=== PATIENT | male | born 1990 | race Two or more races ===

== ENCOUNTER 2022-05-06 23:39 | Inpatient (IN) | payer OTHER, SELFPAY ==
--- NOTE | 2022-05-07 02:05 | PC.ADMIT ---
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 PT IS A CONDITIONAL VOLUNTARY ON 15 MINUTE SAFETY CHECKS. PSYCH GROUP. COVID NEGATIVE. STABLE VITAL SIGNS. LABS UNREMARKABLE. NO ACTIVE MEDICAL CONCERNS. EKG NORMAL SINUS RHYTHM. PT WAS BROUGHT TO [facility] ED BY POLICE AFTER CALLING THE POLICE ON HIMSELF. PT APPEARED PARANOID AND WAS MAKING NONSENSICAL STATEMENTS, LOCKING THE POLICE OUT OF HIS HOME. PT REPORTS BEING ON CRYSTAL METH AT THE TIME OF TRANSFER TO THE HOSPITAL. PT BECAME COMBATIVE AT [facility] ED AND WAS PHYSICALLY AND MEDICATION RESTRAINED. PT HAS A SERVICE DOG WHO WAS BROUGHT TO [facility] FOR THE TIME BEING BY EMS. PT IS ALERT AND ORIENTED X4. PTS SPEECH IS CLEAR AND APPROPRIATE. PT HAS IMPAIRED INSIGHT AND COPING. PT REPORTS THAT HE THINKS PEOPLE HAVE BEEN POINTING AT HIM AND LOOKING AWAY FROM HIM IN PUBLIC. PT STATED, PEOPLE HAVE BEEN POINTED AT ME A LOT AND IT MAKES ME THINK I AM GOING TO BE SHOT AND KILLED,LIKE IM BEING TARGETED . PT STATED THAT HE KNOWS HE SOUNDS CRAZY . PT REPORTS INCREASED ANXIETY AND DEPRESSION. HE DENIES AH OR VH. PT DENIES THE URGE TO HARM HIMSELF OR OTHERS, STATING I WOULD NEVER HURT ANYONE AND NEVER WANT TO HURT MYSELF. I AM A LOVABLE PERSON AND GET ALONG WITH EVERYONE . PT APPEARED ANXIOUS OVER HAVING A ROOMMATE, ASKING MULTIPLE QUESTIONS ABOUT THE UNIT AND HIS ROOMING SITUATION. PT DENIES ALCOHOL USE. PT REPORTS USING STIMULANTS AND CANNABIS. PT HAS HAD AN INCREASED APPETITE LATELY AND REPORTS SLEEPING WELL MOST OF THE TIME. PT IS NOT A SMOKER AND DOES NOT NEED NICOTINE REPLACEMENT. PTS TREATMENT PLAN, SAFETY TOOL, AND MEDICATION RECONCILIATION ARE COMPLETED. PT WAS COOPERATIVE DURING ADMISSION PROCESS. PT REPORTS THAT HIS GOALS FOR ADMISSION ARE TO GET HELP WITH GETTING OFF STIMULANTS, TO FEEL LESS PARANOID, AND TO ESTABLISH A THERAPIST/PSYCHIATRIST.
[2022-05-07 06:00] VITALS: BP 126/82; PULSE 100; RESP 16; TEMP 36.5; O2SAT 100
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
[2022-05-07 10:05] LABS: Alanine Aminotransferase 16 U/L (0-40); Albumin Level 4.2 g/dL (3.5-5.0); Alkaline Phosphatase 79 U/L (39-117); Anion Gap 17 (12-20); Aspartate Amino Transferase 16 U/L (5-37); Bilirubin Total 0.4 mg/dL (0.0-1.0); Blood Urea Nitrogen 10 mg/dL (9-16); Calcium 9.2 mg/dL (8.4-10.2); Carbon Dioxide 25 mmol/L (22-29); Chloride 102 mmol/L (96-108); Cholesterol 207 mg/dL; Estimated Glomerular Filt Rate > 60; Glucose Fasting 61 mg/dL (60-99); HDL Cholesterol 53 mg/dL; LDL Cholesterol Calculated 122 mg/dl; Potassium 4.7 mmol/L (3.3-5.1); Sodium 139 mmol/L (135-145); Total Protein 7.4 g/dL (6.5-8.0); Triglycerides 160 mg/dL
[2022-05-07 18:00] VITALS: BP 137/87; PULSE 93; RESP 16; TEMP 36.5; O2SAT 97
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
[2022-05-08] MEDS: valACYclovir HCL 500 MG TABLET PO (14:39)
[2022-05-08] MEDS: hydrOXYzine HCL 25 MG TABLET PO (14:39)
[2022-05-08] MEDS: OLANZapine 2.5 MG TABLET PO ×2 (14:39→19:43)
[2022-05-08] MEDS: Dolutegravir Sodium 50 MG TABLET PO (15:46)
[2022-05-08] MEDS: Sertraline HCL 100 MG TABLET 200 MG PO (15:46)
[2022-05-08 18:00] VITALS: BP 145/68; PULSE 88; RESP 16; TEMP 36.8; O2SAT 99
[2022-05-08] MEDS: rOPINIRole HCL 0.25 MG TABLET PO (19:43)
[2022-05-08] MEDS: OLANZapine 5 MG TABLET PO (19:43)
[2022-05-09] MEDS: Sertraline HCL 100 MG TABLET 200 MG PO (09:04)
[2022-05-09] MEDS: OLANZapine 2.5 MG TABLET PO ×2 (09:04→20:13)
[2022-05-09] MEDS: Dolutegravir Sodium 50 MG TABLET PO (09:04)
[2022-05-09] MEDS: valACYclovir HCL 500 MG TABLET PO (09:04)
[2022-05-09 18:00] VITALS: BP 109/68; PULSE 74; RESP 16; TEMP 36.8; O2SAT 99
[2022-05-09] MEDS: OLANZapine 5 MG TABLET PO (20:12)
[2022-05-09] MEDS: rOPINIRole HCL 0.25 MG TABLET PO (20:13)
--- NOTE | 2022-05-09 22:24 | P.PNPSI_ITS ---
Subjective Subjective Date of Service: 05/09/22 Reason For Visit: Unspecified depressive disorder Diagnostics Vital Signs (24Hr): resting he has been sleeping most of the day Narrative: Temperature 98.2 F Pulse Rate 74 Respiratory Rate 16 improved. Diagnostics Vital Signs (24Hr): Oxygen Delivery Method Room Air 05/09/22 Temperature 98.2 F Pulse Rate 74 Respiratory Rate 16 Blood Pressure 109/68 Pulse Oximetry 99 Oxygen Delivery Method Room Air Labs Results: 05/07/22 09:14 Medications Medications Current Medications Acetaminophen (Acetaminophen 325 Mg Tablet) 650 mg PO Q6H PRN PRN Reason: Headache/Pain Mild Scale (1-3) Al Hydroxide/Mg Hydroxide (Magnesium Hydrox/Alum Hydrox 30 Ml Oral.Susp) 30 ml PO Q6H PRN PRN Reason: Heartburn/Nausea Dolutegravir Sodium (Dolutegravir Sodium 50 Mg Tablet) 50 mg PO DAILY [facility] Last Admin: 05/09/22 09:04 Dose: 50 mg Hydroxyzine HCl (Hydroxyzine Hcl 25 Mg Tablet) 25 mg PO Q6H PRN PRN Reason: Anxiety Last Admin: 05/08/22 14:39 Dose: 25 mg Lamivudine (Lamivudine 150 Mg Tablet) 300 mg PO DAILY [facility] Loratadine (Loratadine 10 Mg Tablet) 10 mg PO DAILY PRN
--- NOTE | 2022-05-09 22:24 | HO.PSYCHPN ---
Subjective Subjective Date of Service: 05/09/22 Reason For Visit: Unspecified depressive disorder Interim History: Patient reports that he is better...good however he says he is feeling very tired today likely because of medication being restarted wants to continue resting he has been sleeping most of the day Mental Status Exam Mental Status Exam Narrative: Pt is alert and oriented; behavior is cooperative, calm, friendly; dressed in casual attire with blue colored, styled hair and adequate hygiene; mood is described as better and affect congruent, calmer; good eye contact; Speech is normal rate, volume and prosody and not pressured; no psychomotor retardation present; thought process is goal directed, linear; Thought content is on treatment, getting and staying sober; denies any SI/HI. There is no evidence of perceptual disturbance. Patients insight and judgment are impaired but improved. Diagnostics Vital Signs (24Hr): Vital Signs - 24 hr 05/09/22 18:00 Temperature 98.2 F Pulse Rate 74 Respiratory Rate 16 Blood Pressure 109/68 Pulse Oximetry 99 Oxygen Delivery Method Room Air Labs Results: 05/07/22 09:14 Medications Medications Current Medications Acetaminophen (Acetaminophen 325 Mg Tablet) 650 mg PO Q6H PRN PRN Reason: Headache/Pain Mild Scale (1-3) Al Hydroxide/Mg Hydroxide (Magnesium Hydrox/Alum Hydrox 30 Ml Oral.Susp) 30 ml PO Q6H PRN PRN Reason: Heartburn/Nausea Dolutegravir Sodium (Dolutegravir Sodium 50 Mg Tablet) 50 mg PO DAILY [facility] Last Admin: 05/09/22 09:04 Dose: 50 mg Hydroxyzine HCl (Hydroxyzine Hcl 25 Mg Tablet) 25 mg PO Q6H PRN PRN Reason: Anxiety Last Admin: 05/08/22 14:39 Dose: 25 mg Lamivudine (Lamivudine 150 Mg Tablet) 300 mg PO DAILY [facility] Loratadine (Loratadine 10 Mg Tablet) 10 mg PO DAILY PRN PRN Reason: Congestion Magnesium Hydroxide (Milk Of Magnesia 30 Ml Oral.Susp) 30 ml PO DAILY PRN PRN Reason: Constipation Olanzapine (Olanzapine 5 Mg Tablet) 5 mg PO BEDTIME [facility] Last Admin: 05/09/22 20:12 Dose: 5 mg Olanzapine (Olanzapine 2.5 Mg Tablet) 2.5 mg PO BID [facility] Last Admin: 05/09/22 20:13 Dose: 2.5 mg Ropinirole HCl (Ropinirole Hcl 0.25 Mg Tablet) 0.25 mg PO BEDTIME [facility] Last Admin: 05/09/22 20:13 Dose: 0.25 mg Sertraline HCl (Sertraline Hcl 100 Mg Tablet) 200 mg PO DAILY [facility] Last Admin: 05/09/22 09:04 Dose: 200 mg Trazodone HCl (Trazodone Hcl 50 Mg Tablet) 50 mg PO BEDTIME PRN PRN Reason: Insomnia Valacyclovir HCl (Valacyclovir Hcl 500 Mg Tablet) 500 mg PO DAILY [facility] Last Admin: 05/09/22 09:04 Dose: 500 mg Allergies Allergies Allergy/AdvReac Type Severity Reaction Status Date / Time No Known Allergies Allergy Verified 05/06/22 23:46 Assessment & Plan Assessment & Plan (1) Drug-induced psychotic disorder with delusions: Status: Acute Code(s): F19.950 - Other psychoactive substance use, unspecified with psychoactive substance-induced psychotic disorder with delusions (2) Post traumatic stress disorder (PTSD): Status: Acute Code(s): F43.10 - Post-traumatic stress disorder, unspecified (3) MDD (major depressive disorder), recurrent episode, moderate: Status: Acute Code(s): F33.1 - Major depressive disorder, recurrent, moderate (4) Methamphetamine addiction: Status: Acute Code(s): F15.20 - Other stimulant dependence, uncomplicated Plan Patient is a 31-year-old male with history of depression, psychotic symptoms and methamphetamine and other substance abuse who presents for disorganized and psychotic behavior.? Patient is currently calm, lying in bed with his eyes closed throughout the interview -patient is currently calm and cooperative though with some odd behaviors -patient has had 2 recent hospital presentations for paranoia, disorganized behavior in craig -will see collateral and get patient back on medications and try to figure out how much of his presentation is due to organic psychotic illness verses Methamphetamine abuse 05/08 patient gave permission for collateral, signed release of information.? Patient's report and collateral both seem to concur that patient's disorganized, paranoid behaviors or all in the context of methamphetamine abuse; patient currently denies any SI or HI or AVH; no paranoid thinking expressed (thinks that to former friends have been stealing from him however this is quite plausible).? Patient would like to continue Zoloft and agrees to continue with Zyprexa.? Review of history and patient denies any discrete manic episodes or behaviors 05/09 patient is calm no psychotic symptoms; seems much more likely that patient recent and past episodes of paranoid, disorganized behavior due to methamphetamine abuse and drug-induced rather than an organic psychotic illness; he does have PTSD and depression. Plan: CV Q 15 minute checks PTSD/depression Continue Zoloft 200mg Continue Zyprexa 2.5 mg b.i.d. Continue Zyprexa 5 mg q.h.s. See collateral review labs Start ropinirole 0.25 mg q.h.s. (patient described what sounds very much like restless leg as he needs to thought been move his legs at night and otherwise cannot sleep) HIV Continue HAART with HIV. I spent minutes with the patient and/or on the patient floor today, greater than?50% of which was spent counseling/coordinating care. Patient educated on: diagnosis, medication risk/benefits and substance abuse Informed Consent: understands Reason for contiued inpatient stay Substantial Risk for: rapid decompensation
[2022-05-10 06:00] VITALS: BP 149/91; PULSE 84; RESP 18; TEMP 36.4; O2SAT 97
[2022-05-10] MEDS: lamiVUDine 150 MG TABLET 300 MG PO (09:48)
[2022-05-10] MEDS: Sertraline HCL 100 MG TABLET 200 MG PO (09:48)
[2022-05-10] MEDS: Dolutegravir Sodium 50 MG TABLET PO (09:48)
[2022-05-10] MEDS: OLANZapine 2.5 MG TABLET PO (09:48)
[2022-05-10] MEDS: valACYclovir HCL 500 MG TABLET PO (09:48)
[2022-05-10] MEDS: busPIRone HCl 5 MG TABLET PO ×2 (14:47→19:14)
[2022-05-10 17:28] VITALS: BP 121/78; PULSE 83; RESP 16; TEMP 35.7; O2SAT 98
[2022-05-10] MEDS: rOPINIRole HCL 0.25 MG TABLET 0.5 MG PO (19:14)
[2022-05-10] MEDS: OLANZapine 5 MG TABLET PO (19:14)
--- NOTE | 2022-05-10 20:20 | HO.PSYCHPN ---
Subjective Subjective Date of Service: 05/10/22 Reason For Visit: Unspecified depressive disorder Interim History: Patient calm and says he is feeling much better. Says he is sleeping that restless leg was a less knows will but it does. He agrees to increase ropinirole. Patient is not so sure he needs Zyprexa and does not think that it done much for him. He agrees to discontinue the 2.5 mg b.i.d. and leave the bedtime dose for now. However because of continued anxiety that has been bothersome for years, he agrees to try BuSpar as an augmentation to Zoloft before moving on to other med trials. Patient says he very much needs an outpatient program post discharge otherwise he will remain very vulnerable to relapse. Mental Status Exam Mental Status Exam Narrative: Pt is alert and oriented; behavior is cooperative, calm, friendly; dressed in casual attire with blue colored, styled hair and adequate hygiene; mood is described as better and affect congruent, calmer; good eye contact; Speech is normal rate, volume and prosody and not pressured; no psychomotor retardation present; thought process is goal directed, linear; Thought content is on treatment, getting and staying sober; denies any SI/HI. There is no evidence of perceptual disturbance. Patients insight and judgment are fair. Diagnostics Vital Signs (24Hr): Vital Signs - 24 hr 05/10/22 06:00 05/10/22 17:28 Temperature 97.5 F 96.3 F L Pulse Rate 84 83 Respiratory Rate 18 16 Blood Pressure 149/91 H 121/78 Pulse Oximetry 97 98 Oxygen Delivery Method Room Air Room Air Labs Results: 05/07/22 09:14 Medications Medications Current Medications Acetaminophen (Acetaminophen 325 Mg Tablet) 650 mg PO Q6H PRN PRN Reason: Headache/Pain Mild Scale (1-3) Al Hydroxide/Mg Hydroxide (Magnesium Hydrox/Alum Hydrox 30 Ml Oral.Susp) 30 ml PO Q6H PRN PRN Reason: Heartburn/Nausea Buspirone HCl (Buspirone Hcl 5 Mg Tablet) 5 mg PO BID [facility] Last Admin: 05/10/22 19:14 Dose: 5 mg Dolutegravir Sodium (Dolutegravir Sodium 50 Mg Tablet) 50 mg PO DAILY [facility] Last Admin: 05/10/22 09:48 Dose: 50 mg Hydroxyzine HCl (Hydroxyzine Hcl 25 Mg Tablet) 25 mg PO Q6H PRN PRN Reason: Anxiety Last Admin: 05/08/22 14:39 Dose: 25 mg Lamivudine (Lamivudine 150 Mg Tablet) 300 mg PO DAILY [facility] Last Admin: 05/10/22 09:48 Dose: 300 mg Loratadine (Loratadine 10 Mg Tablet) 10 mg PO DAILY PRN PRN Reason: Congestion Magnesium Hydroxide (Milk Of Magnesia 30 Ml Oral.Susp) 30 ml PO DAILY PRN PRN Reason: Constipation Olanzapine (Olanzapine 5 Mg Tablet) 5 mg PO BEDTIME [facility] Last Admin: 05/10/22 19:14 Dose: 5 mg Ropinirole HCl (Ropinirole Hcl 0.25 Mg Tablet) 0.5 mg PO BEDTIME [facility] Last Admin: 05/10/22 19:14 Dose: 0.5 mg Sertraline HCl (Sertraline Hcl 100 Mg Tablet) 200 mg PO DAILY [facility] Last Admin: 05/10/22 09:48 Dose: 200 mg Trazodone HCl (Trazodone Hcl 50 Mg Tablet) 50 mg PO BEDTIME PRN PRN Reason: Insomnia Valacyclovir HCl (Valacyclovir Hcl 500 Mg Tablet) 500 mg PO DAILY [facility] Last Admin: 05/10/22 09:48 Dose: 500 mg Allergies Allergies Allergy/AdvReac Type Severity Reaction Status Date / Time No Known Allergies Allergy Verified 05/06/22 23:46 Assessment & Plan Assessment & Plan (1) Drug-induced psychotic disorder with delusions: Status: Acute Code(s): F19.950 - Other psychoactive substance use, unspecified with psychoactive substance-induced psychotic disorder with delusions (2) Post traumatic stress disorder (PTSD): Status: Acute Code(s): F43.10 - Post-traumatic stress disorder, unspecified (3) MDD (major depressive disorder), recurrent episode, moderate: Status: Acute Code(s): F33.1 - Major depressive disorder, recurrent, moderate (4) Methamphetamine addiction: Status: Acute Code(s): F15.20 - Other stimulant dependence, uncomplicated Plan Patient is a 31-year-old male with history of depression, psychotic symptoms and methamphetamine and other substance abuse who presents for disorganized and psychotic behavior.? Patient is currently calm, lying in bed with his eyes closed throughout the interview -patient is currently calm and cooperative though with some odd behaviors -patient has had 2 recent hospital presentations for paranoia, disorganized behavior in [place] -will see collateral and get patient back on medications and try to figure out how much of his presentation is due to organic psychotic illness verses Methamphetamine abuse 05/08 patient gave permission for collateral, signed release of information.? Patient's report and collateral both seem to concur that patient's disorganized, paranoid behaviors or all in the context of methamphetamine abuse; patient currently denies any SI or HI or AVH; no paranoid thinking expressed (thinks that to former friends have been stealing from him however this is quite plausible).? Patient would like to continue Zoloft and agrees to continue with Zyprexa.? Review of history and patient denies any discrete manic episodes or behaviors 05/09 patient is calm no psychotic symptoms; seems much more likely that patient recent and past episodes of paranoid, disorganized behavior due to methamphetamine abuse and drug-induced rather than an organic psychotic illness; he does have PTSD and depression. Plan: CV Q 15 minute checks PTSD/depression Continue Zoloft 200mg DCZyprexa 2.5 mg b.i.d. START Buspare 5mg BID for ongoing anxiety not controlled by Zoloft; will titrate Continue Zyprexa 5 mg q.h.s. See collateral review labs Increase to ropinirole 0.5mg q.h.s. (patient described what sounds very much like restless leg as he needs to thought been move his legs at night and otherwise cannot sleep); reviewed risks/side-effects HIV Continue HAART with HIV. I spent minutes with the patient and/or on the patient floor today, greater than?50% of which was spent counseling/coordinating care. Patient educated on: diagnosis, medication risk/benefits, substance abuse and therapeutic strategies Informed Consent: understands Reason for contiued inpatient stay Substantial Risk for: rapid decompensation
[2022-05-11 06:00] VITALS: BP 143/81; PULSE 93; RESP 18; TEMP 36.8; O2SAT 97
[2022-05-11] MEDS: valACYclovir HCL 500 MG TABLET PO (09:52)
[2022-05-11] MEDS: Sertraline HCL 100 MG TABLET 200 MG PO (09:52)
[2022-05-11] MEDS: lamiVUDine 150 MG TABLET 300 MG PO (09:53)
[2022-05-11] MEDS: Dolutegravir Sodium 50 MG TABLET PO (09:54)
[2022-05-11] MEDS: busPIRone HCl 5 MG TABLET PO (09:54)
--- NOTE | 2022-05-11 14:19 | HO.PSYCHPN ---
Subjective Subjective Date of Service: 05/11/22 Reason For Visit: Unspecified depressive disorder Interim History: Patient reports that he is doing well; no depression no SI. Still some anxiety and would like BuSpar to be increased. Otherwise looking forward to discussing options with social work job titles when they return tomorrow. Patient reported a burning sensation during urination with some discharge, requesting testing for STD. Patient remains in good behavioral and impulse control, social with peers and appropriate with staff other patients. No AVH Diagnostics Vital Signs (24Hr): Vital Signs - 24 hr 05/10/22 17:28 05/11/22 06:00 Temperature 96.3 F L 98.2 F Pulse Rate 83 93 Respiratory Rate 16 18 Blood Pressure 121/78 143/81 H Pulse Oximetry 98 97 Oxygen Delivery Method Room Air Room Air Labs Results: 05/07/22 09:14 Medications Medications Current Medications Acetaminophen (Acetaminophen 325 Mg Tablet) 650 mg PO Q6H PRN PRN Reason: Headache/Pain Mild Scale (1-3) Al Hydroxide/Mg Hydroxide (Magnesium Hydrox/Alum Hydrox 30 Ml Oral.Susp) 30 ml PO Q6H PRN PRN Reason: Heartburn/Nausea Buspirone HCl (Buspirone Hcl 10 Mg Tablet) 10 mg PO BID [facility] Clonidine HCl (Clonidine Hcl 0.1 Mg Tablet) 0.1 mg PO Q4H PRN; Protocol PRN Reason: Anxiety Dolutegravir Sodium (Dolutegravir Sodium 50 Mg Tablet) 50 mg PO DAILY [facility] Last Admin: 05/11/22 09:54 Dose: 50 mg Hydroxyzine HCl (Hydroxyzine Hcl 25 Mg Tablet) 25 mg PO Q6H PRN PRN Reason: Anxiety Last Admin: 05/08/22 14:39 Dose: 25 mg Lamivudine (Lamivudine 150 Mg Tablet) 300 mg PO DAILY [facility] Last Admin: 05/11/22 09:53 Dose: 300 mg Loratadine (Loratadine 10 Mg Tablet) 10 mg PO DAILY PRN PRN Reason: Congestion Magnesium Hydroxide (Milk Of Magnesia 30 Ml Oral.Susp) 30 ml PO DAILY PRN PRN Reason: Constipation Olanzapine (Olanzapine 5 Mg Tablet) 5 mg PO BEDTIME [facility] Last Admin: 05/10/22 19:14 Dose: 5 mg Ropinirole HCl (Ropinirole Hcl 0.25 Mg Tablet) 0.5 mg PO BEDTIME [facility] Last Admin: 05/10/22 19:14 Dose: 0.5 mg Sertraline HCl (Sertraline Hcl 100 Mg Tablet) 200 mg PO DAILY [facility] Last Admin: 05/11/22 09:52 Dose: 200 mg Trazodone HCl (Trazodone Hcl 50 Mg Tablet) 50 mg PO BEDTIME PRN PRN Reason: Insomnia Valacyclovir HCl (Valacyclovir Hcl 500 Mg Tablet) 500 mg PO DAILY [facility] Last Admin: 05/11/22 09:52 Dose: 500 mg Allergies Allergies Allergy/AdvReac Type Severity Reaction Status Date / Time No Known Allergies Allergy Verified 05/06/22 23:46 Assessment & Plan Assessment & Plan (1) Drug-induced psychotic disorder with delusions: Status: Acute Code(s): F19.950 - Other psychoactive substance use, unspecified with psychoactive substance-induced psychotic disorder with delusions (2) Post traumatic stress disorder (PTSD): Status: Acute Code(s): F43.10 - Post-traumatic stress disorder, unspecified (3) MDD (major depressive disorder), recurrent episode, moderate: Status: Acute Code(s): F33.1 - Major depressive disorder, recurrent, moderate (4) Methamphetamine addiction: Status: Acute Code(s): F15.20 - Other stimulant dependence, uncomplicated Plan Patient is a 31-year-old male with history of depression, psychotic symptoms and methamphetamine and other substance abuse who presents for disorganized and psychotic behavior.? Patient is currently calm, lying in bed with his eyes closed throughout the interview -patient is currently calm and cooperative though with some odd behaviors -patient has had 2 recent hospital presentations for paranoia, disorganized behavior in [place] -will see collateral and get patient back on medications and try to figure out how much of his presentation is due to organic psychotic illness verses Methamphetamine abuse 05/08 patient gave permission for collateral, signed release of information.? Patient's report and collateral both seem to concur that patient's disorganized, paranoid behaviors or all in the context of methamphetamine abuse; patient currently denies any SI or HI or AVH; no paranoid thinking expressed (thinks that to former friends have been stealing from him however this is quite plausible).? Patient would like to continue Zoloft and agrees to continue with Zyprexa.? Review of history and patient denies any discrete manic episodes or behaviors 05/09 patient is calm no psychotic symptoms; seems much more likely that patient recent and past episodes of paranoid, disorganized behavior due to methamphetamine abuse and drug-induced rather than an organic psychotic illness; he does have PTSD and depression. 05/10 patient remains in good behavioral control, no SI and no AVH psychotic symptoms; would like BuSpar to be increased for anxiety; like testing for STD given burning sensation during urination with some discharge. Adding clonidine at bedtime for trouble sleeping though not nightmares Plan: CV Q 15 minute checks PTSD/depression Continue Zoloft 200mg DCZyprexa 2.5 mg b.i.d. Increase to Buspare 1omg BID for ongoing anxiety not controlled by Zoloft; will titrate START Clonidine 0.1mg qhs for trouble sleeping Continue Zyprexa 5 mg q.h.s. Continue ropinirole 0.5mg q.h.s. (patient described what sounds very much like restless leg as he needs to thought been move his legs at night and otherwise cannot sleep); reviewed risks/side-effects See collateral review labs Labs: CTNG pcr chlamydia/gonorrhea RPR Hepatitis B/C panel UA clean-catch HIV Continue HAART with HIV. I spent minutes with the patient and/or on the patient floor today, greater than?50% of which was spent counseling/coordinating care. Patient educated on: diagnosis, medication risk/benefits and therapeutic strategies Informed Consent: understands Reason for contiued inpatient stay Substantial Risk for: stable for discharge
[2022-05-11 14:55] LABS: Syphilis Screen Reactive (Nonreactive)
[2022-05-11 15:18] LABS: Appearance Urine Clear; Color Urine Yellow; Glucose Urine UA Negative (Negative); Leukocyte Esterase Urine Moderate (2+) (Negative); Nitrite Urine Negative (Negative); PH 5.5 (5.0-9.0); UMIC TRIGGER UACC YES; Urine Blood Negative (Negative); Urine Ketones Negative (Negative); Urine Protein Negative (Neg-Trace)
[2022-05-11 15:23] LABS: Bacteria Urine None Seen (None Seen); Hyaline Casts Urine 0-2 /LPF (0-2); RBC Urine 0-2 /HPF (0-2); Squamous Epithelial Cell Urine 0-2 /HPF (0-2); UACC Culture Trigger YES; WBC Urine >50 /HPF (0-5)
[2022-05-11 17:34] LABS: CT PCR NOT DETECTED (Not Detect.); NG PCR DETECTED (Not Detect.)
[2022-05-11 18:00] VITALS: BP 143/80; PULSE 102; RESP 20; TEMP 36.4; O2SAT 95
[2022-05-11] MEDS: OLANZapine 5 MG TABLET PO (20:11)
[2022-05-11] MEDS: busPIRone HCl 10 MG TABLET PO (20:11)
[2022-05-11] MEDS: rOPINIRole HCL 0.25 MG TABLET 0.5 MG PO (20:11)
[2022-05-12 06:04] LABS: HBS Num1 107.26 mIU/mL (0-7.99); HBc Num1 1.12 S/CO (0.00-0.79); HBsAGNum1 0.12 S/CO (0.00-0.99); Hepatitis B Surface Antigen Negative (Negative); ~HepC Num1 15.27 S/CO (0.00-0.79); ~Hepatitis B Surface Antibody REACTIVE (Nonreactive); ~Hepatitis C Antibody Reactive (Nonreactive)
[2022-05-12 06:50] LABS: HBc Num2 1.06 S/CO; HBc Num3 1.09 S/CO; Hepatitis B Core Antibody Reactive (Nonreactive)
[2022-05-12] MEDS: lamiVUDine 150 MG TABLET 300 MG PO (08:37)
[2022-05-12] MEDS: valACYclovir HCL 500 MG TABLET PO (08:37)
[2022-05-12] MEDS: busPIRone HCl 10 MG TABLET PO ×2 (08:37→20:58)
[2022-05-12] MEDS: Dolutegravir Sodium 50 MG TABLET PO (08:38)
[2022-05-12] MEDS: Sertraline HCL 100 MG TABLET 200 MG PO (08:38)
[2022-05-12 09:26] VITALS: BP 134/85; PULSE 91; RESP 18; TEMP 36.8; O2SAT 100
[2022-05-12 16:11] VITALS: BMI 25.7
[2022-05-12 16:15] VITALS: BP 145/70; PULSE 81; TEMP 36.3
--- NOTE | 2022-05-12 18:00 | HO.PSYCHPN ---
Subjective Subjective Date of Service: 05/12/22 Reason For Visit: Unspecified depressive disorder Interim History: Patient reports good mood, and anxiety is better. He would like to try being off the Zyprexa and so will make it p.r.n.. Remains very interested in aftercare for substance abuse treatment. Denies any SI or HI or AVH. Reviewed lab work and positive results for STDs and patient agrees with antibiotic treatment, further lab analysis Mental Status Exam Mental Status Exam Narrative: Pt is alert and oriented; behavior is cooperative, calm, friendly; dressed in casual attire with blue colored, styled hair and adequate hygiene; mood is described as good and affect congruent, calmer; good eye contact; Speech is normal rate, volume and prosody and not pressured; no psychomotor retardation present; thought process is goal directed, linear; Thought content is on treatment, getting and staying sober; denies any SI/HI. There is no evidence of perceptual disturbance. Patients insight and judgment are fair. Diagnostics Vital Signs (24Hr): Vital Signs - 24 hr 05/12/22 09:26 Temperature 98.2 F Pulse Rate 91 Respiratory Rate 18 Blood Pressure 134/85 Pulse Oximetry 100 Oxygen Delivery Method Room Air BMI result Body Mass Index 25.7 Labs Results: 05/07/22 09:14 Labs: Laboratory Results - last 48 hr 05/11/22 05/11/22 05/11/22 14:10 14:10 14:19 Urine Color Urine Appearance Urine pH Ur Specific [place] Urine Protein Urine Glucose (UA) Urine Ketones Urine Blood Urine Nitrite Ur Leukocyte Esterase Urine RBC Urine WBC Ur Squamous Epith Cells Urine Bacteria Hyaline Casts T.pallidum Ab (EIA) Reactive A Chlam trachomat DNA PCR NOT DETECTED Hep Bs Antigen Negative Hep Bs Antibody REACTIVE Hep B Core Total Ab Reactive Hep B Core IgM Ab Cancelled Hepatitis C Ab (EIA) Reactive H N.gonorrhoeae DNA (PCR) DETECTED A 05/11/22 14:46 Urine Color Yellow Urine Appearance Clear Urine pH 5.5 Ur Specific [place] 1.020 Urine Protein Negative Urine Glucose (UA) Negative Urine Ketones Negative Urine Blood Negative Urine Nitrite Negative Ur Leukocyte Esterase Moderate (2+) H Urine RBC 0-2 Urine WBC >50 H Ur Squamous Epith Cells 0-2 Urine Bacteria None Seen Hyaline Casts 0-2 T.pallidum Ab (EIA) Chlam trachomat DNA PCR Hep Bs Antigen Hep Bs Antibody Hep B Core Total Ab Hep B Core IgM Ab Hepatitis C Ab (EIA) N.gonorrhoeae DNA (PCR) Medications Medications Current Medications Acetaminophen (Acetaminophen 325 Mg Tablet) 650 mg PO Q6H PRN PRN Reason: Headache/Pain Mild Scale (1-3) Al Hydroxide/Mg Hydroxide (Magnesium Hydrox/Alum Hydrox 30 Ml Oral.Susp) 30 ml PO Q6H PRN PRN Reason: Heartburn/Nausea Buspirone HCl (Buspirone Hcl 10 Mg Tablet) 10 mg PO BID [facility] Last Admin: 05/12/22 08:37 Dose: 10 mg Clonidine HCl (Clonidine Hcl 0.1 Mg Tablet) 0.1 mg PO Q4H PRN; Protocol PRN Reason: Anxiety Dolutegravir Sodium (Dolutegravir Sodium 50 Mg Tablet) 50 mg PO DAILY [facility] Last Admin: 05/12/22 08:38 Dose: 50 mg Doxycycline Hyclate (Doxycycline Hyclate 100 Mg Tablet) 100 mg PO BID [facility] Stop: 05/21/22 23:50 Last Admin: 05/12/22 16:25 Dose: 100 mg Hydroxyzine HCl (Hydroxyzine Hcl 25 Mg Tablet) 25 mg PO Q6H PRN PRN Reason: Anxiety Last Admin: 05/08/22 14:39 Dose: 25 mg Lamivudine (Lamivudine 150 Mg Tablet) 300 mg PO DAILY [facility] Last Admin: 05/12/22 08:37 Dose: 300 mg Loratadine (Loratadine 10 Mg Tablet) 10 mg PO DAILY PRN PRN Reason: Congestion Magnesium Hydroxide (Milk Of Magnesia 30 Ml Oral.Susp) 30 ml PO DAILY PRN PRN Reason: Constipation Olanzapine (Olanzapine 5 Mg Tablet) 5 mg PO DAILY PRN PRN Reason: anxiety Ropinirole HCl (Ropinirole Hcl 0.25 Mg Tablet) 0.5 mg PO BEDTIME [facility] Last Admin: 05/11/22 20:11 Dose: 0.5 mg Sertraline HCl (Sertraline Hcl 100 Mg Tablet) 200 mg PO DAILY [facility] Last Admin: 05/12/22 08:38 Dose: 200 mg Trazodone HCl (Trazodone Hcl 50 Mg Tablet) 50 mg PO BEDTIME PRN PRN Reason: Insomnia Valacyclovir HCl (Valacyclovir Hcl 500 Mg Tablet) 500 mg PO DAILY [facility] Last Admin: 05/12/22 08:37 Dose: 500 mg Allergies Allergies Allergy/AdvReac Type Severity Reaction Status Date / Time No Known Allergies Allergy Verified 05/06/22 23:46 Assessment & Plan Assessment & Plan (1) Drug-induced psychotic disorder with delusions: Status: Acute Code(s): F19.950 - Other psychoactive substance use, unspecified with psychoactive substance-induced psychotic disorder with delusions (2) Post traumatic stress disorder (PTSD): Status: Acute Code(s): F43.10 - Post-traumatic stress disorder, unspecified (3) MDD (major depressive disorder), recurrent episode, moderate: Status: Acute Code(s): F33.1 - Major depressive disorder, recurrent, moderate (4) Methamphetamine addiction: Status: Acute Code(s): F15.20 - Other stimulant dependence, uncomplicated Plan Patient is a 31-year-old male with history of depression, psychotic symptoms and methamphetamine and other substance abuse who presents for disorganized and psychotic behavior.? Patient is currently calm, lying in bed with his eyes closed throughout the interview -patient is currently calm and cooperative though with some odd behaviors -patient has had 2 recent hospital presentations for paranoia, disorganized behavior in [place] -will see collateral and get patient back on medications and try to figure out how much of his presentation is due to organic psychotic illness verses Methamphetamine abuse 05/08 patient gave permission for collateral, signed release of information.? Patient's report and collateral both seem to concur that patient's disorganized, paranoid behaviors or all in the context of methamphetamine abuse; patient currently denies any SI or HI or AVH; no paranoid thinking expressed (thinks that to former friends have been stealing from him however this is quite plausible).? Patient would like to continue Zoloft and agrees to continue with Zyprexa.? Review of history and patient denies any discrete manic episodes or behaviors 05/09 patient is calm no psychotic symptoms; seems much more likely that patient recent and past episodes of paranoid, disorganized behavior due to methamphetamine abuse and drug-induced rather than an organic psychotic illness; he does have PTSD and depression. 05/10 patient remains in good behavioral control, no SI and no AVH psychotic symptoms; would like BuSpar to be increased for anxiety; like testing for STD given burning sensation during urination with some discharge. Adding clonidine at bedtime for trouble sleeping though not nightmares Plan: CV Q 15 minute checks PTSD/depression Continue Zoloft 200mg DCZyprexa 2.5 mg b.i.d. Increase to Buspare 10mg BID for ongoing anxiety not controlled by Zoloft; will titrate Clonidine 0.1mg qhs anxiety/trouble sleeping CHANGED to PRN Zyprexa 5 mg q.h.s. Prn; no psychosis; while this could be a stabilizing factor, has unwanted side effect profile so will see how patient does without it Continue ropinirole 0.5mg q.h.s. (patient described what sounds very much like restless leg as he needs to thought been move his legs at night and otherwise cannot sleep); reviewed risks/side-effects See collateral review labs +Gonnorhea/possible Syphy (could be old)/+hep C/B reactive (but could be old): Discussed case with Dr. Rizvi who recommended following antibiotics/ labs Ceftriaxone 500mg IM once Doxycycline 100 mg b.i.d. for 10 day (in case occult chlamydia) Will get hep C viral load; patient treated with Harvoni in the past RPR pending HIV Continue HAART with HIV. I spent minutes with the patient and/or on the patient floor today, greater than?50% of which was spent counseling/coordinating care. Patient educated on: diagnosis, medication risk/benefits and medical condition Informed Consent: understands Reason for contiued inpatient stay Substantial Risk for: stable for discharge
[2022-05-12] MEDS: cefTRIAXone sodium 500 MG VIAL IM (19:19)
[2022-05-12] MEDS: rOPINIRole HCL 0.25 MG TABLET 0.5 MG PO (20:57)
[2022-05-12] MEDS: traZODone HCL 50 MG TABLET PO (21:08)
[2022-05-13] MEDS: Sertraline HCL 100 MG TABLET 200 MG PO (08:15)
[2022-05-13] MEDS: Dolutegravir Sodium 50 MG TABLET PO (08:15)
[2022-05-13] MEDS: busPIRone HCl 10 MG TABLET PO ×2 (08:15→21:21)
[2022-05-13] MEDS: valACYclovir HCL 500 MG TABLET PO (08:16)
[2022-05-13] MEDS: lamiVUDine 150 MG TABLET 300 MG PO (08:16)
[2022-05-13 08:58] VITALS: BP 148/90; PULSE 91; RESP 16; TEMP 36.5; O2SAT 97
--- NOTE | 2022-05-13 12:32 | HO.PSYCHPN ---
Subjective Subjective Date of Service: 05/13/22 Reason For Visit: Unspecified depressive disorder Interim History: doing well; no depression, anxiety better; no AVH. Dc'd zyprexa which pt continues to agree with. Still makes references to people in his drug [place] making hand gestures of guns toward him which maybe true and otherwise, no delusional thinking present. Trouble sleeping and asks for tazodone increased; still restless leg and agrees ropinirole increased. Discussing CSS/TSS with SW. discussed lab results further Mental Status Exam Mental Status Exam Narrative: Pt is alert and oriented; behavior is cooperative, calm, friendly; dressed in casual attire with blue colored, styled hair and adequate hygiene; mood is described as good and affect congruent, calmer; good eye contact; Speech is normal rate, volume and prosody and not pressured; no psychomotor retardation present; thought process is goal directed, linear; Thought content is on treatment, getting and staying sober; denies any SI/HI. There is no evidence of perceptual disturbance. Patients insight and judgment are fair. Diagnostics Vital Signs (24Hr): Vital Signs - 24 hr 05/12/22 16:15 05/13/22 08:58 Temperature 97.3 F 97.7 F Pulse Rate 81 91 Respiratory Rate 16 Blood Pressure 145/70 H 148/90 H Pulse Oximetry 97 BMI result Body Mass Index 25.7 Labs Results: 05/07/22 09:14 Labs: Laboratory Results - last 48 hr 05/11/22 05/11/22 05/11/22 14:10 14:10 14:19 Urine Color Urine Appearance Urine pH Ur Specific [place] Urine Protein Urine Glucose (UA) Urine Ketones Urine Blood Urine Nitrite Ur Leukocyte Esterase Urine RBC Urine WBC Ur Squamous Epith Cells Urine Bacteria Hyaline Casts T.pallidum Ab (EIA) Reactive A Chlam trachomat DNA PCR NOT DETECTED Hep Bs Antigen Negative Hep Bs Antibody REACTIVE Hep B Core Total Ab Reactive Hep B Core IgM Ab Cancelled Hepatitis C Ab (EIA) Reactive H N.gonorrhoeae DNA (PCR) DETECTED A 05/11/22 14:46 Urine Color Yellow Urine Appearance Clear Urine pH 5.5 Ur Specific [place] 1.020 Urine Protein Negative Urine Glucose (UA) Negative Urine Ketones Negative Urine Blood Negative Urine Nitrite Negative Ur Leukocyte Esterase Moderate (2+) H Urine RBC 0-2 Urine WBC >50 H Ur Squamous Epith Cells 0-2 Urine Bacteria None Seen Hyaline Casts 0-2 T.pallidum Ab (EIA) Chlam trachomat DNA PCR Hep Bs Antigen Hep Bs Antibody Hep B Core Total Ab Hep B Core IgM Ab Hepatitis C Ab (EIA) N.gonorrhoeae DNA (PCR) Medications Medications Current Medications Acetaminophen (Acetaminophen 325 Mg Tablet) 650 mg PO Q6H PRN PRN Reason: Headache/Pain Mild Scale (1-3) Al Hydroxide/Mg Hydroxide (Magnesium Hydrox/Alum Hydrox 30 Ml Oral.Susp) 30 ml PO Q6H PRN PRN Reason: Heartburn/Nausea Buspirone HCl (Buspirone Hcl 10 Mg Tablet) 10 mg PO BID [facility] Last Admin: 05/13/22 08:15 Dose: 10 mg Clonidine HCl (Clonidine Hcl 0.1 Mg Tablet) 0.1 mg PO Q4H PRN; Protocol PRN Reason: Anxiety Dolutegravir Sodium (Dolutegravir Sodium 50 Mg Tablet) 50 mg PO DAILY [facility] Last Admin: 05/13/22 08:15 Dose: 50 mg Doxycycline Hyclate (Doxycycline Hyclate 100 Mg Tablet) 100 mg PO BID [facility] Stop: 05/21/22 23:50 Last Admin: 05/13/22 08:16 Dose: 100 mg Hydroxyzine HCl (Hydroxyzine Hcl 25 Mg Tablet) 25 mg PO Q6H PRN PRN Reason: Anxiety Last Admin: 05/08/22 14:39 Dose: 25 mg Lamivudine (Lamivudine 150 Mg Tablet) 300 mg PO DAILY [facility] Last Admin: 05/13/22 08:16 Dose: 300 mg Loratadine (Loratadine 10 Mg Tablet) 10 mg PO DAILY PRN PRN Reason: Congestion Magnesium Hydroxide (Milk Of Magnesia 30 Ml Oral.Susp) 30 ml PO DAILY PRN PRN Reason: Constipation Olanzapine (Olanzapine 5 Mg Tablet) 5 mg PO DAILY PRN PRN Reason: anxiety Sertraline HCl (Sertraline Hcl 100 Mg Tablet) 200 mg PO DAILY [facility] Last Admin: 05/13/22 08:15 Dose: 200 mg Trazodone HCl (Trazodone Hcl 100 Mg Tablet) 100 mg PO BEDTIME PRN PRN Reason: Insomnia Valacyclovir HCl (Valacyclovir Hcl 500 Mg Tablet) 500 mg PO DAILY [facility] Last Admin: 05/13/22 08:16 Dose: 500 mg Allergies Allergies Allergy/AdvReac Type Severity Reaction Status Date / Time No Known Allergies Allergy Verified 05/06/22 23:46 Assessment & Plan Assessment & Plan (1) Drug-induced psychotic disorder with delusions: Status: Acute Code(s): F19.950 - Other psychoactive substance use, unspecified with psychoactive substance-induced psychotic disorder with delusions (2) Post traumatic stress disorder (PTSD): Status: Acute Code(s): F43.10 - Post-traumatic stress disorder, unspecified (3) MDD (major depressive disorder), recurrent episode, moderate: Status: Acute Code(s): F33.1 - Major depressive disorder, recurrent, moderate (4) Methamphetamine addiction: Status: Acute Code(s): F15.20 - Other stimulant dependence, uncomplicated Plan Patient is a 31-year-old male with history of depression, psychotic symptoms and methamphetamine and other substance abuse who presents for disorganized and psychotic behavior.? Patient is currently calm, lying in bed with his eyes closed throughout the interview -patient is currently calm and cooperative though with some odd behaviors -patient has had 2 recent hospital presentations for paranoia, disorganized behavior in [place] -will see collateral and get patient back on medications and try to figure out how much of his presentation is due to organic psychotic illness verses Methamphetamine abuse 05/08 patient gave permission for collateral, signed release of information.? Patient's report and collateral both seem to concur that patient's disorganized, paranoid behaviors or all in the context of methamphetamine abuse; patient currently denies any SI or HI or AVH; no paranoid thinking expressed (thinks that to former friends have been stealing from him however this is quite plausible).? Patient would like to continue Zoloft and agrees to continue with Zyprexa.? Review of history and patient denies any discrete manic episodes or behaviors 05/09 patient is calm no psychotic symptoms; seems much more likely that patient recent and past episodes of paranoid, disorganized behavior due to methamphetamine abuse and drug-induced rather than an organic psychotic illness; he does have PTSD and depression. 05/10 patient remains in good behavioral control, no SI and no AVH psychotic symptoms; would like BuSpar to be increased for anxiety; like testing for STD given burning sensation during urination with some discharge. Adding clonidine at bedtime for trouble sleeping though not nightmares 05/13 stable, no SI, no psychosis; off Zyprexa. Discussed lab results/abx; discussing aftercare tx for drug abuse Plan: CV Q 15 minute checks PTSD/depression Continue Zoloft 200mg Increase to Buspare 10mg BID for ongoing anxiety not controlled by Zoloft; will titrate Clonidine 0.1mg qhs anxiety/trouble sleeping CHANGED to PRN Zyprexa 5 mg q.h.s. Prn; no psychosis; while this could be a stabilizing factor, has unwanted side effect profile so will see how patient does without it Increased to ropinirole 1.0mg q.h.s. (patient described what sounds very much like restless leg as he needs to thought been move his legs at night and otherwise cannot sleep); reviewed risks/side-effects Trazodone 100mg qhs prn +Gonnorhea/possible Syphy (could be old)/+hep C/B reactive (but could be old): Discussed case with Dr. Rizvi who recommended following antibiotics/ labs Ceftriaxone 500mg IM once Doxycycline 100 mg b.i.d. for 10 day (in case occult chlamydia) Will get hep C viral load; patient treated with Harvoni in the past RPR pending HIV Continue HAART with HIV. I spent minutes with the patient and/or on the patient floor today, greater than?50% of which was spent counseling/coordinating care. Patient educated on: diagnosis, medication risk/benefits and medical condition Informed Consent: understands Reason for contiued inpatient stay Substantial Risk for: stable for discharge
[2022-05-13 18:00] VITALS: BP 138/89; PULSE 89; RESP 20; TEMP 36.6; O2SAT 98
[2022-05-13] MEDS: hydrOXYzine HCL 25 MG TABLET PO (21:21)
[2022-05-13] MEDS: rOPINIRole HCL 1 MG TABLET PO (21:21)
[2022-05-13] MEDS: traZODone HCL 100 MG TABLET PO (21:22)
[2022-05-14] MEDS: valACYclovir HCL 500 MG TABLET PO (08:36)
[2022-05-14] MEDS: busPIRone HCl 10 MG TABLET PO ×2 (08:37→22:15)
[2022-05-14] MEDS: Dolutegravir Sodium 50 MG TABLET PO (08:37)
[2022-05-14] MEDS: Sertraline HCL 100 MG TABLET 200 MG PO (08:37)
[2022-05-14] MEDS: lamiVUDine 150 MG TABLET 300 MG PO (08:37)
[2022-05-14 08:38] VITALS: BP 140/99; PULSE 95; RESP 18; TEMP 36.4; O2SAT 95
[2022-05-14 08:47] VITALS: BMI 25.9
--- NOTE | 2022-05-14 11:52 | HO.PSYCHPN ---
Subjective Subjective Date of Service: 05/14/22 Reason For Visit: Unspecified depressive disorder Interim History: Good mood, anxiety under control. Hoping for post discharge program to help with substance abuse. Patient has trouble sleeping and says that trazodone has not been making much difference; also he reports having erections the take a long time to go way on trazodone. [employer] discussed this potential side effect it patient agreed to discontinue it; life insurance underwriter strongly recommended patient no longer take trazodone which patient understood and agrees to. He said he will use clonidine for sleep instead which has helped in the past Mental Status Exam Mental Status Exam Narrative: Pt is alert and oriented; behavior is cooperative, calm, friendly; dressed in casual attire with blue colored, styled hair and adequate hygiene; mood is described as good and affect congruent, calmer; good eye contact; Speech is normal rate, volume and prosody and not pressured; no psychomotor retardation present; thought process is goal directed, linear; Thought content is on treatment, getting and staying sober; denies any SI/HI. There is no evidence of perceptual disturbance. Patients insight and judgment are fair. Diagnostics Vital Signs (24Hr): Vital Signs - 24 hr 05/13/22 18:00 05/14/22 08:38 Temperature 97.9 F 97.5 F Pulse Rate 89 95 Respiratory Rate 20 18 Blood Pressure 138/89 140/99 H Pulse Oximetry 98 95 Oxygen Delivery Method Room Air Room Air BMI result Body Mass Index 25.9 Labs Results: 05/07/22 09:14 Medications Medications Current Medications Acetaminophen (Acetaminophen 325 Mg Tablet) 650 mg PO Q6H PRN PRN Reason: Headache/Pain Mild Scale (1-3) Al Hydroxide/Mg Hydroxide (Magnesium Hydrox/Alum Hydrox 30 Ml Oral.Susp) 30 ml PO Q6H PRN PRN Reason: Heartburn/Nausea Buspirone HCl (Buspirone Hcl 10 Mg Tablet) 10 mg PO BID [facility] Last Admin: 05/14/22 08:37 Dose: 10 mg Clonidine HCl (Clonidine Hcl 0.1 Mg Tablet) 0.1 mg PO Q4H PRN; Protocol PRN Reason: Anxiety Dolutegravir Sodium (Dolutegravir Sodium 50 Mg Tablet) 50 mg PO DAILY [facility] Last Admin: 05/14/22 08:37 Dose: 50 mg Doxycycline Hyclate (Doxycycline Hyclate 100 Mg Tablet) 100 mg PO BID [facility] Stop: 05/21/22 23:50 Last Admin: 05/14/22 08:37 Dose: 100 mg Hydroxyzine HCl (Hydroxyzine Hcl 25 Mg Tablet) 25 mg PO Q6H PRN PRN Reason: Anxiety Last Admin: 05/13/22 21:21 Dose: 25 mg Lamivudine (Lamivudine 150 Mg Tablet) 300 mg PO DAILY [facility] Last Admin: 05/14/22 08:37 Dose: 300 mg Loratadine (Loratadine 10 Mg Tablet) 10 mg PO DAILY PRN PRN Reason: Congestion Magnesium Hydroxide (Milk Of Magnesia 30 Ml Oral.Susp) 30 ml PO DAILY PRN PRN Reason: Constipation Olanzapine (Olanzapine 5 Mg Tablet) 5 mg PO DAILY PRN PRN Reason: anxiety Ropinirole HCl (Ropinirole Hcl 1 Mg Tablet) 1 mg PO BEDTIME [facility] Last Admin: 05/13/22 21:21 Dose: 1 mg Sertraline HCl (Sertraline Hcl 100 Mg Tablet) 200 mg PO DAILY [facility] Last Admin: 05/14/22 08:37 Dose: 200 mg Trazodone HCl (Trazodone Hcl 100 Mg Tablet) 100 mg PO BEDTIME PRN PRN Reason: Insomnia Last Admin: 05/13/22 21:22 Dose: 100 mg Valacyclovir HCl (Valacyclovir Hcl 500 Mg Tablet) 500 mg PO DAILY [facility] Last Admin: 05/14/22 08:36 Dose: 500 mg Allergies Allergies Allergy/AdvReac Type Severity Reaction Status Date / Time No Known Allergies Allergy Verified 05/06/22 23:46 Assessment & Plan Assessment & Plan (1) Drug-induced psychotic disorder with delusions: Status: Acute Code(s): F19.950 - Other psychoactive substance use, unspecified with psychoactive substance-induced psychotic disorder with delusions (2) Post traumatic stress disorder (PTSD): Status: Acute Code(s): F43.10 - Post-traumatic stress disorder, unspecified (3) MDD (major depressive disorder), recurrent episode, moderate: Status: Acute Code(s): F33.1 - Major depressive disorder, recurrent, moderate (4) Methamphetamine addiction: Status: Acute Code(s): F15.20 - Other stimulant dependence, uncomplicated Plan Patient is a 31-year-old male with history of depression, psychotic symptoms and methamphetamine and other substance abuse who presents for disorganized and psychotic behavior.? Patient is currently calm, lying in bed with his eyes closed throughout the interview -patient is currently calm and cooperative though with some odd behaviors -patient has had 2 recent hospital presentations for paranoia, disorganized behavior in [place] -will see collateral and get patient back on medications and try to figure out how much of his presentation is due to organic psychotic illness verses Methamphetamine abuse 05/08 patient gave permission for collateral, signed release of information.? Patient's report and collateral both seem to concur that patient's disorganized, paranoid behaviors or all in the context of methamphetamine abuse; patient currently denies any SI or HI or AVH; no paranoid thinking expressed (thinks that to former friends have been stealing from him however this is quite plausible).? Patient would like to continue Zoloft and agrees to continue with Zyprexa.? Review of history and patient denies any discrete manic episodes or behaviors 05/09 patient is calm no psychotic symptoms; seems much more likely that patient recent and past episodes of paranoid, disorganized behavior due to methamphetamine abuse and drug-induced rather than an organic psychotic illness; he does have PTSD and depression. 05/10 patient remains in good behavioral control, no SI and no AVH psychotic symptoms; would like BuSpar to be increased for anxiety; like testing for STD given burning sensation during urination with some discharge. Adding clonidine at bedtime for trouble sleeping though not nightmares 05/13 stable, no SI, no psychosis; off Zyprexa. Discussed lab results/abx; discussing aftercare tx for drug abuse Remains stable Plan: CV Q 15 minute checks PTSD/depression Continue Zoloft 200mg Buspare 10mg BID for ongoing anxiety not controlled by Zoloft; will titrate Clonidine 0.1mg qq4h prn anxiety/trouble sleeping CHANGED to PRN Zyprexa 5 mg q.h.s. Prn; no psychosis; while this could be a stabilizing factor, has unwanted side effect profile so will see how patient does without it Increased to ropinirole 1.0mg q.h.s. (patient described what sounds very much like restless leg as he needs to thought been move his legs at night and otherwise cannot sleep); reviewed risks/side-effects DC Trazodone due to priaprism prodrome +Gonnorhea/possible Syphy (could be old)/+hep C/B reactive (but could be old): Discussed case with Dr. Rizvi who recommended following antibiotics/ labs Ceftriaxone 500mg IM once Doxycycline 100 mg b.i.d. for 10 day (in case occult chlamydia) Will get hep C viral load; patient treated with Harvoni in the past RPR pending HIV Continue HAART with HIV. I spent minutes with the patient and/or on the patient floor today, greater than?50% of which was spent counseling/coordinating care. Patient educated on: diagnosis, medication risk/benefits and medical condition Informed Consent: understands Reason for contiued inpatient stay Substantial Risk for: stable for discharge
[2022-05-14 18:00] VITALS: BP 139/89; PULSE 99; RESP 20; TEMP 36.6; O2SAT 98
[2022-05-14 18:12] LABS: HCV Log PCR <1.18 NOT DETECTED Log IU/mL (NOT DETECTED); HepC Viral Load <15 NOT DETECTED IU/mL (NOT DETECTED)
[2022-05-14] MEDS: rOPINIRole HCL 1 MG TABLET PO (22:16)
[2022-05-14] MEDS: cloNIDine HCL 0.1 MG TABLET PO (22:22)
[2022-05-15] MEDS: hydrOXYzine HCL 25 MG TABLET PO (01:51)
[2022-05-15] MEDS: Acetaminophen 325 MG TABLET 650 MG PO (01:51)
[2022-05-15 06:00] VITALS: BP 120/77; PULSE 75; RESP 18; TEMP 36.5; O2SAT 97
[2022-05-15] MEDS: Sertraline HCL 100 MG TABLET 200 MG PO (08:38)
[2022-05-15] MEDS: valACYclovir HCL 500 MG TABLET PO (08:38)
[2022-05-15] MEDS: Dolutegravir Sodium 50 MG TABLET PO (08:38)
[2022-05-15] MEDS: lamiVUDine 150 MG TABLET 300 MG PO (08:38)
[2022-05-15] MEDS: busPIRone HCl 10 MG TABLET PO ×2 (08:38→20:19)
--- NOTE | 2022-05-15 10:29 | P.PNPSI_ITS ---
Subjective Subjective Date of Service: 05/15/22 Reason For Visit: Unspecified depressive disorder Interim History: mood good; anxiety in control. Still trouble sleeping even w/ clonidine and he asks for benadryl. Otherwise no complaints; hoping for aftercare program post discharge. discussed labs Mental Status Exam Mental Status Exam Narrative: Pt is alert and oriented; behavior is cooperative, calm, friendly; dressed in casual attire with blue colored, styled hair and adequate hygiene; mood is described as good and affect congruent, calmer; good eye contact; Speech is normal rate, volume and prosody and not pressured; no psychomotor retardation present; thought process is goal directed, linear; Thought content is on treatment, getting and staying sober; denies any SI/HI. There is no evidence of perceptual disturbance. Patients insight and judgment are fair. Diagnostics Vital Signs (24Hr): Vital Signs - 24 hr 05/14/22 18:00 05/15/22 06:00 Temperature 98 F 97.7 F Pulse Rate 99 75 Respiratory Rate 20 18 Blood Pressure 139/89 120/77 Pulse Oximetry 98 97 Oxygen Delivery Method Room Air Room Air BMI result Body Mass Index 25.9 Labs Results: 05/07/22 09:14 Labs: Laboratory Results - last 48 hr 05/12/22 16:36 Hep C Viral Load <15 NOT DETECTED Hep C Viral Load Log <1.18 NOT DETECTED Medications Medications Current Medications Acetaminophen (Acetaminophen 325 Mg Tablet) 650 mg PO Q6H PRN PRN Reason: Headache/Pain Mild Scale (1-3) Last Admin: 05/15/22 01:51 Dose: 650 mg Al Hydroxide/Mg Hydroxide (Magnesium Hydrox/Alum Hydrox 30 Ml Oral.Susp) 30 ml PO Q6H PRN PRN Reason: Heartburn/Nausea Buspirone HCl (Buspirone Hcl 10 Mg Tablet) 10 mg PO BID [facility] Last Admin: 05/15/22 08:38 Dose: 10 mg Clonidine HCl (Clonidine Hcl 0.1 Mg Tablet) 0.1 mg PO Q4H PRN; Protocol PRN Reason: Anxiety Last Admin: 05/14/22 22:22 Dose: 0.1 mg Dolutegravir Sodium (Dolutegravir Sodium 50 Mg Tablet) 50 mg PO DAILY [facility] Last Admin: 05/15/22 08:38 Dose: 50 mg Doxycycline Hyclate (Doxycycline Hyclate 100 Mg Tablet) 100 mg PO BID [facility] Stop: 05/21/22 23:50 Last Admin: 05/15/22 08:38 Dose: 100 mg Hydroxyzine HCl (Hydroxyzine Hcl 25 Mg Tablet) 25 mg PO Q6H PRN PRN Reason: Anxiety Last Admin: 05/15/22 01:51 Dose: 25 mg Lamivudine (Lamivudine 150 Mg Tablet) 300 mg PO DAILY [facility] Last Admin: 05/15/22 08:38 Dose: 300 mg Loratadine (Loratadine 10 Mg Tablet) 10 mg PO DAILY PRN PRN Reason: Congestion Magnesium Hydroxide (Milk Of Magnesia 30 Ml Oral.Susp) 30 ml PO DAILY PRN PRN Reason: Constipation Olanzapine (Olanzapine 5 Mg Tablet) 5 mg PO DAILY PRN PRN Reason: anxiety Ropinirole HCl (Ropinirole Hcl 1 Mg Tablet) 1 mg PO BEDTIME [facility] Last Admin: 05/14/22 22:16 Dose: 1 mg Sertraline HCl (Sertraline Hcl 100 Mg Tablet) 200 mg PO DAILY [facility] Last Admin: 05/15/22 08:38 Dose: 200 mg Valacyclovir HCl (Valacyclovir Hcl 500 Mg Tablet) 500 mg PO DAILY [facility] Last Admin: 05/15/22 08:38 Dose: 500 mg Allergies Allergies Allergy/AdvReac Type Severity Reaction Status Date / Time trazodone AdvReac Mild priaprism Verified 05/14/22 11:54 Assessment & Plan Assessment & Plan (1) Drug-induced psychotic disorder with delusions: Status: Acute Code(s): F19.950 - Other psychoactive substance use, unspecified with psychoactive substance-induced psychotic disorder with delusions (2) Post traumatic stress disorder (PTSD): Status: Acute Code(s): F43.10 - Post-traumatic stress disorder, unspecified (3) MDD (major depressive disorder), recurrent episode, moderate: Status: Acute Code(s): F33.1 - Major depressive disorder, recurrent, moderate (4) Methamphetamine addiction: Status: Acute Code(s): F15.20 - Other stimulant dependence, uncomplicated Plan Patient is a 31-year-old male with history of depression, psychotic symptoms and methamphetamine and other substance abuse who presents for disorganized and psychotic behavior.? Patient is currently calm, lying in bed with his eyes closed throughout the interview -patient is currently calm and cooperative though with some odd behaviors -patient has had 2 recent hospital presentations for paranoia, disorganized behavior in [place] -will see collateral and get patient back on medications and try to figure out how much of his presentation is due to organic psychotic illness verses Methamphetamine abuse 05/08 patient gave permission for collateral, signed release of information.? Patient's report and collateral both seem to concur that patient's disorganized, paranoid behaviors or all in the context of methamphetamine abuse; patient currently denies any SI or HI or AVH; no paranoid thinking expressed (thinks that to former friends have been stealing from him however this is quite plausible).? Patient would like to continue Zoloft and agrees to continue with Zyprexa.? Review of history and patient denies any discrete manic episodes or behaviors 05/09 patient is calm no psychotic symptoms; seems much more likely that patient recent and past episodes of paranoid, disorganized behavior due to methamp hetamine abuse and drug-induced rather than an organic psychotic illness; he does have PTSD and depression. 05/10 patient remains in good behavioral control, no SI and no AVH psychotic symptoms; would like BuSpar to be increased for anxiety; like testing for STD given burning sensation during urination with some discharge. Adding clonidine at bedtime for trouble sleeping though not nightmares 05/13 stable, no SI, no psychosis; off Zyprexa. Discussed lab results/abx; discussing aftercare tx for drug abuse Remains stable 05/15 no change Plan: CV Q 15 minute checks PTSD/depression Continue Zoloft 200mg Buspare 10mg BID for ongoing anxiety not controlled by Zoloft; will titrate Clonidine 0.1mg qq4h prn anxiety/trouble sleeping CHANGED to PRN Zyprexa 5 mg q.h.s. Prn; no psychosis; while this could be a stabilizing factor, has unwanted side effect profile so will see how patient does without it Increased to ropinirole 1.0mg q.h.s. (patient described what sounds very much like restless leg as he needs to thought been move his legs at night and otherwise cannot sleep); reviewed risks/side-effects DC Trazodone due to priaprism prodrome +Gonnorhea/possible Syphy (could be old)/+hep C/B reactive (but could be old): Discussed case with Dr. Jaworek who recommended following antibiotics/ labs Ceftriaxone 500mg IM once Doxycycline 100 mg b.i.d. for 10 day (in case occult chlamydia) hep C viral load not detected( patient treated with Harvoni in the past) RPR pending HIV Continue HAART with HIV. I spent minutes with the patient and/or on the patient floor today, greater than?50% of which was spent counseling/coordinating care. Patient educated on: diagnosis, medication risk/benefits and medical condition Informed Consent: understands Reason for contiued inpatient stay Substantial Risk for: stable for discharge
[2022-05-15 18:05] VITALS: BP 139/80; PULSE 90; TEMP 36.2; O2SAT 98
[2022-05-15] MEDS: cloNIDine HCL 0.1 MG TABLET PO (18:15)
[2022-05-15] MEDS: rOPINIRole HCL 1 MG TABLET PO (20:19)
--- NOTE | 2022-05-15 22:31 | PC.NURSE ---
Pt signed a three day on 05/15/2022
[2022-05-16] MEDS: Sertraline HCL 100 MG TABLET 200 MG PO (08:45)
[2022-05-16] MEDS: lamiVUDine 150 MG TABLET 300 MG PO (08:49)
[2022-05-16] MEDS: Dolutegravir Sodium 50 MG TABLET PO (08:49)
[2022-05-16] MEDS: busPIRone HCl 10 MG TABLET PO ×2 (08:49→20:14)
[2022-05-16] MEDS: valACYclovir HCL 500 MG TABLET PO (08:50)
[2022-05-16 09:40] VITALS: BP 129/75; PULSE 71; RESP 18; TEMP 37.1; O2SAT 99
[2022-05-16 14:28] LABS: RPR Quantitative Reactive 1:2 (Nonreactive); T.Pallidum Particle Agg Test Reactive (Nonreactive)
[2022-05-16 15:42] VITALS: BP 146/84; PULSE 78; TEMP 36.4
--- NOTE | 2022-05-16 16:36 | P.PNPSI_ITS ---
Subjective Subjective Date of Service: 05/16/22 Reason For Visit: Unspecified depressive disorder Subjective Notes: Francis Warning and 3 Day Interim History: Chart reviewed. Discussed with nursing. Overall patient reports feeling he is in a good space and psychiatrically. Euthymic. Reports that his biological mom is very unwell a [facility] in the last time he spoke with her was in 2016. Reports he would like to talk with her for closure. Reports that the he will continue to pursue inpatient rehab services after discharge id no longer wants to transfer to inpatient rehab from [facility]. Also reports wanting to address an eviction notice he received. Thankful for the care he has or has received. Sleep energy and appetite okay. No medication concerns. Noted RPR was positive. Discussed with patient. Infectious Disease consult requested and they will see patient on Wednesday and also notify DPH on Wednesday. HIV test ordered as per their recommendation. Patient aware. Medication Compliance: Yes Side effects from medications: No Attending Groups: Yes Review of Systems Noted RPR was positive. Discussed with patient. Infectious Disease consult requested and they will see patient on Wednesday and also notify DPH on Wednesday. HIV test ordered as per their recommendation. Patient aware. Review of Systems Review of Systems Nothing acute Mental Status Exam Mental Status Exam Narrative: Pleasant. Engaged. Organized. Euthymic. No SI. No HI. No agitation or psychosis. Insight and judgment could Diagnostics Vital Signs (24Hr): Vital Signs - 24 hr 05/15/22 18:05 05/16/22 09:40 05/16/22 15:42 Temperature 97.1 F 98.7 F 97.6 F Pulse Rate 90 71 78 Respiratory Rate 18 Blood Pressure 139/80 129/75 146/84 H Pulse Oximetry 98 99 Oxygen Delivery Method Room Air Room Air BMI result Body Mass Index 25.9 Labs Results: 05/07/22 09:14 Labs: Laboratory Results - last 48 hr 05/11/22 05/12/22 14:10 16:36 RPR Reactive 1:2 H T.pallidum Particle Agg Reactive H Hep C Viral Load <15 NOT DETECTED Hep C Viral Load Log <1.18 NOT DETECTED Medications Medications Current Medications Acetaminophen (Acetaminophen 325 Mg Tablet) 650 mg PO Q6H PRN PRN Reason: Headache/Pain Mild Scale (1-3) Last Admin: 05/15/22 01:51 Dose: 650 mg Al Hydroxide/Mg Hydroxide (Magnesium Hydrox/Alum Hydrox 30 Ml Oral.Susp) 30 ml PO Q6H PRN PRN Reason: Heartburn/Nausea Buspirone HCl (Buspirone Hcl 10 Mg Tablet) 10 mg PO BID [facility] Last Admin: 05/16/22 08:49 Dose: 10 mg Clonidine HCl (Clonidine Hcl 0.1 Mg Tablet) 0.1 mg PO Q4H PRN; Protocol PRN Reason: Anxiety Last Admin: 05/15/22 18:15 Dose: 0.1 mg Diphenhydramine HCl (Diphenhydramine Hcl 25 Mg Capsule) 100 mg PO BEDTIME PRN PRN Reason: Insomnia Dolutegravir Sodium (Dolutegravir Sodium 50 Mg Tablet) 50 mg PO DAILY [facility] Last Admin: 05/16/22 08:49 Dose: 50 mg Doxycycline Hyclate (Doxycycline Hyclate 100 Mg Tablet) 100 mg PO BID [facility] Stop: 05/21/22 23:50 Last Admin: 05/16/22 08:49 Dose: 100 mg Hydroxyzine HCl (Hydroxyzine Hcl 25 Mg Tablet) 25 mg PO Q6H PRN PRN Reason: Anxiety Last Admin: 05/15/22 01:51 Dose: 25 mg Lamivudine (Lamivudine 150 Mg Tablet) 300 mg PO DAILY [facility] Last Admin: 05/16/22 08:49 Dose: 300 mg Loratadine (Loratadine 10 Mg Tablet) 10 mg PO DAILY PRN PRN Reason: Congestion Magnesium Hydroxide (Milk Of Magnesia 30 Ml Oral.Susp) 30 ml PO DAILY PRN PRN Reason: Constipation Olanzapine (Olanzapine 5 Mg Tablet) 5 mg PO DAILY PRN PRN Reason: anxiety Ropinirole HCl (Ropinirole Hcl 1 Mg Tablet) 1 mg PO BEDTIME [facility] Last Admin: 05/15/22 20:19 Dose: 1 mg Sertraline HCl (Sertraline Hcl 100 Mg Tablet) 200 mg PO DAILY [facility] Last Admin: 05/16/22 08:45 Dose: 200 mg Valacyclovir HCl (Valacyclovir Hcl 500 Mg Tablet) 500 mg PO DAILY [facility] Last Admin: 05/16/22 08:50 Dose: 500 mg Allergies Allergies Allergy/AdvReac Type Severity Reaction Status Date / Time trazodone AdvReac Mild priaprism Verified 05/14/22 11:54 Assessment & Plan Assessment & Plan (1) Drug-induced psychotic disorder with delusions: Status: Acute Code(s): F19.950 - Other psychoactive substance use, unspecified with psychoactive substance-induced psychotic disorder with delusions (2) Post traumatic stress disorder (PTSD): Status: Acute Code(s): F43.10 - Post-traumatic stress disorder, unspecified (3) MDD (major depressive disorder), recurrent episode, moderate: Status: Acute Code(s): F33.1 - Major depressive disorder, recurrent, moderate (4) Methamphetamine addiction: Status: Acute Code(s): F15.20 - Other stimulant dependence, uncomplicated Plan Patient is a 31-year-old male with history of depression, psychotic symptoms and methamphetamine and other substance abuse who presents for disorganized and psychotic behavior.? Patient is currently calm, lying in bed with his eyes closed throughout the interview -patient is currently calm and cooperative though with some odd behaviors -patient has had 2 recent hospital presentations for paranoia, disorganized behavior in [place] -will see collateral and get patient back on medications and try to figure out how much of his presentation is due to organic psychotic illness verses Methamphetamine abuse 05/08 patient gave permission for collateral, signed release of information.? Patient's report and collateral both seem to concur that patient's disorganized, paranoid behaviors or all in the context of methamphetamine abuse; patient currently denies any SI or HI or AVH; no paranoid thinking expressed (thinks that to former friends have been stealing from him however this is quite plausible).? Patient would like to continue Zoloft and agrees to continue with Zyprexa.? Review of history and patient denies any discrete manic episodes or behaviors 05/09 patient is calm no psychotic symptoms; seems much more likely that patient recent and past episodes of paranoid, disorganized behavior due to methamphetamine abuse and drug-induced rather than an organic psychotic illness; he does have PTSD and depression. 05/10 patient remains in good behavioral control, no SI and no AVH psychotic symptoms; would like BuSpar to be increased for anxiety; like testing for STD given burning sensation during urination with some discharge. Adding clonidine at bedtime for trouble sleeping though not nightmares 05/13 stable, no SI, no psychosis; off Zyprexa. Discussed lab results/abx; discussing aftercare tx for drug abuse Remains stable 05/15 no change 05/16/22: No changes. Three-day notice and place. Noted RPR was positive. Discussed with patient. Infectious Disease consult requested and they will see patient on Wednesday and also notify DPH on Wednesday. HIV test ordered as per their recommendation. Patient aware. Plan: CV Q 15 minute checks PTSD/depression Continue Zoloft 200mg Buspare 10mg BID for ongoing anxiety not controlled by Zoloft; will titrate Clonidine 0.1mg qq4h prn anxiety/trouble sleeping CHANGED to PRN Zyprexa 5 mg q.h.s. Prn; no psychosis; while this could be a stabilizing factor, has unwanted side effect profile so will see how patient does without it Increased to ropinirole 1.0mg q.h.s. (patient described what sounds very much like restless leg as he needs to thought been move his legs at night and otherwise cannot sleep); reviewed risks/side-effects DC Trazodone due to priaprism prodrome +Gonnorhea/possible Syphy (could be old)/+hep C/B reactive (but could be old): Discussed case with Dr. Rizvi who recommended following antibiotics/ labs Ceftriaxone 500mg IM once Doxycycline 100 mg b.i.d. for 10 day (in case occult chlamydia) hep C viral load not detected( patient treated with Harvoni in the past) RPR pending HIV Continue HAART with HIV. I spent minutes with the patient and/or on the patient floor today, greater than?50% of which was spent counseling/coordinating care. Reason for contiued inpatient stay Substantial Risk for: rapid decompensation
[2022-05-16] MEDS: rOPINIRole HCL 1 MG TABLET PO (20:14)
[2022-05-16] MEDS: diphenhydrAMINE HCL 25 MG CAPSULE 100 MG PO (20:28)
[2022-05-16] MEDS: cloNIDine HCL 0.1 MG TABLET PO (20:28)
[2022-05-17 06:00] VITALS: BP 135/91; PULSE 73; RESP 18; TEMP 36.3; O2SAT 96
[2022-05-17] MEDS: Sertraline HCL 100 MG TABLET 200 MG PO (08:31)
[2022-05-17] MEDS: Dolutegravir Sodium 50 MG TABLET PO (08:31)
[2022-05-17] MEDS: lamiVUDine 150 MG TABLET 300 MG PO (08:31)
[2022-05-17] MEDS: busPIRone HCl 10 MG TABLET PO ×2 (08:31→20:15)
[2022-05-17] MEDS: valACYclovir HCL 500 MG TABLET PO (08:31)
--- NOTE | 2022-05-17 12:40 | P.PNPSI_ITS ---
Subjective Subjective Date of Service: 05/17/22 Reason For Visit: Unspecified depressive disorder Subjective Notes: 3 Day Interim History: Chart reviewed. Discussed with nursing. Overall patient reports feeling he is in a good space and psychiatrically. Euthymic. Remains thankful for the care he has or has received. Sleep energy and appetite okay. No medication concerns. Noted RPR was positive. Discussed with patient- has been positive for years, but likes to have titres tracked as well as HIV viral load (on HAART). Infectious Disease consult requested ref RPR titre review. . Medication Compliance: Yes Side effects from medications: No Attending Groups: Yes Review of Systems Acute medical concerns: No Review of Systems Review of Systems Nothing acute Mental Status Exam Mental Status Exam Narrative: Pleasant. Engaged. Organized. Euthymic. No SI. No HI. No agitation or psychosis. Insight and judgment could Diagnostics Vital Signs (24Hr): Vital Signs - 24 hr 05/16/22 15:42 05/17/22 06:00 Temperature 97.6 F 97.4 F Pulse Rate 78 73 Respiratory Rate 18 Blood Pressure 146/84 H 135/91 H Pulse Oximetry 96 Oxygen Delivery Method Room Air BMI result Body Mass Index 25.9 Labs Results: 05/07/22 09:14 Labs: Laboratory Results - last 48 hr 05/11/22 14:10 RPR Reactive 1:2 H T.pallidum Particle Agg Reactive H Medications Medications Current Medications Acetaminophen (Acetaminophen 325 Mg Tablet) 650 mg PO Q6H PRN PRN Reason: Headache/Pain Mild Scale (1-3) Last Admin: 05/15/22 01:51 Dose: 650 mg Al Hydroxide/Mg Hydroxide (Magnesium Hydrox/Alum Hydrox 30 Ml Oral.Susp) 30 ml PO Q6H PRN PRN Reason: Heartburn/Nausea Buspirone HCl (Buspirone Hcl 10 Mg Tablet) 10 mg PO BID [facility] Last Admin: 05/17/22 08:31 Dose: 10 mg Clonidine HCl (Clonidine Hcl 0.1 Mg Tablet) 0.1 mg PO Q4H PRN; Protocol PRN Reason: Anxiety Last Admin: 05/16/22 20:28 Dose: 0.1 mg Diphenhydramine HCl (Diphenhydramine Hcl 25 Mg Capsule) 100 mg PO BEDTIME PRN PRN Reason: Insomnia Last Admin: 05/16/22 20:28 Dose: 100 mg Dolutegravir Sodium (Dolutegravir Sodium 50 Mg Tablet) 50 mg PO DAILY [facility] Last Admin: 05/17/22 08:31 Dose: 50 mg Doxycycline Hyclate (Doxycycline Hyclate 100 Mg Tablet) 100 mg PO BID [facility] Stop: 05/21/22 23:50 Last Admin: 05/17/22 08:31 Dose: 100 mg Hydroxyzine HCl (Hydroxyzine Hcl 25 Mg Tablet) 25 mg PO Q6H PRN PRN Reason: Anxiety Last Admin: 05/15/22 01:51 Dose: 25 mg Lamivudine (Lamivudine 150 Mg Tablet) 300 mg PO DAILY [facility] Last Admin: 05/17/22 08:31 Dose: 300 mg Loratadine (Loratadine 10 Mg Tablet) 10 mg PO DAILY PRN PRN Reason: Congestion Magnesium Hydroxide (Milk Of Magnesia 30 Ml Oral.Susp) 30 ml PO DAILY PRN PRN Reason: Constipation Olanzapine (Olanzapine 5 Mg Tablet) 5 mg PO DAILY PRN PRN Reason: anxiety Ropinirole HCl (Ropinirole Hcl 1 Mg Tablet) 1 mg PO BEDTIME [facility] Last Admin: 05/16/22 20:14 Dose: 1 mg Sertraline HCl (Sertraline Hcl 100 Mg Tablet) 200 mg PO DAILY [facility] Last Admin: 05/17/22 08:31 Dose: 200 mg Valacyclovir HCl (Valacyclovir Hcl 500 Mg Tablet) 500 mg PO DAILY [facility] Last Admin: 05/17/22 08:31 Dose: 500 mg Allergies Allergies Allergy/AdvReac Type Severity Reaction Status Date / Time trazodone AdvReac Mild priaprism Verified 05/14/22 11:54 Assessment & Plan Assessment & Plan (1) Drug-induced psychotic disorder with delusions: Status: Acute Code(s): F19.950 - Other psychoactive substance use, unspecified with psychoactive substance-induced psychotic disorder with delusions (2) Post traumatic stress disorder (PTSD): Status: Acute Code(s): F43.10 - Post-traumatic stress disorder, unspecified (3) MDD (major depressive disorder), recurrent episode, moderate: Status: Acute Code(s): F33.1 - Major depressive disorder, recurrent, moderate (4) Methamphetamine addiction: Status: Acute Code(s): F15.20 - Other stimulant dependence, uncomplicated Plan Patient is a 31-year-old male with history of depression, psychotic symptoms and methamphetamine and other substance abuse who presents for disorganized and psychotic behavior.? Patient is currently calm, lying in bed with his eyes closed throughout the interview -patient is currently calm and cooperative though with some odd behaviors -patient has had 2 recent hospital presentations for paranoia, disorganized behavior in [place] -will see collateral and get patient back on medications and try to figure out how much of his presentation is due to organic psychotic illness verses Methamphetamine abuse 05/08 patient gave permission for collateral, signed release of information.? Patient's report and collateral both seem to concur that patient's disorganized, paranoid behaviors or all in the context of methamphetamine abuse; patient currently denies any SI or HI or AVH; no paranoid thinking expressed (thinks that to former friends have been stealing from him however this is quite plausible).? Patient would like to continue Zoloft and agrees to continue with Zyprexa.? Review of history and patient denies any discrete manic episodes or behaviors 05/09 patient is calm no psychotic symptoms; seems much more likely that patient recent and past episodes of paranoid, disorganized behavior due to methamp hetamine abuse and drug-induced rather than an organic psychotic illness; he does have PTSD and depression. 05/10 patient remains in good behavioral control, no SI and no AVH psychotic symptoms; would like BuSpar to be increased for anxiety; like testing for STD given burning sensation during urination with some discharge. Adding clonidine at bedtime for trouble sleeping though not nightmares 05/13 stable, no SI, no psychosis; off Zyprexa. Discussed lab results/abx; discussing aftercare tx for drug abuse Remains stable 05/15 no change 05/17/22: No changes. Three-day notice. Noted RPR was positive. Noted RPR was positive. Discussed with patient- has been positive for years, but likes to francisco ve titres tracked as well as HIV viral load (on HAART). Infectious Disease consult requested ref RPR titre review. Plan: CV Q 15 minute checks PTSD/depression Continue Zoloft 200mg Buspare 10mg BID for ongoing anxiety not controlled by Zoloft; will titrate Clonidine 0.1mg qq4h prn anxiety/trouble sleeping CHANGED to PRN Zyprexa 5 mg q.h.s. Prn; no psychosis; while this could be a stabilizing factor, has unwanted side effect profile so will see how patient does without it Increased to ropinirole 1.0mg q.h.s. (patient described what sounds very much like restless leg as he needs to thought been move his legs at night and otherwise cannot sleep); reviewed risks/side-effects DC Trazodone due to priaprism prodrome +Gonnorhea/possible Syphy (could be old)/+hep C/B reactive (but could be old): Discussed case with Dr. Rizvi who recommended following antibiotics/ labs Ceftriaxone 500mg IM once Doxycycline 100 mg b.i.d. for 10 day (in case occult chlamydia) hep C viral load not detected( patient treated with Harvoni in the past) RPR pending HIV Continue HAART with HIV. I spent minutes with the patient and/or on the patient floor today, greater than?50% of which was spent counseling/coordinating care. Reason for contiued inpatient stay Substantial Risk for: rapid decompensation
[2022-05-17] MEDS: cloNIDine HCL 0.1 MG TABLET PO ×2 (14:55→20:41)
[2022-05-17 16:03] VITALS: BP 156/72; PULSE 75; TEMP 36.6
[2022-05-17] MEDS: rOPINIRole HCL 1 MG TABLET PO (20:15)
[2022-05-17] MEDS: diphenhydrAMINE HCL 25 MG CAPSULE 100 MG PO (21:55)
[2022-05-18] MEDS: busPIRone HCl 10 MG TABLET PO (08:48)
[2022-05-18] MEDS: valACYclovir HCL 500 MG TABLET PO (08:48)
[2022-05-18] MEDS: Sertraline HCL 100 MG TABLET 200 MG PO (08:48)
[2022-05-18] MEDS: lamiVUDine 150 MG TABLET 300 MG PO (08:48)
[2022-05-18] MEDS: Dolutegravir Sodium 50 MG TABLET PO (08:52)
[2022-05-18 09:24] LABS: HIV Num 1 241.04 S/CO (0.00-0.99)
[2022-05-18 09:57] VITALS: BP 142/77; PULSE 74; RESP 18; TEMP 37; O2SAT 98
--- NOTE | 2022-05-18 11:40 | P.DS_ITS ---
DS: Providers Provider Date of Service: 05/18/22 Date of admission: 05/06/22 23:39 Date of discharge: 05/18/22 Primary care physician: Yasmine Hardin MD Attending physician on admission: Sriram Fan Consults: 05/06/22 23:46 Consult to Hospitalist Routine Consulting Provider: Hospitalist Reason For Exam: direct admission 05/16/22 15:16 Consult to Infectious Diseases Routine Consulting Provider: Loan Rizvi Reason for consultation: Follow up of RPR titer/trend Has provider been notified: Yes Attending physician on discharge: Sriram Fan DS: Diagnosis Discharge Diagnosis (1) Drug-induced psychotic disorder with delusions: Status: Acute (2) Post traumatic stress disorder (PTSD): Status: Acute (3) MDD (major depressive disorder), recurrent episode, moderate: Status: Acute (4) Methamphetamine addiction: Status: Acute DS: Medications Discharge Medications Home Medications: Home Medications Medication Instructions Recorded Confirmed dolutegravir 50 mg tablet 50 mg PO DAILY 05/07/22 05/07/22 lamivudine 300 mg tablet 300 mg PO DAILY 05/07/22 05/07/22 loratadine 10 mg tablet 10 mg PO DAILY PRN Congestion 05/07/22 05/07/22 sertraline 200 mg capsule 200 mg PO DAILY 05/07/22 05/07/22 valacyclovir 500 mg tablet 500 mg PO DAILY 05/07/22 05/07/22 Previous Rx's Medication Instructions Recorded buspirone 10 mg tablet 10 mg PO BID 30 days #60 tabs 05/18/22 clonidine HCl 0.1 mg tablet 0.1 mg PO Q4H PRN Anxiety 30 days 05/18/22 #60 tabs diphenhydramine HCl 50 mg tablet 100 mg PO BEDTIME PRN insomnia 30 05/18/22 days #60 tabs doxycycline hyclate 100 mg tablet 100 mg PO BID 3 days #7 tabs 05/18/22 ropinirole 1 mg tablet 1 mg PO BEDTIME 30 days #30 tabs 05/18/22 Mental Status Exam Mental Status Exam Narrative: Pt is alert and oriented; behavior is cooperative, calm, friendly; dressed in casual attire with blue colored, styled hair and adequate hygiene; mood is described as good and affect congruent, calmer; good eye contact; Speech is normal rate, volume and prosody and not pressured; no psychomotor retardation present; thought process is goal directed, linear; Thought content is on treatment, getting and staying sober; denies any SI/HI. There is no evidence of perceptual disturbance. Patients insight and judgment are fair. Data Data Completed and Pending Completed studies during hospitalization [Text1]: 05/11/22 05/11/22 05/11/22 14:10 14:10 14:10 Urine Color Urine Appearance Urine pH Ur Specific [place] Urine Protein Urine Glucose (UA) Urine Ketones Urine Blood Urine Nitrite Ur Leukocyte Esterase Urine RBC Urine WBC Ur Squamous Epith Cells Urine Bacteria Hyaline Casts RPR Reactive 1:2 H T.pallidum Particle Agg Reactive H T.pallidum Ab (EIA) Reactive A Chlam trachomat DNA PCR Hep Bs Antigen Negative Hep Bs Antibody REACTIVE Hep B Core Total Ab Reactive Hep B Core IgM Ab Cancelled Hepatitis C Ab (EIA) Reactive H Hep C Viral Load Hep C Viral Load Log HIV-1 RNA copies/mL HIV-1 RNA logcopies/mL HIV 1&2 Ab/P24 Ag 4thGn N.gonorrhoeae DNA (PCR) 05/11/22 05/11/22 05/12/22 14:19 14:46 16:36 Urine Color Yellow Urine Appearance Clear Urine pH 5.5 Ur Specific [place] 1.020 Urine Protein Negative Urine Glucose (UA) Negative Urine Ketones Negative Urine Blood Negative Urine Nitrite Negative Ur Leukocyte Esterase Moderate (2+) H Urine RBC 0-2 Urine WBC >50 H Ur Squamous Epith Cells 0-2 Urine Bacteria None Seen Hyaline Casts 0-2 RPR T.pallidum Particle Agg T.pallidum Ab (EIA) Chlam trachomat DNA PCR NOT DETECTED Hep Bs Antigen Hep Bs Antibody Hep B Core Total Ab Hep B Core IgM Ab Hepatitis C Ab (EIA) Hep C Viral Load <15 NOT DETECTED Hep C Viral Load Log <1.18 NOT DETECTED HIV-1 RNA copies/mL HIV-1 RNA logcopies/mL HIV 1&2 Ab/P24 Ag 4thGn N.gonorrhoeae DNA (PCR) DETECTED A 05/16/22 05/16/22 16:00 18:24 Urine Color Urine Appearance Urine pH Ur Specific [place] Urine Protein Urine Glucose (UA) Urine Ketones Urine Blood Urine Nitrite Ur Leukocyte Esterase Urine RBC Urine WBC Ur Squamous Epith Cells Urine Bacteria Hyaline Casts RPR T.pallidum Particle Agg T.pallidum Ab (EIA) Chlam trachomat DNA PCR Hep Bs Antigen Hep Bs Antibody Hep B Core Total Ab Hep B Core IgM Ab Hepatitis C Ab (EIA) Hep C Viral Load Hep C Viral Load Log HIV-1 RNA copies/mL Pending HIV-1 RNA logcopies/mL Pending HIV 1&2 Ab/P24 Ag 4thGn Pending N.gonorrhoeae DNA (PCR) 05/11/22 14:46 Urine clean catch - Urine kat top Urine Culture - Final No growth. DS: Summary Hospital Course Hospital Course: HPI: Patient is a 31-year-old male with history of depression, psychotic symptoms and methamphetamine and other substance abuse who presents for disorganized and psychotic behavior.? Patient is currently calm, lying in bed with his eyes closed throughout the interview; patient has had 2 recent hospital presentations for paranoia, disorganized behavior in craig but in context of drug abuse on Admission, patient calm and cooperative, no craig own no psychosis though maybe some paranoid thinking; no SI or HI. Patient forthcoming. He thinks that his disorganized behaviors are only ever in the context of methamphetamine abuse and denies any manic symptoms or episodes outside of intoxication. Collateral obtained who concurs that psychotic symptoms have only ever occurred when intoxicated. Patient continued on Zoloft 200 mg; he was also continued on Zyprexa for while but as he remains stable over subsequent days, this was discontinued and patient remained organized. Diagnosis was made for drug- induced psychotic disorder. BuSpar was added to help with anxiety, clonidine for anxiety/insomnia and eventually Benadryl for sleep; ropinirole started for restless leg which was affective. Patient could be emotionally triggered at times with some high expressed emotion but remained in overall good behavioral and impulse control, organized in speech behavior, eating well, attending groups and forthcoming in 1 on 1 meetings. Patient was tested for sexually transmitted diseases and treated for gonorrhea. Patient wanted aftercare program/help to stay sober and worked with social work to establish this. Patient put in a 3 day notice, wanting discharge feeling ready to continue treatment as an outpatient. While he remains vulnerable to both relapse and some emotional lability, he is not in imminent risk for harm to self or others and his request for discharge honored. 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 Rizvi who reviewed results and informed typewriter repairer that RPR/T pallidum all due to old infections and do not represent new infection and the patient does not need any additional antibiotic treatment. Discussed with patient who understands. Patient will follow-up with his PCP/ID Dr. Yasmine Hardin and signed a AYAH for her to obtain results.t night and otherwise cannot sleep); reviewed risks/side- effects Time spent discussing smoking cessation with patient: 3 to 10 minutes Status at Discharge Functional status at discharge: independent ambulation Overall status at discharge: patient is back to baseline Time Spent with Patient Time attestation: Total time spent providing and/or coordinating discharge services: Time spent: Greater than 30 minutes Discharge Plan Discharge Anticipated Discharge Date/Time: 05/18/22 15:00 Patient Disposition: Home, Self-Care Discharge Diagnosis: Drug induced psychotic disorder, in full remission Referrals: [facility] [Other] (You will remain on the waitlist - call daily to check on bed availability) [facility] [Other] (You will remain on the waitlist - call daily to check on bed availability) [facility] (therapy intake) [Other] - 05/21/22 11:00 am (In office appointment) Yasmine Hardin MD [Primary Care Provider] - 05/25/22 2:40 pm (IN OFFICE WITH DR.SARA SERRATO) Discharge Medications: New doxycycline hyclate 100 mg Tablet 100 mg PO BID 3 Days Qty: 7 0RF diphenhydramine HCl 50 mg tablet 100 mg PO BEDTIME PRN (Reason: insomnia) 30 Days Qty: 60 0RF clonidine HCl 0.1 mg Tablet 0.1 mg PO Q4H PRN (Reason: Anxiety) 30 Days Qty: 60 0RF Protocol: Hold for SBP< HOLD for SBP < : 90 buspirone 10 mg Tablet 10 mg PO BID 30 Days Qty: 60 0RF ropinirole 1 mg Tablet 1 mg PO BEDTIME 30 Days Qty: 30 0RF Continued valacyclovir 500 mg Tablet 500 mg PO DAILY loratadine 10 mg Tablet 10 mg PO DAILY PRN (Reason: Congestion) lamivudine 300 mg Tablet 300 mg PO DAILY dolutegravir 50 mg Tablet 50 mg PO DAILY sertraline 200 mg Capsule 200 mg PO DAILY Discontinued olanzapine 5 mg Tablet 5 mg PO BEDTIME olanzapine 2.5 mg Tablet 2.5 mg PO BID Discharge Orders: Discharge Order (Routine); Ordered 05/18/22 Ordered By: Sriram Fan Diet: Regular diet Activity on Discharge: As tolerated Stand Alone Forms: Patient Portal Discharge page, Community Support Care Plan Goals: Maintain mood and safe behaviors Take medications as prescribed Continue to pursue sobriety Practice coping skills Continue with outpatient providers and reach out to them as needed Health Concerns: Mood stability and behaviors Sobriety HIV/other Plan of Treatment: Follow up with your PCP, psychiatric provider and other outpatient providers regarding above concerns Take medications as prescribed Assessment: Risk assessment at time of discharge:? Patient was interviewed prior to discharge and found to be fully oriented and without any SI or HI. Patient has insight and demonstrates good judgment in terms of wanting to pursue treatment. Patient is not in imminent risk of harm to self or others and has a safety plan that includes presenting to the closest ER or calling 911 if feeling unsafe.? Patient has been observed closely by nursing and unit staff throughout admission; patient has not engaged in any behaviors that suggest dangerousness to self or others and has demonstrated appropriate behaviors and impulse control
[2022-05-18] MEDS: Naloxone HCl Nasal TAKE HOME 4 MG SPRAY NOSTRILALT (11:48)
[2022-05-18] MEDS: cloNIDine HCL 0.1 MG TABLET PO (14:34)
[2022-05-19 09:53] LABS: HIV Num 3 262.62 S/CO
[2022-05-19 09:54] LABS: HIV AB/AG Reactive (Nonreactive)
[2022-05-20 19:17] LABS: HIV RNA PCR Qn Copies <20 DETECTED copies/mL (NOT DETECTED); HIV RNA PCR Qn Log Copies <1.30 DETECTED (NOT DETECTED)
== END 2022-05-18 15:29 | disposition home or self-care (01) | DRG 751 ==
PROVIDERS: Psychiatry & Neurology Psychiatry; Admitting Provider Psychiatry & Neurology Psychiatry; PCP Internal Medicine; Visit Provider Psychiatry & Neurology Psychiatry
DX: F33.1 Major depressive disorder, recurrent, moderate (principal); F15.250 Other stimulant dependence with stimulant-induced psychotic disorder with delusions; F43.10 Post-traumatic stress disorder, unspecified; Z21 Asymptomatic human immunodeficiency virus [HIV] infection status; Z79.899 Other long term (current) drug therapy
CPT/HCPCS: 36415; 80053; 80061; 81001; 86592; 86704; 86706; 86780; 86803; 87086; 87340; 87389; 87491; 87522; 87536; 87591; J0696

== ENCOUNTER 2022-05-22 13:44 | Inpatient (IN) | payer OTHER, SELFPAY ==
--- NOTE | ~2022-05-22 | XR_ITS ---
EXAMINATION: XR CHEST CLINICAL INFORMATION: Fever. COMPARISON: None TECHNIQUE: Frontal view of the chest was obtained. FINDINGS: No significant abnormality is noted involving the heart, lungs, mediastinum, bony thorax or soft tissues. XR/XR chest 1V IMPRESSION: No acute cardiopulmonary process.
--- NOTE | ~2022-05-22 | CT_ITS ---
EXAMINATION: CT ABDOMEN AND PELVIS WITH CONTRAST CLINICAL INFORMATION: Abdominal pain with leukocytosis, fevers and elevated lactic acid COMPARISON: Right upper quadrant abdominal ultrasound performed earlier the same date TECHNIQUE: Multidetector volumetric images were obtained from the superior aspect of the liver through the pubic symphysis following administration 100 mL of Omnipaque 350 intravenous contrast. Sagittal and coronal reformatted images were obtained on the technologist's workstation. Oral contrast: No This CT examination was performed using dose optimization techniques as appropriate, variously including the following: *Automated exposure control *Adjustment of mA and/or kV according to patient size (this includes techniques or standardized protocols for targeted exams where dose is matched to indication/reason for exam; i.e. extremities or head) *Use of iterative reconstruction technique DLP: 460 mGy-cm FINDINGS: LUNG BASES: Small 4 mm pleural-based nodule along the left hemidiaphragm, almost certainly benign and likely a small intrapulmonary lymph node. Lung bases otherwise clear. LIVER, GALLBLADDER, AND BILIARY TREE: The liver is enlarged measuring approximately 19.2 cm in craniocaudal extent. Normal hepatic attenuation. No liver lesions identified. No biliary ductal dilation. The gallbladder is unremarkable with no evidence of radiopaque gallstones, gallbladder wall thickening, or obvious pericholecystic inflammatory changes. PANCREAS: Unremarkable. SPLEEN: Unremarkable. ADRENAL GLANDS: Unremarkable. KIDNEYS AND URETERS: The kidneys are normal in size, shape, and attenuation. No hydronephrosis, hydroureter, or calculi seen. No perinephric stranding. BLADDER: Slightly thick-walled appearance of the bladder which is likely due to incomplete distention. No surrounding fat stranding. No focal bladder wall thickening. GASTROINTESTINAL TRACT: Slightly thick-walled appearance of the rectum which is likely due to limited distention. No surrounding inflammatory changes. No definite bowel wall thickening. Mildly prominent in caliber short segment of jejunum in the left hemiabdomen on series 3 image 46, likely transient. No evidence of bowel obstruction No dilated bowel loops. Normal appendix. No ascites or free air. ABDOMINAL WALL: Small fat-containing umbilical/periumbilical hernia. LYMPH NODES: Borderline enlarged portacaval lymph node measuring 1 cm in short axis, nonspecific finding. No other lymphadenopathy. VASCULAR: Normal caliber abdominal aorta. PELVIC VISCERA: Unremarkable. OSSEOUS STRUCTURES: No acute fracture or suspicious osseous lesion. CT/CT abdomen pelvis w IV con IMPRESSION: 1. No acute intra-abdominal process identified. 2. Mild hepatomegaly.
--- NOTE | ~2022-05-22 | US_ITS ---
EXAMINATION: US ABDOMEN LIMITED CLINICAL INFORMATION: Right upper quadrant pain.. COMPARISON: None TECHNIQUE: Real-time imaging of the right upper quadrant abdominal viscera. FINDINGS: PANCREAS: Head and body appear unremarkable. Tail not visualized. LIVER: Measures 19.6 cm in sagittal dimension. The liver contour is normal. Parenchymal echogenicity is normal. No focal hepatic lesion identified. There is no intrahepatic biliary duct dilatation seen. Hepatopedal portal flow. GALLBLADDER: Layering gallbladder sludge. The gallbladder is physiologically distended without evidence of stones, polyps, wall thickening or pericholecystic fluid. Technologist reports negative sonographic Hammond's sign. COMMON BILE DUCT: Normal in caliber measuring 0.4 cm in diameter. RIGHT KIDNEY: No hydronephrosis. No renal calculi or focal parenchymal lesions. The kidney measures 10.9 cm in maximum dimension. FREE FLUID: None. US/US abdomen limited IMPRESSION: Gallbladder sludge. Mild hepatomegaly.
--- NOTE | ~2022-05-22 | NM_ITS ---
EXAMINATION: NM IMAGING STUDY WITH CCK BILIARY TRACT CLINICAL INFORMATION: Abdominal pain. Elevated liver function tests. COMPARISON: Ultrasound and CT 05/22/2022 TECHNIQUE: Serial gamma scintillation camera images were obtained over the abdomen for a total observation period of 60 minutes following the intravenous administration of 5.0 mCi Tc-99m mebrofenin FINDINGS: Homogeneous radiotracer uptake throughout the liver. Gallbladder activity is seen after 6 minutes. Runoff into the small bowel is seen at 50 minutes. At 60 minutes post injection, a 30-minute infusion of 1.4 mcg Sincalide was then begun and an additional 30 minutes of images were obtained. The calculated gallbladder ejection fraction is 86% (normal gallbladder ejection fraction is greater than 35%). NM/NM hepatobiliary w pharm IMPRESSION: Accumulation of radiotracer within the gallbladder is strong evidence against an obstructed cystic duct. Normal gallbladder ejection fraction.
[2022-05-22 13:59] VITALS: BP 104/80; PULSE 115; RESP 18; TEMP 36.8; O2SAT 99; BMI 25.7
--- NOTE | 2022-05-22 14:03 | ECG_ITS ---
Test Reason : EPIGASTRIC PAIN Blood Pressure : / mmHG Vent. Rate : 109 BPM Atrial Rate : 109 BPM P-R Int : 128 ms QRS Dur : 086 ms QT Int : 328 ms P-R-T Axes : 050 001 020 degrees QTc Int : 441 ms Sinus tachycardia Otherwise normal ECG No previous ECGs available Referred By: Generic ED Physician Electronically Signed By:BRE HURT MD
[2022-05-22 14:21] LABS: Basophils Absolute Auto 0.1 X10*3/uL (0.0-0.2); Basophils Percent Auto 0.2 % (0-2); Hematocrit 34.7 % (42.0-52.0); Hemoglobin 11.8 g/dl (14.0-18.0); Imm Gran Abs Auto 0.15 X10*3/uL (0.00-0.03); Imm Gran Pct Auto 0.7 % (0.0-0.4); Lymphocytes Absolute Auto 0.3 X10*3/uL (1.2-4.9); Lymphocytes Percent Auto 1.2 % (20-40); MANUAL DIFF FLAG SCAN; Mean Corpuscular Volume 91.1 fL (80.0-98.0); Monocytes Absolute Auto 0.4 X10*3/uL (0.1-1.2); Monocytes Percent Auto 1.9 % (2-11); Neutrophils Absolute Auto 20.1 x10*3/uL (2.0-8.3); Platelet Count 264 X10*3/uL (160-400); Red Blood Count 3.81 X10*6/uL (4.60-5.80); Red Cell Distribution Width 13.2 % (11.0-16.0); SCAN SMEAR FLAG 1
[2022-05-22 14:32] LABS: Ethanol < 10 mg/dL
--- NOTE | 2022-05-22 14:34 | ED_ITS ---
HPI - Abdominal Pain General Chief Complaint: General Medical Stated Complaint: chloecystitis/ transamintis/CRISIS Time Seen by Provider: 05/22/22 14:10 Source: patient Mode of arrival: ambulatory Limitations: no limitations History of Present Illness HPI narrative: 31 yo male with hx of MDD, PTSD, methamphetamine abuse, HIV - undetectable reports he was seen at [facility] this AM and left AMA 4am today was told he had elevated LFTs and dx with cholecystitis. He didn't feel comfortable staying at [facility] or having a procedure so he came here. He notes n/v pain x 2 days. He is also depressed and feeling SI - hx of attempts as a teenager MD elicited complaint: abdominal pain Pertinent past history: other (gallstones) Onset (ago): day(s) (2) Pain Consistency: constant Location: epigastric, LUQ and RUQ Severity: moderate Quality: stabbing Radiation: back Exacerbating factors: eating Relieving factors: nothing Associated symptoms: nausea, vomiting, chills and other (depression, SI) Related Data Home Medications Medication Instructions Recorded Confirmed loratadine 10 mg tablet 10 mg PO DAILY PRN Congestion 05/07/22 05/22/22 sertraline 200 mg capsule 200 mg PO DAILY 05/07/22 05/22/22 valacyclovir 500 mg tablet 500 mg PO DAILY 05/07/22 05/22/22 dolutegravir 50 mg-lamivudine 300 1 tab PO DAILY 05/22/22 05/22/22 mg tablet (Dovato) peg [id number] 1 1 drp ophthalmic (eye) BID 05/22/22 05/22/22 %-0.2 %-0.2 % eye drops (Artificial Tears ([id number])) Previous Rx's Medication Instructions Recorded buspirone 10 mg tablet 10 mg PO BID 30 days #60 tabs 05/18/22 clonidine HCl 0.1 mg tablet 0.1 mg PO Q4H PRN Anxiety 30 days 05/18/22 #60 tabs diphenhydramine HCl 50 mg tablet 100 mg PO BEDTIME PRN insomnia 30 05/18/22 days #60 tabs doxycycline hyclate 100 mg tablet 100 mg PO BID 3 days #7 tabs 05/18/22 ropinirole 1 mg tablet 1 mg PO BEDTIME 30 days #30 tabs 05/18/22 Allergies Allergy/AdvReac Type Severity Reaction Status Date / Time trazodone AdvReac Mild priaprism Verified 05/14/22 11:54 Review of Systems Review of Systems Constitutional : No Weight loss, No Fever, No Chills ENT/Mouth : No sore throat, No Rhinorrhea Eyes: No Swelling, No Redness Cardiovascular : No Chest Pain, No SOB, NoEdema Respiratory : No Cough, No Sputum, No Wheezing Gastrointestinal : Positive Nausea, Positive Vomiting, no Diarrhea, positive abdominal Pain, No Hematochezia, No Melena Genitourinary : No Dysuria, No Urinary Frequency, No Hematuria, No Urgency Musculoskeletal : No joint pain, pos Myalgias, No Joint Swelling Skin : No Skin Lesions, No rash Neuro : No Weakness, No Numbness, No Dizziness, No Headache Psych : pos Anxiety/Panic, pos Depression, pos SI Heme/Lymph: No Bruising, No Lymphadenopathy Endocrine : No Polyuria, No Polydipsia All other systems reviewed and are negative. [facility] Past Medical History Attestation statement: The following information was validated with the patient. Medical History (Updated 05/22/22 @ 15:32 by Bianka Sotelo DO) Drug-induced psychotic disorder with delusions HIV (human immunodeficiency virus infection) MDD (major depressive disorder), recurrent episode, moderate Methamphetamine addiction Post traumatic stress disorder (PTSD) Psychosis Social History Social History Household Members: None Housing: House Do you presently have visiting nurse or other home services: No Patient Tobacco Use Status: Never used Tobacco Substance Use Type: Methamphetamine Advance Directives: No Advance Directives Information Provided: Yes service: No Sexual orientation: Lesbian/Baires/Homosexual Physical Exam ED Vital Signs: Vital Signs - 24 hr 05/22/22 13:59 Temperature 98.2 F Pulse Rate 115 H Respiratory Rate 18 Blood Pressure 104/80 Pulse Oximetry 99 Oxygen Delivery Method Room Air BMI result Body Mass Index 25.7 Appearance: Alert. Oriented X3. Anxious mild acute distress. Eyes: Pupils equal, round and reactive to light. ENT: Pharynx mild dry MM Neck: Normal inspection. Neck supple. CVS: tachycardic heart rate and rhythm. Pulses normal. Respiratory: No respiratory distress. Breath sounds normal. Abdomen: Soft and moderate ttp with no rebound RUQ, epigastric and LUQ Skin: Skin warm and dry. Normal skin color. Normal skin turgor. Extremities: No lower extremity edema. No calf ttp Neuro: Oriented X 3. No motor deficit. No sensory deficit. Course Course Course Narrative: signed out to Dr. Costa pending repeat lactic acid US CXR - admission US not very impressive at this time will obtain CT scan MDM - Abdominal Pain MDM Narrative Medical decision making narrative: 31 yo male with hx of MDD, PTSD, methamphetamine abuse, HIV -undetectable here with elevated LFTs told he had cholecystitis at outside facility this AM left AMA - presents with abdominal pain and n/v at this time will obtain labs, start IVF, IV morphine, US ordered, outside records requested, empiric zosyn. He is also c/o SI - sitter at bedside - his psychiatric complaint will need to be addressed once he is medically cleared. Lab Data Result diagrams: 05/22/22 14:11 05/22/22 14:11 Labs: Lab Results 05/22/22 05/22/22 05/22/22 Range/Units 14:08 14:11 14:11 WBC 21.0 H (4.8-10.8) X10*3/uL RBC 3.81 L (4.60-5.80) X10*6/uL Hgb 11.8 L (14.0-18.0) g/dl Hct 34.7 L (42.0-52.0) % MCV 91.1 (80.0-98.0) fL MCH 31.0 (27.0-33.0) pg MCHC 34.0 (31.0-36.0) g/dl RDW 13.2 (11.0-16.0) % Plt Count 264 (160-400) X10*3/uL MPV 9.0 L (9.4-12.4) fL Immature Gran % (Auto) 0.7 H (0.0-0.4) % Neut % (Auto) 96.0 H (45-73) % Lymph % (Auto) 1.2 L (20-40) % Mora % (Auto) 1.9 L (2-11) % Eos % (Auto) 0.0 (0-4) % Baso % (Auto) 0.2 (0-2) % Lymph # (Auto) 0.3 L (1.2-4.9) X10*3/uL Mora # (Auto) 0.4 (0.1-1.2) X10*3/uL Eos # (Auto) 0.0 (0.0-0.4) X10*3/uL Baso # (Auto) 0.1 (0.0-0.2) X10*3/uL Abs Immat Gran (auto) 0.15 H (0.00-0.03) X10*3/uL Absolute Neuts (auto) 20.1 H (2.0-8.3) x10*3/uL Absolute Nucleated RBC 0.000 (0.0-0.012) X10*3/uL Nucleated RBC % (auto) 0.0 (0.0-0.2) /100WBC Smear Tech's Comments VERIFIED PT (10.0-13.1) SEC INR (0.9-1.1) APTT (26.0-36.4) SEC Sodium 135 (135-145) mmol/L Potassium 4.5 (3.3-5.1) mmol/L Chloride 100 (96-108) mmol/L Carbon Dioxide 22 (22-29) mmol/L Anion Gap 18 (12-20) BUN 17 H D (9-16) mg/dL Creatinine 1.12 (0.5-1.4) mg/dL Estim Creat Clear Calc 81.4 Estimated GFR > 60 Random Glucose 155 H (60-115) mg/dL Lactic Acid (0.5-2.0) mmol/L Calcium 9.0 (8.4-10.2) mg/dL Magnesium 1.3 L* (1.6-2.6) mg/dL Total Bilirubin 1.0 (0.0-1.0) mg/dL Direct Bilirubin 0.4 (0.0-0.5) mg/dL AST 81 H (5-37) U/L ALT 75 H (0-40) U/L Alkaline Phosphatase 140 H D (39-117) U/L Total Creatine Kinase (38-174) U/L Total Protein 7.2 (6.5-8.0) g/dL Albumin 4.3 (3.5-5.0) g/dL Lipase 17 (8-78) U/L Salicylates (15-30) mg/dL Acetaminophen (<30) mcg/mL Ethyl Alcohol mg/dL COVID-19 ([facility]) Negative (Negative) COVID-19 Clin Com See Note 05/22/22 05/22/22 05/22/22 Range/Units 14:11 14:55 14:55 WBC (4.8-10.8) X10*3/uL RBC (4.60-5.80) X10*6/uL Hgb (14.0-18.0) g/dl Hct (42.0-52.0) % MCV (80.0-98.0) fL MCH (27.0-33.0) pg MCHC (31.0-36.0) g/dl RDW (11.0-16.0) % Plt Count (160-400) X10*3/uL MPV (9.4-12.4) fL Immature Gran % (Auto) (0.0-0.4) % Neut % (Auto) (45-73) % Lymph % (Auto) (20-40) % Mora % (Auto) (2-11) % Eos % (Auto) (0-4) % Baso % (Auto) (0-2) % Lymph # (Auto) (1.2-4.9) X10*3/uL Mora # (Auto) (0.1-1.2) X10*3/uL Eos # (Auto) (0.0-0.4) X10*3/uL Baso # (Auto) (0.0-0.2) X10*3/uL Abs Immat Gran (auto) (0.00-0.03) X10*3/uL Absolute Neuts (auto) (2.0-8.3) x10*3/uL Absolute Nucleated RBC (0.0-0.012) X10*3/uL Nucleated RBC % (auto) (0.0-0.2) /100WBC Smear Tech's Comments PT 13.2 H (10.0-13.1) SEC INR 1.1 (0.9-1.1) APTT 26.5 (26.0-36.4) SEC Sodium (135-145) mmol/L Potassium (3.3-5.1) mmol/L Chloride (96-108) mmol/L Carbon Dioxide (22-29) mmol/L Anion Gap (12-20) BUN (9-16) mg/dL Creatinine (0.5-1.4) mg/dL Estim Creat Clear Calc Estimated GFR Random Glucose (60-115) mg/dL Lactic Acid (0.5-2.0) mmol/L Calcium (8.4-10.2) mg/dL Magnesium (1.6-2.6) mg/dL Total Bilirubin (0.0-1.0) mg/dL Direct Bilirubin (0.0-0.5) mg/dL AST (5-37) U/L ALT (0-40) U/L Alkaline Phosphatase (39-117) U/L Total Creatine Kinase 237 H (38-174) U/L Total Protein (6.5-8.0) g/dL Albumin (3.5-5.0) g/dL Lipase (8-78) U/L Salicylates < 5.0 L (15-30) mg/dL Acetaminophen 1 (<30) mcg/mL Ethyl Alcohol < 10 mg/dL COVID-19 ([facility]) (Negative) COVID-19 Clin Com 05/22/22 Range/Units 14:55 WBC (4.8-10.8) X10*3/uL RBC (4.60-5.80) X10*6/uL Hgb (14.0-18.0) g/dl Hct (42.0-52.0) % MCV (80.0-98.0) fL MCH (27.0-33.0) pg MCHC (31.0-36.0) g/dl RDW (11.0-16.0) % Plt Count (160-400) X10*3/uL MPV (9.4-12.4) fL Immature Gran % (Auto) (0.0-0.4) % Neut % (Auto) (45-73) % Lymph % (Auto) (20-40) % Mora % (Auto) (2-11) % Eos % (Auto) (0-4) % Baso % (Auto) (0-2) % Lymph # (Auto) (1.2-4.9) X10*3/uL Mora # (Auto) (0.1-1.2) X10*3/uL Eos # (Auto) (0.0-0.4) X10*3/uL Baso # (Auto) (0.0-0.2) X10*3/uL Abs Immat Gran (auto) (0.00-0.03) X10*3/uL Absolute Neuts (auto) (2.0-8.3) x10*3/uL Absolute Nucleated RBC (0.0-0.012) X10*3/uL Nucleated RBC % (auto) (0.0-0.2) /100WBC Smear Tech's Comments PT (10.0-13.1) SEC INR (0.9-1.1) APTT (26.0-36.4) SEC Sodium (135-145) mmol/L Potassium (3.3-5.1) mmol/L Chloride (96-108) mmol/L Carbon Dioxide (22-29) mmol/L Anion Gap (12-20) BUN (9-16) mg/dL Creatinine (0.5-1.4) mg/dL Estim Creat Clear Calc Estimated GFR Random Glucose (60-115) mg/dL Lactic Acid 4.5 H* (0.5-2.0) mmol/L Calcium (8.4-10.2) mg/dL Magnesium (1.6-2.6) mg/dL Total Bilirubin (0.0-1.0) mg/dL Direct Bilirubin (0.0-0.5) mg/dL AST (5-37) U/L ALT (0-40) U/L Alkaline Phosphatase (39-117) U/L Total Creatine Kinase (38-174) U/L Total Protein (6.5-8.0) g/dL Albumin (3.5-5.0) g/dL Lipase (8-78) U/L Salicylates (15-30) mg/dL Acetaminophen (<30) mcg/mL Ethyl Alcohol mg/dL COVID-19 ([facility]) (Negative) COVID-19 Clin Com ECG Data Attestation: I personally reviewed and interpreted this ECG as follows: ECG interpretation date: 05/22/22 ECG interpretation time: 15:29 Interpretation: Rate: 109 Rhythm: sinus tachycardia Gerber: left Normal P waves. Normal SMOOTH. Normal QRS complex. ST T wave : normal no CHELSEA qTC: normal prior studies: no acute ischemia The study has been interpreted contemporaneously by me. . Critical Care Time Critical Care Time Critical Care Time: Yes Total Critical Care Time: 45 Attestation: 30cc/kg bolus ordered, IVF x 2L, IV morphine, review of records from outside facility. reassessments I attest to this time spent taking care of the patient Discharge Plan Discharge Clinical Impression: Elevated LFTs, Hypomagnesemia, Suicidal ideation, Acidosis, lactic Abdominal pain Qualifiers: Abdominal location: upper abdomen, unspecified Qualified Code(s): R10.10 - Upper abdominal pain, unspecified Leukocytosis Qualifiers: Leukocytosis type: unspecified Qualified Code(s): D72.829 - Elevated white blood cell count, unspecified Patient Disposition: Still a Patient Prescriptions: No Action Artificial Tears([id number]) 1-0.2-0.2 % drops 1 drp ophthalmic (eye) BID Dovato 50-300 mg tablet 1 tab PO DAILY valacyclovir 500 mg Tablet 500 mg PO DAILY loratadine 10 mg Tablet 10 mg PO DAILY PRN (Reason: Congestion) sertraline 200 mg Capsule 200 mg PO DAILY doxycycline hyclate 100 mg Tablet 100 mg PO BID 3 Days Qty: 7 0RF diphenhydramine HCl 50 mg tablet 100 mg PO BEDTIME PRN (Reason: insomnia) 30 Days Qty: 60 0RF clonidine HCl 0.1 mg Tablet 0.1 mg PO Q4H PRN (Reason: Anxiety) 30 Days Qty: 60 0RF Protocol: Hold for SBP< HOLD for SBP < : 90 buspirone 10 mg Tablet 10 mg PO BID 30 Days Qty: 60 0RF ropinirole 1 mg Tablet 1 mg PO BEDTIME 30 Days Qty: 30 0RF
[2022-05-22 14:38] LABS: Alanine Aminotransferase 75 U/L (0-40); Albumin Level 4.3 g/dL (3.5-5.0); Alkaline Phosphatase 140 U/L (39-117); Anion Gap 18 (12-20); Aspartate Amino Transferase 81 U/L (5-37); Bilirubin Direct 0.4 mg/dL (0.0-0.5); Blood Urea Nitrogen 17 mg/dL (9-16); Carbon Dioxide 22 mmol/L (22-29); Chloride 100 mmol/L (96-108); Creatinine Clr Calc Pharmacy 81.4; Estimated Glomerular Filt Rate > 60; Glucose Random 155 mg/dL (60-115); Lipase 17 U/L (8-78); Potassium 4.5 mmol/L (3.3-5.1); Sodium 135 mmol/L (135-145); Total Protein 7.2 g/dL (6.5-8.0)
[2022-05-22 14:40] LABS: SLIDE REVIEW VERIFIED
[2022-05-22 14:45] LABS: COVID-19 Test Negative (Negative); IDNOW Serial# 16C4AD1C
[2022-05-22] MEDS: Morphine Sulfate 4 MG/ML CARTRIDGE IVPUSH (15:05)
[2022-05-22] MEDS: Piperacillin Sodium/Tazobactam 3.375 GM in 0.9 % Sodium Chloride 50 ML IV (15:05)
[2022-05-22 15:06] LABS: Magnesium 1.3 mg/dL (1.6-2.6)
[2022-05-22] MEDS: 0.9 % Sodium Chloride 1,000 ML 999 ML IV ×3 (15:06→17:14)
[2022-05-22] MEDS: ondansetron HCL 4 MG/2 ML VIAL IVPUSH (15:06)
--- NOTE | 2022-05-22 15:08 | PHA.MEDREC ---
Pharmacy Consult ? Medication Reconciliation Pharmacy has completed the medication reconciliation. Pharmacy confirmed medications which matched discharge summary from 05/18. Nasima CorriganD
[2022-05-22 15:12] LABS: INTERNATIONAL NORM RATIO 1.1 (0.9-1.1); Prothrombin Time 13.2 SEC (10.0-13.1)
[2022-05-22 15:15] LABS: Partial Thromboplastin Time 26.5 SEC (26.0-36.4)
[2022-05-22 15:28] LABS: Acetaminophen LAB 1 mcg/mL (<30); Salicylate < 5.0 mg/dL (15-30)
[2022-05-22 15:31] LABS: Lactic Acid 4.5 mmol/L (0.5-2.0)
[2022-05-22] MEDS: Magnesium Sulfate/H2O 2 GM/50 ML PIGGYBACK IV (16:00)
[2022-05-22 17:03] LABS: Reflex Lactate? Lactic Acid Added
--- NOTE | 2022-05-22 18:02 | PC.NURSE ---
pharmacy mixing jona
[2022-05-22] MEDS: iohexoL 350 MG/ML 100 ML INFUS..BTL IV (18:42)
[2022-05-22] MEDS: vancomycin HCL 1,000 MG, vancomycin HCL 750 MG in 0.9 % Sodium Chloride 500 ML 267.5 MG IV (19:28)
[2022-05-22 19:34] VITALS: BP 104/69; PULSE 100; RESP 20; TEMP 37.3; O2SAT 97
--- NOTE | 2022-05-22 19:35 | PC.NURSE ---
Pt V/S are stable, pt abx were administered as order by the provider. Pt is looking clam and do not have any apparent of distress.
[2022-05-22 20:42] LABS: Appearance Urine Clear; Color Urine Yellow; Glucose Urine UA Negative (Negative); Leukocyte Esterase Urine Negative (Negative); Nitrite Urine Negative (Negative); PH 6.5 (5.0-9.0); Urine Blood Negative (Negative); Urine Ketones Negative (Negative); Urine Protein Negative (Neg-Trace)
[2022-05-22 20:57] LABS: Amphetamine Screen Urine POSITIVE (Not Detect); Barbiturates, Urine Not Detected (Not Detect); Benzodiazepines Screen Urine Not Detected (Not Detect); Cannabinoid Screen Urine Not Detected (Not Detect); Cocaine Screen Urine Not Detected (Not Detect); Fentanyl, urine Not Detected (Not Detect); Opiate Screen Urine POSITIVE (Not Detect); Phencyclidine Screen Urine Not Detected (Not Detect)
[2022-05-22 21:08] LABS: Lactic Acid 1.7 mmol/L (0.5-2.0)
--- NOTE | 2022-05-22 21:25 | PC.NURSE ---
Pt continues to escalate. Accusing staff of triggering him. Demanding to see the hospitalist so that she will, help me calm down and move me upstairs like she said. This RN explained to the pt that we are all here to help him and it is not within the hospitalist's control when pts get moved to a bed upstairs. Pt then continued to demand to see the hospitalist, yelling out and pressing the code blue alert button on the wall. Security called to assist with the pt's behavior. Providers ordered PO meds to help the pt control his behaviors but pt refused. Pt was demending to leave the facility AMA. This RN explained to the pt that he is being held on Section 12 because of SI statements he made to the provider earlier in the shift. Provider then ordered IM restraint meds if the pt continued to act out. This RN explained to the pt that if he did not get his behavior under control we would have to resort to an IM injection. Pt has since calmed down and stopped acting out.
--- NOTE | 2022-05-22 23:18 | PM.IMHP ---
History of Present Illness Date of Service: 05/22/22 Chief Complaint: crisis, body aches 31-year-old male with past medical history of MDD, drug induced psychotic disorder with delusions, methamphetamine addiction, PTSD, psychosis, presents to the hospital with complaints of generalized body aches, as well as being in crisis. Apparently patient was seen at [facility] earlier in the day with complaints of fever, as well as abdominal pain, body aches, at [facility] he was found to to be febrile, with abdominal ultrasound being concerning for cholecystitis. Patient signed out AMA from [facility] and came to [facility] because i have been here before and i am in crisis At this time patient is very anxious, very agitated, answers questions appropriately but reports that he does not trust the staff, he is paranoid, thinks that they are talking about him, he does not want to be cared for by the ED staff, he reports that he is in crisis and would like to be admitted to [facility] to so he can feel safer. He reports generalized body aches, pain in the right upper quadrant, denies IV drug use, at this time he does not state clearly that his suicidal but reports that he does not feel safe. He denies any chest pain, no nausea or vomiting, no diarrhea constipation, no urinary symptoms. No numbness tingling or weakness, no lower extremity edema. Labs on arrival show WBC count of 21, hemoglobin of 11.8, hematocrit 34.7, PT of 13.2, INR of 1.1, lactic acid of 4.5 improved after IV fluids, AST of 81, ALT of 75, alk-phos of 140, magnesium of 1.3, CPK of 237, UA negative, UDS positive for and opioids and amphetamines Abdominal ultrasound done in the ED shows gallbladder sludge with mild hepatomegaly but no evidence of stone, polyps, wall thickening or pericholecystic fluid, technologist reports negative sonographic Hammond sign Abdomen pelvic CT shows no acute intra-abdominal process, mild hepatomegaly Of note patient was discharged from [facility] recently after being managed for drug induced psychotic disorder with delusions secondary to methamphetamine use Review of Systems Review of Systems: Yes all other systems are reviewed and are negative [facility] Medical History Drug-induced psychotic disorder with delusions HIV (human immunodeficiency virus infection) MDD (major depressive disorder), recurrent episode, moderate Methamphetamine addiction Post traumatic stress disorder (PTSD) Psychosis Pertinent family history: unknown Surgical History No history of previous surgery Social History Household Members: None Housing: House Do you presently have visiting nurse or other home services: No Patient Tobacco Use Status: Never used Tobacco Substance Use Type: Methamphetamine Advance Directives: No Advance Directives Information Provided: Yes service: No Sexual orientation: Lesbian/Baires/Homosexual Meds Allergies Allergy/AdvReac Type Severity Reaction Status Date / Time trazodone AdvReac Mild priaprism Verified 05/14/22 11:54 Active Medications: Current Medications Pharmacy Consult (Consult Rx Perform Med Rec) 1 each MISCELLANE ONCE PRN PRN Reason: Consult order Home Medications Medication Instructions Recorded Confirmed Last Taken Type loratadine 10 mg tablet 10 mg PO DAILY PRN Congestion 05/07/22 05/22/22 Unknown History sertraline 200 mg capsule 200 mg PO DAILY 05/07/22 05/22/22 Unknown History valacyclovir 500 mg tablet 500 mg PO DAILY 05/07/22 05/22/22 Unknown History dolutegravir 50 mg-lamivudine 300 1 tab PO DAILY 05/22/22 05/22/22 Unknown History mg tablet (Dovato) peg [id number] 1 1 drp ophthalmic (eye) BID 05/22/22 05/22/22 Unknown History %-0.2 %-0.2 % eye drops (Artificial Tears ([id number])) Physical Exam Vital Signs and Narrative: Vital Signs: Last Vital Signs Temp 99.1 F 05/22/22 19:34 Pulse 100 05/22/22 19:34 Resp 20 05/22/22 19:34 BP 104/69 05/22/22 19:34 Pulse Ox 97 05/22/22 19:34 O2 Del Method 05/22/22 19:34 BMI result Body Mass Index 25.7 Const: General: cooperative and no acute distress Orientation/consciousness: patient oriented x3 Eyes: General: appearance normal, both eyes and all related structures Resp: Effort & Inspection: normal respiratory effort Auscultation: clear to auscultation bilaterally Cardio: Rate: regular rate Rhythm: regular rhythm GI: Other: No abdominal tenderness, rebound or guarding Palpation (GI): Soft to palpation Auscultation: normal bowel sounds Skin: General skin exam: no rashes or lesions noted Neuro: General: patient oriented x3 Cognition (Neuro): normal cognition Extrem: General: Yes normal to inspection and Yes no pedal edema Psych: Other: Very anxious, agitated, paranoid Results Labs CBC and Chem 7: 05/23/22 06:02 05/23/22 06:02 Labs: Laboratory Results - last 24 hr 05/22/22 05/22/22 05/22/22 14:08 14:11 14:11 MCV 91.1 MCH 31.0 MCHC 34.0 RDW 13.2 Plt Count 264 MPV 9.0 L Immature Gran % (Auto) 0.7 H Neut % (Auto) 96.0 H Lymph % (Auto) 1.2 L Stearns % (Auto) 1.9 L Eos % (Auto) 0.0 Baso % (Auto) 0.2 Lymph # (Auto) 0.3 L Stearns # (Auto) 0.4 Eos # (Auto) 0.0 Baso # (Auto) 0.1 Abs Immat Gran (auto) 0.15 H Absolute Neuts (auto) 20.1 H Absolute Nucleated RBC 0.000 Nucleated RBC % (auto) 0.0 Smear Tech's Comments VERIFIED PT INR APTT Anion Gap 18 Estim Creat Clear Calc 81.4 Estimated GFR > 60 Random Glucose 155 H Lactic Acid Calcium 9.0 Magnesium 1.3 L* Total Bilirubin 1.0 Direct Bilirubin 0.4 AST 81 H ALT 75 H Alkaline Phosphatase 140 H D Total Creatine Kinase Total Protein 7.2 Albumin 4.3 Lipase 17 Urine Color Urine Appearance Urine pH Ur Specific [place] Urine Protein Urine Glucose (UA) Urine Ketones Urine Blood Urine Nitrite Ur Leukocyte Esterase Salicylates Urine Opiates Screen Urine Fentanyl Screen Acetaminophen Ur Barbiturates Screen Ur Phencyclidine Scrn Ur Amphetamines Screen U Benzodiazepines Scrn Urine Cocaine Screen U Marijuana (THC) Screen Ethyl Alcohol COVID-19 ([facility]ILEY) Negative COVID-19 Clin Com See Note 05/22/22 05/22/22 05/22/22 14:11 14:55 14:55 MCV MCH MCHC RDW Plt Count MPV Immature Gran % (Auto) Neut % (Auto) Lymph % (Auto) Stearns % (Auto) Eos % (Auto) Baso % (Auto) Lymph # (Auto) Stearns # (Auto) Eos # (Auto) Baso # (Auto) Abs Immat Gran (auto) Absolute Neuts (auto) Absolute Nucleated RBC Nucleated RBC % (auto) Smear Tech's Comments PT 13.2 H INR 1.1 APTT 26.5 Anion Gap Estim Creat Clear Calc Estimated GFR Random Glucose Lactic Acid Calcium Magnesium Total Bilirubin Direct Bilirubin AST ALT Alkaline Phosphatase Total Creatine Kinase 237 H Total Protein Albumin Lipase Urine Color Urine Appearance Urine pH Ur Specific [place] Urine Protein Urine Glucose (UA) Urine Ketones Urine Blood Urine Nitrite Ur Leukocyte Esterase Salicylates < 5.0 L Urine Opiates Screen Urine Fentanyl Screen Acetaminophen 1 Ur Barbiturates Screen Ur Phencyclidine Scrn Ur Amphetamines Screen U Benzodiazepines Scrn Urine Cocaine Screen U Marijuana (THC) Screen Ethyl Alcohol < 10 COVID-19 ([facility]LEY) COVID-Exam18 05/22/22 05/22/22 05/22/22 14:55 20:32 20:32 MCV MCH MCHC RDW Plt Count MPV Immature Gran % (Auto) Neut % (Auto) Lymph % (Auto) Stearns % (Auto) Eos % (Auto) Baso % (Auto) Lymph # (Auto) Stearns # (Auto) Eos # (Auto) Baso # (Auto) Abs Immat Gran (auto) Absolute Neuts (auto) Absolute Nucleated RBC Nucleated RBC % (auto) Smear Tech's Comments PT INR APTT Anion Gap Estim Creat Clear Calc Estimated GFR Random Glucose Lactic Acid 4.5 H* Calcium Magnesium Total Bilirubin Direct Bilirubin AST ALT Alkaline Phosphatase Total Creatine Kinase Total Protein Albumin Lipase Urine Color Yellow Urine Appearance Clear Urine pH 6.5 Ur Specific [place] 1.010 Urine Protein Negative Urine Glucose (UA) Negative Urine Ketones Negative Urine Blood Negative Urine Nitrite Negative Ur Leukocyte Esterase Negative Salicylates Urine Opiates Screen POSITIVE H Urine Fentanyl Screen Not Detected Acetaminophen Ur Barbiturates Screen Not Detected Ur Phencyclidine Scrn Not Detected Ur Amphetamines Screen POSITIVE H U Benzodiazepines Scrn Not Detected Urine Cocaine Screen Not Detected U Marijuana (THC) Screen Not Detected Ethyl Alcohol COVID-19 ([facility]ILEY) COVID-19 BATS 05/22/22 20:44 MCV MCH MCHC RDW Plt Count MPV Immature Gran % (Auto) Neut % (Auto) Lymph % (Auto) Stearns % (Auto) Eos % (Auto) Baso % (Auto) Lymph # (Auto) Stearns # (Auto) Eos # (Auto) Baso # (Auto) Abs Immat Gran (auto) Absolute Neuts (auto) Absolute Nucleated RBC Nucleated RBC % (auto) Smear Tech's Comments PT INR APTT Anion Gap Estim Creat Clear Calc Estimated GFR Random Glucose Lactic Acid 1.7 Calcium Magnesium Total Bilirubin Direct Bilirubin AST ALT Alkaline Phosphatase Total Creatine Kinase Total Protein Albumin Lipase Urine Color Urine Appearance Urine pH Ur Specific [place] Urine Protein Urine Glucose (UA) Urine Ketones Urine Blood Urine Nitrite Ur Leukocyte Esterase Salicylates Urine Opiates Screen Urine Fentanyl Screen Acetaminophen Ur Barbiturates Screen Ur Phencyclidine Scrn Ur Amphetamines Screen U Benzodiazepines Scrn Urine Cocaine Screen U Marijuana (THC) Screen Ethyl Alcohol COVID-19 ([facility]) COVID-19 Clin Com Imaging Radiologist's Impressions: Impressions Abdomen Ultrasound 05/22/22 15:45 IMPRESSION: Gallbladder sludge. Mild hepatomegaly. Chest X-Ray 05/22/22 17:15 IMPRESSION: No acute cardiopulmonary process. Abdomen/Pelvis CT 05/22/22 19:06 IMPRESSION: 1. No acute intra-abdominal process identified. 2. Mild hepatomegaly. Assessment and Plan (1) Sepsis: Status: Acute (2) Elevated LFTs: Status: Acute (3) Hypomagnesemia: Status: Acute (4) Suicidal ideation: Status: Acute (5) Acidosis, lactic: Status: Acute (6) Abdominal pain: Qualifiers: Abdominal location: upper abdomen, unspecified Qualified Code(s): R10.10 - Upper abdominal pain, unspecified Status: Acute Plan # Sepsis - unknown definite source at this branden e - has leukocytosis, LA, Tachycardia, Tachypnea - possible cholecystitis vs bacterimic? although denies any hx of IVDU at this time - sepsis focus exam completed - Will tx with broad spectrum abx - Will obtain HIDA scan - follow blood cultures # Abd pain - examine benign - Previous hospital presentation earlier in the day was suspecious for cholecystitis - CT abdomen, abdominal ultrasound here on diagnostic - has elevated LFT - will obtain HIDA scan given the sepsis - will treat with IV antibiotic - pain control # suicide ideas - assisting consult - his daughter at bedside # lactic acidosis - secondary to acute infection - improved with IV fluid # elevated LFTs - possibly secondary to above - imaging shows hepatomegaly - HIDA scan ordered - follow LFTs - hepatitis panel # history of HIV - continue Dovato # mood disorder - continue home meds - crisis consulted Hx of positive RPR DVT ppx: lovenox Pt will require a minimum 2 night hospital stay for IV antibiotics in the setting of sepsis Quality Stroke Does the patient have a stroke diagnosis?: No VTE Prior VTE?: No VTE Risk Level:: Medical - moderate - high VTE Device Contraindication: Treatment Not Indicated VTE Drug Contraindication: N/A - Med Ordered
[2022-05-22 23:42] VITALS: BP 120/54; PULSE 104; RESP 20; TEMP 37; O2SAT 97
[2022-05-23] MEDS: Piperacillin Sodium/Tazobactam 3.375 GM in 0.9 % Sodium Chloride 50 ML IV ×5 (00:26→22:58)
[2022-05-23] MEDS: Acetaminophen 325 MG TABLET 650 MG PO (00:27)
[2022-05-23] MEDS: LORazepam 1 MG TABLET PO (00:27)
[2022-05-23] MEDS: Enoxaparin Sodium 40 MG/0.4 ML SYRINGE SUBCUT ×2 (00:28→22:59)
[2022-05-23] MEDS: 0.9 % Sodium Chloride Flush 3 ML SYRINGE IVFLUSH ×3 (00:29→23:00)
--- NOTE | 2022-05-23 04:57 | PC.NURSE ---
PT is asleep. will continue to monitor.
[2022-05-23 06:08] LABS: MANUAL DIFF FLAG NO
[2022-05-23 06:28] LABS: Basophils Absolute Auto 0.1 X10*3/uL (0.0-0.2); Basophils Percent Auto 0.3 % (0-2); Eosinophils Absolute Auto 0.1 X10*3/uL (0.0-0.4); Eosinophils Percent Auto 0.4 % (0-4); Hematocrit 33.5 % (42.0-52.0); Hemoglobin 10.8 g/dl (14.0-18.0); Imm Gran Abs Auto 0.12 X10*3/uL (0.00-0.03); Imm Gran Pct Auto 0.6 % (0.0-0.4); Lymphocytes Absolute Auto 1.8 X10*3/uL (1.2-4.9); Lymphocytes Percent Auto 9.1 % (20-40); Mean Corpuscular HGB Conc 32.2 g/dl (31.0-36.0); Mean Corpuscular Hemoglobin 29.8 pg (27.0-33.0); Mean Corpuscular Volume 92.3 fL (80.0-98.0); Mean Platelet Volume 8.9 fL (9.4-12.4); Neutrophils Absolute Auto 16.4 x10*3/uL (2.0-8.3); Neutrophils Percent Auto 84.6 % (45-73); Platelet Count 240 X10*3/uL (160-400); Red Blood Count 3.63 X10*6/uL (4.60-5.80); Red Cell Distribution Width 13.4 % (11.0-16.0); White Blood Count 19.4 X10*3/uL (4.8-10.8)
[2022-05-23 06:30] LABS: Anion Gap 12 (12-20); Blood Urea Nitrogen 13 mg/dL (9-16); Calcium 8.7 mg/dL (8.4-10.2); Carbon Dioxide 23 mmol/L (22-29); Chloride 109 mmol/L (96-108); Estimated Glomerular Filt Rate > 60; Glucose Random 102 mg/dL (60-115); Potassium 4.2 mmol/L (3.3-5.1); Sodium 140 mmol/L (135-145)
--- NOTE | 2022-05-23 07:24 | PHA.PROG ---
Admission Date/Time: May 22, 2022 23:16 Indication: Weight in k.039 kg Serum Creatinine - Last 168 Hours 05/22/22 05/23/22 14:11 06:02 Creatinine 1.12 0.76 Estimated CrCl and GFR - Last 168 Hours 05/22/22 05/23/22 14:11 06:02 Estim Creat Clear Calc 81.4 120.0 Estimated GFR > 60 > 60 Vancomycin Loading Dose: 1750 Current Vancomycin Dosing Regimen: 1250 Vancomycin Monitoring using AUC goal of 400 - 600 range with trough as surrogate marker: 498 Date and Time for next Vancomycin Level to be drawn: 05/23 @ 0500 Pharmacist Comments on Vancomycin Plan: Vancomycin dosing will take advantage of [employer] as a clinical decision support tool that uses Bayesian modeling to calculate individual patient's pharmacokinetic parameters and forecast the patient's drug concentration time course with the target goal AUC 24 range of 400 - 600 mg/L/hr.
[2022-05-23] MEDS: busPIRone HCl 10 MG TABLET PO ×2 (08:05→20:58)
[2022-05-23] MEDS: Sertraline HCL 100 MG TABLET 200 MG PO (08:05)
[2022-05-23] MEDS: vancomycin HCL 1,250 MG in 0.9 % Sodium Chloride 250 ML 166.67 MG IV ×2 (08:06→20:57)
[2022-05-23] MEDS: valACYclovir HCL 500 MG TABLET PO (08:21)
[2022-05-23 08:25] LABS: Alanine Aminotransferase 50 U/L (0-40); Albumin Level 3.7 g/dL (3.5-5.0); Bilirubin Direct 0.3 mg/dL (0.0-0.5); Bilirubin Total 0.5 mg/dL (0.0-1.0); Total Protein 6.4 g/dL (6.5-8.0)
--- NOTE | 2022-05-23 09:30 | PC.NURSE ---
PT A&Ox3 denies pain, reports auditory hallucinations. Denies SI/HI. PT remains NPO.
[2022-05-23 09:37] LABS: Alkaline Phosphatase 108 U/L (39-117); Aspartate Amino Transferase 36 U/L (5-37)
--- NOTE | 2022-05-23 10:33 | P.CONGS_ITS ---
History of Present Illness Consult details Consult date: 05/23/22 Requesting physician: Donovan Buchanan Narrative: 31-year-old male patient with history of depression, PTSD IV drug abuse, HIV presenting with complaints of abdominal pain in the right upper quadrant. He was initially evaluated at [facility] and determined to have acute cholecystitis. The patient subsequently signed out AMA presented to [facility] further care pain began approximately 2 days prior to presentation. Pain is mainly located in the epigastrium and right upper quadrant. He also reports a long history of a need to burp. He does note the pain improved after burping. He reports some nausea and vomiting associated with the pain Pain seems to increase after eating but he has not noted particular foods that increase the pain. workup in the emergency department included ultrasound the abdomen which revealed a normal appearing gallbladder with thigh wall thickening or ductal dilatation. No pericholecystic fluid was identified. Some biliary sludge was noted within the gallbladder but no gallstones or polyps. CT of the abdomen and pelvis revealed a normal appearing gallbladder. Review of Systems Review of Systems: Yes all other systems are reviewed and are negative Gastrointestinal: Gastrointestinal: Reports abdominal pain, Reports belching, Denies constipation, Denies diarrhea, Reports nausea and Reports vomiting Psychiatric: Psychiatric: Reports as per [facility] Past Medical History Medical History (Updated 05/23/22 @ 10:40 by Laurent Mcgill MD) Abscess of left arm Drug-induced psychotic disorder with delusions HIV (human immunodeficiency virus infection) MDD (major depressive disorder), recurrent episode, moderate Methamphetamine addiction Post traumatic stress disorder (PTSD) Psychosis Surgical History Surgical History No history of previous surgery Social History Social History Household Members: None Housing: House Do you presently have visiting nurse or other home services: No Patient Tobacco Use Status: Never used Tobacco Substance Use Type: Methamphetamine Advance Directives: No Advance Directives Information Provided: Yes service: No Sexual orientation: Lesbian/Baires/Homosexual Meds Allergies Allergy/AdvReac Type Severity Reaction Status Date / Time trazodone AdvReac Mild priaprism Verified 05/14/22 11:54 Active Medications: Current Medications Acetaminophen (Acetaminophen 325 Mg Tablet) 650 mg PO Q6H PRN PRN Reason: Pain, Mild (Pain Scale 1-3) Last Admin: 05/23/22 00:27 Dose: 650 mg Buspirone HCl (Buspirone Hcl 10 Mg Tablet) 10 mg PO BID [facility] Last Admin: 05/23/22 08:05 Dose: 10 mg Clonidine HCl (Clonidine Hcl 0.1 Mg Tablet) 0.1 mg PO Q4H PRN; Protocol PRN Reason: Anxiety Diphenhydramine HCl (Diphenhydramine Hcl 25 Mg Capsule) 100 mg PO BEDTIME PRN PRN Reason: insomnia Docusate Sodium (Docusate Sodium 100 Mg Capsule) 100 mg PO DAILY PRN PRN Reason: Constipation Enoxaparin Sodium (Enoxaparin Sodium 40 Mg/0.4 Ml Syringe) 40 mg SUBCUT Q24H [facility] Last Admin: 05/23/22 00:28 Dose: 40 mg Piperacillin Sod/Tazobactam (Sod 3.375 gm/ Sodium Chloride) 50 mls @ 100 mls/hr IV Q6H [facility] Last Infusion: 05/23/22 06:53 Dose: Infused Vancomycin HCl 1,250 mg/ (Sodium Chloride) 250 mls @ 166.667 mls/hr IV Q12H [facility] Last Infusion: 05/23/22 09:40 Dose: Infused Loratadine (Loratadine 10 Mg Tablet) 10 mg PO DAILY PRN PRN Reason: Congestion Morphine Sulfate (Morphine Sulfate 4 Mg/Ml Cartridge) 4 mg IVPUSH Q4H PRN; Prot ocol PRN Reason: Pain, Severe (Pain Scale 7-10) Non-Formulary Medication (Dolutegravir-Lamivudine [Dovato]) 1 tab PO DAILY [facility] Ondansetron HCl (Ondansetron Hcl 4 Mg/2 Ml Vial) 4 mg IVPUSH Q8H PRN PRN Reason: Nausea and Vomiting Pharmacy Consult (Consult Rx Perform Med Rec) 1 each MISCELLANE ONCE PRN PRN Reason: Consult order Pharmacy Consult (Consult Rx Vancomycin Dosing) 1 each MISCELLANE DAILY PRN PRN Reason: Consult order Ropinirole HCl (Ropinirole Hcl 1 Mg Tablet) 1 mg PO BEDTIME [facility] Sertraline HCl (Sertraline Hcl 100 Mg Tablet) 200 mg PO DAILY [facility] Last Admin: 05/23/22 08:05 Dose: 200 mg Sodium Chloride (0.9 % Sodium Chloride Flush 3 Ml Syringe) 3 ml IVFLUSH QSHIFT [facility] Last Admin: 05/23/22 08:15 Dose: 3 ml Valacyclovir HCl (Valacyclovir Hcl 500 Mg Tablet) 500 mg PO DAILY [facility] Last Admin: 05/23/22 08:21 Dose: 500 mg Home Medications Medication Instructions Recorded Confirmed Last Taken Type loratadine 10 mg tablet 10 mg PO DAILY PRN Congestion 05/07/22 05/22/22 Unknown History sertraline 200 mg capsule 200 mg PO DAILY 05/07/22 05/22/22 Unknown History valacyclovir 500 mg tablet 500 mg PO DAILY 05/07/22 05/22/22 Unknown History dolutegravir 50 mg-lamivudine 300 1 tab PO DAILY 05/22/22 05/22/22 Unknown History mg tablet (Dovato) peg [id number] 1 1 drp ophthalmic (eye) BID 05/22/22 05/22/22 Unknown History %-0.2 %-0.2 % eye drops (Artificial Tears ([id number])) Physical Exam Vital Signs: Vital Signs: Last Vital Signs Temp 98.6 F 05/22/22 23:42 Pulse 104 H 05/22/22 23:42 Resp 20 05/22/22 23:42 BP 120/54 L 05/22/22 23:42 Pulse Ox 97 05/22/22 23:42 O2 Del Method 05/22/22 23:42 BMI result Body Mass Index 25.7 Const: General: no acute distress and well developed Nutritional Appearance: well nourished Orientation/consciousness: patient oriented x3 Limitations: no limitations Eyes: Sclerae: sclerae normal Resp: Effort & Inspection: normal respiratory effort, no audible wheezes, no cough and no respiratory distress GI: Palpation (GI): Soft to palpation, Tenderness to palpation present (GI) in the RUQ; Hammond's sign negative and with no rebound tenderness, no guarding, not rigid and no masses Auscultation: normal bowel sounds Skin: General skin exam: no rashes or lesions noted Neuro: General: patient oriented x3 Extrem: General: Yes normal to inspection Results Labs Result diagrams: 05/23/22 06:02 05/23/22 06:02 Labs: Abnormal lab results 1005/22/22 05/22/22 Range/Units 14:11 14:11 14:55 WBC 21.0 H (4.8-10.8) X10*3/uL RBC 3.81 L (4.60-5.80) X10*6/uL Hgb 11.8 L (14.0-18.0) g/dl Hct 34.7 L (42.0-52.0) % MPV 9.0 L (9.4-12.4) fL Immature Gran % (Auto) 0.7 H (0.0-0.4) % Neut % (Auto) 96.0 H (45-73) % Lymph % (Auto) 1.2 L (20-40) % Faulk % (Auto) 1.9 L (2-11) % Lymph # (Auto) 0.3 L (1.2-4.9) X10*3/uL Abs Immat Gran (auto) 0.15 H (0.00-0.03) X10*3/uL Absolute Neuts (auto) 20.1 H (2.0-8.3) x10*3/uL PT 13.2 H (10.0-13.1) SEC Chloride (96-108) mmol/L BUN 17 H D (9-16) mg/dL Random Glucose 155 H (60-115) mg/dL Lactic Acid (0.5-2.0) mmol/L Magnesium 1.3 L* (1.6-2.6) mg/dL AST 81 H (5-37) U/L ALT 75 H (0-40) U/L Alkaline Phosphatase 140 H D (39-117) U/L Total Creatine Kinase (38-174) U/L Total Protein (6.5-8.0) g/dL Salicylates (15-30) mg/dL Urine Opiates Screen (Not Detect) Ur Amphetamines Screen (Not Detect) 05/22/22 05/22/22 05/22/22 Range/Units 14:55 14:55 20:32 WBC (4.8-10.8) X10*3/uL RBC (4.60-5.80) X10*6/uL Hgb (14.0-18.0) g/dl Hct (42.0-52.0) % MPV (9.4-12.4) fL Immature Gran % (Auto) (0.0-0.4) % Neut % (Auto) (45-73) % Lymph % (Auto) (20-40) % Faulk % (Auto) (2-11) % Lymph # (Auto) (1.2-4.9) X10*3/uL Abs Immat Gran (auto) (0.00-0.03) X10*3/uL Absolute Neuts (auto) (2.0-8.3) x10*3/uL PT (10.0-13.1) SEC Chloride (96-108) mmol/L BUN (9-16) mg/dL Random Glucose (60-115) mg/dL Lactic Acid 4.5 H* (0.5-2.0) mmol/L Magnesium (1.6-2.6) mg/dL AST (5-37) U/L ALT (0-40) U/L Alkaline Phosphatase (39-117) U/L Total Creatine Kinase 237 H (38-174) U/L Total Protein (6.5-8.0) g/dL Salicylates < 5.0 L (15-30) mg/dL Urine Opiates Screen POSITIVE H (Not Detect) Ur Amphetamines Screen POSITIVE H (Not Detect) 05/23/22 05/23/22 05/23/22 Range/Units 06:02 06:02 07:32 WBC 19.4 H (4.8-10.8) X10*3/uL RBC 3.63 L (4.60-5.80) X10*6/uL Hgb 10.8 L (14.0-18.0) g/dl Hct 33.5 L (42.0-52.0) % MPV 8.9 L (9.4-12.4) fL Immature Gran % (Auto) 0.6 H (0.0-0.4) % Neut % (Auto) 84.6 H (45-73) % Lymph % (Auto) 9.1 L (20-40) % Faulk % (Auto) (2-11) % Lymph # (Auto) (1.2-4.9) X10*3/uL Abs Immat Gran (auto) 0.12 H (0.00-0.03) X10*3/uL Absolute Neuts (auto) 16.4 H (2.0-8.3) x10*3/uL PT (10.0-13.1) SEC Chloride 109 H (96-108) mmol/L BUN (9-16) mg/dL Random Glucose (60-115) mg/dL Lactic Acid (0.5-2.0) mmol/L Magnesium (1.6-2.6) mg/dL AST (5-37) U/L ALT 50 H (0-40) U/L Alkaline Phosphatase (39-117) U/L Total Creatine Kinase (38-174) U/L Total Protein 6.4 L (6.5-8.0) g/dL Salicylates (15-30) mg/dL Urine Opiates Screen (Not Detect) Ur Amphetamines Screen (Not Detect) Short CBC 05/22/22 05/23/22 Range/Units 14:11 06:02 WBC 21.0 H 19.4 H (4.8-10.8) X10*3/uL Hgb 11.8 L 10.8 L (14.0-18.0) g/dl Hct 34.7 L 33.5 L (42.0-52.0) % Plt Count 264 240 (160-400) X10*3/uL BMP 05/22/22 05/23/22 14:11 06:02 Sodium 135 140 Potassium 4.5 4.2 Chloride 100 109 H Carbon Dioxide 22 23 BUN 17 H D 13 Creatinine 1.12 0.76 Calcium 9.0 8.7 Cardiac Enzymes 05/22/22 Range/Units 14:55 Total Creatine Kinase 237 H (38-174) U/L Liver Function 05/22/22 05/23/22 Range/Units 14:11 07:32 Total Bilirubin 1.0 0.5 (0.0-1.0) mg/dL Direct Bilirubin 0.4 0.3 (0.0-0.5) mg/dL AST 81 H 36 D (5-37) U/L ALT 75 H 50 H (0-40) U/L Alkaline Phosphatase 140 H D 108 D (39-117) U/L Albumin 4.3 3.7 (3.5-5.0) g/dL Urine 05/22/22 Range/Units 20:32 Urine Color Yellow Urine Appearance Clear Urine pH 6.5 (5.0-9.0) Ur Specific [place] 1.010 (1.005-1.025) Urine Protein Negative (Neg-Trace) mg/dL Urine Glucose (UA) Negative (Negative) mg/dL All other labs normal. Assessment and Plan (1) Abdominal pain: Qualifiers: Abdominal location: upper abdomen, unspecified Qualified Code(s): R10.10 - Upper abdominal pain, unspecified Status: Acute (2) Elevated LFTs: Status: Acute Plan 31-year-old male patient found to have evidence of sepsis with abdominal pain in the right upper quadrant, leukocytosis , lactic acidosis, and elevated liver function tests. Ultrasound revealed a normal appearing gallbladder with biliary sludge with no secondary evidence of acute cholecystitis. Common bile duct is normal as well. Negative sonographic Hammond sign identified. On examination the patient does have tenderness in the right upper quadrant but no definite Hammond sign. CT reveals a normal appearing gallbladder as well and no other intr a-abdominal fluid collection/abscess to explain patient's laboratory findings. I would not recommend cholecystectomy at this time given the lack of evidence of acute cholecystitis. Patient may be advanced to a low-fat diet from my standpoint. Procedures Date of Service Date of Service: 05/23/22
--- NOTE | 2022-05-23 11:32 | MHC.CM.PN ---
Attempted to meet with patient in regards to discharge planning. Patient currently sleeping. No family present. Will attempt to meet again. Continue to monitor for d/c needs.
--- NOTE | 2022-05-23 13:10 | PC.NURSE ---
PT taken to nuclear scan. PT NPO at time of transport.
--- NOTE | 2022-05-23 14:13 | P.PNIM_ITS ---
Subjective Subjective Date of Service: 05/23/22 Interval History: the patient was seen and evaluated this morning Laying in bed, feels comfortable but has recurrent RUQ pain reports chills and nausea on occasions No reported other overnight events. Systemic review: No fever, chills or weakness No chest pain, palpitation No shortness of breath or coughing episodes of abdominal pain, associated with nausea but no vomiting No urinary symptoms No any rash or wounds Physical Exam Vital Signs: Vital Signs: Last Vital Signs Temp 98.6 F 05/22/22 23:42 Pulse 104 H 05/22/22 23:42 Resp 20 05/22/22 23:42 BP 120/54 L 05/22/22 23:42 Pulse Ox 97 05/22/22 23:42 O2 Del Method 05/22/22 23:42 BMI result Body Mass Index 25.7 Const: Other: Constitutional : Alert, oriented, not in distress Neck : Normal inspection, Supple Cardiovascular : RRR, no JVP, no lower extremity edema Respiratory : fair bilateral air entry, no crackles, wheezes or rhonchi Gastrointestinal: soft, lax, Normal bowel sounds, mild RUQ tendernss with no surgical signs Skin : Warm, Dry Neurological : Alert & oriented x3, No focal deficit , CN 2-12 within normal Objective Data Active Medications Acetaminophen (Acetaminophen 325 Mg Tablet) 650 mg PO Q6H PRN PRN Reason: Pain, Mild (Pain Scale 1-3) Last Admin: 05/23/22 00:27 Dose: 650 mg Documented By: NATI Buspirone HCl (Buspirone Hcl 10 Mg Tablet) 10 mg PO BID [facility] Last Admin: 05/23/22 08:05 Dose: 10 mg Documented By: ABDULKADIR Clonidine HCl (Clonidine Hcl 0.1 Mg Tablet) 0.1 mg PO Q4H PRN; Protocol PRN Reason: Anxiety Diphenhydramine HCl (Diphenhydramine Hcl 25 Mg Capsule) 100 mg PO BEDTIME PRN PRN Reason: insomnia Docusate Sodium (Docusate Sodium 100 Mg Capsule) 100 mg PO DAILY PRN PRN Reason: Constipation Enoxaparin Sodium (Enoxaparin Sodium 40 Mg/0.4 Ml Syringe) 40 mg SUBCUT Q24H [facility] Last Admin: 05/23/22 00:28 Dose: 40 mg Documented By: NATI Piperacillin Sod/Tazobactam (Sod 3.375 gm/ Sodium Chloride) 50 mls @ 100 mls/hr IV Q6H [facility] Last Infusion: 05/23/22 12:58 Dose: 0 mls/hr Documented By: ABDULKADIR Vancomycin HCl 1,250 mg/ (Sodium Chloride) 250 mls @ 166.667 mls/hr IV Q12H [facility] Last Infusion: 05/23/22 09:40 Dose: 0 mls/hr Documented By: ABDULKADIR Loratadine (Loratadine 10 Mg Tablet) 10 mg PO DAILY PRN PRN Reason: Congestion Morphine Sulfate (Morphine Sulfate 4 Mg/Ml Cartridge) 4 mg IVPUSH Q4H PRN; Protocol PRN Reason: Pain, Severe (Pain Scale 7-10) Non-Formulary Medication (Dolutegravir-Lamivudine [Dovato]) 1 tab PO DAILY [facility] Ondansetron HCl (Ondansetron Hcl 4 Mg/2 Ml Vial) 4 mg IVPUSH Q8H PRN PRN Reason: Nausea and Vomiting Pharmacy Consult (Consult Rx Perform Med Rec) 1 each MISCELLANE ONCE PRN PRN Reason: Consult order Pharmacy Consult (Consult Rx Vancomycin Dosing) 1 each MISCELLANE DAILY PRN PRN Reason: Consult order Ropinirole HCl (Ropinirole Hcl 1 Mg Tablet) 1 mg PO BEDTIME [facility] Sertraline HCl (Sertraline Hcl 100 Mg Tablet) 200 mg PO DAILY [facility] Last Admin: 05/23/22 08:05 Dose: 200 mg Documented By: ABDULKADIR Sodium Chloride (0.9 % Sodium Chloride Flush 3 Ml Syringe) 3 ml IVFLUSH QSHIFT [facility] Last Admin: 05/23/22 08:15 Dose: 3 ml Documented By: ABDULKADIR Valacyclovir HCl (Valacyclovir Hcl 500 Mg Tablet) 500 mg PO DAILY [facility] Last Admin: 05/23/22 08:21 Dose: 500 mg Documented By: ABDULKADIR Labs CBC & Chem 7: 05/23/22 06:02 05/23/22 06:02 Labs: Laboratory Results - last 24 hr 05/22/22 05/22/22 05/22/22 14:08 14:11 14:11 MCV 91.1 MCH 31.0 MCHC 34.0 RDW 13.2 Plt Count 264 MPV 9.0 L Immature Gran % (Auto) 0.7 H Neut % (Auto) 96.0 H Lymph % (Auto) 1.2 L Burnett % (Auto) 1.9 L Eos % (Auto) 0.0 Baso % (Auto) 0.2 Lymph # (Auto) 0.3 L Burnett # (Auto) 0.4 Eos # (Auto) 0.0 Baso # (Auto) 0.1 Abs Immat Gran (auto) 0.15 H Absolute Neuts (auto) 20.1 H Absolute Nucleated RBC 0.000 Nucleated RBC % (auto) 0.0 Smear Tech's Comments VERIFIED PT INR APTT Anion Gap 18 Estim Creat Clear Calc 81.4 Estimated GFR > 60 Random Glucose 155 H Lactic Acid Calcium 9.0 Magnesium 1.3 L* Total Bilirubin 1.0 Direct Bilirubin 0.4 AST 81 H ALT 75 H Alkaline Phosphatase 140 H D Total Creatine Kinase Total Protein 7.2 Albumin 4.3 Lipase 17 Urine Color Urine Appearance Urine pH Ur Specific [place] Urine Protein Urine Glucose (UA) Urine Ketones Urine Blood Urine Nitrite Ur Leukocyte Esterase Salicylates Urine Opiates Screen Urine Fentanyl Screen Acetaminophen Ur Barbiturates Screen Ur Phencyclidine Scrn Ur Amphetamines Screen U Benzodiazepines Scrn Urine Cocaine Screen U Marijuana (THC) Screen Ethyl Alcohol COVID-19 ([facility]) Negative COVID-19 Clin Com See Note 05/22/22 05/22/22 05/22/22 14:11 14:55 14:55 MCV MCH MCHC RDW Plt Count MPV Immature Gran % (Auto) Neut % (Auto) Lymph % (Auto) Burnett % (Auto) Eos % (Auto) Baso % (Auto) Lymph # (Auto) Burnett # (Auto) Eos # (Auto) Baso # (Auto) Abs Immat Gran (auto) Absolute Neuts (auto) Absolute Nucleated RBC Nucleated RBC % (auto) Smear Tech's Comments PT 13.2 H INR 1.1 APTT 26.5 Anion Gap Estim Creat Clear Calc Estimated GFR Random Glucose Lactic Acid Calcium Magnesium Total Bilirubin Direct Bilirubin AST ALT Alkaline Phosphatase Total Creatine Kinase 237 H Total Protein Albumin Lipase Urine Color Urine Appearance Urine pH Ur Specific [place] Urine Protein Urine Glucose (UA) Urine Ketones Urine Blood Urine Nitrite Ur Leukocyte Esterase Salicylates < 5.0 L Urine Opiates Screen Urine Fentanyl Screen Acetaminophen 1 Ur Barbiturates Screen Ur Phencyclidine Scrn Ur Amphetamines Screen U Benzodiazepines Scrn Urine Cocaine Screen U Marijuana (THC) Screen Ethyl Alcohol < 10 COVID-19 ([facility]) COVID-19 MC10 05/22/22 05/22/22 05/22/22 14:55 20:32 20:32 MCV MCH MCHC RDW Plt Count MPV Immature Gran % (Auto) Neut % (Auto) Lymph % (Auto) Burnett % (Auto) Eos % (Auto) Baso % (Auto) Lymph # (Auto) Burnett # (Auto) Eos # (Auto) Baso # (Auto) Abs Immat Gran (auto) Absolute Neuts (auto) Absolute Nucleated RBC Nucleated RBC % (auto) Smear Tech's Comments PT INR APTT Anion Gap Estim Creat Clear Calc Estimated GFR Random Glucose Lactic Acid 4.5 H* Calcium Magnesium Total Bilirubin Direct Bilirubin AST ALT Alkaline Phosphatase Total Creatine Kinase Total Protein Albumin Lipase Urine Color Yellow Urine Appearance Clear Urine pH 6.5 Ur Specific [place] 1.010 Urine Protein Negative Urine Glucose (UA) Negative Urine Ketones Negative Urine Blood Negative Urine Nitrite Negative Ur Leukocyte Esterase Negative Salicylates Urine Opiates Screen POSITIVE H Urine Fentanyl Screen Not Detected Acetaminophen Ur Barbiturates Screen Not Detected Ur Phencyclidine Scrn Not Detected Ur Amphetamines Screen POSITIVE H U Benzodiazepines Scrn Not Detected Urine Cocaine Screen Not Detected U Marijuana (THC) Screen Not Detected Ethyl Alcohol COVID-19 ([facility]) COVID-19 MC10 05/22/22 05/23/22 05/23/22 20:44 06:02 06:02 MCV 92.3 MCH 29.8 MCHC 32.2 RDW 13.4 Plt Count 240 MPV 8.9 L Immature Gran % (Auto) 0.6 H Neut % (Auto) 84.6 H Lymph % (Auto) 9.1 L Burnett % (Auto) 5.0 Eos % (Auto) 0.4 Baso % (Auto) 0.3 Lymph # (Auto) 1.8 Burnett # (Auto) 1.0 Eos # (Auto) 0.1 Baso # (Auto) 0.1 Abs Immat Gran (auto) 0.12 H Absolute Neuts (auto) 16.4 H Absolute Nucleated RBC 0.000 Nucleated RBC % (auto) 0.0 Smear Tech's Comments PT INR APTT Anion Gap 12 Estim Creat Clear Calc 120.0 Estimated GFR > 60 Random Glucose 102 Lactic Acid 1.7 Calcium 8.7 Magnesium Total Bilirubin Direct Bilirubin AST ALT Alkaline Phosphatase Total Creatine Kinase Total Protein Albumin Lipase Urine Color Urine Appearance Urine pH Ur Specific [place] Urine Protein Urine Glucose (UA) Urine Ketones Urine Blood Urine Nitrite Ur Leukocyte Esterase Salicylates Urine Opiates Screen Urine Fentanyl Screen Acetaminophen Ur Barbiturates Screen Ur Phencyclidine Scrn Ur Amphetamines Screen U Benzodiazepines Scrn Urine Cocaine Screen U Marijuana (THC) Screen Ethyl Alcohol COVID-19 ([facility]) COVID-19 Clin Com 05/23/22 07:32 MCV MCH MCHC RDW Plt Count MPV Immature Gran % (Auto) Neut % (Auto) Lymph % (Auto) Burnett % (Auto) Eos % (Auto) Baso % (Auto) Lymph # (Auto) [place] # (Auto) Eos # (Auto) Baso # (Auto) Abs Immat Gran (auto) Absolute Neuts (auto) Absolute Nucleated RBC Nucleated RBC % (auto) Smear Tech's Comments PT INR APTT Anion Gap Estim Creat Clear Calc Estimated GFR Random Glucose Lactic Acid Calcium Magnesium 2.0 Total Bilirubin 0.5 Direct Bilirubin 0.3 AST 36 D ALT 50 H Alkaline Phosphatase 108 D Total Creatine Kinase Total Protein 6.4 L Albumin 3.7 Lipase Urine Color Urine Appearance Urine pH Ur Specific [place] Urine Protein Urine Glucose (UA) Urine Ketones Urine Blood Urine Nitrite Ur Leukocyte Esterase Salicylates Urine Opiates Screen Urine Fentanyl Screen Acetaminophen Ur Barbiturates Screen Ur Phencyclidine Scrn Ur Amphetamines Screen U Benzodiazepines Scrn Urine Cocaine Screen U Marijuana (THC) Screen Ethyl Alcohol COVID-19 ([facility]) COVID-19 Clin Com Assessment and Plan (1) Sepsis: Status: Acute (2) Elevated LFTs: Status: Acute (3) Hypomagnesemia: Status: Acute (4) Suicidal ideation: Status: Acute Plan 31-year-old male with past medical history of MDD, drug induced psychotic disorder with delusions, methamphetamine addiction, PTSD, psychosis, presents to the hospital with complaints of generalized body aches, as well as being in crisis.? # Sepsis on admission seems to be intrabdominal source? pending HIDA scan pending blood cultures pending hepatitis profile continue broad spectrum abx # RUQ Abdominal pain no surgical signs on exam CT scan showing no acute findings US showing gallbladder sludge mildly elevated LFT Pending HIDA on IV antibiotic pain control start diet surgery team input appreciated # suicide ideas denies any thoughts of suicide or homocide crisis consult # lactic acidosis secondary to sepsis , resolved # elevated LFTs improving 2/2 sepsis ,passing stone ? imaging shows hepatomegaly follow LFTs hepatitis panel # history of HIV continue Dovato # mood disorder continue home meds crisis consulted DVT ppx: lovenox Pt will require overnight hospital stay for IV antibiotics in the setting of sepsis pending final blood cultures Quality Stroke Does the patient have a stroke diagnosis?: No VTE Prior VTE?: No VTE Risk Level:: Medical - moderate - high VTE Device Contraindication: Treatment Not Indicated VTE Drug Contraindication: N/A - Med Ordered
--- NOTE | 2022-05-23 15:30 | PC.NURSE ---
PT brought back from nuclear scan. VSS, denies pain.
[2022-05-23 15:35] VITALS: BP 122/80; PULSE 80; RESP 18; TEMP 36.6; O2SAT 97
--- NOTE | 2022-05-23 18:22 | PC.NURSE ---
report given to KEESHA Morfin. pt will be transported to room 351 by transporter. pt aware of plan.
[2022-05-23 19:33] VITALS: BP 142/81; PULSE 98; RESP 18; TEMP 37.1; O2SAT 98
[2022-05-23] MEDS: rOPINIRole HCL 1 MG TABLET PO (20:58)
[2022-05-23 21:05] VITALS: BMI 27.4
[2022-05-24] VITALS: BP 122/79; PULSE 78; RESP 16; TEMP 36.6; O2SAT 98
[2022-05-24 03:11] VITALS: BP 123/80; PULSE 82; RESP 16; TEMP 36.3; O2SAT 97
[2022-05-24] MEDS: Piperacillin Sodium/Tazobactam 3.375 GM in 0.9 % Sodium Chloride 50 ML IV ×4 (04:17→23:08)
[2022-05-24 06:32] LABS: Hematocrit 36.8 % (42.0-52.0); Mean Corpuscular HGB Conc 32.6 g/dl (31.0-36.0); Mean Corpuscular Hemoglobin 30.2 pg (27.0-33.0); Mean Corpuscular Volume 92.5 fL (80.0-98.0); Mean Platelet Volume 9.5 fL (9.4-12.4); Platelet Count 306 X10*3/uL (160-400); Red Blood Count 3.98 X10*6/uL (4.60-5.80); White Blood Count 13.9 X10*3/uL (4.8-10.8)
[2022-05-24 07:01] LABS: Vancomycin Trough 11.4 mcg/mL (10.0-20.0)
[2022-05-24 07:39] VITALS: BP 133/82; PULSE 73; RESP 18; TEMP 36.2; O2SAT 98
[2022-05-24 08:11] LABS: Alanine Aminotransferase 46 U/L (0-40); Albumin Level 4.3 g/dL (3.5-5.0); Alkaline Phosphatase 112 U/L (39-117); Aspartate Amino Transferase 25 U/L (5-37); Bilirubin Direct < 0.2 mg/dL (0.0-0.5); Bilirubin Total 0.3 mg/dL (0.0-1.0); Total Protein 7.7 g/dL (6.5-8.0)
[2022-05-24 08:12] LABS: Anion Gap 17 (12-20); Blood Urea Nitrogen 9 mg/dL (9-16); Carbon Dioxide 22 mmol/L (22-29); Chloride 104 mmol/L (96-108); Estimated Glomerular Filt Rate > 60; Glucose Random 126 mg/dL (60-115); Potassium 4.3 mmol/L (3.3-5.1); Sodium 139 mmol/L (135-145)
--- NOTE | 2022-05-24 08:31 | HE.PHANOTE ---
VANCO DOSING ADJUSTMENT SCR INCREASED TO 0.85 FROM 0.76. TROUGH OF 11.4 DOSE CONTINUED AND WILL REASSESS WITH AM LABS
[2022-05-24 08:38] LABS: Calcium 9.7 mg/dL (8.4-10.2)
[2022-05-24] MEDS: busPIRone HCl 10 MG TABLET PO ×2 (09:11→20:19)
[2022-05-24] MEDS: Sertraline HCL 100 MG TABLET 200 MG PO (09:11)
[2022-05-24] MEDS: valACYclovir HCL 500 MG TABLET PO (09:11)
[2022-05-24] MEDS: 0.9 % Sodium Chloride Flush 3 ML SYRINGE IVFLUSH ×3 (09:12→20:20)
[2022-05-24] MEDS: vancomycin HCL 1,250 MG in 0.9 % Sodium Chloride 250 ML 166.67 MG IV (09:12)
[2022-05-24] MEDS: Acetaminophen 325 MG TABLET 650 MG PO (09:21)
--- NOTE | 2022-05-24 09:31 | P.PNGS_ITS ---
Subjective Subjective Date of Service: 05/24/22 Interval history: Overall patient feels improved with decreased abdominal pain. Denies nausea or vomiting. Physical Exam Vital Signs: Vital Signs: Last Vital Signs Temp 97.2 F 05/24/22 07:39 Pulse 73 05/24/22 07:39 Resp 18 05/24/22 07:39 BP 133/82 05/24/22 07:39 Pulse Ox 98 05/24/22 07:39 O2 Del Method 05/24/22 07:39 BMI result Body Mass Index 27.4 Const: General: comfortable and no acute distress Nutritional Appearance: well nourished Orientation/consciousness: patient oriented x3 Limitations: no limitations Eyes: Sclerae: sclerae normal GI: Inspection: Yes normal to inspection Palpation (GI): Soft to palpation, nontender, no guarding and not rigid Neuro: General: patient oriented x3 Extrem: General: Yes no pedal edema Objective Data Active Medications Acetaminophen (Acetaminophen 325 Mg Tablet) 650 mg PO Q6H PRN PRN Reason: Pain, Mild (Pain Scale 1-3) Last Admin: 05/24/22 09:21 Dose: 650 mg Documented By: KERVIN Buspirone HCl (Buspirone Hcl 10 Mg Tablet) 10 mg PO BID [facility] Last Admin: 05/24/22 09:11 Dose: 10 mg Documented By: KERVIN Clonidine HCl (Clonidine Hcl 0.1 Mg Tablet) 0.1 mg PO Q4H PRN; Protocol PRN Reason: Anxiety Diphenhydramine HCl (Diphenhydramine Hcl 25 Mg Capsule) 100 mg PO BEDTIME PRN PRN Reason: insomnia Docusate Sodium (Docusate Sodium 100 Mg Capsule) 100 mg PO DAILY PRN PRN Reason: Constipation Enoxaparin Sodium (Enoxaparin Sodium 40 Mg/0.4 Ml Syringe) 40 mg SUBCUT Q24H [facility] Last Admin: 05/23/22 22:59 Dose: 40 mg Documented By: KATIA Piperacillin Sod/Tazobactam (Sod 3.375 gm/ Sodium Chloride) 50 mls @ 100 mls/hr IV Q6H [facility] Last Infusion: 05/24/22 05:03 Dose: 100 mls/hr Documented By: KATIA Vancomycin HCl 1,250 mg/ (Sodium Chloride) 250 mls @ 166.667 mls/hr IV Q12H [facility] Last Admin: 05/24/22 09:12 Dose: 166.67 mls/hr Documented By: KERVIN Loratadine (Loratadine 10 Mg Tablet) 10 mg PO DAILY PRN PRN Reason: Congestion Morphine Sulfate (Morphine Sulfate 4 Mg/Ml Cartridge) 4 mg IVPUSH Q4H PRN; Protocol PRN Reason: Pain, Severe (Pain Scale 7-10) Non-Formulary Medication (Dolutegravir-Lamivudine [Dovato]) 1 tab PO DAILY [facility] Ondansetron HCl (Ondansetron Hcl 4 Mg/2 Ml Vial) 4 mg IVPUSH Q8H PRN PRN Reason: Nausea and Vomiting Pharmacy Consult (Consult Rx Perform Med Rec) 1 each MISCELLANE ONCE PRN PRN Reason: Consult order Pharmacy Consult (Consult Rx Vancomycin Dosing) 1 each MISCELLANE DAILY PRN PRN Reason: Consult order Ropinirole HCl (Ropinirole Hcl 1 Mg Tablet) 1 mg PO BEDTIME [facility] Last Admin: 05/23/22 20:58 Dose: 1 mg Documented By: KATIA Sertraline HCl (Sertraline Hcl 100 Mg Tablet) 200 mg PO DAILY [facility] Last Admin: 05/24/22 09:11 Dose: 200 mg Documented By: KERVIN Sodium Chloride (0.9 % Sodium Chloride Flush 3 Ml Syringe) 3 ml IVFLUSH QSHIFT [facility] Last Admin: 05/24/22 09:12 Dose: 3 ml Documented By: KERVIN Valacyclovir HCl (Valacyclovir Hcl 500 Mg Tablet) 500 mg PO DAILY [facility] Last Admin: 05/24/22 09:11 Dose: 500 mg Documented By: KERVIN Labs CBC & Chem 7: 05/24/22 05:48 05/24/22 05:48 Labs: Laboratory Results - last 24 hr 05/23/22 05/24/22 05/24/22 07:32 05:48 05:48 MCV 92.5 MCH 30.2 MCHC 32.6 RDW 13.0 Plt Count 306 D MPV 9.5 Absolute Nucleated RBC 0.000 Nucleated RBC % (auto) 0.0 Anion Gap Estim Creat Clear Calc Estimated GFR Random Glucose Calcium Total Bilirubin Direct Bilirubin AST 36 D ALT Alkaline Phosphatase 108 D Total Protein Albumin Vancomycin Trough 11.4 05/24/22 05/24/22 05:48 05:48 MCV MCH MCHC RDW Plt Count MPV Absolute Nucleated RBC Nucleated RBC % (auto) Anion Gap 17 Estim Creat Clear Calc 117.0 Estimated GFR > 60 Random Glucose 126 H Calcium 9.7 D Total Bilirubin 0.3 Direct Bilirubin < 0.2 AST 25 ALT 46 H Alkaline Phosphatase 112 Total Protein 7.7 D Albumin 4.3 Vancomycin Trough Microbiology Microbiology Results: Microbiology 05/22/22 14:55 Blood Culture - Preliminary Blood - Venous No growth after 24 hours. 05/22/22 14:55 Blood Culture - Preliminary Blood - Venous No growth after 24 hours. Procedures Date of Service Date of Service: 05/24/22 Progress Note: A&P Assessment and plan (1) Abdominal pain: Status: Acute (2) Elevated LFTs: Status: Acute Plan 31-year-old male patient presenting with complaints of abdominal pain found to have elevated liver function tests and gallbladder with sludge. There is a negative sonographic Hammond sign. Overall the patient feels much improved with decreased abdominal pain. No surgical intervention is required at this time. I will sign off, please re-consult for any changes. Time Spent With Patient Time: Total time spent is greater than 50% in coordination of care (as documented) at patient's floor/unit and/or counseling patient: Quality Stroke Does the patient have a stroke diagnosis?: No VTE Prior VTE?: No VTE Risk Level:: Medical - moderate - high VTE Device Contraindication: Treatment Not Indicated VTE Drug Contraindication: N/A - Med Ordered
--- NOTE | 2022-05-24 10:25 | HO.PM.IMPN ---
Subjective Subjective Date of Service: 05/24/22 Interval History: the patient was seen and evaluated this morning Laying in bed, feels comfortable as RUQ pain improved reports chills but no more nausea No reported other overnight events. Systemic review: No fever, chills or weakness No chest pain, palpitation No shortness of breath or coughing no pain No urinary symptoms No any rash or wounds Physical Exam Vital Signs: Vital Signs: Last Vital Signs Temp 97.2 F 05/24/22 07:39 Pulse 73 05/24/22 07:39 Resp 18 05/24/22 07:39 BP 133/82 05/24/22 07:39 Pulse Ox 98 05/24/22 07:39 O2 Del Method 05/24/22 07:39 BMI result Body Mass Index 27.4 Const: Other: Constitutional : Alert, oriented, not in distress Neck : Normal inspection, Supple Cardiovascular : RRR, no JVP, no lower extremity edema Respiratory : fair bilateral air entry, no crackles, wheezes or rhonchi Gastrointestinal: soft, lax, Normal bowel sounds, no RUQ tendernss ,no surgical signs Skin : Warm, Dry Neurological : Alert & oriented x3, No focal deficit l Objective Data Active Medications Acetaminophen (Acetaminophen 325 Mg Tablet) 650 mg PO Q6H PRN PRN Reason: Pain, Mild (Pain Scale 1-3) Last Admin: 05/24/22 09:21 Dose: 650 mg Documented By: KERVIN Buspirone HCl (Buspirone Hcl 10 Mg Tablet) 10 mg PO BID [facility] Last Admin: 05/24/22 09:11 Dose: 10 mg Documented By: KERVIN Clonidine HCl (Clonidine Hcl 0.1 Mg Tablet) 0.1 mg PO Q4H PRN; Protocol PRN Reason: Anxiety Diphenhydramine HCl (Diphenhydramine Hcl 25 Mg Capsule) 100 mg PO BEDTIME PRN PRN Reason: insomnia Docusate Sodium (Docusate Sodium 100 Mg Capsule) 100 mg PO DAILY PRN PRN Reason: Constipation Enoxaparin Sodium (Enoxaparin Sodium 40 Mg/0.4 Ml Syringe) 40 mg SUBCUT Q24H [facility] Last Admin: 05/23/22 22:59 Dose: 40 mg Documented By: KATIA Piperacillin Sod/Tazobactam (Sod 3.375 gm/ Sodium Chloride) 50 mls @ 100 mls/hr IV Q6H [facility] Last Infusion: 05/24/22 05:03 Dose: 100 mls/hr Documented By: KATIA Vancomycin HCl 1,250 mg/ (Sodium Chloride) 250 mls @ 166.667 mls/hr IV Q12H [facility] Last Admin: 05/24/22 09:12 Dose: 166.67 mls/hr Documented By: KERVIN Loratadine (Loratadine 10 Mg Tablet) 10 mg PO DAILY PRN PRN Reason: Congestion Morphine Sulfate (Morphine Sulfate 4 Mg/Ml Cartridge) 4 mg IVPUSH Q4H PRN; Protocol PRN Reason: Pain, Severe (Pain Scale 7-10) Non-Formulary Medication (Dolutegravir-Lamivudine [Dovato]) 1 tab PO DAILY [facility] Ondansetron HCl (Ondansetron Hcl 4 Mg/2 Ml Vial) 4 mg IVPUSH Q8H PRN PRN Reason: Nausea and Vomiting Pharmacy Consult (Consult Rx Perform Med Rec) 1 each MISCELLANE ONCE PRN PRN Reason: Consult order Pharmacy Consult (Consult Rx Vancomycin Dosing) 1 each MISCELLANE DAILY PRN PRN Reason: Consult order Ropinirole HCl (Ropinirole Hcl 1 Mg Tablet) 1 mg PO BEDTIME [facility] Last Admin: 05/23/22 20:58 Dose: 1 mg Documented By: KATIA Sertraline HCl (Sertraline Hcl 100 Mg Tablet) 200 mg PO DAILY [facility] Last Admin: 05/24/22 09:11 Dose: 200 mg Documented By: KERVIN Sodium Chloride (0.9 % Sodium Chloride Flush 3 Ml Syringe) 3 ml IVFLUSH QSHIFT [facility] Last Admin: 05/24/22 09:12 Dose: 3 ml Documented By: KERVIN Valacyclovir HCl (Valacyclovir Hcl 500 Mg Tablet) 500 mg PO DAILY [facility] Last Admin: 05/24/22 09:11 Dose: 500 mg Documented By: KERVIN Labs CBC & Chem 7: 05/24/22 05:48 05/24/22 05:48 Labs: Laboratory Results - last 24 hr 05/24/22 05/24/22 05/24/22 05:48 05:48 05:48 MCV 92.5 MCH 30.2 MCHC 32.6 RDW 13.0 Plt Count 306 D MPV 9.5 Absolute Nucleated RBC 0.000 Nucleated RBC % (auto) 0.0 Anion Gap 17 Estim Creat Clear Calc 117.0 Estimated GFR > 60 Random Glucose 126 H Calcium 9.7 D Total Bilirubin Direct Bilirubin AST ALT Alkaline Phosphatase Total Protein Albumin Vancomycin Trough 11.4 05/24/22 05:48 MCV MCH MCHC RDW Plt Count MPV Absolute Nucleated RBC Nucleated RBC % (auto) Anion Gap Estim Creat Clear Calc Estimated GFR Random Glucose Calcium Total Bilirubin 0.3 Direct Bilirubin < 0.2 AST 25 ALT 46 H Alkaline Phosphatase 112 Total Protein 7.7 D Albumin 4.3 Vancomycin Trough Microbiology Microbiology Results: Microbiology 05/22/22 14:55 Blood Culture - Preliminary Blood - Venous No growth after 24 hours. 05/22/22 14:55 Blood Culture - Preliminary Blood - Venous No growth after 24 hours. Assessment and Plan (1) Sepsis: Status: Acute (2) Elevated LFTs: Status: Acute (3) Suicidal ideation: Status: Acute Plan 31-year-old male with past medical history of MDD, drug induced psychotic disorder with delusions, methamphetamine addiction, PTSD, psychosis, presents to the hospital with complaints of generalized body aches, as well as being in crisis.? # Sepsis on admission seems to be intrabdominal source, viral illness negative HIDA scan pending blood cultures pending hepatitis profile continue broad spectrum abx # RUQ Abdominal pain improved, no surgical signs on exam CT scan showing no acute findings US showing gallbladder sludge on IV antibiotic pain control advanced diet surgery team input appreciated # suicide ideas denies any thoughts of suicide or homocide crisis consult sitter at bedside # lactic acidosis secondary to sepsis , resolved # elevated LFTs improving 2/2 sepsis imaging shows hepatomegaly follow LFTs hepatitis panel # history of HIV continue Dovato # mood disorder continue home meds crisis consulted DVT ppx: lovenox Pt will require overnight hospital stay for IV antibiotics in the setting of sepsis pending final blood cultures Quality Stroke Does the patient have a stroke diagnosis?: No VTE Prior VTE?: No VTE Risk Level:: Medical - moderate - high VTE Device Contraindication: Treatment Not Indicated VTE Drug Contraindication: N/A - Med Ordered
[2022-05-24 11:37] VITALS: BP 125/79; PULSE 78; RESP 18; TEMP 36.4; O2SAT 99
[2022-05-24 15:43] VITALS: BP 125/89; PULSE 79; RESP 18; TEMP 36.6; O2SAT 98
--- NOTE | 2022-05-24 15:49 | MHC.CM.PN ---
CM ATTEMPTED TO MEET WITH PT WHO IS SLEEPING AND DOES NOT RESPOND TO NAME CM TO REVISIT
[2022-05-24 18:16] VITALS: BP 132/88; PULSE 87; RESP 18; TEMP 36.7; O2SAT 99
[2022-05-24 18:59] LABS: Vancomycin Trough 10.7 mcg/mL (10.0-20.0)
[2022-05-24] MEDS: rOPINIRole HCL 1 MG TABLET PO (20:19)
[2022-05-24] MEDS: vancomycin HCL 1,500 MG in 0.9 % Sodium Chloride 500 ML 333.33 MG IV (20:19)
--- NOTE | 2022-05-24 22:57 | MHC.CARE ---
CARE team contacted [facility] surg floor nurse who reported that the pt was seen by [facility] crisis and cleared for discharge home with community referrals.
[2022-05-24] MEDS: Enoxaparin Sodium 40 MG/0.4 ML SYRINGE SUBCUT (23:09)
[2022-05-25] VITALS (7 sets, daily range): BP systolic 112–144; BP diastolic 68–95; PULSE 60–86; RESP 16–19; TEMP 35.7–37.1; O2SAT 97–99
[2022-05-25 04:32] LABS: HBS Num1 105.69 mIU/mL (0-7.99); HBc Num1 0.81 S/CO (0.00-0.79); HBsAGNum1 0.22 S/CO (0.00-0.99); Hepatitis B Surface Antigen Negative (Negative); ~HepC Num1 14.65 S/CO (0.00-0.79); ~Hepatitis B Surface Antibody REACTIVE (Nonreactive); ~Hepatitis C Antibody Reactive (Nonreactive)
[2022-05-25] MEDS: Piperacillin Sodium/Tazobactam 3.375 GM in 0.9 % Sodium Chloride 50 ML IV ×2 (05:03→12:38)
[2022-05-25 05:13] LABS: Hepatitis B Core Antibody Nonreactive (Nonreactive)
[2022-05-25] MEDS: vancomycin HCL 1,500 MG in 0.9 % Sodium Chloride 500 ML 333.33 MG IV (07:39)
[2022-05-25] MEDS: busPIRone HCl 10 MG TABLET PO ×2 (07:39→20:01)
[2022-05-25] MEDS: valACYclovir HCL 500 MG TABLET PO (07:39)
[2022-05-25] MEDS: Sertraline HCL 100 MG TABLET 200 MG PO (07:39)
[2022-05-25] MEDS: diphenhydrAMINE HCL 50 MG/ML VIAL 25 MG IVPUSH (07:39)
[2022-05-25] MEDS: 0.9 % Sodium Chloride Flush 3 ML SYRINGE IVFLUSH (07:43)
--- NOTE | 2022-05-25 10:24 | MHC.CARE ---
CARE Team called [facility] and verified Pt was assessed and cleared from needing [facility]. left with [facility] licensed embalmer supervisor for calcification regarding what hospitalist was spoken to regarding disposition.
--- NOTE | 2022-05-25 11:14 | PM.DS ---
DS: Providers Provider Date of Service: 05/25/22 Date of admission: 05/22/22 23:16 Primary care physician: Yasmine Hardin MD Consults: 05/22/22 23:14 Consult to Crisis Stat Reason for consultation: psychosis, SI Has provider been notified: No 05/23/22 08:28 Consult to General Surgery Routine Consulting Provider: Laurent Mcgill Reason for consultation: abd pain, cholecystitis suspecion DS: Diagnosis Discharge Diagnosis (1) Sepsis: Status: Acute (2) Elevated LFTs: Status: Acute (3) Suicidal ideation: Status: Acute (4) Hypomagnesemia: Status: Acute (5) Acidosis, lactic: Status: Acute (6) Abdominal pain: Status: Acute (7) Leukocytosis: Status: Acute DS: Summary Hospital Course Hospital Course: Admission note HPI 31-year-old male with past medical history of MDD, drug induced psychotic disorder with delusions, methamphetamine addiction, PTSD, psychosis, presents to the hospital with complaints of generalized body aches, as well as being in crisis.? Apparently patient was seen at [facility] earlier in the day with complaints of fever, as well as abdominal pain, body aches, at [facility] he was found to to be febrile, with abdominal ultrasound being concerning for cholecystitis.? Patient signed out AMA from [facility] and came to [place] because i have been here before and i am in crisis At this time patient is very anxious, very agitated, answers questions appropriately but reports that he does not trust the staff, he is paranoid, thinks that they are talking about him, he does not want to be cared for by the ED staff, he reports that he is in crisis and would like to be admitted to [facility] to so he can feel safer.? He reports generalized body aches, pain in the right upper quadrant, denies IV drug use, at this time he does not state clearly that his suicidal but reports that he does not feel safe. He denies any chest pain, no nausea or vomiting, no diarrhea constipation, no urinary symptoms.? No numbness tingling or weakness, no lower extremity edema. Labs on arrival show WBC count of 21, hemoglobin of 11.8, hematocrit 34.7, PT of 13.2, INR of 1.1, lactic acid of 4.5 improved after IV fluids, AST of 81, ALT of 75, alk-phos of 140, magnesium of 1.3, CPK of 237, UA negative, UDS positive for and opioids and amphetamines Abdominal ultrasound done in the ED shows gallbladder sludge with mild hepatomegaly but no evidence of stone, polyps, wall thickening or pericholecystic fluid, technologist reports negative sonographic Hammond sign Abdomen pelvic CT shows no acute intra-abdominal process, mild hepatomegaly Of note patient was discharged from [facility] recently after being managed for drug induced psychotic disorder with delusions secondary to methamphetamine use Hospital course The patient presented to the hospital complaining of generalized body aches and concerned about his own safety reporting suicidal ideation. He was evaluated for abdominal pain with picture of sepsis. CT scan showed possible gallbladder inflammation. HIDA scan was done came back negative along with ultrasound which showed only gallbladder sludge. Evaluated by surgical team who recommended no intervention needed as no clinical evidence of cholecystitis and the patient was started on diet as he was covered with IV antibiotics and IV fluids with good return tolerance of the diet. Sepsis resolved as blood cultures remain negative. Seems to be a viral illness that started his symptoms. Liver enzymes were improved. The patient was monitors and had a sitter in his room during the hospital stay. Evaluated by crisis team who believed the patient is safe to be discharged to the community. Advance your diet slowly and drink more fluids Use Zofran as needed for nausea To follow-up with PCP as outpatient Time Spent with Patient Time attestation: Total time spent providing and/or coordinating discharge services: Discharge coordination time: Greater than 30 minutes Quality: Safe Use of Opioids Does Pt have an Active Cancer Diagnosis on the Problem List?: No Quality: Stroke Does the patient have a stroke diagnosis?: No Physical Exam Vital Signs: Vital Signs: Last Vital Signs Temp 96.3 F L 05/25/22 07:45 Pulse 60 05/25/22 07:45 Resp 18 05/25/22 07:45 BP 112/73 05/25/22 07:45 Pulse Ox 98 05/25/22 07:45 O2 Del Method 05/25/22 04:00 BMI result Body Mass Index 27.4 Const: Other: Constitutional : Alert, oriented, not in distress Neck : Normal inspection, Supple Cardiovascular : RRR, no JVP, no lower extremity edema Respiratory : fair bilateral air entry, no crackles, wheezes or rhonchi Gastrointestinal: soft, lax, Normal bowel sounds, no RUQ tendernss ,no surgical signs Skin : Warm, Dry Neurological : Alert & oriented x3, No focal deficit l DS: Data Data Completed and Pending Labs on day of discharge: Laboratory Results - last 24 hr 05/23/22 05/24/22 07:41 18:13 Vancomycin Trough 10.7 Hep Bs Antigen Negative Hep Bs Antibody REACTIVE Hep B Core Total Ab Nonreactive Hepatitis C Ab (EIA) Reactive H Preliminary micro results at discharge 05/22/22 14:55 Blood Culture - Preliminary Blood - Venous No growth after 48 hours. 05/22/22 14:55 Blood Culture - Preliminary Blood - Venous No growth after [address] scan - abdomen: Radiologist's impression: ITS Impressions Abdomen Ultrasound 05/22/22 15:45 IMPRESSION: Gallbladder sludge. Mild hepatomegaly. Chest X-Ray 05/22/22 17:15 IMPRESSION: No acute cardiopulmonary process. Abdomen/Pelvis CT 05/22/22 19:06 IMPRESSION: 1. No acute intra-abdominal process identified. 2. Mild hepatomegaly. Hepatobiliary Scan Nuclear Medicine 05/23/22 15:15 IMPRESSION: Accumulation of radiotracer within the gallbladder is strong evidence against an obstructed cystic duct. Normal gallbladder ejection fraction. Discharge Plan Discharge Anticipated Discharge Date/Time: 05/25/22 10:57 Patient Disposition: Home, Self-Care Discharge Diagnosis: Gastroenteritis \ viral sepsis Referrals: Yasmine Hardin MD [Primary Care Provider] - 1 Week Discharge Medications: New ondansetron 4 mg tablet,disintegrating 4 mg PO Q8H PRN (Reason: nausea and vomiting) Qty: 10 0RF Continued Artificial Tears([id number]) 1-0.2-0.2 % drops 1 drp ophthalmic (eye) BID Dovato 50-300 mg tablet 1 tab PO DAILY valacyclovir 500 mg Tablet 500 mg PO DAILY loratadine 10 mg Tablet 10 mg PO DAILY PRN (Reason: Congestion) sertraline 200 mg Capsule 200 mg PO DAILY diphenhydramine HCl 50 mg tablet 100 mg PO BEDTIME PRN (Reason: insomnia) 30 Days Qty: 60 0RF clonidine HCl 0.1 mg Tablet 0.1 mg PO Q4H PRN (Reason: Anxiety) 30 Days Qty: 60 0RF Protocol: Hold for SBP< HOLD for SBP < : 90 buspirone 10 mg Tablet 10 mg PO BID 30 Days Qty: 60 0RF ropinirole 1 mg Tablet 1 mg PO BEDTIME 30 Days Qty: 30 0RF Discontinued doxycycline hyclate 100 mg Tablet 100 mg PO BID 3 Days Qty: 7 0RF Discharge Orders: Discharge Order (Routine); Ordered 05/25/22 Ordered By: Donovan Buchanan Diet: Advance to usual diet Activity on Discharge: As tolerated Stand Alone Forms: Patient Portal Discharge page Care Plan Goals: Read below Health Concerns: Read below Plan of Treatment: Read below Assessment: You were admitted to the hospital for evaluation of abdominal pain and safety concerns. Found to be septic at time of presentation with thought of bacterial VS Vital illness. You were treated with IV fluid, IV antibiotics as images CT, HIDA scan did not show any acute findings. You were evaluated by surgeon who recommended no intervention. Symptoms resolved as you were able to tolerate diet. You were evaluated by care team who felt your safe to be discharged back to community. Advance your diet slowly and drink more fluids Use Zofran as needed for nausea To follow-up with PCP as outpatient
--- NOTE | 2022-05-25 12:13 | MHC.CM.PN ---
met with pt who is indepedent he lives alone covid vax x 3 he is being dcd today..
--- NOTE | 2022-05-25 12:16 | MHC.CM.PN ---
pt dcd home no skilled servcies ordered by
[2022-05-25 14:05] LABS: Creatinine Clr Calc Pharmacy 122.8; Estimated Glomerular Filt Rate > 60
--- NOTE | 2022-05-25 16:48 | P.PNIM_ITS ---
Subjective Subjective Date of Service: 05/26/22 Interval History: the patient was seen and evaluated this morning Laying in bed, feels comfortable as RUQ pain resolved was feeling ok to go home in the morning but after placing the discharge order he reported feeling unsafe in community and asked to remain in the hospital and get evaluated by care team again No reported other overnight events. Systemic review: No fever, chills or weakness No chest pain, palpitation No shortness of breath or coughing no pain No urinary symptoms No any rash or wounds Physical Exam Vital Signs: Vital Signs: Last Vital Signs Temp 98.1 F 05/26/22 07:22 Pulse 62 05/26/22 07:22 Resp 16 05/26/22 07:22 BP 136/63 05/26/22 07:22 Pulse Ox 98 05/26/22 07:22 O2 Del Method 05/26/22 07:22 BMI result Body Mass Index 27.4 Const: Other: Constitutional : Alert, oriented,anxious about being discharged Neck : Normal inspection, Supple Cardiovascular : RRR, no JVP, no lower extremity edema Respiratory : fair bilateral air entry, no crackles, wheezes or rhonchi Gastrointestinal: soft, lax, Normal bowel sounds, no RUQ tendernss ,no surgical signs Skin : Warm, Dry Neurological : Alert & oriented x3, No focal deficit l Objective Data Active Medications Acetaminophen (Acetaminophen 325 Mg Tablet) 650 mg PO Q6H PRN PRN Reason: Pain, Mild (Pain Scale 1-3) Last Admin: 05/24/22 09:21 Dose: 650 mg Documented By: KERVIN Buspirone HCl (Buspirone Hcl 10 Mg Tablet) 10 mg PO BID [facility] Last Admin: 05/25/22 20:01 Dose: 10 mg Documented By: THAO Clonidine HCl (Clonidine Hcl 0.1 Mg Tablet) 0.1 mg PO Q4H PRN; Protocol PRN Reason: Anxiety Diphenhydramine HCl (Diphenhydramine Hcl 25 Mg Capsule) 100 mg PO BEDTIME PRN PRN Reason: insomnia Docusate Sodium (Docusate Sodium 100 Mg Capsule) 100 mg PO DAILY PRN PRN Reason: Constipation Enoxaparin Sodium (Enoxaparin Sodium 40 Mg/0.4 Ml Syringe) 40 mg SUBCUT Q24H [facility] Last Admin: 10/24/22 23:36 Dose: 40 mg Documented By: THAO Loratadine (Loratadine 10 Mg Tablet) 10 mg PO DAILY PRN PRN Reason: Congestion Morphine Sulfate (Morphine Sulfate 4 Mg/Ml Cartridge) 4 mg IVPUSH Q4H PRN; Protocol PRN Reason: Pain, Severe (Pain Scale 7-10) Non-Formulary Medication (Dolutegravir-Lamivudine [Dovato]) 1 tab PO DAILY [facility] Ondansetron HCl (Ondansetron Hcl 4 Mg/2 Ml Vial) 4 mg IVPUSH Q8H PRN PRN Reason: Nausea and Vomiting Pharmacy Consult (Consult Rx Perform Med Rec) 1 each MISCELLANE ONCE PRN PRN Reason: Consult order Pharmacy Consult (Consult Rx Vancomycin Dosing) 1 each MISCELLANE DAILY PRN PRN Reason: Consult order Ropinirole HCl (Ropinirole Hcl 1 Mg Tablet) 1 mg PO BEDTIME [facility] Last Admin: 05/25/22 20:01 Dose: 1 mg Documented By: THAO Sertraline HCl (Sertraline Hcl 100 Mg Tablet) 200 mg PO DAILY [facility] Last Admin: 05/25/22 07:39 Dose: 200 mg Documented By: ERIN Sodium Chloride (0.9 % Sodium Chloride Flush 3 Ml Syringe) 3 ml IVFLUSH QSHIFT [facility] Last Admin: 05/26/22 01:00 Dose: Not Given Documented By: THAO Non-Admin Reason: No Access Valacyclovir HCl (Valacyclovir Hcl 500 Mg Tablet) 500 mg PO DAILY [facility] Last Admin: 05/25/22 07:39 Dose: 500 mg Documented By: ERIN Labs CBC & Chem 7: 05/24/22 05:48 05/26/22 05:45 Labs: Laboratory Results - last 24 hr 05/25/22 05/26/22 05/26/22 13:44 05:45 05:45 Estim Creat Clear Calc 122.8 122.8 Estimated GFR > 60 > 60 Random Vancomycin 4.2 L Assessment and Plan (1) MDD (major depressive disorder), recurrent episode, moderate: Status: Acute (2) Abdominal pain: Status: Resolved (3) Elevated LFTs: Status: Resolved (4) Suicidal ideation: Status: Resolved Plan 31-year-old male with past medical history of MDD, drug induced psychotic disorder with delusions, methamphetamine addiction, PTSD, psychosis, presents to the hospital with complaints of generalized body aches, as well as being in crisis.? # suicide ideas denies any thoughts of suicide or homocide but feels unsafe going out to formerly [facility] care team reevaluation # Sepsis on admission seems to be intrabdominal source, viral illness negative HIDA scan negative blood cultures continue broad spectrum abx # RUQ Abdominal pain improved, no surgical signs on exam CT scan showing no acute findings US showing gallbladder sludge on IV antibiotic pain control advanced diet surgery team input appreciated # lactic acidosis secondary to sepsis , resolved # elevated LFTs improving 2/2 sepsis imaging shows hepatomegaly follow LFTs hepatitis panel # history of HIV continue Dovato # mood disorder continue home meds crisis consulted DVT ppx: lovenox Pt will require overnight hospital stay for IV antibiotics in the setting of se psis pending final blood cultures Quality Stroke Does the patient have a stroke diagnosis?: No VTE Prior VTE?: No VTE Risk Level:: Medical - moderate - high VTE Device Contraindication: Treatment Not Indicated VTE Drug Contraindication: N/A - Med Ordered
--- NOTE | 2022-05-25 18:08 | PC.NURSE ---
Pt planned for discharge today. Patient previously cleared by [facility] for SI. After patient received discharge information and had IV removed, pt stated he did not feel safe going into the community. Care team contacted. Care team to re-evaluate patient. Dr. Buchanan made aware. Discharge on hold pending reevaluation.
[2022-05-25] MEDS: rOPINIRole HCL 1 MG TABLET PO (20:01)
--- NOTE | 2022-05-25 21:10 | PC.NURSE ---
Vanomycin 1500 mg scheduled for 2100 has not been given. Pt has no iv access, ready for discharge, MD states no need for iv antibiotic. Pt refused discharge and awaiting Care team/ [facility] reevaluation. Antibiotics not given, Dr. Mcdonald aware.
[2022-05-25] MEDS: Enoxaparin Sodium 40 MG/0.4 ML SYRINGE SUBCUT (23:36)
[2022-05-26 03:07] VITALS: BP 136/86; PULSE 83; RESP 14; TEMP 36.2; O2SAT 97
[2022-05-26 07:22] VITALS: BP 136/63; PULSE 62; RESP 16; TEMP 36.7; O2SAT 98
[2022-05-26 07:28] LABS: Creatinine Clr Calc Pharmacy 122.8; Estimated Glomerular Filt Rate > 60
[2022-05-26 07:36] LABS: Vancomycin Random 4.2 mcg/mL (15-20)
[2022-05-26] MEDS: busPIRone HCl 10 MG TABLET PO (08:35)
[2022-05-26] MEDS: Sertraline HCL 100 MG TABLET 200 MG PO (08:35)
[2022-05-26] MEDS: valACYclovir HCL 500 MG TABLET PO (08:36)
--- NOTE | 2022-05-26 11:04 | MHC.CARE ---
Pt is a 31 y/o single, Croatian speaking male who is previously known to the CARE Team via previous inpatient admission.? On 05/22/22 pt presented to the ED with a complaint of abdominal pain, depression, and SI.? Pt was admitted to the medical floor and cleared on 05/24/22.? YUMIKO moe saw pt on 05/24/22 and was determined to be cleared for discharge.? On 05/25 pt refused to discharge, stating that he did not feel safe discharging. On 05/26/22, CARE Team met with pt to conduct a Risk assessment.? Pt denies SI, HI, , and self-harm urges.? He denies AVH.? Pt had been off his medications [facility] to [facility] but stated he has been on them since he has been at this facility.? Pt stated that his medications were erroneously mailed to his Mother?s house.? Pt expressed that he had concerns over his crystal meth use and his not feeling safe was in the context to his substance use which he called self-harming behavior.? He also expressed concerns over the individuals he associates with and his risk taking behavior when using. Pt lives alone with his dog. Pt is alert and oriented x4 and is assessed for risk in his room (351) on the med surge floor.? He appears neat and well-groomed and younger than his stated age.? He is actively engaged in the assessment.? His eye contact and speech are unremarkable.? He demonstrates a broad range of affect.? He reports that he does have some depression.? Insight, judgement, memory, concentration and impulse control are non-concerning at this time. Pt is seeking an inpatient admission, specifically to assist with his maintaining sobriety and Recovery.? Pt does not appear to meet the criteria for an inpatient admission and does not appear to be at risk at this time.? Pt would best be served with a Recovery consult. CARE Team will ask the Recovery Team to meet with pt.
[2022-05-26 11:12] VITALS: BP 141/91; PULSE 91; RESP 18; TEMP 36.4; O2SAT 98
--- NOTE | 2022-05-26 14:03 | MHC.RECOVRN ---
Met with pt to further discuss discharge plan and recovery supports. Pt agreeable to be transported to [facility] upon discharge to continue inpatient TIEN bedsearch. Pt provided with resources, including fentanyl test strips as well as phone numbers for multiple ATS facilities. Pt denies questions or concerns at this time. Discussed with Shira Hedrick APRN, provider, RN, as well as CM.
--- NOTE | 2022-05-26 14:07 | MHC.CARE ---
Referral submitted to [facility]
--- NOTE | 2022-05-26 14:35 | HO.ADDICT_ITS ---
History of Present Illness Date of Service: 05/26/2022 Chief Complaint: chloecystitis/ transamintis/CRISIS Reason for Consult: methamphetamine use HPI Narrative: Patient is a 31 year old male currently medically admitted with ?cholecytits Reporting methamphetamine use and requesting admission for treatment. Patient was seen by SW team and found to not meet level of care for inpatient psychiatric admission. Patient seen by this functional tester typewriters in room 351--awake, alert, pleasant and engaged in interview. He reports he has been using meth since he was 17 years old and use progressed at age 21. Reports he is currenttly injecting several times per day. History of OUD--reporting last use was 07/2012. Unclear if what he has been been using has fentanyl/opioid in it as he has felt drowsy occasionally after using and this is not common for him. Denies alcohol use, denies cocaine or benzo use Denies any treatment for meth use, outside of inpatient psychiatric admission recently. Denies history of MAT. Requesting admission or referral to inpatient treatment facility. Patient aware of how substances cause him to act and think and he does not want to feel that way any longer. Limited social supports in the community. Lives alone in apt. Past Psychiatric History: 02/17/22 [facility] ED for disorganized behaviors paranoia and craig 02/04/2022 self presented for paranoid thoughts believing people were checking his audio feeds from security camera; admitted to inpatient psych History of detox Review of Systems Constitutional: Reports as per HPI Psychiatric: Reports anxiety, Reports hopelessness and Reports anhedonia Diagnostics Vital Signs (24Hr): Vital Signs - 24 hr 05/25/22 15:18 05/25/22 19:27 05/25/22 23:25 Temperature 97.8 F 96.8 F 96.8 F Pulse Rate 80 70 77 Respiratory Rate 19 18 16 Blood Pressure 144/89 H 138/87 139/80 Pulse Oximetry 98 97 Oxygen Delivery Method Room Air Room Air 05/26/22 03:07 05/26/22 07:22 05/26/22 11:12 Temperature 97.2 F 98.1 F 97.5 F Pulse Rate 83 62 91 Respiratory Rate 14 16 18 Blood Pressure 136/86 136/63 141/91 H Pulse Oximetry 97 98 98 Oxygen Delivery Method Room Air Room Air Room Air BMI result Body Mass Index 27.4 Labs Results: 05/24/22 05:48 05/26/22 05:45 Labs: Laboratory Results - last 48 hr 05/23/22 05/24/22 05/25/22 07:41 18:13 13:44 Creatinine 0.81 Estim Creat Clear Calc 122.8 Estimated GFR > 60 Vancomycin Trough 10.7 Random Vancomycin Hep Bs Antigen Negative Hep Bs Antibody REACTIVE Hep B Core Total Ab Nonreactive Hepatitis C Ab (EIA) Reactive H 05/26/22 05/26/22 05:45 05:45 Creatinine 0.81 Estim Creat Clear Calc 122.8 Estimated GFR > 60 Vancomycin Trough Random Vancomycin 4.2 L Hep Bs Antigen Hep Bs Antibody Hep B Core Total Ab Hepatitis C Ab (EIA) Imaging Radiology Impressions: ITS Impressions Abdomen Ultrasound 05/22/22 15:45 IMPRESSION: Gallbladder sludge. Mild hepatomegaly. Chest X-Ray 05/22/22 17:15 IMPRESSION: No acute cardiopulmonary process. Abdomen/Pelvis CT 05/22/22 19:06 IMPRESSION: 1. No acute intra-abdominal process identified. 2. Mild hepatomegaly. Hepatobiliary Scan Nuclear Medicine 05/23/22 15:15 IMPRESSION: Accumulation of radiotracer within the gallbladder is strong evidence against an obstructed cystic duct. Normal gallbladder ejection fraction. Mental Status Exam Mental Status Exam Patient Appearance: Appropriate Patient Orientation: Person, Place, Time and Situation Level of Consciousness: Awake and Appropriate Patient Behavior: Appropriate and Cooperative Mood Description: Anxious Affect Description: Blunted Thought Process: Goal Oriented Thought Content: positive for Goal Oriented Judgement: Good Medications Medications Current Medications Acetaminophen (Acetaminophen 325 Mg Tablet) 650 mg PO Q6H PRN PRN Reason: Pain, Mild (Pain Scale 1-3) Last Admin: 05/24/22 09:21 Dose: 650 mg Buspirone HCl (Buspirone Hcl 10 Mg Tablet) 10 mg PO BID [facility] Last Admin: 05/26/22 08:35 Dose: 10 mg Clonidine HCl (Clonidine Hcl 0.1 Mg Tablet) 0.1 mg PO Q4H PRN; Protocol PRN Reason: Anxiety Diphenhydramine HCl (Diphenhydramine Hcl 25 Mg Capsule) 100 mg PO BEDTIME PRN PRN Reason: insomnia Docusate Sodium (Docusate Sodium 100 Mg Capsule) 100 mg PO DAILY PRN PRN Reason: Constipation Enoxaparin Sodium (Enoxaparin Sodium 40 Mg/0.4 Ml Syringe) 40 mg SUBCUT Q24H [facility] Last Admin: 05/25/22 23:36 Dose: 40 mg Loratadine (Loratadine 10 Mg Tablet) 10 mg PO DAILY PRN PRN Reason: Congestion Morphine Sulfate (Morphine Sulfate 4 Mg/Ml Cartridge) 4 mg IVPUSH Q4H PRN; Protocol PRN Reason: Pain, Severe (Pain Scale 7-10) Non-Formulary Medication (Dolutegravir-Lamivudine [Dovato]) 1 tab PO DAILY [facility] Ondansetron HCl (Ondansetron Hcl 4 Mg/2 Ml Vial) 4 mg IVPUSH Q8H PRN PRN Reason: Nausea and Vomiting Pharmacy Consult (Consult Rx Perform Med Rec) 1 each MISCELLANE ONCE PRN PRN Reason: Consult order Pharmacy Consult (Consult Rx Vancomycin Dosing) 1 each MISCELLANE DAILY PRN PRN Reason: Consult order Ropinirole HCl (Ropinirole Hcl 1 Mg Tablet) 1 mg PO BEDTIME [facility] Last Admin: 05/25/22 20:01 Dose: 1 mg Sertraline HCl (Sertraline Hcl 100 Mg Tablet) 200 mg PO DAILY [facility] Last Admin: 05/26/22 08:35 Dose: 200 mg Sodium Chloride (0.9 % Sodium Chloride Flush 3 Ml Syringe) 3 ml IVFLUSH QSHIFT [facility] Last Admin: 05/26/22 08:39 Dose: Not Given Valacyclovir HCl (Valacyclovir Hcl 500 Mg Tablet) 500 mg PO DAILY [facility] Last Admin: 05/26/22 08:36 Dose: 500 mg Allergies Allergies Allergy/AdvReac Type Severity Reaction Status Date / Time trazodone AdvReac Mild priaprism Verified 05/14/22 11:54 Assessment & Plan Assessment & Plan (1) Methamphetamine use disorder, severe: Status: Acute Code(s): F15.20 - Other stimulant dependence, uncomplicated Assessment and Plan: * Discussed with RSRN--patient cleared for discharge and no ATS beds available. Will [facility] to [facility] with goal of continuing bed search in the community. * Risk reduction discussion, including testing meth before use for fentanyl * RSRN to follow up with additional resources I spent _40 minutes with the patient and/or on the patient floor today, greater than?50% of which was spent counseling/coordinating care. [facility] Past Medical History Medical History (Updated 05/26/22 @ 14:56 by Shira Hedrick CNP) Abscess of left arm Drug-induced psychotic disorder with delusions HIV (human immunodeficiency virus infection) MDD (major depressive disorder), recurrent episode, moderate Methamphetamine addiction Post traumatic stress disorder (PTSD) Psychosis Surgical History Surgical History No history of previous surgery Social History Social History Household Members: None Housing: Apartment Do you presently have visiting nurse or other home services: No Patient Tobacco Use Status: Never used Tobacco e-Cigarette/Vaping Use: Never Used Substance Use Type: Methamphetamine service: No Sexual orientation: Lesbian/Baires/Homosexual
--- NOTE | 2022-05-26 15:51 | MHC.CM.PN ---
PT MEDICALLY CLEARED FOR D/C HOME SELF CARE, PLAN WAS FOR [facility] SUPPORT CRITZ HOWEVER REPORTED HE NEEDED TO STOP AND GET APT KEYS FROM [facility] HOU[facility], PT PROVIDED W/[facility]FT TRANSPORT.
[2022-05-27 04:08] LABS: Hepatitis A Antibody IgM 0.22 Index (0-0.79); ~Hepatitis A Antibody IgM Nonreactive (Nonreactive)
== END 2022-05-26 16:00 | disposition home or self-care (01) | DRG 720 ==
LOC: HO.ED 16:41 → HO.EDOVER 23:23 → HO.S3 05-23 17:24
PROVIDERS: Emergency Medicine; Admitting Provider Internal Medicine; Emergency Provider Emergency Medicine; PCP Internal Medicine; Visit Provider Student in an Organized Health Care Education/Training Program
DX: A41.9 Sepsis, unspecified organism (principal); E87.20 Acidosis, unspecified; F15.20 Other stimulant dependence, uncomplicated; F33.1 Major depressive disorder, recurrent, moderate; E83.42 Hypomagnesemia; B34.8 Other viral infections of unspecified site; Z21 Asymptomatic human immunodeficiency virus [HIV] infection status; D72.829 Elevated white blood cell count, unspecified; Z20.822 Contact with and (suspected) exposure to COVID-19; Z88.8 Allergy status to other drugs, medicaments and biological substances; Z79.899 Other long term (current) drug therapy
CPT/HCPCS: 36415; 71045; 74177; 76705; 78227; 80048; 80053; 80076; 80143; 80179; 80202; 80307; 81003; 82077; 82248; 82550; 82565; 83605; 83690; 83735; 85025; 85027; 85610; 85730; 86704; 86706; 86709; 86803; 87040; 87340; 87635; 93005; 99285; A9537; J1200; J1650; J2270; J2405; J2543; J2805; J3370; J3475; Q9967

== ENCOUNTER 2023-01-16 22:35 | Inpatient (IN) | payer OTHER, SELFPAY ==
[2023-01-16 22:38] VITALS: BP 152/94; PULSE 99; RESP 17; TEMP 36.6; O2SAT 98; BMI 24.2
--- NOTE | 2023-01-16 22:53 | ED_ITS ---
HPI - Psych General Chief Complaint: Psychiatric Symptoms Stated Complaint: CRISIS Time Seen by Provider: 01/16/23 22:37 Source: patient Mode of arrival: EMS Limitations: no limitations History of Present Illness HPI Narrative: Patient comes to the emergency room via ambulance accompanied by his Ko emotional support dog. Patient states that he feels a safe in his apartment, states that he thinks that the neighbors are watching over him, hacking his phone. According to EMS, the patient frequently visits [facility] and other local hospitals for psych issues. Today, patient went to [facility], he has discharge papers stating that on January 05 he got tested for syphilis that tested positive, today he got treated with penicillin IM. Related Data Home Medications Medication Instructions Recorded Confirmed loratadine 10 mg tablet 10 mg PO DAILY PRN Congestion 05/07/22 05/22/22 sertraline 200 mg capsule 200 mg PO DAILY 05/07/22 05/22/22 valacyclovir 500 mg tablet 500 mg PO DAILY 05/07/22 05/22/22 dolutegravir 50 mg-lamivudine 300 1 tab PO DAILY 05/22/22 05/22/22 mg tablet (Dovato) peg [id number] 1 1 drp ophthalmic (eye) BID 05/22/22 05/22/22 %-0.2 %-0.2 % eye drops (Artificial Tears ([id number])) Previous Rx's Medication Instructions Recorded buspirone 10 mg tablet 10 mg PO BID 30 days #60 tabs 05/18/22 clonidine HCl 0.1 mg tablet 0.1 mg PO Q4H PRN Anxiety 30 days 05/18/22 #60 tabs diphenhydramine HCl 50 mg tablet 100 mg PO BEDTIME PRN insomnia 30 05/18/22 days #60 tabs ropinirole 1 mg tablet 1 mg PO BEDTIME 30 days #30 tabs 05/18/22 ondansetron 4 mg disintegrating 4 mg PO Q8H PRN nausea and 05/25/22 tablet vomiting #10 tabs buspirone 10 mg tablet 10 mg PO BID 30 days #60 tabs 06/19/22 clonidine HCl 0.1 mg tablet 0.1 mg PO BID PRN anxiety 30 days 06/19/22 #60 tabs ropinirole 1 mg tablet 1 mg PO BEDTIME 30 days #30 tabs 06/19/22 Allergies Allergy/AdvReac Type Severity Reaction Status Date / Time trazodone AdvReac Mild priaprism Verified 05/14/22 11:54 Review of Systems Review of Systems: Constitutional : No Weight loss, No Fever, No Chills, No Night Sweats, No Fatigue, No Malaise ENT/Mouth : No Hearing loss, No Ear Pain, No Nasal Congestion, No Sinus Pain, No Hoarseness, No sore throat, No Rhinorrhea, No Swallowing Difficulty Eyes: No Eye Pain, No Swelling, No Redness, No Foreign Body, No Discharge, No Vision Changes Cardiovascular : No Chest Pain, No SOB, No Dyspnea on Exertion, No Orthopnea, No Edema, No Palpitations Respiratory : No Cough, No Sputum, No Wheezing, No Smoke Exposure, No Dyspnea Gastrointestinal : No Nausea, No Vomiting, No Diarrhea, No Constipation, No a bdominal Pain, No Hematochezia, No Melena Genitourinary : no irregular bleeding, No Dysuria, No Urinary Frequency, No Hematuria, No Urinary Incontinence, No Urgency, No Flank Pain, No Urinary Flow Changes, No Hesitancy Musculoskeletal : No joint pain, No Myalgias, No Joint Swelling Skin : No Skin Lesions, No rash Neuro : No Weakness, No Numbness, No Paresthesias, No Loss of Consciousness, No Dizziness, No Headache Psych : No Anxiety/Panic, no depression, denies suicidal or homicidal ideation, complaining of paranoid thoughts Heme/Lymph: No Bruising, No Bleeding,No Lymphadenopathy Endocrine : No Polyuria, No Polydipsia, No Temperature Intolerance PMFSH Past Medical History Medical History Abscess of left arm Drug-induced psychotic disorder with delusions HIV (human immunodeficiency virus infection) MDD (major depressive disorder), recurrent episode, moderate Methamphetamine addiction Post traumatic stress disorder (PTSD) Psychosis Syphilis Surgical History No history of previous surgery Social History Social History Household Members: None Housing: Apartment Do you presently have visiting nurse or other home services: No Patient Tobacco Use Status: Never used Tobacco e-Cigarette/Vaping Use: Never Used Substance Use Type: Methamphetamine Advance Directives: No Advance Directives Information Provided: No service: No Sexual orientation: Lesbian/Baires/Homosexual Physical Exam Vital Signs: Vital Signs: Last Vital Signs Temp 97.9 F 01/16/23 22:38 Pulse 99 01/16/23 22:38 Resp 17 01/16/23 22:38 BP 152/94 H 01/16/23 22:38 Pulse Ox 98 01/16/23 22:38 O2 Del Method Room Air 01/16/23 22:38 BMI result Body Mass Index 24.2 Const: Other: Appearance: Alert. Oriented X3. No acute distress. Eyes: Pupils equal, round and reactive to light. ENT: Pharynx normal. Neck: Normal inspection. Neck supple. No lymph nodes noted. No crepitus CVS: Normal heart rate and rhythm. Pulses normal. Normal S1 and S2 Respiratory: No respiratory distress. Breath sounds normal. No Wheezing. No rales Abdomen: Soft and nontender. No rigidity. No distention. Skin: Skin warm and dry. Normal skin color. Normal skin turgor. Extremities: No lower extremity edema. No Lacerations. No Rash Neuro: Oriented X 3. No motor deficit. No sensory deficit. Moving all extremities. No slurred speech. CN 2 through 12 grossly intact Psych: calm, cooperative, normal affect Course Course Course Narrative: -patient denies suicidal or homicidal ideation, patient is paranoid -urine toxicology pending. -care team consult pending -physician observation started at 00:50 -sign out given to Dr. Stephens Medical Decision Making Lab Data 01/16/23 23:39 01/16/23 23:39 Labs: Lab Results 01/16/23 01/16/23 01/16/23 Range/Units 23:39 23:39 23:39 WBC 9.4 (4.8-10.8) X10*3/uL RBC 3.99 L (4.60-5.80) X10*6/uL Hgb 11.8 L (14.0-18.0) g/dl Hct 35.3 L (42.0-52.0) % MCV 88.5 (80.0-98.0) fL MCH 29.6 (27.0-33.0) pg MCHC 33.4 (31.0-36.0) g/dl RDW 12.0 (11.0-16.0) % Plt Count 431 H D (160-400) X10*3/uL MPV 8.6 L (9.4-12.4) fL Immature Gran % (Auto) 0.2 (0.0-0.4) % Neut % (Auto) 68.5 (45-73) % Lymph % (Auto) 23.5 (20-40) % Franklin % (Auto) 6.0 (2-11) % Eos % (Auto) 1.4 (0-4) % Baso % (Auto) 0.4 (0-2) % Lymph # (Auto) 2.2 (1.2-4.9) X10*3/uL Franklin # (Auto) 0.6 (0.1-1.2) X10*3/uL Eos # (Auto) 0.1 (0.0-0.4) X10*3/uL Baso # (Auto) 0.0 (0.0-0.2) X10*3/uL Abs Immat Gran (auto) 0.02 (0.00-0.03) X10*3/uL Absolute Neuts (auto) 6.4 (2.0-8.3) x10*3/uL Absolute Nucleated RBC 0.000 (0.0-0.012) X10*3/uL Nucleated RBC % (auto) 0.0 (0.0-0.2) /100WBC Sodium 141 (135-145) mmol/L Potassium 3.4 D (3.3-5.1) mmol/L Chloride 106 (96-108) mmol/L Carbon Dioxide 24 (22-29) mmol/L Anion Gap 14 (12-20) BUN 15 (9-16) mg/dL Creatinine 0.88 (0.5-1.4) mg/dL Estim Creat Clear Calc 110.7 Estimated GFR > 60 Random Glucose 104 (60-115) mg/dL Calcium 9.9 (8.4-10.2) mg/dL Total Bilirubin 0.3 (0.0-1.0) mg/dL AST 16 (5-37) U/L ALT 12 (0-40) U/L Alkaline Phosphatase 78 (39-117) U/L Total Protein 7.6 (6.5-8.0) g/dL Albumin 4.2 (3.5-5.0) g/dL Ethyl Alcohol < 10 mg/dL Discharge Plan Discharge Clinical Impression: Paranoid Patient Disposition: Still a Patient Prescriptions: No Action Artificial Tears([id number]) 1-0.2-0.2 % drops 1 drp ophthalmic (eye) BID Dovato 50-300 mg tablet 1 tab PO DAILY ondansetron 4 mg tablet,disintegrating 4 mg PO Q8H PRN (Reason: nausea and vomiting) Qty: 10 0RF valacyclovir 500 mg Tablet 500 mg PO DAILY loratadine 10 mg Tablet 10 mg PO DAILY PRN (Reason: Congestion) sertraline 200 mg Capsule 200 mg PO DAILY diphenhydramine HCl 50 mg tablet 100 mg PO BEDTIME PRN (Reason: insomnia) 30 Days Qty: 60 0RF clonidine HCl 0.1 mg Tablet 0.1 mg PO Q4H PRN (Reason: Anxiety) 30 Days Qty: 60 0RF Protocol: Hold for SBP< HOLD for SBP < : 90 buspirone 10 mg Tablet 10 mg PO BID 30 Days Qty: 60 0RF ropinirole 1 mg Tablet 1 mg PO BEDTIME 30 Days Qty: 30 0RF clonidine HCl 0.1 mg tablet 0.1 mg PO BID PRN (Reason: anxiety) 30 Days Qty: 60 1RF buspirone 10 mg tablet 10 mg PO BID 30 Days Qty: 60 1RF ropinirole 1 mg tablet 1 mg PO BEDTIME 30 Days Qty: 30 1RF Rx Instructions: administer 1-3 hours before bedtime
[2023-01-16 23:44] LABS: Basophils Percent Auto 0.4 % (0-2); Eosinophils Absolute Auto 0.1 X10*3/uL (0.0-0.4); Eosinophils Percent Auto 1.4 % (0-4); Hematocrit 35.3 % (42.0-52.0); Hemoglobin 11.8 g/dl (14.0-18.0); Imm Gran Abs Auto 0.02 X10*3/uL (0.00-0.03); Imm Gran Pct Auto 0.2 % (0.0-0.4); Lymphocytes Absolute Auto 2.2 X10*3/uL (1.2-4.9); Lymphocytes Percent Auto 23.5 % (20-40); MANUAL DIFF FLAG NO; Mean Corpuscular HGB Conc 33.4 g/dl (31.0-36.0); Mean Corpuscular Hemoglobin 29.6 pg (27.0-33.0); Mean Corpuscular Volume 88.5 fL (80.0-98.0); Mean Platelet Volume 8.6 fL (9.4-12.4); Monocytes Absolute Auto 0.6 X10*3/uL (0.1-1.2); Neutrophils Absolute Auto 6.4 x10*3/uL (2.0-8.3); Neutrophils Percent Auto 68.5 % (45-73); Platelet Count 431 X10*3/uL (160-400); Red Blood Count 3.99 X10*6/uL (4.60-5.80); White Blood Count 9.4 X10*3/uL (4.8-10.8)
[2023-01-16 23:58] LABS: Ethanol < 10 mg/dL
[2023-01-16 23:59] LABS: Alanine Aminotransferase 12 U/L (0-40); Albumin Level 4.2 g/dL (3.5-5.0); Alkaline Phosphatase 78 U/L (39-117); Anion Gap 14 (12-20); Aspartate Amino Transferase 16 U/L (5-37); Bilirubin Total 0.3 mg/dL (0.0-1.0); Blood Urea Nitrogen 15 mg/dL (9-16); Calcium 9.9 mg/dL (8.4-10.2); Carbon Dioxide 24 mmol/L (22-29); Chloride 106 mmol/L (96-108); Creatinine Clr Calc Pharmacy 110.7; Estimated Glomerular Filt Rate > 60; Glucose Random 104 mg/dL (60-115); Potassium 3.4 mmol/L (3.3-5.1); Sodium 141 mmol/L (135-145); Total Protein 7.6 g/dL (6.5-8.0)
--- NOTE | 2023-01-17 00:45 | PC.NURSE ---
Patient is currently watching TV, no distress observed/reported, no behavior concerns at this time, care consult ordered/pending evaluation, patient has [place]oiseua dog with him which he describes as emotional support dog, not sure whether dogs falls under service dog not, however, packing and final assembly supervisor, charge nurse, clinical coordinator and provider made aware of the dog, discussed dog related concerns with security, particularly policy A8-E009, Part V Section G & H, and copy of the policy handed over to security for further support, will continue to monitor.
[2023-01-17 03:36] LABS: Amphetamine Screen Urine POSITIVE (Not Detect); Barbiturates, Urine Not Detected (Not Detect); Benzodiazepines Screen Urine Not Detected (Not Detect); Cannabinoid Screen Urine POSITIVE (Not Detect); Cocaine Screen Urine Not Detected (Not Detect); Fentanyl, urine POSITIVE (Not Detect); Opiate Screen Urine Not Detected (Not Detect); Phencyclidine Screen Urine Not Detected (Not Detect)
--- NOTE | 2023-01-17 05:55 | PC.NURSE ---
Patient in his bed resting but awake, patient did not sleep whole night, no issues with his dog thus far, patient requested a discharge but no ride available at this time, provider made aware but plan is to have patient talk to care team in the morning, VSS, will continue to monitor.
[2023-01-17 06:14] VITALS: BP 149/101; PULSE 86; RESP 16; TEMP 36.4; O2SAT 99
--- NOTE | 2023-01-17 07:01 | PC.NURSE ---
Resumed care of patient this morning, He is a/ox4, offers no complaints at this time, requesting more food. Pt dog is currently sleeping on PT pillow. Awaiting care team this AM for jazmín
--- NOTE | 2023-01-17 13:19 | PHA.MEDREC ---
Pharmacy Consult ? Medication Reconciliation Pharmacy has completed the medication reconciliation. Spoke to patient to confirm meds. Patient tells me medications haven't changed since May, and that they would not speak to this writer technical publications because I was going to keep them here against their will . Patient reports taking biotin for hair, but unable to state dose or regimen.
--- NOTE | 2023-01-17 16:19 | MHC.RECOVSUP ---
Met with pt in [facility] to provide recovery resources while he is working with the Care Team.
[2023-01-17 16:20] VITALS: BP 137/95; PULSE 87; RESP 18; TEMP 36.4; O2SAT 99
--- NOTE | 2023-01-17 16:41 | PC.NURSE ---
Called sister and mom to see if someone could come pick Dasia the dog up d/t pt needing to stay one more night, mom said ok and hung up the phone, unclear if someone is coming, charge nurse aware.
--- NOTE | 2023-01-17 17:12 | MHC.CARE ---
Patient evaluated by the CARE Team, inpatient psychiatric care was recommended and patient did not agree, Section 12B not initiated at this time as his presentation may be driven by substance use. He will need to be seen by a clinician in the morning with a possible psychiatry consult to determine final disposition depending on if his symptoms clear and a safe discharge plan can be made. Case discussed with ED provider Dr. Osullivan and professor of religion psychiatrist, Dr. Fan who are both in agreement. Family member took patient's dog home.
--- NOTE | 2023-01-18 | ECG_ITS ---
Test Reason : psych meds Blood Pressure : / mmHG Vent. Rate : 069 BPM Atrial Rate : 069 BPM P-R Int : 140 ms QRS Dur : 092 ms QT Int : 402 ms P-R-T Axes : 053 -05 028 degrees QTc Int : 430 ms Normal sinus rhythm Normal ECG When compared with ECG of 22-MAY-2022 15:13, Vent. rate has decreased BY 40 BPM Referred By: Generic ED Physician Electronically Signed By:MEIR ELLER
[2023-01-18 00:03] VITALS: BP 117/84; PULSE 90; RESP 16; TEMP 36.3; O2SAT 98
--- NOTE | 2023-01-18 08:03 | PC.NURSE ---
confirmed with director music, security and pt - pts dog was picked up and is no longer in room at [facility]
[2023-01-18 08:37] VITALS: BP 118/75; PULSE 79; RESP 12; TEMP 36.2; O2SAT 98
[2023-01-18] MEDS: Sertraline HCL 100 MG TABLET 200 MG PO (11:03)
[2023-01-18] MEDS: valACYclovir HCL 500 MG TABLET PO (11:04)
[2023-01-18] MEDS: Loratadine 10 MG TABLET PO (11:05)
[2023-01-18] MEDS: cloNIDine HCL 0.2 MG TABLET PO ×3 (11:05→23:01)
[2023-01-18] MEDS: busPIRone HCl 10 MG TABLET PO ×3 (11:05→23:01)
[2023-01-18] MEDS: Dolutegravir Sodium 50 MG TABLET PO (11:06)
[2023-01-18] MEDS: lamiVUDine 150 MG TABLET 300 MG PO (11:06)
[2023-01-18 12:07] LABS: Appearance Urine Turbid; Color Urine Yellow; Glucose Urine UA Negative (Negative); Leukocyte Esterase Urine Negative (Negative); Nitrite Urine Negative (Negative); Urine Blood Negative (Negative); Urine Ketones Negative (Negative); Urine Protein Negative (Neg-Trace)
[2023-01-18 12:09] LABS: COVID-19 Test Negative (Negative); IDNOW Serial# BCCEAD1C
--- NOTE | 2023-01-18 13:13 | PC.NURSE ---
nurse to nurse report completed to M3
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
[2023-01-18 14:36] VITALS: BP 117/64; PULSE 76; RESP 16; TEMP 36.5; O2SAT 98
[2023-01-18 15:01] VITALS: BMI 23.6
[2023-01-18 22:55] VITALS: BP 117/65; PULSE 79; RESP 16; TEMP 36.4; O2SAT 98
[2023-01-18] MEDS: rOPINIRole HCL 1 MG TABLET PO (23:01)
[2023-01-19 09:05] LABS: Estimated Average Glucose 100 mg/dL; Hemoglobin A1c % 5.1 %
[2023-01-19] MEDS: Loratadine 10 MG TABLET PO (09:16)
[2023-01-19] MEDS: busPIRone HCl 10 MG TABLET PO ×3 (09:16→21:00)
[2023-01-19] MEDS: cloNIDine HCL 0.2 MG TABLET PO ×3 (09:16→21:00)
[2023-01-19] MEDS: Sertraline HCL 100 MG TABLET 200 MG PO (09:16)
[2023-01-19 09:18] VITALS: BP 123/68; PULSE 78; RESP 18; TEMP 36.7; O2SAT 98
[2023-01-19 09:29] LABS: Alanine Aminotransferase 9 U/L (0-40); Alkaline Phosphatase 74 U/L (39-117); Anion Gap 11 (12-20); Aspartate Amino Transferase 12 U/L (5-37); Bilirubin Total 0.3 mg/dL (0.0-1.0); Blood Urea Nitrogen 14 mg/dL (9-16); Calcium 9.8 mg/dL (8.4-10.2); Carbon Dioxide 28 mmol/L (22-29); Chloride 105 mmol/L (96-108); Cholesterol 165 mg/dL; Creatinine Clr Calc Pharmacy 123.3; Estimated Glomerular Filt Rate > 60; Glucose Fasting 88 mg/dL (60-99); HDL Cholesterol 52 mg/dL; LDL Cholesterol Calculated 91 mg/dl; Potassium 4.5 mmol/L (3.3-5.1); Sodium 139 mmol/L (135-145); Total Protein 7.3 g/dL (6.5-8.0); Triglycerides 112 mg/dL
[2023-01-19 09:45] LABS: Free T4 (Free Thyroxine) 0.86 ng/dL (0.71-1.85)
[2023-01-19 09:56] LABS: Folate 12.7 ng/mL (> or = 4.0); Vitamin B12 536 pg/mL (200-900)
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
[2023-01-19] MEDS: Dolutegravir Sodium 50 MG TABLET PO (10:28)
[2023-01-19] MEDS: lamiVUDine 150 MG TABLET 300 MG PO (10:28)
[2023-01-19] MEDS: valACYclovir HCL 500 MG TABLET PO (10:28)
[2023-01-19 20:59] VITALS: BP 109/68; PULSE 81; TEMP 36.6; O2SAT 98
[2023-01-19] MEDS: rOPINIRole HCL 1 MG TABLET PO (21:01)
[2023-01-20] MEDS: lamiVUDine 150 MG TABLET 300 MG PO (09:11)
[2023-01-20] MEDS: Dolutegravir Sodium 50 MG TABLET PO (09:11)
[2023-01-20] MEDS: Sertraline HCL 100 MG TABLET 200 MG PO (09:11)
[2023-01-20] MEDS: busPIRone HCl 10 MG TABLET PO ×3 (09:11→20:34)
[2023-01-20] MEDS: valACYclovir HCL 500 MG TABLET PO (09:12)
[2023-01-20] MEDS: cloNIDine HCL 0.2 MG TABLET PO ×3 (09:12→20:34)
[2023-01-20] MEDS: Loratadine 10 MG TABLET PO (09:12)
[2023-01-20 09:18] VITALS: BP 123/76; PULSE 79; RESP 16; TEMP 36.6; O2SAT 98
--- NOTE | 2023-01-20 14:17 | HO.PSYCHPN ---
Subjective Subjective Date of Service: 01/20/23 Reason For Visit: Psychosis Interim History: calm, cooperative. does endorse some lingering paranoid ideas, much attenuated from at admission, however. c/o anxiety and poor concentration. reported h/o ADHD from childhood. also believes he is depressed. states he has h/o wellbutrin trial, which he reports made him manic. also c/o insomnia. agrees to trial of zyprexa 5 mg at for insomnia, depression, and paranoia. per staff, anx7. denies SI/HI/AVH. not attending groups during the day. misses his dog. catching up on sleep. taking meds. slept well. Mental Status Exam Mental Status Exam Narrative: lying in bed, very sleepy, rousable. cooperative. no PMA/PMR. speech nml loudness and amount, nml latency. thoughts linear and logical. affect full range, normo-intense. SI/SIBI/HI/AVH. Diagnostics Vital Signs (24Hr): Vital Signs - 24 hr 01/19/23 20:59 01/20/23 09:18 Temperature 97.9 F 97.9 F Pulse Rate 81 79 Respiratory Rate 16 Blood Pressure 109/68 123/76 Pulse Oximetry 98 98 Oxygen Delivery Method Room Air Room Air BMI result Body Mass Index 23.6 Labs 01/16/23 23:39 01/19/23 08:46 Labs: Laboratory Results - last 48 hr 01/19/23 01/19/23 01/19/23 08:46 08:46 08:46 Sodium 139 Potassium 4.5 D Chloride 105 Carbon Dioxide 28 Anion Gap 11 L BUN 14 Creatinine 0.79 Estim Creat Clear Calc 123.3 Estimated GFR > 60 Fasting Glucose 88 Estimat Average Glucose 100 Hemoglobin A1c % 5.1 Calcium 9.8 Total Bilirubin 0.3 AST 12 ALT 9 Alkaline Phosphatase 74 Total Protein 7.3 Albumin 4.0 Triglycerides 112 Cholesterol 165 LDL Cholesterol, Calc 91 HDL Cholesterol 52 Vitamin B12 536 Folate 12.7 TSH 0.30 L Free T4 0.86 Medications Medications Current Medications Acetaminophen (Acetaminophen 325 Mg Tablet) 650 mg PO Q6H PRN PRN Reason: Headache/Pain Mild Scale (1-3) Al Hydroxide/Mg Hydroxide (Magnesium Hydrox/Alum Hydrox 30 Ml Oral.Susp) 30 ml PO Q6H PRN PRN Reason: Heartburn/Nausea Buspirone HCl (Buspirone Hcl 10 Mg Tablet) 10 mg PO TID [facility] Last Admin: 01/20/23 09:11 Dose: 10 mg Clonidine HCl (Clonidine Hcl 0.2 Mg Tablet) 0.2 mg PO TID [facility]; Protocol Last Admin: 01/20/23 09:12 Dose: 0.2 mg Dolutegravir Sodium (Dolutegravir Sodium 50 Mg Tablet) 50 mg PO DAILY [facility] Last Admin: 01/20/23 09:11 Dose: 50 mg Hydroxyzine HCl (Hydroxyzine Hcl 25 Mg Tablet) 25 mg PO Q6H PRN PRN Reason: Anxiety Lamivudine (Lamivudine 150 Mg Tablet) 300 mg PO DAILY [facility] Last Admin: 01/20/23 09:11 Dose: 300 mg Loratadine (Loratadine 10 Mg Tablet) 10 mg PO DAILY [facility] Last Admin: 01/20/23 09:12 Dose: 10 mg Magnesium Hydroxide (Milk Of Magnesia 30 Ml Oral.Susp) 30 ml PO DAILY PRN PRN Reason: Constipation Nicotine Polacrilex (Nicotine Polacrilex 2 Mg Gum) 4 mg BUCCAL Q2H PRN PRN Reason: Nicotine Cravings Olanzapine (Olanzapine 5 Mg Tablet) 5 mg PO BEDTIME [facility] Ropinirole HCl (Ropinirole Hcl 1 Mg Tablet) 1 mg PO BEDTIME [facility] Last Admin: 01/19/23 21:01 Dose: 1 mg Sertraline HCl (Sertraline Hcl 100 Mg Tablet) 200 mg PO DAILY [facility] Last Admin: 01/20/23 09:11 Dose: 200 mg Trazodone HCl (Trazodone Hcl 50 Mg Tablet) 50 mg PO BEDTIME [id number] PRN PRN Reason: Insomnia Valacyclovir HCl (Valacyclovir Hcl 500 Mg Tablet) 500 mg PO DAILY [facility] Last Admin: 01/20/23 09:12 Dose: 500 mg Allergies Allergies Allergy/AdvReac Type Severity Reaction Status Date / Time trazodone AdvReac Mild priaprism Verified 05/14/22 11:54 Assessment & Plan Assessment & Plan (1) Methamphetamine use disorder, severe: Status: Acute Code(s): F15.20 - Other stimulant dependence, uncomplicated (2) Drug-induced psychotic disorder with delusions: Status: Acute Code(s): F19.950 - Other psychoactive substance use, unspecified with psychoactive substance-induced psychotic disorder with delusions (3) HIV (human immunodeficiency virus infection): Status: Acute Code(s): B20 - Human immunodeficiency virus [HIV] disease (4) Psychosis: Status: Acute Code(s): F29 - Unspecified psychosis not due to a substance or known physiological condition (5) Cocaine use disorder: Status: Acute Code(s): F14.10 - Cocaine abuse, uncomplicated Plan 01/19: psychosis likely secondary to substance use. observe, supportive care. restart prior medications regimen of buspar, clonidine, zoloft. observe behavior and VS for one day, then adjust clonidine, buspar accordingly. T/C alternate anti-anxiety agent. 01/20: start zyprexa 5 mg at [facility] for insomnia, paranoia, depression. Reason for continued inpatient stay Substantial Risk for: inability to function and rapid decompensation Time Spent With Patient Time: Total time managing care of this patient today __25__ minutes.
[2023-01-20 18:00] VITALS: BP 117/72; PULSE 74; RESP 18; TEMP 36.6; O2SAT 99
[2023-01-20] MEDS: rOPINIRole HCL 1 MG TABLET PO (20:34)
[2023-01-20] MEDS: OLANZapine 5 MG TABLET PO (20:35)
[2023-01-21] MEDS: busPIRone HCl 10 MG TABLET PO ×3 (08:27→20:45)
[2023-01-21] MEDS: cloNIDine HCL 0.2 MG TABLET PO ×3 (08:27→20:45)
[2023-01-21] MEDS: Dolutegravir Sodium 50 MG TABLET PO (08:27)
[2023-01-21] MEDS: Sertraline HCL 100 MG TABLET 200 MG PO (08:27)
[2023-01-21] MEDS: Loratadine 10 MG TABLET PO (08:27)
[2023-01-21] MEDS: valACYclovir HCL 500 MG TABLET PO (08:27)
[2023-01-21] MEDS: lamiVUDine 150 MG TABLET 300 MG PO (08:28)
[2023-01-21 09:25] VITALS: BP 116/68; PULSE 76; RESP 18; TEMP 36.7; O2SAT 98
--- NOTE | 2023-01-21 15:39 | P.PNPSI_ITS ---
Subjective Subjective Date of Service: 01/21/23 Reason For Visit: Psychosis Interim History: reports he slept well last night, no complaints or requests. states he is still a bit sleepy generally. amenable to continue current mgmt. per staff, up for meals only. pleasant. not attending groups. withdrawn. anx/dep /. denies psych Sx. lots of napping. Mental Status Exam Mental Status Exam Narrative: lying in bed, sleepy, rousable. cooperative. no PMA/PMR. speech nml loudness and amount, nml latency. thoughts linear and logical. affect full range, normo-intense. no SI/SIBI/HI/AVH expressed. Diagnostics Vital Signs (24Hr): Vital Signs - 24 hr 01/20/23 18:00 01/21/23 09:25 Temperature 97.9 F 98.1 F Pulse Rate 74 76 Respiratory Rate 18 18 Blood Pressure 117/72 116/68 Pulse Oximetry 99 98 Oxygen Delivery Method Room Air Room Air BMI result Body Mass Index 23.6 Labs 01/16/23 23:39 01/19/23 08:46 Medications Medications Current Medications Acetaminophen (Acetaminophen 325 Mg Tablet) 650 mg PO Q6H PRN PRN Reason: Headache/Pain Mild Scale (1-3) Al Hydroxide/Mg Hydroxide (Magnesium Hydrox/Alum Hydrox 30 Ml Oral.Susp) 30 ml PO Q6H PRN PRN Reason: Heartburn/Nausea Buspirone HCl (Buspirone Hcl 10 Mg Tablet) 10 mg PO TID [facility] Last Admin: 01/21/23 14:48 Dose: 10 mg Clonidine HCl (Clonidine Hcl 0.2 Mg Tablet) 0.2 mg PO TID [facility]; Protocol Last Admin: 01/21/23 14:48 Dose: 0.2 mg Dolutegravir Sodium (Dolutegravir Sodium 50 Mg Tablet) 50 mg PO DAILY [facility] Last Admin: 01/21/23 08:27 Dose: 50 mg Hydroxyzine HCl (Hydroxyzine Hcl 25 Mg Tablet) 25 mg PO Q6H PRN PRN Reason: Anxiety Lamivudine (Lamivudine 150 Mg Tablet) 300 mg PO DAILY [facility] Last Admin: 01/21/23 08:28 Dose: 300 mg Loratadine (Loratadine 10 Mg Tablet) 10 mg PO DAILY [facility] Last Admin: 01/21/23 08:27 Dose: 10 mg Magnesium Hydroxide (Milk Of Magnesia 30 Ml Oral.Susp) 30 ml PO DAILY PRN PRN Reason: Constipation Nicotine Polacrilex (Nicotine Polacrilex 2 Mg Gum) 4 mg BUCCAL Q2H PRN PRN Reason: Nicotine Cravings Olanzapine (Olanzapine 5 Mg Tablet) 5 mg PO BEDTIME [facility] Last Admin: 01/20/23 20:35 Dose: 5 mg Ropinirole HCl (Ropinirole Hcl 1 Mg Tablet) 1 mg PO BEDTIME [facility] Last Admin: 01/20/23 20:34 Dose: 1 mg Sertraline HCl (Sertraline Hcl 100 Mg Tablet) 200 mg PO DAILY [facility] Last Admin: 01/21/23 08:27 Dose: 200 mg Trazodone HCl (Trazodone Hcl 50 Mg Tablet) 50 mg PO BEDTIME [id number] PRN PRN Reason: Insomnia Valacyclovir HCl (Valacyclovir Hcl 500 Mg Tablet) 500 mg PO DAILY [facility] Last Admin: 01/21/23 08:27 Dose: 500 mg Allergies Allergies Allergy/AdvReac Type Severity Reaction Status Date / Time trazodone AdvReac Mild priaprism Verified 05/14/22 11:54 Assessment & Plan Assessment & Plan (1) Methamphetamine use disorder, severe: Status: Acute Code(s): F15.20 - Other stimulant dependence, uncomplicated (2) Drug-induced psychotic disorder with delusions: Status: Acute Code(s): F19.950 - Other psychoactive substance use, unspecified with psychoactive subst ance-induced psychotic disorder with delusions (3) HIV (human immunodeficiency virus infection): Status: Acute Code(s): B20 - Human immunodeficiency virus [HIV] disease (4) Psychosis: Status: Acute Code(s): F29 - Unspecified psychosis not due to a substance or known physiological condition (5) Cocaine use disorder: Status: Acute Code(s): F14.10 - Cocaine abuse, uncomplicated Plan 01/19: psychosis likely secondary to substance use. observe, supportive care. restart prior medications regimen of buspar, clonidine, zoloft. observe behavior and VS for one day, then adjust clonidine, buspar accordingly. T/C alternate anti-anxiety agent. 01/20: start zyprexa 5 mg at HS for insomnia, paranoia, depression. 01/21: no complaints, still sleeping a lot of the day. continue current mgmt for now. Reason for continued inpatient stay Substantial Risk for: inability to function and rapid decompensation Time Spent With Patient Time: Total time managing care of this patient today _25___ minutes.
[2023-01-21 18:00] VITALS: BP 134/70; PULSE 71; RESP 18; TEMP 36.7; O2SAT 98
[2023-01-21] MEDS: OLANZapine 5 MG TABLET PO (20:45)
[2023-01-21] MEDS: rOPINIRole HCL 1 MG TABLET PO (20:45)
[2023-01-22] MEDS: valACYclovir HCL 500 MG TABLET PO (08:33)
[2023-01-22] MEDS: Sertraline HCL 100 MG TABLET 200 MG PO (08:33)
[2023-01-22] MEDS: cloNIDine HCL 0.2 MG TABLET PO ×3 (08:33→21:04)
[2023-01-22] MEDS: Loratadine 10 MG TABLET PO (08:33)
[2023-01-22] MEDS: lamiVUDine 150 MG TABLET 300 MG PO (08:34)
[2023-01-22] MEDS: Dolutegravir Sodium 50 MG TABLET PO (08:34)
[2023-01-22] MEDS: busPIRone HCl 10 MG TABLET PO ×3 (08:34→21:03)
[2023-01-22 09:02] VITALS: BP 119/56; PULSE 63; RESP 18; TEMP 36.8; O2SAT 99
--- NOTE | 2023-01-22 11:49 | HO.PSYCHPN ---
Subjective Subjective Date of Service: 01/22/23 Reason For Visit: Psychosis Interim History: continues to feel sleepy throughout the day, more so than he would have thought. sleeping reasonably well at HS. agreeable to continue current mgmt with plan to DC on wednesday. per staff, dep/anx 5. friendly, social. pleasant, cooperative. + meds. slept overnight. Mental Status Exam Mental Status Exam Narrative: lying in bed, sleepy, rousable. cooperative. no PMA/PMR. speech nml loudness and amount, nml latency. thoughts linear and logical. affect constricted, normo-intense, non-labile. no SI/SIBI/HI/AVH expressed. Diagnostics Vital Signs (24Hr): Vital Signs - 24 hr 01/21/23 18:00 01/22/23 09:02 Temperature 98.1 F 98.3 F Pulse Rate 71 63 Respiratory Rate 18 18 Blood Pressure 134/70 119/56 L Pulse Oximetry 98 99 Oxygen Delivery Method Room Air Room Air BMI result Body Mass Index 23.6 Labs 01/16/23 23:39 01/19/23 08:46 Medications Medications Current Medications Acetaminophen (Acetaminophen 325 Mg Tablet) 650 mg PO Q6H PRN PRN Reason: Headache/Pain Mild Scale (1-3) Al Hydroxide/Mg Hydroxide (Magnesium Hydrox/Alum Hydrox 30 Ml Oral.Susp) 30 ml PO Q6H PRN PRN Reason: Heartburn/Nausea Buspirone HCl (Buspirone Hcl 10 Mg Tablet) 10 mg PO TID [facility] Last Admin: 01/22/23 08:34 Dose: 10 mg Clonidine HCl (Clonidine Hcl 0.2 Mg Tablet) 0.2 mg PO TID [facility]; Protocol Last Admin: 01/22/23 08:33 Dose: 0.2 mg Dolutegravir Sodium (Dolutegravir Sodium 50 Mg Tablet) 50 mg PO DAILY [facility] Last Admin: 01/22/23 08:34 Dose: 50 mg Hydroxyzine HCl (Hydroxyzine Hcl 25 Mg Tablet) 25 mg PO Q6H PRN PRN Reason: Anxiety Lamivudine (Lamivudine 150 Mg Tablet) 300 mg PO DAILY [facility] Last Admin: 01/22/23 08:34 Dose: 300 mg Loratadine (Loratadine 10 Mg Tablet) 10 mg PO DAILY [facility] Last Admin: 01/22/23 08:33 Dose: 10 mg Magnesium Hydroxide (Milk Of Magnesia 30 Ml Oral.Susp) 30 ml PO DAILY PRN PRN Reason: Constipation Nicotine Polacrilex (Nicotine Polacrilex 2 Mg Gum) 4 mg BUCCAL Q2H PRN PRN Reason: Nicotine Cravings Olanzapine (Olanzapine 5 Mg Tablet) 5 mg PO BEDTIME [facility] Last Admin: 01/21/23 20:45 Dose: 5 mg Ropinirole HCl (Ropinirole Hcl 1 Mg Tablet) 1 mg PO BEDTIME [facility] Last Admin: 01/21/23 20:45 Dose: 1 mg Sertraline HCl (Sertraline Hcl 100 Mg Tablet) 200 mg PO DAILY [facility] Last Admin: 01/22/23 08:33 Dose: 200 mg Trazodone HCl (Trazodone Hcl 50 Mg Tablet) 50 mg PO BEDTIME MRX1 PRN PRN Reason: Insomnia Valacyclovir HCl (Valacyclovir Hcl 500 Mg Tablet) 500 mg PO DAILY [facility] Last Admin: 01/22/23 08:33 Dose: 500 mg Allergies Allergies Allergy/AdvReac Type Severity Reaction Status Date / Time trazodone AdvReac Mild priaprism Verified 05/14/22 11:54 Assessment & Plan Assessment & Plan (1) Methamphetamine use disorder, severe: Status: Acute Code(s): F15.20 - Other stimulant dependence, uncomplicated (2) Drug-induced psychotic disorder with delusions: Status: Acute Code(s): F19.950 - Other psychoactive substance use, unspecified with psychoactive substance-induced psychotic disorder with delusions (3) HIV (human immunodeficiency virus infection): Status: Acute Code(s): B20 - Human immunodeficiency virus [HIV] disease (4) Psychosis: Status: Acute Code(s): F29 - Unspecified psychosis not due to a substance or known physiological condition (5) Cocaine use disorder: Status: Acute Code(s): F14.10 - Cocaine abuse, uncomplicated Plan 01/19: psychosis likely secondary to substance use. observe, supportive care. restart prior medications regimen of buspar, clonidine, zoloft. observe behavior and VS for one day, then adjust clonidine, buspar accordingly. T/C alternate anti-anxiety agent. 01/20: start zyprexa 5 mg at HS for insomnia, paranoia, depression. 01/21: no complaints, still sleeping a lot of the day. continue current mgmt for now. 01/22: no complaints, still sleeping a lot of the day. continue current mgmt for now. Reason for continued inpatient stay Substantial Risk for: rapid decompensation Time Spent With Patient Time: Total time managing care of this patient today ____ minutes.
[2023-01-22] MEDS: Acetaminophen 325 MG TABLET 650 MG PO (18:38)
[2023-01-22 19:55] VITALS: BP 128/74; PULSE 97; RESP 16; TEMP 36.3; O2SAT 98
[2023-01-22] MEDS: OLANZapine 5 MG TABLET PO (21:03)
[2023-01-22] MEDS: rOPINIRole HCL 1 MG TABLET PO (21:03)
[2023-01-23 08:46] VITALS: BP 136/66; PULSE 88; RESP 16; TEMP 36.7; O2SAT 98
[2023-01-23] MEDS: lamiVUDine 150 MG TABLET 300 MG PO (08:50)
[2023-01-23] MEDS: Sertraline HCL 100 MG TABLET 200 MG PO (08:50)
[2023-01-23] MEDS: Dolutegravir Sodium 50 MG TABLET PO (08:50)
[2023-01-23] MEDS: Loratadine 10 MG TABLET PO (08:50)
[2023-01-23] MEDS: busPIRone HCl 10 MG TABLET PO ×3 (08:50→22:34)
[2023-01-23] MEDS: cloNIDine HCL 0.2 MG TABLET PO ×3 (08:50→22:34)
[2023-01-23] MEDS: valACYclovir HCL 500 MG TABLET PO (08:50)
[2023-01-23 15:10] VITALS: BP 113/63; PULSE 78
--- NOTE | 2023-01-23 16:18 | P.PNPSI_ITS ---
Subjective Subjective Date of Service: 01/23/23 Reason For Visit: Psychosis Interim History: found sleeping in bed mid-afternoon. rousable. sleeping days and nights, he says. reports his mood is good. no questions or complaints. per staff, sleeping, eating. daytime sleepiness continues. less paranoid. planning to DC wednesday. Mental Status Exam Mental Status Exam Narrative: lying in bed, sleepy, rousable. cooperative. no PMA/PMR. speech nml loudness and amount, nml latency. thoughts linear and logical. affect constricted, normo-intense, non-labile. no SI/SIBI/HI/AVH expressed. Diagnostics Vital Signs (24Hr): Vital Signs - 24 hr 01/22/23 19:55 01/23/23 08:46 01/23/23 15:10 Temperature 97.4 F 98.1 F Pulse Rate 97 88 78 Respiratory Rate 16 16 Blood Pressure 128/74 136/66 113/63 Pulse Oximetry 98 98 Oxygen Delivery Method Room Air Room Air BMI result Body Mass Index 23.6 Labs 01/16/23 23:39 01/19/23 08:46 Medications Medications Current Medications Acetaminophen (Acetaminophen 325 Mg Tablet) 650 mg PO Q6H PRN PRN Reason: Headache/Pain Mild Scale (1-3) Last Admin: 01/22/23 18:38 Dose: 650 mg Al Hydroxide/Mg Hydroxide (Magnesium Hydrox/Alum Hydrox 30 Ml Oral.Susp) 30 ml PO Q6H PRN PRN Reason: Heartburn/Nausea Buspirone HCl (Buspirone Hcl 10 Mg Tablet) 10 mg PO TID [facility] Last Admin: 01/23/23 14:56 Dose: 10 mg Clonidine HCl (Clonidine Hcl 0.2 Mg Tablet) 0.2 mg PO TID [facility]; Protocol Last Admin: 01/23/23 14:56 Dose: 0.2 mg Dolutegravir Sodium (Dolutegravir Sodium 50 Mg Tablet) 50 mg PO DAILY [facility] Last Admin: 01/23/23 08:50 Dose: 50 mg Hydroxyzine HCl (Hydroxyzine Hcl 25 Mg Tablet) 25 mg PO Q6H PRN PRN Reason: Anxiety Lamivudine (Lamivudine 150 Mg Tablet) 300 mg PO DAILY [facility] Last Admin: 01/23/23 08:50 Dose: 300 mg Loratadine (Loratadine 10 Mg Tablet) 10 mg PO DAILY [facility] Last Admin: 01/23/23 08:50 Dose: 10 mg Magnesium Hydroxide (Milk Of Magnesia 30 Ml Oral.Susp) 30 ml PO DAILY PRN PRN Reason: Constipation Nicotine Polacrilex (Nicotine Polacrilex 2 Mg Gum) 4 mg BUCCAL Q2H PRN PRN Reason: Nicotine Cravings Olanzapine (Olanzapine 5 Mg Tablet) 5 mg PO BEDTIME [facility] Last Admin: 01/22/23 21:03 Dose: 5 mg Ropinirole HCl (Ropinirole Hcl 1 Mg Tablet) 1 mg PO BEDTIME [facility] Last Admin: 01/22/23 21:03 Dose: 1 mg Sertraline HCl (Sertraline Hcl 100 Mg Tablet) 200 mg PO DAILY [facility] Last Admin: 01/23/23 08:50 Dose: 200 mg Trazodone HCl (Trazodone Hcl 50 Mg Tablet) 50 mg PO BEDTIME MRX1 PRN PRN Reason: Insomnia Valacyclovir HCl (Valacyclovir Hcl 500 Mg Tablet) 500 mg PO DAILY [facility] Last Admin: 01/23/23 08:50 Dose: 500 mg Allergies Allergies Allergy/AdvReac Type Severity Reaction Status Date / Time trazodone AdvReac Mild priaprism Verified 05/14/22 11:54 Assessment & Plan Assessment & Plan (1) Methamphetamine use disorder, severe: Status: Acute Code(s): F15.20 - Other stimulant dependence, uncomplicated (2) Drug-induced psychotic disorder with delusions: Status: Acute Code(s): F19.950 - Other psychoactive substance use, unspecified with psychoactive substance-induced psychotic disorder with delusions (3) HIV (human immunodeficiency virus infection): Status: Acute Code(s): B20 - Human immunodeficiency virus [HIV] disease (4) Psychosis: Status: Acute Code(s): F29 - Unspecified psychosis not due to a substance or known physiological condition (5) Cocaine use disorder: Status: Acute Code(s): F14.10 - Cocaine abuse, uncomplicated Plan 01/19: psychosis likely secondary to substance use. observe, supportive care. restart prior medications regimen of buspar, clonidine, zoloft. observe behavior and VS for one day, then adjust clonidine, buspar accordingly. T/C alternate anti-anxiety agent. 01/20: start zyprexa 5 mg at HS for insomnia, paranoia, depression. 01/21: no complaints, still sleeping a lot of the day. continue current mgmt for now. 01/22: no complaints, still sleeping a lot of the day. continue current mgmt for now. 01/23: no complaints, still sleeping a lot of the day. continue current mgmt for now. Reason for continued inpatient stay Substantial Risk for: inability to function and rapid decompensation Time Spent With Patient Time: Total time managing care of this patient today ____ minutes.
[2023-01-23] MEDS: Acetaminophen 325 MG TABLET 650 MG PO (18:09)
[2023-01-23 22:30] VITALS: BP 129/79; PULSE 75; RESP 16; TEMP 36.3; O2SAT 99
[2023-01-23] MEDS: OLANZapine 5 MG TABLET PO (22:34)
[2023-01-23] MEDS: rOPINIRole HCL 1 MG TABLET PO (22:34)
[2023-01-24 08:15] VITALS: BP 115/68; PULSE 72; RESP 16; TEMP 36.4; O2SAT 99
[2023-01-24] MEDS: valACYclovir HCL 500 MG TABLET PO (08:38)
[2023-01-24] MEDS: Sertraline HCL 100 MG TABLET 200 MG PO (08:38)
[2023-01-24] MEDS: Dolutegravir Sodium 50 MG TABLET PO (08:38)
[2023-01-24] MEDS: Loratadine 10 MG TABLET PO (08:38)
[2023-01-24] MEDS: cloNIDine HCL 0.2 MG TABLET PO ×2 (08:38→21:16)
[2023-01-24] MEDS: busPIRone HCl 10 MG TABLET PO ×3 (08:39→21:16)
[2023-01-24] MEDS: lamiVUDine 150 MG TABLET 300 MG PO (08:39)
[2023-01-24 15:35] VITALS: BP 159/87
[2023-01-24] MEDS: cloNIDine HCL 0.1 MG TABLET PO (15:43)
--- NOTE | 2023-01-24 16:20 | HO.PSYCHPN ---
Subjective Subjective Date of Service: 01/24/23 Reason For Visit: Psychosis Interim History: c/o feeling sedated all day. agrees to decrease clonidine dosing and see how that affects him. per staff, dep 4 anx 5. sleeping, eating. in bed all sherrill. went to several groups yesterday. Mental Status Exam Mental Status Exam Narrative: up and about the unit. cooperative. no PMA/PMR. speech nml loudness and amount, nml latency. thoughts linear and logical. affect constricted, normo-intense, non-labile. no SI/SIBI/HI/AVH expressed. Diagnostics Vital Signs (24Hr): Vital Signs - 24 hr 01/23/23 22:30 01/24/23 08:15 01/24/23 15:35 Temperature 97.4 F 97.5 F Pulse Rate 75 72 Respiratory Rate 16 16 Blood Pressure 129/79 115/68 159/87 H Pulse Oximetry 99 99 Oxygen Delivery Method Room Air Room Air BMI result Body Mass Index 23.6 Labs 01/16/23 23:39 01/19/23 08:46 Medications Medications Current Medications Acetaminophen (Acetaminophen 325 Mg Tablet) 650 mg PO Q6H PRN PRN Reason: Headache/Pain Mild Scale (1-3) Last Admin: 01/23/23 18:09 Dose: 650 mg Al Hydroxide/Mg Hydroxide (Magnesium Hydrox/Alum Hydrox 30 Ml Oral.Susp) 30 ml PO Q6H PRN PRN Reason: Heartburn/Nausea Buspirone HCl (Buspirone Hcl 10 Mg Tablet) 10 mg PO TID [facility] Last Admin: 01/24/23 15:43 Dose: 10 mg Clonidine HCl (Clonidine Hcl 0.2 Mg Tablet) 0.2 mg PO BEDTIME [facility]; Protocol Clonidine HCl (Clonidine Hcl 0.1 Mg Tablet) 0.1 mg PO BID@0900,1500 [facility]; Protocol Last Admin: 01/24/23 15:43 Dose: 0.1 mg Dolutegravir Sodium (Dolutegravir Sodium 50 Mg Tablet) 50 mg PO DAILY [facility] Last Admin: 01/24/23 08:38 Dose: 50 mg Hydroxyzine HCl (Hydroxyzine Hcl 25 Mg Tablet) 25 mg PO Q6H PRN PRN Reason: Anxiety Lamivudine (Lamivudine 150 Mg Tablet) 300 mg PO DAILY [facility] Last Admin: 01/24/23 08:39 Dose: 300 mg Loratadine (Loratadine 10 Mg Tablet) 10 mg PO DAILY [facility] Last Admin: 01/24/23 08:38 Dose: 10 mg Magnesium Hydroxide (Milk Of Magnesia 30 Ml Oral.Susp) 30 ml PO DAILY PRN PRN Reason: Constipation Nicotine Polacrilex (Nicotine Polacrilex 2 Mg Gum) 4 mg BUCCAL Q2H PRN PRN Reason: Nicotine Cravings Olanzapine (Olanzapine 5 Mg Tablet) 5 mg PO BEDTIME [facility] Last Admin: 01/23/23 22:34 Dose: 5 mg Ropinirole HCl (Ropinirole Hcl 1 Mg Tablet) 1 mg PO BEDTIME [facility] Last Admin: 01/23/23 22:34 Dose: 1 mg Sertraline HCl (Sertraline Hcl 100 Mg Tablet) 200 mg PO DAILY [facility] Last Admin: 01/24/23 08:38 Dose: 200 mg Trazodone HCl (Trazodone Hcl 50 Mg Tablet) 50 mg PO BEDTIME MRX1 PRN PRN Reason: Insomnia Valacyclovir HCl (Valacyclovir Hcl 500 Mg Tablet) 500 mg PO DAILY [facility] Last Admin: 01/24/23 08:38 Dose: 500 mg Allergies Allergies Allergy/AdvReac Type Severity Reaction Status Date / Time trazodone AdvReac Mild priaprism Verified 05/14/22 11:54 Assessment & Plan Assessment & Plan (1) Methamphetamine use disorder, severe: Status: Acute Code(s): F15.20 - Other stimulant dependence, uncomplicated (2) Drug-induced psychotic disorder with delusions: Status: Acute Code(s): F19.950 - Other psychoactive substance use, unspecified with psychoactive substance-induced psychotic disorder with delusions (3) HIV (human immunodeficiency virus infection): Status: Acute Code(s): B20 - Human immunodeficiency virus [HIV] disease (4) Psychosis: Status: Acute Code(s): F29 - Unspecified psychosis not due to a substance or known physiological condition (5) Cocaine use disorder: Status: Acute Code(s): F14.10 - Cocaine abuse, uncomplicated Plan 01/19: psychosis likely secondary to substance use. observe, supportive care. restart prior medications regimen of buspar, clonidine, zoloft. observe behavior and VS for one day, then adjust clonidine, buspar accordingly. T/C alternate anti-anxiety agent. 01/20: start zyprexa 5 mg at HS for insomnia, paranoia, depression. 01/21: no complaints, still sleeping a lot of the day. continue current mgmt for now. 01/22: no complaints, still sleeping a lot of the day. continue current mgmt for now. 01/23: no complaints, still sleeping a lot of the day. continue current mgmt for now. 01/24: decrease clonidine 0.2 TID to 0.1/0.1/0.2 due to excessive sleepiness. otherwise continue prior mgmt. Reason for continued inpatient stay Substantial Risk for: inability to function and rapid decompensation Time Spent With Patient Time: Total time managing care of this patient today ____ minutes.
[2023-01-24] MEDS: Acetaminophen 325 MG TABLET 650 MG PO (17:13)
[2023-01-24 20:20] VITALS: BP 136/79; PULSE 76; RESP 18; TEMP 37.1; O2SAT 98
[2023-01-24] MEDS: rOPINIRole HCL 1 MG TABLET PO (21:16)
[2023-01-24] MEDS: OLANZapine 5 MG TABLET PO (21:16)
[2023-01-25 07:57] VITALS: BP 123/72; PULSE 80; TEMP 36.6; O2SAT 98
[2023-01-25] MEDS: lamiVUDine 150 MG TABLET 300 MG PO (07:59)
[2023-01-25] MEDS: Sertraline HCL 100 MG TABLET 200 MG PO (08:00)
[2023-01-25] MEDS: valACYclovir HCL 500 MG TABLET PO (08:00)
[2023-01-25] MEDS: busPIRone HCl 10 MG TABLET PO ×3 (08:00→20:48)
[2023-01-25] MEDS: Dolutegravir Sodium 50 MG TABLET PO (08:00)
[2023-01-25] MEDS: Loratadine 10 MG TABLET PO (08:01)
[2023-01-25] MEDS: cloNIDine HCL 0.1 MG TABLET PO (08:01)
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
[2023-01-25] MEDS: hydrOXYzine HCL 25 MG TABLET PO (19:34)
[2023-01-25 20:00] VITALS: BP 138/80; PULSE 80; RESP 18; TEMP 36.9; O2SAT 99
[2023-01-25] MEDS: rOPINIRole HCL 1 MG TABLET PO (20:48)
[2023-01-25] MEDS: OLANZapine 5 MG TABLET PO (20:48)
[2023-01-25] MEDS: cloNIDine HCL 0.2 MG TABLET PO (20:48)
[2023-01-26 07:52] VITALS: BP 144/83; PULSE 77; TEMP 36.5; O2SAT 98
[2023-01-26] MEDS: lamiVUDine 150 MG TABLET 300 MG PO (08:19)
[2023-01-26] MEDS: Sertraline HCL 100 MG TABLET 200 MG PO (08:20)
[2023-01-26] MEDS: Loratadine 10 MG TABLET PO (08:20)
[2023-01-26] MEDS: busPIRone HCl 10 MG TABLET PO (08:20)
[2023-01-26] MEDS: valACYclovir HCL 500 MG TABLET PO (08:20)
[2023-01-26] MEDS: Dolutegravir Sodium 50 MG TABLET PO (08:20)
== END 2023-01-26 13:45 | disposition home or self-care (01) | DRG 774 ==
LOC: HO.ED 01-17 00:56 → HO.PADLT16 01-18 13:50
PROVIDERS: Admitting Provider Psychiatry & Neurology Psychiatry; Emergency Provider Emergency Medicine; Visit Provider Psychiatry & Neurology Psychiatry
DX: F19.950 Other psychoactive substance use, unspecified with psychoactive substance-induced psychotic disorder with delusions (principal); F14.10 Cocaine abuse, uncomplicated; Z21 Asymptomatic human immunodeficiency virus [HIV] infection status; F15.20 Other stimulant dependence, uncomplicated; Z20.822 Contact with and (suspected) exposure to COVID-19; Z91.51 Personal history of suicidal behavior; Z79.899 Other long term (current) drug therapy
CPT/HCPCS: 36415; 80053; 80061; 80307; 81003; 82607; 82746; 83036; 84439; 84443; 85025; 87635; 93005; 99285; S9485

== ENCOUNTER 2023-08-02 00:38 | Inpatient (IN) | payer OTHER, SELFPAY ==
[2023-08-02] VITALS (13 sets, daily range): BP systolic 106–150; BP diastolic 78–98; PULSE 67–104; RESP 14–19; TEMP 36.5–36.8; O2SAT 97–100; BMI 25.1
[2023-08-02 03:04] LABS: MANUAL DIFF FLAG NO
[2023-08-02 03:05] LABS: Basophils Percent Auto 0.4 % (0-2); Eosinophils Absolute Auto 0.1 X10*3/uL (0.0-0.4); Eosinophils Percent Auto 1.3 % (0-4); Hematocrit 39.2 % (42.0-52.0); Hemoglobin 13.7 g/dl (14.0-18.0); Imm Gran Abs Auto 0.01 X10*3/uL (0.00-0.03); Imm Gran Pct Auto 0.1 % (0.0-0.4); Lymphocytes Absolute Auto 2.8 X10*3/uL (1.2-4.9); Mean Corpuscular HGB Conc 34.9 g/dl (31.0-36.0); Mean Corpuscular Hemoglobin 29.5 pg (27.0-33.0); Mean Corpuscular Volume 84.5 fL (80.0-98.0); Mean Platelet Volume 8.2 fL (9.4-12.4); Monocytes Absolute Auto 0.7 X10*3/uL (0.1-1.2); Monocytes Percent Auto 7.1 % (2-11); Neutrophils Absolute Auto 6.4 x10*3/uL (2.0-8.3); Neutrophils Percent Auto 63.1 % (45-73); Platelet Count 354 X10*3/uL (160-400); Red Blood Count 4.64 X10*6/uL (4.60-5.80); Red Cell Distribution Width 12.1 % (11.0-16.0); White Blood Count 10.1 X10*3/uL (4.8-10.8)
[2023-08-02 03:21] LABS: Alanine Aminotransferase 20 U/L (0-40); Alkaline Phosphatase 97 U/L (39-117); Anion Gap 19 (12-20); Aspartate Amino Transferase 34 U/L (5-37); Bilirubin Direct 0.3 mg/dL (0.0-0.5); Bilirubin Total 0.7 mg/dL (0.0-1.0); Blood Urea Nitrogen 25 mg/dL (9-16); Calcium 9.8 mg/dL (8.4-10.2); Carbon Dioxide 22 mmol/L (22-29); Chloride 104 mmol/L (96-108); Creatinine Clr Calc Pharmacy 90.2; Estimated Glomerular Filt Rate > 60; Glucose Random 98 mg/dL (60-115); Lipase 13 U/L (8-78); Potassium 3.5 mmol/L (3.3-5.1); Sodium 141 mmol/L (135-145); Total Protein 8.8 g/dL (6.5-8.0)
[2023-08-02 03:24] LABS: Ethanol < 10 mg/dL
--- NOTE | 2023-08-02 06:41 | PC.NURSE ---
Addendum entered by Rose Feliz RN 08/02/23 06:44: Pt does not want to be medically cleared as he states he feels unsafe. That is the reason he came Pt has gotten a hold of his mom who is on her way to tile picker the dog. Original Note: Pt has stated to this RN multiple times that he does not want to hurt himself or anyone else. Pt's dog is still in his possession. Pt has attempted to call several family members to get the dog picked up but no one has agreed to do so. After speaking with KEESHA Waller, I informed pt that the next option is to call animal control. Pt is continuing to call friends/family.
--- NOTE | 2023-08-02 07:18 | ED.PSYCH ---
HPI - Psych General Chief Complaint: Psychiatric Symptoms Stated Complaint: CRISIS Time Seen by Provider: 08/02/23 07:10 Source: patient, EMS, RN notes reviewed and old records reviewed Mode of arrival: EMS History of Present Illness HPI Narrative: 32-year-old male with past medical history of HIV, major depressive disorder, PTSD, psychosis, presenting to the ED complaining of increased anxiety, paranoia, & states people are out to get him. Initial complaint was SI with plan to overdose on pills however patient denies this at present, states was told to stay was suicidal to get upstairs, however patient admits he does not feel safe outside of the hospital setting. Admits to drug and alcohol use however will not be descriptive. Reports compliance with prescribed medications. Denies HI, auditory or visual hallucinations Related Data Home Medications Medication Instructions Recorded Confirmed dolutegravir 50 mg-lamivudine 300 1 tab PO DAILY 01/17/23 01/17/23 mg tablet (Dovato) loratadine 10 mg tablet (Allergy 10 mg PO DAILY 01/17/23 01/17/23 Relief (loratadine)) sertraline 100 mg tablet 200 mg PO DAILY 01/17/23 01/17/23 valacyclovir 500 mg tablet 500 mg PO DAILY 01/17/23 01/17/23 Previous Rx's Medication Instructions Recorded buspirone 10 mg tablet 10 mg PO TID 30 days #90 tabs 01/25/23 clonidine HCl 0.1 mg tablet 0.1 mg PO BID@0900,1500 30 days 01/25/23 #60 tabs clonidine HCl 0.2 mg tablet 0.2 mg PO BEDTIME 30 days #30 tabs 01/25/23 olanzapine 5 mg tablet 5 mg PO BEDTIME 30 days #30 tabs 01/25/23 ropinirole 1 mg tablet 1 mg PO BEDTIME 30 days #30 tabs 01/25/23 Allergies Allergy/AdvReac Type Severity Reaction Status Date / Time trazodone AdvReac Mild priaprism Verified 05/14/22 11:54 Review of Systems Review of Systems: Constitutional: No Fever, No Chills, No Fatigue, No Malaise ENT/Mouth: No Ear Pain, No Nasal Congestion, No sore throat, No Rhinorrhea, No Swallowing Difficulty Cardiovascular: No Chest Pain, No SOB, No Palpitations Respiratory: No Cough, No Sputum, No Dyspnea Gastrointestinal: No Nausea, No Vomiting, No Diarrhea, No Abdominal pain Musculoskeletal: No joint pain, No Myalgias, No Joint Swelling Skin: No Skin Lesions, No rash Neuro: No Weakness, No Numbness, No Headache Psych:+ Anxiety/Panic, No Depression, + SI (denies at present), No HI/AH/VH, +Social Issues Yes all other systems are reviewed and are negative Constitutional: Constitutional: Reports as per [facility] Past Medical History Attestation statement: The following information was validated with the patient. Source: old records reviewed Medical History Syphilis Abscess of left arm HIV (human immunodeficiency virus infection) MDD (major depressive disorder), recurrent episode, moderate Drug-induced psychotic disorder with delusions Methamphetamine addiction Post traumatic stress disorder (PTSD) Psychosis Surgical History No history of previous surgery Social History Social History Household Members: Other Household Members Other:: service dog Housing: Apartment Do you presently have visiting nurse or other home services: No Alcohol intake: current Patient Tobacco Use Status: Never used Tobacco Smoked in Last 30 Days: No e-Cigarette/Vaping Use: Never Used Use of substances other than those prescribed or required for medical reasons: Yes Substance Use Type: Crack/Cocaine and Marijuana Substance Use Frequency: Occasionally Advance Directives: Yes Advance Directives on File: Yes Advance Directives Date on File: 05/27/22 Healthcare Proxy: No Guardian: No service: No Sexual orientation: Don't Know Physical Exam Vital Signs: Vital Signs: Last Vital Signs Temp 98 F 08/02/23 10:05 Pulse 67 08/02/23 12:59 Resp 18 08/02/23 12:59 BP 120/78 08/02/23 12:59 Pulse Ox 98 08/02/23 12:59 O2 Del Method Room Air 08/02/23 12:59 BMI result Body Mass Index 25.1 Const: General: cooperative, healthy appearing and no acute distress Orientation/consciousness: patient oriented x3 Limitations: no limitations HEENT: Head: Yes normal to inspection and Yes atraumatic Ears: hearing grossly normal bilaterally General nose exam: Normal external nose present Face and sinus: Yes normal facial exam Eyes: General: appearance normal, both eyes and all related structures EOM: EOMs intact bilaterally Neck: Neck: Yes normal visual inspection and Yes no meningeal signs Resp: Effort & Inspection: normal respiratory effort and no respiratory distress Auscultation: clear to auscultation bilaterally Cardio: Rate: regular rate Heart sounds: S1 normal heart sound present and S2 normal heart sound present GI: Inspection: Yes normal to inspection Palpation (GI): Soft to palpation, nontender, no guarding and not rigid Skin: Rashes: no rashes Wounds: no wounds Neuro: General: patient oriented x3, gait normal, tone normal, moves all extremities, no meningeal signs and CN's II-XI intact bilaterally Cranial nerves: Yes CN's II-XII intact bilaterally Gait exam (Neuro): Normal gait present Extrem: General: Yes normal to inspection Psych: Appearance: grossly normal Affect: Anxious affect present and Ecstatic affect present Attitude: cooperative Thought process: Flight of ideas present and Racing thoughts present Thought content: suicidality, no homicidality and No Depressive thoughts present Insight: Poor insight present (Psych) Judgement: Poor judgement present (Psych) Course Course Course Narrative: -BUN elevated 25. Labs otherwise reassuring -0730--patient was evaluated by care team and will be inpatient bed search. Physician observation initiated -patient became aggressive with staff, yelling, verbally abusive towards staff and attempted to flee the unit. Patient medicated with IM Haldol and Ativan. Now calm & cooperative, 1:1 at bedside -1630--ED care transferred to STACIE Card pending inpatient BS Medications Administered Discontinued Medications Generic Name Dose Route Start Last Admin Trade Name Freq PRN Reason Stop Dose Admin Haloperidol Lactate 5 mg 08/02/23 08:59 08/02/23 09:05 Haloperidol Lactate 5 Mg/Ml Vial IM 08/02/23 09:00 5 mg STAT STA Administration Lorazepam 2 mg 08/02/23 08:59 08/02/23 09:05 Lorazepam 2 Mg/Ml Vial IM 08/02/23 09:00 2 mg STAT STA Administration Medical Decision Making Medical Decision Making MDM Narrative: 32-year-old male with past medical history of HIV, major depressive disorder, PTSD, psychosis, presenting to the ED complaining of increased anxiety, paranoia, & states people are out to get him. On exam initially tachycardic, NAD, nontoxic appearing, pressured speech with flight of ideas. Denies SI/HI at present. concern for acute psychosis/paranoia vs substance abuse Plan: Labs, tox screen, care team consult Please refer to course for remaining clinical decision making, interpretation of labs/imaging results, and discussions with consultants and/or family members. Differential Diagnosis Differential Diagnoses: The differential diagnosis associated with the presentation includes As above Admission/Observation Consideration of admission/observation: Escalation of care including admission/observation considered Consult Healthcare Provider Management of the patient was discussed with: Behavioral Health Provider Lab Data [facility] Lab Attestation statement: I reviewed the patient's lab results. 08/02/23 03:00 08/02/23 03:00 Labs: Lab Results 08/02/23 08/02/23 08/02/23 Range/Units 03:00 07:43 11:59 WBC 10.1 (4.8-10.8) X10*3/uL RBC 4.64 (4.60-5.80) X10*6/uL Hgb 13.7 L (14.0-18.0) g/dl Hct 39.2 L (42.0-52.0) % MCV 84.5 (80.0-98.0) fL MCH 29.5 (27.0-33.0) pg MCHC 34.9 (31.0-36.0) g/dl RDW 12.1 (11.0-16.0) % Plt Count 354 (160-400) X10*3/uL MPV 8.2 L (9.4-12.4) fL Immature Gran % (Auto) 0.1 (0.0-0.4) % Neut % (Auto) 63.1 (45-73) % Lymph % (Auto) 28.0 (20-40) % [place] % (Auto) 7.1 (2-11) % Eos % (Auto) 1.3 (0-4) % Baso % (Auto) 0.4 (0-2) % Lymph # (Auto) 2.8 (1.2-4.9) X10*3/uL [place] # (Auto) 0.7 (0.1-1.2) X10*3/uL Eos # (Auto) 0.1 (0.0-0.4) X10*3/uL Baso # (Auto) 0.0 (0.0-0.2) X10*3/uL Abs Immat Gran (auto) 0.01 (0.00-0.03) X10*3/uL Absolute Neuts (auto) 6.4 (2.0-8.3) x10*3/uL Absolute Nucleated RBC 0.000 (0.0-0.012) X10*3/uL Nucleated RBC % (auto) 0.0 (0.0-0.2) /100WBC Sodium 141 (135-145) mmol/L Potassium 3.5 D (3.3-5.1) mmol/L Chloride 104 (96-108) mmol/L Carbon Dioxide 22 (22-29) mmol/L Anion Gap 19 (12-20) BUN 25 H (9-16) mg/dL Creatinine 1.08 (0.5-1.4) mg/dL Estim Creat Clear Calc 90.2 Estimated GFR > 60 POC Glucose 91 (60-115) mg/dL Random Glucose 98 (60-115) mg/dL Calcium 9.8 (8.4-10.2) mg/dL Total Bilirubin 0.7 (0.0-1.0) mg/dL Direct Bilirubin 0.3 (0.0-0.5) mg/dL AST 34 (5-37) U/L ALT 20 (0-40) U/L Alkaline Phosphatase 97 (39-117) U/L Total Protein 8.8 H (6.5-8.0) g/dL Albumin 5.0 (3.5-5.0) g/dL Lipase 13 (8-78) U/L Ethyl Alcohol < 10 mg/dL COVID-19 ([facility]) Negative (Negative) COVID-19 Clin Com See Note Independent Historian Clinical information obtained from an independent historian. History obtained from or confirmed by: EMS External Record Review External record reviewed: Inpatient record, Office record, Outpatient record, Prior outpatient labs, Prior outpatient radiology, Primary care record and Outside ED record Tests considered The following testing was considered but not selected: As above Chronic Conditions Patient?s care impacted by: Other Social Determinants Patient?s care significantly limited by Social Determinants of Health including: Low income and Problems related to primary support group Discharge Plan Discharge Clinical Impression: Psychosis, Paranoia Patient Disposition: Still a Patient Prescriptions: No Action sertraline 100 mg tablet 200 mg PO DAILY valacyclovir 500 mg tablet 500 mg PO DAILY loratadine [Allergy Relief (loratadine)] 10 mg tablet 10 mg PO DAILY Dovato 50-300 mg tablet 1 tab PO DAILY clonidine HCl 0.1 mg Tablet 0.1 mg PO BID@0900,1500 30 Days Qty: 60 0RF Protocol: Hold for SBP< HOLD for SBP < : 90 olanzapine 5 mg Tablet 5 mg PO BEDTIME 30 Days Qty: 30 0RF clonidine HCl 0.2 mg Tablet 0.2 mg PO BEDTIME 30 Days Qty: 30 0RF Protocol: Hold for SBP< HOLD for SBP < : 90 ropinirole 1 mg tablet 1 mg PO BEDTIME 30 Days Qty: 30 0RF buspirone 10 mg tablet 10 mg PO TID 30 Days Qty: 90 0RF Interventions: Burkett-Suicide Risk Severity Scale Last Done: 08/02/23 11:00
[2023-08-02 08:06] LABS: COVID-19 Test Negative (Negative); IDNOW Serial# 08D9AD1C
[2023-08-02] MEDS: Haloperidol Lactate 5 MG/ML VIAL IM (09:05)
[2023-08-02] MEDS: LORazepam 2 MG/ML VIAL IM (09:05)
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
--- NOTE | 2023-08-02 09:19 | PC.NURSE ---
patient became belligerent with staff about not getting his medications, patient yelling in hallway and being verbally abusive. patient attempted to run off unit, caught by security and carried back to bed, patient medicated per mar. patient is now calm sitting in stretcher has water and snack at bedside, sitter 1:1
--- NOTE | 2023-08-02 10:06 | PC.NURSE ---
pt calm, coop. 1:1 remains. RR 16 on RA. resting.
--- NOTE | 2023-08-02 11:21 | MHC.CARE ---
RAD team conducted a statewide bedsearch, unfortunately no beds are available statewide. RAD Team will continue bedsearch tomorrow (08/03) if deemed necessary
--- NOTE | 2023-08-02 12:01 | PC.NURSE ---
notified nina beasley remains diaphoretic, some pink hives noted to chest, pt will not answer questions- responds to sternal rub with grunting and movement-lethargic. per nina beasley ok to stay w/o monitor. calm. poc per nina beasley taken- 91- informed jacqueline beasley
[2023-08-02 12:02] LABS: Glucose, Whole Blood 91 mg/dL (60-115)
--- NOTE | 2023-08-02 18:30 | PC.NURSE ---
Patient woken up for vitals and dinner, patient is more calm, cooperative, and pleasant with staff. Patient asking for warm blankets due to feeling cold, which were provided for patient. After vitals patient sat up and ate dinner.
--- NOTE | 2023-08-02 19:13 | PC.NURSE ---
patient appears to remain at rest at present respirations are even and unlabored patient appears in no distress.
--- NOTE | 2023-08-03 07:54 | PC.NURSE ---
resumed care of patient, currently denying SI/ feeling unsafe (which is why he came in) med rec completed, q15 minute checks maintained, awaiting bed placement at this time
[2023-08-03] MEDS: Sertraline HCL 100 MG TABLET 200 MG PO (08:50)
[2023-08-03] MEDS: busPIRone HCl 10 MG TABLET PO ×3 (08:50→21:31)
[2023-08-03] MEDS: cloNIDine HCL 0.1 MG TABLET PO ×2 (08:50→15:36)
[2023-08-03 08:55] VITALS: BP 123/78; PULSE 69; RESP 16; TEMP 36.5; O2SAT 97
[2023-08-03 15:59] LABS: Amphetamine Screen Urine POSITIVE (Not Detect); Barbiturates, Urine Not Detected (Not Detect); Benzodiazepines Screen Urine Not Detected (Not Detect); Cannabinoid Screen Urine POSITIVE (Not Detect); Cocaine Screen Urine Not Detected (Not Detect); Fentanyl, urine Not Detected (Not Detect); Opiate Screen Urine Not Detected (Not Detect); Phencyclidine Screen Urine Not Detected (Not Detect)
[2023-08-03 16:28] VITALS: BP 121/84; PULSE 99; RESP 18; TEMP 37.1; O2SAT 99
[2023-08-03 21:30] VITALS: BP 109/73; PULSE 80; RESP 17; TEMP 36.9; O2SAT 98
[2023-08-03] MEDS: rOPINIRole HCL 1 MG TABLET PO (21:31)
[2023-08-03] MEDS: OLANZapine 5 MG TABLET PO (21:31)
[2023-08-03] MEDS: cloNIDine HCL 0.2 MG TABLET PO (21:31)
[2023-08-04 06:41] VITALS: BP 109/75; PULSE 70; RESP 16; TEMP 36.6; O2SAT 98
[2023-08-04] MEDS: Sertraline HCL 100 MG TABLET 200 MG PO (09:08)
[2023-08-04] MEDS: busPIRone HCl 10 MG TABLET PO ×3 (09:08→22:03)
[2023-08-04] MEDS: cloNIDine HCL 0.1 MG TABLET PO ×2 (09:08→15:55)
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
[2023-08-04 17:30] VITALS: RESP 18
--- NOTE | 2023-08-04 17:32 | PC.NURSE ---
aWlt has been in bed resting most of the shift. Med compliant. No behavioral concerns. Appetite good and Walt has requested multiple snacks between meals. Denies SI.
[2023-08-04] MEDS: cloNIDine HCL 0.2 MG TABLET PO (22:03)
[2023-08-04 22:34] VITALS: BP 117/74; PULSE 67; RESP 16; TEMP 36.5; O2SAT 99
[2023-08-05 05:48] VITALS: BP 126/81; PULSE 63; RESP 16; TEMP 36.6; O2SAT 99
--- NOTE | 2023-08-05 07:04 | PC.NURSE ---
pt denies si/hi at this time. PT preaccepted to m3. Plan of care ongoing
[2023-08-05 09:08] VITALS: BP 120/76; PULSE 84; RESP 16; TEMP 37.2; O2SAT 97
--- NOTE | 2023-08-05 09:25 | PHA.MEDREC ---
Pharmacy Consult ? Medication Reconciliation Pharmacy has completed the medication reconciliation. Reviewed med rec done by nursing
[2023-08-05 12:38] VITALS: BMI 24.8
--- NOTE | 2023-08-05 13:33 | PC.NURSE ---
Walt was OOB this shift. Compliant with medications and no behavioral concerns. Appetite good. Started antibiotic for UTI.
[2023-08-05 13:45] VITALS: BP 139/89; PULSE 76; RESP 16; TEMP 37; O2SAT 100
--- NOTE | 2023-08-05 13:46 | PC.NURSE ---
PT ARRIVED ON THE UNIT ON VIA WHEELCHAIR @ 13:37. sKIN CHECK PERFORMED, VITALS TAKEN AND WITHIN NORMAL LIMITS, PT PLACED ON 15MIN CHECKS FOR SAFETY. ADMISSION TO BE COMPLETED
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
[2023-08-05 18:00] VITALS: BP 126/78; PULSE 72; RESP 18; TEMP 36.8; O2SAT 99
[2023-08-05] MEDS: cloNIDine HCL 0.2 MG TABLET PO (20:13)
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
[2023-08-06 08:57] VITALS: BP 152/70; PULSE 73; RESP 16; TEMP 37.1; O2SAT 99
[2023-08-06 15:15] VITALS: BP 137/86; PULSE 78
[2023-08-06 16:35] VITALS: BP 137/85; PULSE 110; RESP 16; TEMP 36.5; O2SAT 99
--- NOTE | 2023-08-06 19:44 | PC.NURSE ---
Assumed care of pt @ 19:00. PT currently pacing hallway, in no apparent distress. Offers no complaints at this time. Plan of care ongoing.
[2023-08-06 21:20] VITALS: BP 135/88; PULSE 78; RESP 16
[2023-08-06] MEDS: cloNIDine HCL 0.2 MG TABLET PO (21:22)
[2023-08-07 09:07] VITALS: BP 130/67; PULSE 94; RESP 16; TEMP 36.3; O2SAT 97
--- NOTE | 2023-08-07 15:35 | HO.PSYCHPN ---
Subjective Subjective Date of Service: 08/07/23 Reason For Visit: PTSD Psychosis Interim History: Pt seen, discussed with team. Tolerating medications Engaged in milieu Denies current concerns Medication Compliance: Yes Side effects from medications: No Attending Groups: Yes Review of Systems Acute medical concerns: No Medical Review of Systems: unchanged Review of Systems Review of Systems Yes all other systems are reviewed and are negative Mental Status Exam Mental Status Exam Patient Appearance: Appropriate Patient Orientation: Person, Place, Time and Situation Level of Consciousness: Alert Patient Behavior: Talkative, Anxious and Good Eye Contact Mood Description: Anxious Affect Description: Anxious Patient Cognition Impaired: No Ability to Follow Directions: Good Speech Pattern: Spontaneous Speech Memory Description: Intact Thought Process: Distracted Judgement: Fair Diagnostics Vital Signs (24Hr): Vital Signs - 24 hr 08/06/23 16:35 08/06/23 21:20 08/07/23 09:07 Temperature 97.7 F 97.3 F Pulse Rate 110 H 78 94 Respiratory Rate 16 16 16 Blood Pressure 137/85 135/88 130/67 Pulse Oximetry 99 97 Oxygen Delivery Method Room Air Room Air BMI result Body Mass Index 24.8 Labs 08/02/23 03:00 08/02/23 03:00 Labs: Laboratory Results - last 48 hr 08/06/23 08:38 Estimat Average Glucose 103 Hemoglobin A1c % 5.2 Magnesium 1.7 Triglycerides 140 Cholesterol 156 LDL Cholesterol, Calc 80 HDL Cholesterol 48 Vitamin B12 463 Folate 11.4 TSH 0.41 Free T4 0.80 Medications Medications Current Medications Acetaminophen (Acetaminophen 325 Mg Tablet) 650 mg PO Q6H PRN PRN Reason: Headache/Pain Mild Scale (1-3) Al Hydroxide/Mg Hydroxide (Magnesium Hydrox/Alum Hydrox 30 Ml Oral.Susp) 30 ml PO Q6H PRN PRN Reason: Heartburn/Nausea Buspirone HCl (Buspirone Hcl 10 Mg Tablet) 10 mg PO TID REPLACED BY [facility] Last Admin: 08/07/23 09:22 Dose: 10 mg Clonidine HCl (Clonidine Hcl 0.2 Mg Tablet) 0.2 mg PO BEDTIME REPLACED BY [facility]; Protocol Last Admin: 08/06/23 21:22 Dose: 0.2 mg Clonidine HCl (Clonidine Hcl 0.1 Mg Tablet) 0.1 mg PO BID@0900,1500 REPLACED BY [facility]; Protocol Last Admin: 08/07/23 09:22 Dose: 0.1 mg Hydroxyzine HCl (Hydroxyzine Hcl 25 Mg Tablet) 25 mg PO Q6H PRN PRN Reason: Anxiety Loratadine (Loratadine 10 Mg Tablet) 10 mg PO DAILY REPLACED BY [facility] Last Admin: 08/07/23 09:23 Dose: 10 mg Magnesium Hydroxide (Milk Of Magnesia 30 Ml Oral.Susp) 30 ml PO DAILY PRN PRN Reason: Constipation Nitrofurantoin Macrocrystals (Nitrofurantoin Monohyd/M-Cryst 100 Mg Capsule) 100 mg PO BID REPLACED BY [facility] Last Admin: 08/07/23 09:22 Dose: 100 mg Non-Formulary Medication (Dolutegravir-Lamivudine [Dovato]) 1 tab PO DAILY REPLACED BY [facility] Last Admin: 08/03/23 08:52 Dose: Not Given Olanzapine (Olanzapine 5 Mg Tablet) 5 mg PO BID REPLACED BY [facility] Last Admin: 08/07/23 09:22 Dose: 5 mg Sertraline HCl (Sertraline Hcl 50 Mg Tablet) 50 mg PO DAILY REPLACED BY [facility] Last Admin: 08/07/23 09:22 Dose: 50 mg Allergies Allergies Allergy/AdvReac Type Severity Reaction Status Date / Time trazodone AdvReac Mild priaprism Verified 05/14/22 11:54 Assessment & Plan Assessment & Plan (1) Methamphetamine use disorder, severe: Status: Acute Code(s): F15.20 - Other stimulant dependence, uncomplicated (2) Post traumatic stress disorder (PTSD): Status: Acute Code(s): F43.10 - Post-traumatic stress disorder, unspecified (3) HIV (human immunodeficiency virus infection): Status: Acute Code(s): B20 - Human immunodeficiency virus [HIV] disease Plan Patient is a 33-year-old male with history of paranoid delusions, depression, IV methamphetamine addiction, PTSD, HIV, rule out for bipolar/schizoaffective, diagnosed with UTI in the emergency room who self presents with typical presentation paranoid delusions that people are out to get him in face of being off medications and abusing methamphetamine. Patient said that after last admission this past summer he was doing overall well; came to the conclusion that he did not need Zyprexa since he had no auditory hallucinations. Patient stopped all his medications for 2 months, but then restarted them few weeks ago. Patient reports that he uses IV meth daily which helps him get out of bed and attend to life's activities. He said when sober he just has no energy and no motivation. Patient said that for past several weeks he has been paranoid that his neighbors are watching him. He said he has asked his neighbors if this is true and that they said people do look at him because he is too pretty, too bubbly... Patient is anxious about it because he says it is a drug infested neighborhood. Patient had some vague worried that maybe someone was out to kill him or breaking to his apartment, similar to previous admissions however he said this was not a prominent fear. Patient said his main request is to get help with ADHD since is outpatient provider was going to start him Concerta and he says he uses meth as a replacement. Patient accepted however that his struggle with addiction and paranoid behaviors supersedes this request. Patient said that he hopes he is either crazy or that his paranoia is from drugs, preferring either of these 2 options to his paranoid thoughts actually being true and that he is in danger. Patient denies any alcohol, opiates or cocaine use. Impression/plan: Patient presents with his typical presentation of paranoid delusions; last admission he was not hyperactive; currently he has manic symptoms, verbose and pressured speech, hyperactive, running down the hallway. Confusing presentation is chronic methamphetamine abuse, likely ADHD, and high expressed emotion. However, while methamphetamine abuse can cause psychosis, patient nava Tran presents with paranoid delusions even days after last meth use making it seem more likely that patient does an organic psychotic illness. Patient agrees with continuing with Zyprexa for now; also open to Risperdal. Hoping for something like modafinil to help him have more energy in the morning. Plan: CV Q 15 minute checks Zyprexa 5 mg b.i.d. BuSpar 10 mg t.i.d. Will lower Zoloft further to 50 mg out of concern for manic episode (was on 200 mg just prior to admission) Macrobid 100 mg b.i.d. for UTI Clonidine Patient says his mother is bringing antiretrovirals from home 08/07/23 Continue tx Patient educated on: therapeutic strategies Informed Consent: understands Reason for continued inpatient stay Substantial Risk for: rapid decompensation Time Spent With Patient Time: Total time managing care of this patient today ____ minutes.
[2023-08-07 16:55] VITALS: BP 131/79; PULSE 75; TEMP 36.9
[2023-08-07 20:50] VITALS: BP 121/63; PULSE 68; TEMP 36.7
[2023-08-07] MEDS: cloNIDine HCL 0.2 MG TABLET PO (20:53)
[2023-08-08 09:10] VITALS: BP 115/85; PULSE 86; RESP 16; TEMP 36.7; O2SAT 98
[2023-08-08 16:15] VITALS: BP 124/84; PULSE 81; RESP 16; TEMP 37; O2SAT 97
--- NOTE | 2023-08-08 19:45 | HO.PSYCHPN ---
Subjective Subjective Date of Service: 08/08/23 Reason For Visit: PTSD Psychosis Interim History: Pt seen, discussed with team. Pt reports he is doing OK. Reports he is tolerating regime. Active with peers in milieu Medication Compliance: Yes Side effects from medications: No Attending Groups: Yes Review of Systems Acute medical concerns: No Medical Review of Systems: unchanged Review of Systems Review of Systems Yes all other systems are reviewed and are negative Mental Status Exam Mental Status Exam Patient Appearance: Appropriate Patient Orientation: Person, Place, Time and Situation Level of Consciousness: Alert Patient Behavior: Talkative, Anxious and Good Eye Contact Mood Description: Anxious Affect Description: Anxious Patient Cognition Impaired: No Ability to Follow Directions: Good Speech Pattern: Spontaneous Speech Memory Description: Intact Thought Process: Distracted Judgement: Fair Diagnostics Vital Signs (24Hr): Vital Signs - 24 hr 08/07/23 20:50 08/08/23 09:10 Temperature 98.0 F 98.1 F Pulse Rate 68 86 Respiratory Rate 16 Blood Pressure 121/63 115/85 Pulse Oximetry 98 Oxygen Delivery Method Room Air BMI result Body Mass Index 24.8 Labs 08/02/23 03:00 08/02/23 03:00 Medications Medications Current Medications Acetaminophen (Acetaminophen 325 Mg Tablet) 650 mg PO Q6H PRN PRN Reason: Headache/Pain Mild Scale (1-3) Al Hydroxide/Mg Hydroxide (Magnesium Hydrox/Alum Hydrox 30 Ml Oral.Susp) 30 ml PO Q6H PRN PRN Reason: Heartburn/Nausea Buspirone HCl (Buspirone Hcl 10 Mg Tablet) 10 mg PO TID [facility] Last Admin: 08/08/23 14:42 Dose: 10 mg Clonidine HCl (Clonidine Hcl 0.2 Mg Tablet) 0.2 mg PO BEDTIME [facility]; Protocol Last Admin: 08/07/23 20:53 Dose: 0.2 mg Clonidine HCl (Clonidine Hcl 0.1 Mg Tablet) 0.1 mg PO BID@0900,1500 [facility]; Protocol Last Admin: 08/08/23 14:42 Dose: 0.1 mg Hydroxyzine HCl (Hydroxyzine Hcl 25 Mg Tablet) 25 mg PO Q6H PRN PRN Reason: Anxiety Loratadine (Loratadine 10 Mg Tablet) 10 mg PO DAILY [facility] Last Admin: 08/08/23 09:15 Dose: 10 mg Magnesium Hydroxide (Milk Of Magnesia 30 Ml Oral.Susp) 30 ml PO DAILY PRN PRN Reason: Constipation Nitrofurantoin Macrocrystals (Nitrofurantoin Monohyd/M-Cryst 100 Mg Capsule) 100 mg PO BID [facility] Last Admin: 08/08/23 09:15 Dose: 100 mg Non-Formulary Medication (Dolutegravir-Lamivudine [Dovato]) 1 tab PO DAILY [facility] Last Admin: 08/03/23 08:52 Dose: Not Given Olanzapine (Olanzapine 5 Mg Tablet) 5 mg PO BID [facility] Last Admin: 08/08/23 09:15 Dose: 5 mg Sertraline HCl (Sertraline Hcl 50 Mg Tablet) 50 mg PO DAILY [facility] Last Admin: 08/08/23 09:15 Dose: 50 mg Allergies Allergies Allergy/AdvReac Type Severity Reaction Status Date / Time trazodone AdvReac Mild priaprism Verified 05/14/22 11:54 Assessment & Plan Assessment & Plan (1) Methamphetamine use disorder, severe: Status: Acute Code(s): F15.20 - Other stimulant dependence, uncomplicated (2) Post traumatic stress disorder (PTSD): Status: Acute Code(s): F43.10 - Post-traumatic stress disorder, unspecified (3) HIV (human immunodeficiency virus infection): Status: Acute Code(s): B20 - Human immunodeficiency virus [HIV] disease Plan Patient is a 33-year-old male with history of paranoid delusions, depression, IV methamphetamine addiction, PTSD, HIV, rule out for bipolar/schizoaffective, diagnosed with UTI in the emergency room who self presents with typical presentation paranoid delusions that people are out to get him in face of being off medications and abusing methamphetamine. Patient said that after last admission this past summer he was doing overall well; came to the conclusion that he did not need Zyprexa since he had no auditory hallucinations. Patient stopped all his medications for 2 months, but then restarted them few weeks ago. Patient reports that he uses IV meth daily which helps him get out of bed and attend to life's activities. He said when sober he just has no energy and no motivation. Patient said that for past several weeks he has been paranoid that his neighbors are watching him. He said he has asked his neighbors if this is true and that they said people do look at him because he is too pretty, too bubbly... Patient is anxious about it because he says it is a drug infested neighborhood. Patient had some vague worried that maybe someone was out to kill him or breaking to his apartment, similar to previous admissions however he said this was not a prominent fear. Patient said his main request is to get help with ADHD since is outpatient provider was going to start him Concerta and he says he uses meth as a replacement. Patient accepted however that his struggle with addiction and paranoid behaviors supersedes this request. Patient said that he hopes he is either crazy or that his paranoia is from drugs, preferring either of these 2 options to his paranoid thoughts actually being true and that he is in danger. Patient denies any alcohol, opiates or cocaine use. Impression/plan: Patient presents with his typical presentation of paranoid delusions; last admission he was not hyperactive; currently he has manic symptoms, verbose and pressured speech, hyperactive, running down the hallway. Confusing presentation is chronic methamphetamine abuse, likely ADHD, and high expressed emotion. However, while methamphetamine abuse can cause psychosis, patient nava Tran presents with paranoid delusions even days after last meth use making it seem more likely that patient does an organic psychotic illness. Patient agrees with continuing with Zyprexa for now; also open to Risperdal. Hoping for something like modafinil to help him have more energy in the morning. Plan: CV Q 15 minute checks Zyprexa 5 mg b.i.d. BuSpar 10 mg t.i.d. Will lower Zoloft further to 50 mg out of concern for manic episode (was on 200 mg just prior to admission) Macrobid 100 mg b.i.d. for UTI Clonidine Patient says his mother is bringing antiretrovirals from home 08/08/23 Continue current rx Informed Consent: understands Reason for continued inpatient stay Substantial Risk for: rapid decompensation Time Spent With Patient Time: Total time managing care of this patient today ____ minutes.
[2023-08-08] MEDS: cloNIDine HCL 0.2 MG TABLET PO (20:22)
--- NOTE | 2023-08-09 07:41 | HO.PSYCHPN ---
Subjective Subjective Date of Service: 08/09/23 Reason For Visit: PTSD Psychosis Interim History: met with patient; discussed with team discussed confounding combinations Meth abuse, ADHD and paranoia and how difficult it is to figure out what is causing his paranoia. He thinks it's most likely the meth; when sober for 2 weeks, psychosis seems to dwindle but no energy or motivation...so he soon relapses. Also, uses meth on weekends and it effect seems to last for about 4 days. pt agrees that sobriety is necessary to really understand etiology of symptoms; and that stimulant of adhd could trigger craig; he agrees to stay on Zyprexa for now since it's stabiizing. Discussed lamictal no paranoia on unit Mental Status Exam Mental Status Exam Narrative: Pt is alert and oriented; behavior is more calm, cooperative, friendly; patient is not in distress; dressed in casual attire well groomed, good hygiene; mood is described as good and affect congruent; eye contact appropriate; Speech a little verbose, but not pressured; normal volume; no psychomotor agitation present; thought process is goal directed; Thought content is on treatment; otherwise pertinent to relevant topics; denies any SI/HI. There is no evidence of perceptual disturbance; denies AVH Patients insight and judgment improved and fair. Diagnostics Vital Signs (24Hr): Vital Signs - 24 hr 08/08/23 09:10 08/08/23 16:15 Temperature 98.1 F 98.6 F Pulse Rate 86 81 Respiratory Rate 16 16 Blood Pressure 115/85 124/84 Pulse Oximetry 98 97 Oxygen Delivery Method Room Air Room Air BMI result Body Mass Index 24.8 Labs 08/02/23 03:00 08/02/23 03:00 Medications Medications Current Medications Acetaminophen (Acetaminophen 325 Mg Tablet) 650 mg PO Q6H PRN PRN Reason: Headache/Pain Mild Scale (1-3) Al Hydroxide/Mg Hydroxide (Magnesium Hydrox/Alum Hydrox 30 Ml Oral.Susp) 30 ml PO Q6H PRN PRN Reason: Heartburn/Nausea Buspirone HCl (Buspirone Hcl 10 Mg Tablet) 10 mg PO TID [facility] Last Admin: 08/08/23 20:22 Dose: 10 mg Clonidine HCl (Clonidine Hcl 0.2 Mg Tablet) 0.2 mg PO BEDTIME [facility]; Protocol Last Admin: 08/08/23 20:22 Dose: 0.2 mg Clonidine HCl (Clonidine Hcl 0.1 Mg Tablet) 0.1 mg PO BID@0900,1500 [facility]; Protocol Last Admin: 08/08/23 14:42 Dose: 0.1 mg Hydroxyzine HCl (Hydroxyzine Hcl 25 Mg Tablet) 25 mg PO Q6H PRN PRN Reason: Anxiety Last Admin: 08/08/23 20:24 Dose: 25 mg Loratadine (Loratadine 10 Mg Tablet) 10 mg PO DAILY [facility] Last Admin: 08/08/23 09:15 Dose: 10 mg Magnesium Hydroxide (Milk Of Magnesia 30 Ml Oral.Susp) 30 ml PO DAILY PRN PRN Reason: Constipation Nitrofurantoin Macrocrystals (Nitrofurantoin Monohyd/M-Cryst 100 Mg Capsule) 100 mg PO BID [facility] Last Admin: 08/08/23 20:22 Dose: 100 mg Non-Formulary Medication (Dolutegravir-Lamivudine [Dovato]) 1 tab PO DAILY [facility] Last Admin: 08/03/23 08:52 Dose: Not Given Olanzapine (Olanzapine 5 Mg Tablet) 5 mg PO BID [facility] Last Admin: 08/08/23 20:22 Dose: 5 mg Sertraline HCl (Sertraline Hcl 50 Mg Tablet) 50 mg PO DAILY [facility] Last Admin: 08/08/23 09:15 Dose: 50 mg Allergies Allergies Allergy/AdvReac Type Severity Reaction Status Date / Time trazodone AdvReac Mild priaprism Verified 05/14/22 11:54 Assessment & Plan Assessment & Plan (1) Methamphetamine use disorder, severe: Status: Acute Code(s): F15.20 - Other stimulant dependence, uncomplicated (2) Post traumatic stress disorder (PTSD): Status: Acute Code(s): F43.10 - Post-traumatic stress disorder, unspecified (3) HIV (human immunodeficiency virus infection): Status: Acute Code(s): B20 - Human immunodeficiency virus [HIV] disease Plan Patient is a 33-year-old male with history of paranoid delusions, depression, IV methamphetamine addiction, PTSD, HIV, rule out for bipolar/schizoaffective, diagnosed with UTI in the emergency room who self presents with typical presentation paranoid delusions that people are out to get him in face of being off medications and abusing methamphetamine. Patient said that after last admission this past summer he was doing overall well; came to the conclusion that he did not need Zyprexa since he had no auditory hallucinations. Patient stopped all his medications for 2 months, but then restarted them few weeks ago. Patient reports that he uses IV meth daily which helps him get out of bed and attend to life's activities. He said when sober he just has no energy and no motivation. Patient said that for past several weeks he has been paranoid that his neighbors are watching him. He said he has asked his neighbors if this is true and that they said people do look at him because he is too pretty, too bubbly... Patient is anxious about it because he says it is a drug infested neighborhood. Patient had some vague worried that maybe someone was out to kill him or breaking to his apartment, similar to previous admissions however he said this was not a prominent fear. Patient said his main request is to get help with ADHD since is outpatient provider was going to start him Concerta and he says he uses meth as a replacement. Patient accepted however that his struggle with addiction and paranoid behaviors supersedes this request. Patient said that he hopes he is either crazy or that his paranoia is from drugs, preferring either of these 2 options to his paranoid thoughts actually being true and that he is in danger. Patient denies any alcohol, opiates or cocaine use. Impression/plan: Patient presents with his typical presentation of paranoid delusions; last admission he was not hyperactive; currently he has manic symptoms, verbose and pressured speech, hyperactive, running down the hallway. Confusing presentation is chronic methamphetamine abuse, likely ADHD, and high expressed emotion. However, while methamphetamine abuse can cause psychosis, patient nava Tran presents with paranoid delusions even days after last meth use making it seem more likely that patient does an organic psychotic illness. Patient agrees with continuing with Zyprexa for now; also open to Risperdal. Hoping for something like modafinil to help him have more energy in the morning. HOsptial course: 08/09 more calm; trying to figure out what causes paranoia/craig... meth+ADHD, vs psychosis no paranoia, but now on zyprexa (and off meth). considering Lamictal Plan: CV Q 15 minute checks Zyprexa 5 mg bed. BuSpar 10 mg t.i.d. titrate zoloft back to home dose of 200mg Macrobid 100 mg b.i.d. for UTI Clonidine Patient says his mother is bringing antiretrovirals from home Patient educated on: diagnosis, medication risk/benefits and substance abuse Informed Consent: understands Reason for continued inpatient stay Substantial Risk for: rapid decompensation Time Spent With Patient Time: Total time managing care of this patient today ____ minutes.
[2023-08-09 08:19] VITALS: BP 124/81; PULSE 83; RESP 16; TEMP 36.7; O2SAT 97
[2023-08-09 14:30] VITALS: BP 140/88; PULSE 79
[2023-08-09 15:40] VITALS: BP 122/61; PULSE 89; RESP 16; TEMP 37; O2SAT 99
[2023-08-09] MEDS: Magnesium Hydrox/Alum Hydrox 30 ML ORAL.SUSP PO (18:57)
[2023-08-09 18:59] VITALS: BP 143/77
[2023-08-09] MEDS: cloNIDine HCL 0.2 MG TABLET PO (20:15)
[2023-08-09] MEDS: lamoTRIgine 25 MG TABLET PO (20:15)
[2023-08-09] MEDS: busPIRone HCl 10 MG TABLET PO (20:15)
[2023-08-09] MEDS: OLANZapine 5 MG TABLET PO (20:15)
[2023-08-09] MEDS: Nitrofurantoin Monohyd/M-Cryst 100 MG CAPSULE PO (20:16)
[2023-08-10 08:20] VITALS: BP 113/67; PULSE 78; RESP 16; TEMP 36.3; O2SAT 98
[2023-08-10] MEDS: cloNIDine HCL 0.1 MG TABLET PO ×2 (08:27→15:20)
[2023-08-10] MEDS: Sertraline HCL 100 MG TABLET PO (08:27)
[2023-08-10] MEDS: busPIRone HCl 10 MG TABLET PO ×3 (08:27→20:46)
[2023-08-10] MEDS: Loratadine 10 MG TABLET PO (08:27)
[2023-08-10] MEDS: Nitrofurantoin Monohyd/M-Cryst 100 MG CAPSULE PO ×2 (08:27→20:46)
[2023-08-10 15:20] VITALS: BP 134/65; PULSE 77
[2023-08-10 16:58] VITALS: BP 139/79; PULSE 80; RESP 16; TEMP 36.8; O2SAT 97
[2023-08-10] MEDS: lamoTRIgine 25 MG TABLET PO (20:46)
[2023-08-10] MEDS: OLANZapine 5 MG TABLET PO (20:46)
[2023-08-10] MEDS: cloNIDine HCL 0.2 MG TABLET PO (20:46)
--- NOTE | 2023-08-10 22:44 | P.PNPSI_ITS ---
Subjective Subjective Date of Service: 08/10/23 Reason For Visit: PTSD Psychosis Interim History: met with pt; discussed with team discussed med options, sobriety. Pt open to IOP and a control and recovery combat rescue. Regarding meds, discussed lamictal, risks, side-effects and pt agrees to trial as it covers anxiety, depression and mood stabilization. Mental Status Exam Mental Status Exam Narrative: Pt is alert and oriented; behavior is more calm, cooperative, friendly; patient is not in distress; dressed in casual attire well groomed, good hygiene; mood is described as good and affect congruent; eye contact appropriate; Speech a little verbose, but not pressured; normal volume; no psychomotor agitation present; thought process is goal directed; Thought content is on treatment; otherwise pertinent to relevant topics; denies any SI/HI. There is no evidence of perceptual disturbance; denies AVH Patients insight and judgment improved and fair. Diagnostics Vital Signs (24Hr): Vital Signs - 24 hr 08/10/23 08:20 08/10/23 15:20 08/10/23 16:58 Temperature 97.3 F 98.3 F Pulse Rate 78 77 80 Respiratory Rate 16 16 Blood Pressure 113/67 134/65 139/79 Pulse Oximetry 98 97 Oxygen Delivery Method Room Air Room Air BMI result Body Mass Index 24.8 Labs 08/02/23 03:00 08/02/23 03:00 Medications Medications Current Medications Acetaminophen (Acetaminophen 325 Mg Tablet) 650 mg PO Q6H PRN PRN Reason: Headache/Pain Mild Scale (1-3) Al Hydroxide/Mg Hydroxide (Magnesium Hydrox/Alum Hydrox 30 Ml Oral.Susp) 30 ml PO Q6H PRN PRN Reason: Heartburn/Nausea Last Admin: 08/09/23 18:57 Dose: 30 ml Buspirone HCl (Buspirone Hcl 10 Mg Tablet) 10 mg PO TID [facility] Last Admin: 08/10/23 20:46 Dose: 10 mg Clonidine HCl (Clonidine Hcl 0.2 Mg Tablet) 0.2 mg PO BEDTIME [facility]; Protocol Last Admin: 08/10/23 20:46 Dose: 0.2 mg Clonidine HCl (Clonidine Hcl 0.1 Mg Tablet) 0.1 mg PO BID@0900,1500 [facility]; Protocol Last Admin: 08/10/23 15:20 Dose: 0.1 mg Hydroxyzine HCl (Hydroxyzine Hcl 25 Mg Tablet) 25 mg PO Q6H PRN PRN Reason: Anxiety Last Admin: 08/08/23 20:24 Dose: 25 mg Lamotrigine (Lamotrigine 25 Mg Tablet) 25 mg PO BEDTIME [facility] Last Admin: 08/10/23 20:46 Dose: 25 mg Loratadine (Loratadine 10 Mg Tablet) 10 mg PO DAILY [facility] Last Admin: 08/10/23 08:27 Dose: 10 mg Magnesium Hydroxide (Milk Of Magnesia 30 Ml Oral.Susp) 30 ml PO DAILY PRN PRN Reason: Constipation Nitrofurantoin Macrocrystals (Nitrofurantoin Monohyd/M-Cryst 100 Mg Capsule) 100 mg PO BID [facility] Last Admin: 08/10/23 20:46 Dose: 100 mg Non-Formulary Medication (Dolutegravir-Lamivudine [Dovato]) 1 tab PO DAILY [facility] Last Admin: 08/03/23 08:52 Dose: Not Given Olanzapine (Olanzapine 5 Mg Tablet) 5 mg PO BEDTIME [facility] Last Admin: 08/10/23 20:46 Dose: 5 mg Sertraline HCl (Sertraline Hcl 100 Mg Tablet) 100 mg PO DAILY [facility] Last Admin: 08/10/23 08:27 Dose: 100 mg Allergies Allergies Allergy/AdvReac Type Severity Reaction Status Date / Time trazodone AdvReac Mild priaprism Verified 05/14/22 11:54 Assessment & Plan Assessment & Plan (1) Methamphetamine use disorder, severe: Status: Acute Code(s): F15.20 - Other stimulant dependence, uncomplicated (2) Post traumatic stress disorder (PTSD): Status: Acute Code(s): F43.10 - Post-traumatic stress disorder, unspecified (3) HIV (human immunodeficiency virus infection): Status: Acute Code(s): B20 - Human immunodeficiency virus [HIV] disease Plan Patient is a 33-year-old male with history of paranoid delusions, depression, IV methamphetamine addiction, PTSD, HIV, rule out for bipolar/schizoaffective, diagnosed with UTI in the emergency room who self presents with typical presentation paranoid delusions that people are out to get him in face of being off medications and abusing methamphetamine. Patient said that after last admission this past summer he was doing overall well; came to the conclusion that he did not need Zyprexa since he had no auditory hallucinations. Patient stopped all his medications for 2 months, but then restarted them few weeks ago. Patient reports that he uses IV meth daily which helps him get out of bed and attend to life's activities. He said when sober he just has no energy and no motivation. Patient said that for past several weeks he has been paranoid that his neighbors are watching him. He said he has asked his neighbors if this is true and that they said people do look at him because he is too pretty, too bubbly... Patient is anxious about it because he says it is a drug infested neighborhood. Patient had some vague worried that maybe someone was out to kill him or breaking to his apartment, similar to previous admissions however he said this was not a prominent fear. Patient said his main request is to get help with ADHD since is outpatient provider was going to start him Concerta and he says he uses meth as a replacement. Patient accepted however that his struggle with addiction and paranoid behaviors supersedes this request. Patient said that he hopes he is either crazy or that his paranoia is from drugs, preferring either of these 2 options to his paranoid thoughts actually being true and that he is in danger. Patient denies any alcohol, opiates or cocaine use. Impression/plan: Patient presents with his typical presentation of paranoid delusions; last admission he was not hyperactive; currently he has manic symptoms, verbose and pressured speech, hyperactive, running down the hallway. Confusing presentation is chronic methamphetamine abuse, likely ADHD, and high expressed emotion. However, while methamphetamine abuse can cause psychosis, patient nava Tran presents with paranoid delusions even days after last meth use making it seem more likely that patient does an organic psychotic illness. Patient agrees with continuing with Zyprexa for now; also open to Risperdal. Hoping for something like modafinil to help him have more energy in the morning. HOsptial course: 08/09 more calm; trying to figure out what causes paranoia/craig... meth+ADHD, vs psychosis no paranoia, but now on zyprexa (and off meth). considering Lamictal 08/10 starting lamictal for mood stabilization, depression, anxiety... iop and control and recovery combat rescue Plan: CV Q 15 minute checks Zyprexa 5 mg bed. start Lamictal 25mg qhs BuSpar 10 mg t.i.d. titrate zoloft back to home dose of 200mg Macrobid 100 mg b.i.d. for UTI Patient educated on: diagnosis, medication risk/benefits and substance abuse Informed Consent: understands Reason for continued inpatient stay Substantial Risk for: stable for discharge Time Spent With Patient Time: Total time managing care of this patient today ____ minutes.
[2023-08-11 08:00] VITALS: BP 130/70; PULSE 79; RESP 16; TEMP 36.6; O2SAT 97
[2023-08-11] MEDS: Nitrofurantoin Monohyd/M-Cryst 100 MG CAPSULE PO ×2 (08:38→20:10)
[2023-08-11] MEDS: cloNIDine HCL 0.1 MG TABLET PO ×2 (08:38→15:09)
[2023-08-11] MEDS: Sertraline HCL 100 MG TABLET PO (08:39)
[2023-08-11] MEDS: Loratadine 10 MG TABLET PO (08:39)
[2023-08-11] MEDS: busPIRone HCl 10 MG TABLET PO ×3 (08:39→20:09)
[2023-08-11 09:07] VITALS: BP 137/86; PULSE 88; RESP 16
[2023-08-11 15:08] VITALS: BP 130/75; PULSE 83
--- NOTE | 2023-08-11 17:14 | HO.PSYCHPN ---
Subjective Subjective Date of Service: 08/11/23 Reason For Visit: PTSD Psychosis Interim History: met with patient; discussed with team pt feels stable, feeling ready to go home; optimistic about sobriety and stability; no paranoia Mental Status Exam Mental Status Exam Narrative: Pt is alert and oriented; behavior is more calm, cooperative, friendly; patient is not in distress; dressed in casual attire well groomed, good hygiene; mood is described as good and affect congruent; eye contact appropriate; Speech a little verbose, but not pressured; normal volume; no psychomotor agitation present; thought process is goal directed; Thought content is on treatment; otherwise pertinent to relevant topics; denies any SI/HI. There is no evidence of perceptual disturbance; denies AVH Patients insight and judgment improved and fair. Diagnostics Vital Signs (24Hr): Vital Signs - 24 hr 08/11/23 08:00 08/11/23 09:07 08/11/23 15:08 Temperature 97.9 F Pulse Rate 79 88 83 Respiratory Rate 16 16 Blood Pressure 130/70 137/86 130/75 Pulse Oximetry 97 Oxygen Delivery Method Room Air BMI result Body Mass Index 24.8 Labs 08/02/23 03:00 08/02/23 03:00 Medications Medications Current Medications Acetaminophen (Acetaminophen 325 Mg Tablet) 650 mg PO Q6H PRN PRN Reason: Headache/Pain Mild Scale (1-3) Al Hydroxide/Mg Hydroxide (Magnesium Hydrox/Alum Hydrox 30 Ml Oral.Susp) 30 ml PO Q6H PRN PRN Reason: Heartburn/Nausea Last Admin: 08/09/23 18:57 Dose: 30 ml Buspirone HCl (Buspirone Hcl 10 Mg Tablet) 10 mg PO TID [facility] Last Admin: 08/11/23 15:09 Dose: 10 mg Clonidine HCl (Clonidine Hcl 0.2 Mg Tablet) 0.2 mg PO BEDTIME [facility]; Protocol Last Admin: 08/10/23 20:46 Dose: 0.2 mg Clonidine HCl (Clonidine Hcl 0.1 Mg Tablet) 0.1 mg PO BID@0900,1500 [facility]; Protocol Last Admin: 08/11/23 15:09 Dose: 0.1 mg Hydroxyzine HCl (Hydroxyzine Hcl 25 Mg Tablet) 25 mg PO Q6H PRN PRN Reason: Anxiety Last Admin: 08/08/23 20:24 Dose: 25 mg Lamotrigine (Lamotrigine 25 Mg Tablet) 25 mg PO BEDTIME [facility] Last Admin: 08/10/23 20:46 Dose: 25 mg Loratadine (Loratadine 10 Mg Tablet) 10 mg PO DAILY [facility] Last Admin: 08/11/23 08:39 Dose: 10 mg Magnesium Hydroxide (Milk Of Magnesia 30 Ml Oral.Susp) 30 ml PO DAILY PRN PRN Reason: Constipation Nitrofurantoin Macrocrystals (Nitrofurantoin Monohyd/M-Cryst 100 Mg Capsule) 100 mg PO BID [facility] Last Admin: 08/11/23 08:38 Dose: 100 mg Non-Formulary Medication (Dolutegravir-Lamivudine [Dovato]) 1 tab PO DAILY [facility] Last Admin: 08/03/23 08:52 Dose: Not Given Olanzapine (Olanzapine 5 Mg Tablet) 5 mg PO BEDTIME [facility] Last Admin: 08/10/23 20:46 Dose: 5 mg Sertraline HCl (Sertraline Hcl 50 Mg Tablet) 150 mg PO DAILY [facility] Allergies Allergies Allergy/AdvReac Type Severity Reaction Status Date / Time trazodone AdvReac Mild priaprism Verified 05/14/22 11:54 Assessment & Plan Assessment & Plan (1) Methamphetamine use disorder, severe: Status: Acute Code(s): F15.20 - Other stimulant dependence, uncomplicated (2) Post traumatic stress disorder (PTSD): Status: Acute Code(s): F43.10 - Post-traumatic stress disorder, unspecified (3) HIV (human immunodeficiency virus infection): Status: Acute Code(s): B20 - Human immunodeficiency virus [HIV] disease Plan Patient is a 33-year-old male with history of paranoid delusions, depression, IV methamphetamine addiction, PTSD, HIV, rule out for bipolar/schizoaffective, diagnosed with UTI in the emergency room who self presents with typical presentation paranoid delusions that people are out to get him in face of being off medications and abusing methamphetamine. Patient said that after last admission this past summer he was doing overall well; came to the conclusion that he did not need Zyprexa since he had no auditory hallucinations. Patient stopped all his medications for 2 months, but then restarted them few weeks ago. Patient reports that he uses IV meth daily which helps him get out of bed and attend to life's activities. He said when sober he just has no energy and no motivation. Patient said that for past several weeks he has been paranoid that his neighbors are watching him. He said he has asked his neighbors if this is true and that they said people do look at him because he is too pretty, too bubbly... Patient is anxious about it because he says it is a drug infested neighborhood. Patient had some vague worried that maybe someone was out to kill him or breaking to his apartment, similar to previous admissions however he said this was not a prominent fear. Patient said his main request is to get help with ADHD since is outpatient provider was going to start him Concerta and he says he uses meth as a replacement. Patient accepted however that his struggle with addiction and paranoid behaviors supersedes this request. Patient said that he hopes he is either crazy or that his paranoia is from drugs, preferring either of these 2 options to his paranoid thoughts actually being true and that he is in danger. Patient denies any alcohol, opiates or cocaine use. Impression/plan: Patient presents with his typical presentation of paranoid delusions; last admission he was not hyperactive; currently he has manic symptoms, verbose and pressured speech, hyperactive, running down the hallway. Confusing presentation is chronic methamphetamine abuse, likely ADHD, and high expressed emotion. However, while methamphetamine abuse can cause psychosis, patient nava Tran presents with paranoid delusions even days after last meth use making it seem more likely that patient does an organic psychotic illness. Patient agrees with continuing with Zyprexa for now; also open to Risperdal. Hoping for something like modafinil to help him have more energy in the morning. HOsptial course: 08/09 more calm; trying to figure out what causes paranoia/craig... meth+ADHD, vs psychosis no paranoia, but now on zyprexa (and off meth). considering Lamictal 08/10 starting lamictal for mood stabilization, depression, anxiety... iop and tin recovery worker 08/11 stable; proceed with dc plan Plan: CV Q 15 minute checks Zyprexa 5 mg bed. continue Lamictal 25mg qhs BuSpar 10 mg t.i.d. increase to zoloft 150; will titrate back to home dose of 200mg Macrobid 100 mg b.i.d. for UTI Patient educated on: diagnosis, medication risk/benefits, substance abuse and therapeutic strategies Informed Consent: understands Reason for continued inpatient stay Substantial Risk for: stable for discharge Time Spent With Patient Time: Total time managing care of this patient today ____ minutes.
[2023-08-11 20:00] VITALS: BP 128/67; PULSE 77; TEMP 36.3
[2023-08-11] MEDS: lamoTRIgine 25 MG TABLET PO (20:08)
[2023-08-11] MEDS: cloNIDine HCL 0.2 MG TABLET PO (20:09)
[2023-08-11] MEDS: OLANZapine 5 MG TABLET PO (20:10)
--- NOTE | 2023-08-11 23:03 | P.DS_ITS ---
DS: Providers Provider Date of Service: 08/12/23 Date of admission: 08/05/23 12:38 Date of discharge: 08/12/23 Primary care physician: Unknown Physician Attending physician on admission: Sriram Fan Attending physician on discharge: Sriram Fan DS: Diagnosis Discharge Diagnosis (1) Methamphetamine use disorder, severe: Status: Acute (2) Post traumatic stress disorder (PTSD): Status: Acute (3) HIV (human immunodeficiency virus infection): Status: Acute DS: Medications Discharge Medications Home Medications: Home Medications Medication Instructions Recorded Confirmed dolutegravir 50 mg-lamivudine 300 1 tab PO DAILY 01/17/23 08/03/23 mg tablet (Dovato) loratadine 10 mg tablet (Allergy 10 mg PO DAILY 01/17/23 08/03/23 Relief (loratadine)) sertraline 100 mg tablet 200 mg PO DAILY 01/17/23 08/03/23 Previous Rx's Medication Instructions Recorded buspirone 10 mg tablet 10 mg PO TID 30 days #90 tabs 01/25/23 clonidine HCl 0.1 mg tablet 0.1 mg PO BID@0900,1500 30 days 01/25/23 #60 tabs clonidine HCl 0.2 mg tablet 0.2 mg PO BEDTIME 30 days #30 tabs 01/25/23 ropinirole 1 mg tablet 1 mg PO BEDTIME 30 days #30 tabs 01/25/23 hydroxyzine HCl 25 mg tablet 25 mg PO Q6H PRN Anxiety 30 days 08/11/23 #90 tabs lamotrigine 100 mg tablet 100 mg PO BEDTIME 30 days #30 tabs 08/11/23 (Lamictal) lamotrigine 25 mg tablet See Rx Instructions .Route 08/11/23 .COMPLEX #40 tabs olanzapine 5 mg tablet 5 mg PO BEDTIME 30 days #30 tabs 08/11/23 Mental Status Exam Mental Status Exam Narrative: Pt is alert and oriented; behavior is more calm, cooperative, friendly; patient is not in distress; dressed in casual attire well groomed, good hygiene; mood is described as good and affect congruent; eye contact appropriate; Speech a little verbose, but not pressured; normal volume; no psychomotor agitation present; thought process is goal directed; Thought content is on treatment; otherwise pertinent to relevant topics; denies any SI/HI. There is no evidence of perceptual disturbance; denies AVH Patients insight and judgment improved and fair. Data Data Completed and Pending Completed studies during hospitalization [Text1]: 08/06/23 08:38 Estimat Average Glucose 103 Hemoglobin A1c % 5.2 Magnesium 1.7 Triglycerides 140 Cholesterol 156 LDL Cholesterol, Calc 80 HDL Cholesterol 48 Vitamin B12 463 Folate 11.4 TSH 0.41 Free T4 0.80 08/04/23 22:08 Urine clean catch - Urine kat top Urine Culture - Final Klebsiella pneumoniae DS: Summary Hospital Course Hospital Course: Patient is a 33-year-old male with history of paranoid delusions, depression, IV methamphetamine addiction, PTSD, HIV, rule out for bipolar/schizoaffective, diagnosed with UTI in the emergency room who self presents with typical presentation paranoid delusions that people are out to get him in face of being off medications and abusing methamphetamine. Patient said that after last admission this past summer he was doing overall well; came to the conclusion that he did not need Zyprexa since he had no auditory hallucinations. Patient stopped all his medications for 2 months, but then restarted them few weeks ago. Patient reports that he uses IV meth daily which helps him get out of bed and attend to life's activities. He said when sober he just has no energy and no motivation. Patient said that for past several weeks he has been paranoid that his neighbors are watching him. He said he has asked his neighbors if this is true and that they said people do look at him because he is too pretty, too bubbly... Patient is anxious about it because he says it is a drug infested neighborhood. Patient had some vague worried that maybe someone was out to kill him or breaking to his apartment, similar to previous admissions however he said this was not a prominent fear. Patient said his main request is to get help with ADHD since is outpatient provider was going to start him Concerta and he says he uses meth as a replacement. Patient accepted however that his struggle with addiction and paranoid behaviors supersedes this request. Patient said that he hopes he is either crazy or that his paranoia is from drugs, preferring either of these 2 options to his paranoid thoughts actually being true and that he is in danger. Patient denies any alcohol, opiates or cocaine use. Impression/plan: Patient presents with his typical presentation of paranoid delusions; last admission he was not hyperactive; currently he has manic symptoms, verbose and pressured speech, hyperactive, running down the hallway. Confusing presentation is chronic methamphetamine abuse, likely ADHD, and high expressed emotion. However, while methamphetamine abuse can cause psychosis, patient nava Tran presents with paranoid delusions even days after last meth use making it seem more likely that patient does an organic psychotic illness. Patient agrees with continuing with Zyprexa for now; also open to Risperdal. Hoping for something like modafinil to help him have more energy in the morning. HOsptial course: 08/09 patient is calm, no paranoia; discussed confounding combinations Meth abuse, ADHD and paranoia and how difficult it is to figure out what is causing his paranoia. He thinks it's most likely the meth; when sober for 2 weeks, psychosis seems to dwindle but no energy or motivation...so he soon relapses. Also, uses meth on weekends and it effect seems to last for about 4 days. -pt agrees that sobriety is necessary to really understand etiology of symptoms; and that stimulant of adhd could trigger craig; he agrees to stay on Zyprexa for now since it's stabiizing. Discussed lamictal -no paranoia on unit 08/10 discussed med options, sobriety. Pt open to IOP and a recovery operator. Regarding meds, discussed lamictal, risks, side-effects and pt agrees to trial as it covers anxiety, depression and mood stabilization. 08/11 pt feels stable, feeling ready to go home; optimistic about sobriety and stability; no paranoia Patient stable, no paranoid delusions or psychotic symptoms; no craig; no SI. Appropriate behavior and impulse control. Patient future oriented, optimistic and wants discharge. Of course patient remains vulnerable to relapse and decompensation however this is a chronic problem which she understands and will not resolve with longer stay on inpatient unit. Patient is not in imminent risk for harm to self or others, appropriate to return to the community for treatment and his request for discharge honored. Medication: Zyprexa 5 mg bed. continue Lamictal 25mg qhs BuSpar 10 mg t.i.d. increase to zoloft 150; will titrate back to home dose of 200mg Macrobid 100 mg b.i.d. for UTI Time spent discussing smoking cessation with patient: 3 to 10 minutes Status at Discharge Functional status at discharge: independent ambulation Overall status at discharge: patient is back to baseline Time Spent with Patient Time attestation: Total time managing care of this patient today ____ minutes. Time spent: Greater than 30 minutes Discharge Plan Discharge Anticipated Discharge Date/Time: 08/12/23 11:30 Patient Disposition: Home, Self-Care Discharge Diagnosis: ptsd Referrals: Therapist: Erlin Storey ([facility]) [Other] - 08/13/23 2:30 pm (Telehealth ) Psychiatrist: Loraine Huggins ([facility]) [Other] - 09/13/23 1:00 pm (Telehealth ) Psychiatrist: Loraine Huggins ([facility]) [Other] - 10/12/23 10:00 am (Telehealth ) Intensive Outpatient Program (IOP): [facility] [Other] - 08/13/23 9:00 am (Enter through the Main Entrance and let the painter and decorator apprentice on the right know you are there for an IOP intake with Michael. During your intake, let them know if you need transportation to and from the program, they will set this up with you. ) Wealth Management Director: Zheng Pete ([facility]) [Other] (Zheng will call you to follow up and schedule your next appointment ) [facility] (Melody will follow up with you regarding referral; if you would like to follow up contact Alyx at the above number, she is at extension [phone]. You can also call Evangelista at [phone] Ext. [phone]) Yasmine Hardin MD [Physician] - 08/26/23 8:30 am (IN OFFICE) Discharge Medications: New hydroxyzine HCl 25 mg Tablet 25 mg PO Q6H PRN (Reason: Anxiety) 30 Days Qty: 90 0RF lamotrigine 25 mg Tablet See Rx Instructions .ROUTE .COMPLEX Qty: 40 0RF Rx Instructions: take 1 tab at bedtime for 12 days; then take 2 tabs at bedtime for 14 days; then get script for 100mg qhs lamotrigine [Lamictal] 100 mg tablet 100 mg PO BEDTIME 30 Days Qty: 30 0RF Rx Instructions: start after complete 50mg for 14 days Continued sertraline 100 mg tablet 200 mg PO DAILY loratadine [Allergy Relief (loratadine)] 10 mg tablet 10 mg PO DAILY Dovato 50-300 mg tablet 1 tab PO DAILY clonidine HCl 0.1 mg Tablet 0.1 mg PO BID@0900,1500 30 Days Qty: 60 0RF Protocol: Hold for SBP< HOLD for SBP < : 90 clonidine HCl 0.2 mg Tablet 0.2 mg PO BEDTIME 30 Days Qty: 30 0RF Protocol: Hold for SBP< HOLD for SBP < : 90 ropinirole 1 mg tablet 1 mg PO BEDTIME 30 Days Qty: 30 0RF buspirone 10 mg tablet 10 mg PO TID 30 Days Qty: 90 0RF olanzapine 5 mg Tablet 5 mg PO BEDTIME 30 Days Qty: 30 1RF Discharge Orders: Discharge Order (Routine); Ordered 08/12/23 Ordered By: Sriram Fan Diet: Regular diet Activity on Discharge: As tolerated Stand Alone Forms: Patient Portal Discharge page, Community Support Care Plan Goals: Maintain mood and safe behaviors Take medications as prescribed Continue to pursue sobriety Practice coping skills Continue with outpatient providers and reach out to them as needed Health Concerns: Mood stability and behaviors Sobriety retroviral illness Plan of Treatment: Follow up with your PCP, psychiatric provider and other outpatient providers regarding above concerns Take medications as prescribed Assessment: Risk assessment at time of discharge:? Patient was interviewed prior to discharge and found to be fully oriented and without any SI or HI. Patient has improved insight and judgment and wants to continue treatment. Patient is not in imminent risk of harm to self or others and has a safety plan that includes presenting to the closest ER or calling 911 if feeling unsafe.? Patient has been observed closely by nursing and unit staff throughout admission; patient has not engaged in any behaviors that suggest dangerousness to self or others and has demonstrated appropriate behaviors and impulse control Discharge Date/Time: 08/12/23 11:10
[2023-08-12] MEDS: Nitrofurantoin Monohyd/M-Cryst 100 MG CAPSULE PO (08:30)
[2023-08-12] MEDS: Sertraline HCL 50 MG TABLET 150 MG PO (08:30)
[2023-08-12] MEDS: Loratadine 10 MG TABLET PO (08:30)
[2023-08-12] MEDS: cloNIDine HCL 0.1 MG TABLET PO (08:30)
[2023-08-12] MEDS: busPIRone HCl 10 MG TABLET PO (08:30)
[2023-08-12] MEDS: Naloxone HCl Nasal TAKE HOME 4 MG SPRAY 8 MG NOSTRILALT (08:33)
== END 2023-08-12 11:10 | disposition home or self-care (01) | DRG 755 ==
LOC: HO.ED 13:57 → HO.PM5 08-05 13:06
PROVIDERS: Physician Assistant; Admitting Provider Clinical Nurse Specialist Psychiatric/Mental Health, Adult; Emergency Provider Emergency Medicine; Visit Provider Psychiatry & Neurology Psychiatry
DX: F43.10 Post-traumatic stress disorder, unspecified (principal); F15.20 Other stimulant dependence, uncomplicated; Z21 Asymptomatic human immunodeficiency virus [HIV] infection status; Z20.822 Contact with and (suspected) exposure to COVID-19; Z79.899 Other long term (current) drug therapy
CPT/HCPCS: 36415; 80053; 80061; 80307; 81001; 82248; 82607; 82746; 82947; 83036; 83690; 83735; 84439; 84443; 85025; 87086; 87088; 87186; 87635; 93005; 99285; J1630; J2060; S9485

== ENCOUNTER → 2023-08-02 02:11 | Outpatient (BNV) | payer OTHER, SELFPAY | PROVIDERS: Emergency Provider Emergency Medicine; Visit Provider Social Worker | DX: F15.20 Other stimulant dependence, uncomplicated (principal); F43.11 Post-traumatic stress disorder, acute; B20 Human immunodeficiency virus [HIV] disease | CPT/HCPCS: 99231; 99232; 99285 ==

== ENCOUNTER → 2023-08-04 16:56 | Outpatient (BNV) | payer OTHER, SELFPAY | PROVIDERS: Admitting Provider Clinical Nurse Specialist Psychiatric/Mental Health, Adult; Emergency Provider Emergency Medicine; Visit Provider Internal Medicine Cardiovascular Disease | DX: R41.82 Altered mental status, unspecified (principal); R45.851 Suicidal ideations | CPT/HCPCS: 93010 ==

== ENCOUNTER → 2024-08-20 00:10 | Outpatient (BNV) | payer OTHER, SELFPAY | PROVIDERS: Admitting Provider Psychiatry & Neurology Psychiatry; Emergency Provider Emergency Medicine; PCP Internal Medicine; Visit Provider Internal Medicine Cardiovascular Disease | DX: R00.0 Tachycardia, unspecified (principal) | CPT/HCPCS: 93010 ==

== ENCOUNTER → 2024-08-20 02:31 | Outpatient (BNV) | payer OTHER, SELFPAY | PROVIDERS: Emergency Provider Emergency Medicine; PCP Internal Medicine; Visit Provider Radiology Diagnostic Radiology | DX: N49.2 Inflammatory disorders of scrotum (principal) | CPT/HCPCS: 76870; 93975 ==

== ENCOUNTER → 2024-08-20 12:52 | Outpatient (BNV) | payer OTHER, SELFPAY | PROVIDERS: Admitting Provider Psychiatry & Neurology Psychiatry; Emergency Provider Emergency Medicine; PCP Internal Medicine; Visit Provider Psychiatry & Neurology Psychiatry | DX: F33.1 Major depressive disorder, recurrent, moderate (principal); F19.950 Other psychoactive substance use, unspecified with psychoactive substance-induced psychotic disorder with delusions; F43.10 Post-traumatic stress disorder, unspecified; F15.20 Other stimulant dependence, uncomplicated | CPT/HCPCS: 99231; 99232; 99233 ==

== ENCOUNTER 2024-11-24 06:41 | Emergency (ER) | payer OTHER, SELFPAY ==
[2024-11-24 06:43] VITALS: BP 149/86; PULSE 78; RESP 18; TEMP 36.5; O2SAT 99; BMI 26.6
--- NOTE | 2024-11-24 07:16 | ED_ITS ---
HPI - Psych General Chief Complaint: Psychiatric Symptoms Stated Complaint: doesnt feel safe/well Time Seen by Provider: 11/24/24 06:55 Source: patient and old records reviewed Mode of arrival: ambulatory Limitations: no limitations History of Present Illness ED Provider: RUDY DUNCAN Narrative: 34 yo male with PMH of depression, HIV, PTSD here with c/o significant life stressors with family and housing. He has SI. He denies injuries, overdose, self harm. He has been compliant with his medications. He has hx of self harm in the past. He has no other medical complaints at this time. MD complaint: suicidal ideation and feels depressed Onset (ago): week(s) Duration: getting worse History of same: Yes Relieving factors: none Exacerbating factors: other Context: significant life stressor Associated psychiatric symptoms: depression and suicidal ideation Associated symptoms: denies other symptoms Treatments prior to arrival: none If self harm: admits thoughts of self harm Related Data Home Medications ?Medication ?Instructions ?Recorded ?Confirmed aripiprazole 2 mg tablet 2 mg PO DAILY 11/24/24 11/24/24 clonidine HCl 0.1 mg tablet 0.1 mg PO BID PRN Anxiety 11/24/24 11/24/24 nicotine (polacrilex) 2 mg gum 2 mg PO Q2-3H PRN Smoking Cessation 11/24/24 11/24/24 zolpidem 5 mg tablet 5 mg PO BEDTIME PRN insomnia 11/24/24 11/24/24 Previous Rx's ?Medication ?Instructions ?Recorded bupropion HCl 150 mg 24 hr tablet, 150 mg PO DAILY 30 days #30 tabs 08/30/24 extended release dolutegravir 50 mg-lamivudine 300 1 tab PO DAILY 30 days #30 tabs 08/30/24 mg tablet (Dovato) hydroxyzine HCl 25 mg tablet 25 mg PO Q6H PRN mild Anxiety 30 08/30/24 days #90 tabs loratadine 10 mg tablet (Allergy 10 mg PO DAILY 30 days #30 tabs 08/30/24 Relief (loratadine)) sertraline 100 mg tablet 100 mg PO DAILY 30 days #30 tabs 08/30/24 Allergies Allergy/AdvReac Type Severity Reaction Status Date / Time trazodone AdvReac Mild priaprism Verified 11/24/24 06:44 Review of Systems 2 Review of Systems: Constitutional : No Fever, No Chills ENT/Mouth : No Ear Pain, No Nasal Congestion, No sore throat Eyes: No Eye Pain, No Swelling, No Redness Cardiovascular : No Chest Pain, No SOB Respiratory : No Cough, No Sputum, No Dyspnea Gastrointestinal : No Nausea, No Vomiting, No Diarrhea, No Hematochezia, No Melena Genitourinary : No Dysuria, No Urinary Frequency, No Hematuria Musculoskeletal : No Myalgias Skin : No Skin Lesions, No rash Neuro : No Weakness, No Numbness, No Paresthesias, No Dizziness, No Headache Psych : positive Anxiety, positive Depression, positive SI no HI All other systems reviewed and are negative PMFSH Past Medical History Attestation statement: The following information was validated with the patient. Source: old records reviewed Medical History MDD (major depressive disorder), recurrent episode, moderate Drug-induced psychotic disorder with delusions Syphilis Abscess of left arm HIV (human immunodeficiency virus infection) Methamphetamine addiction Post traumatic stress disorder (PTSD) Psychosis Surgical History No history of previous surgery Social History Social History Household Members: None Household Members Other:: service dog Housing: Apartment Do you presently have visiting nurse or other home services: No Alcohol intake: never Patient Tobacco Use Status: Never used Tobacco Smoked in Last 30 Days: No e-Cigarette/Vaping Use: Never Used Second Hand Smoke Exposure: No Use of substances other than those prescribed or required for medical reasons: Yes Substance Use Type: Other Substance Use Type Other:: patient stating stimulants unwilling to further elaborate at this time Substance Use Frequency: Occasionally Last Used Substance: Weeks (ago) Advance Directives: Yes Advance Directives on File: Yes Advance Directives Date on File: 05/27/22 Do you have a plan to hurt others: No Plan service: No Sexual orientation: Decline to Answer Physical Exam 2 Vital Signs: Vital Signs: Last Vital Signs Temp 97.7 F 11/24/24 06:43 Pulse 78 11/24/24 06:43 Resp 18 11/24/24 06:43 BP 149/86 H 11/24/24 06:43 Pulse Ox 99 11/24/24 06:43 O2 Del Method Room Air 11/24/24 06:43 BMI result Body Mass Index 26.6 Appearance: Alert. Oriented X3. No acute distress. Eyes: Pupils equal, round and reactive to light. ENT: Pharynx normal. Neck: Normal inspection. Neck supple. CVS: Pulses normal. Respiratory: No respiratory distress. Abdomen: atraumatic Skin: Skin warm and dry. Normal skin color. Normal skin turgor. Extremities: No lower extremity edema. Neuro: Oriented X 3. No motor deficit. No sensory deficit. CN2-12 intact Course Reevaluation(s) Reevaluation #1: The patient was signed out to me at change of shift. The patient had presented to the emergency department with symptoms of depression. He was medically cleared for evaluation by the care team. He has been seen by the care team. This felt to be appropriate for management at an [facility] respite facility. He will be discharged from the emergency room to go to the respite facility. A taxi ride will be arranged. We will therefore end physician observation as of 17:25 on 11/24/2024. --- Dr. Casimiro Weber Time: 17:26 Medications Administered Generic Name Dose Route Start Last Admin Trade Name Freq PRN Reason Stop Dose Admin Aripiprazole 2 mg 11/24/24 12:15 11/24/24 13:01 Aripiprazole 2 Mg Tablet PO 2 mg DAILY LUIS Administration Bupropion HCl 150 mg 11/24/24 12:15 11/24/24 13:01 Bupropion Hcl Xl 150 Mg Tab.Er.24h PO 150 mg DAILY LUIS Administration Dolutegravir Sodium 50 mg 11/24/24 12:30 11/24/24 13:01 Dolutegravir Sodium 50 Mg Tablet PO 50 mg DAILY LUIS Administration Lamivudine 300 mg 11/24/24 12:30 11/24/24 13:01 Lamivudine 150 Mg Tablet PO 300 mg DAILY LUIS Administration Loratadine 10 mg 11/24/24 12:15 11/24/24 13:01 Loratadine 10 Mg Tablet PO 10 mg DAILY LUIS Administration Sertraline HCl 100 mg 11/24/24 12:15 11/24/24 13:01 Sertraline Hcl 100 Mg Tablet PO 100 mg DAILY LUIS Administration Medical Decision Making Medical Decision Making MDM Narrative: 34 yo male with PMH of depression, HIV, PTSD here with c/o SI and depression related to sig life stressors and housing issues. At this time will obtain labs and CARE team consult. He has no medical complaints at this time Differential Diagnosis Differential Diagnoses: The differential diagnosis associated with the presentation includes depression, SI Admission/Observation Consideration of admission/observation: Escalation of care including admission/observation considered physician observation started at 739am pending CARE team Consult Healthcare Provider Management of the patient was discussed with: Behavioral Health Provider Lab Data [facility] Lab Attestation statement: I reviewed the patient's lab results. 11/24/24 07:38 11/24/24 07:38 Labs: Lab Results 11/24/24 Range/Units 07:38 WBC 7.0 (4.8-10.8) X10*3/uL RBC 4.49 L (4.60-5.80) X10*6/uL Hgb 13.5 L (14.0-18.0) g/dl Hct 40.7 L (42.0-52.0) % MCV 90.6 (80.0-98.0) fL MCH 30.1 (27.0-33.0) pg MCHC 33.2 (31.0-36.0) g/dl RDW 12.1 (11.0-16.0) % Plt Count 306 D (160-400) X10*3/uL MPV 8.8 L (9.4-12.4) fL Immature Gran % (Auto) 0.3 (0.0-0.4) % Neut % (Auto) 54.7 (45-73) % Lymph % (Auto) 28.0 (20-40) % [place] % (Auto) 11.4 H (2-11) % Eos % (Auto) 5.0 H (0-4) % Baso % (Auto) 0.6 (0-2) % Lymph # (Auto) 2.0 (1.2-4.9) X10*3/uL [place] # (Auto) 0.8 (0.1-1.2) X10*3/uL Eos # (Auto) 0.4 (0.0-0.4) X10*3/uL Baso # (Auto) 0.0 (0.0-0.2) X10*3/uL Abs Immat Gran (auto) 0.02 (0.00-0.03) X10*3/uL Absolute Neuts (auto) 3.9 (2.0-8.3) x10*3/uL Absolute Nucleated RBC 0.000 (0.0-0.012) X10*3/uL Nucleated RBC % (auto) 0.0 (0.0-0.2) /100WBC Sodium 139 (135-145) mmol/L Potassium 4.3 (3.3-5.1) mmol/L Chloride 105 (96-108) mmol/L Carbon Dioxide 27 (22-29) mmol/L Anion Gap 11 L (12-20) BUN 18 H (9-16) mg/dL Creatinine 0.74 (0.5-1.4) mg/dL Estim Creat Clear Calc 129.3 Estimated GFR > 60 Random Glucose 77 (60-115) mg/dL Calcium 9.6 (8.4-10.2) mg/dL Magnesium 1.8 (1.6-2.6) mg/dL Total Bilirubin 0.4 (0.0-1.0) mg/dL Direct Bilirubin 0.1 (0.0-0.5) mg/dL AST 18 (5-37) U/L ALT 20 (0-40) U/L Alkaline Phosphatase 80 (39-117) U/L Total Protein 7.8 (6.5-8.0) g/dL Albumin 4.6 (3.5-5.0) g/dL Urine Color Yellow Urine Appearance Clear Urine pH 6.0 (5.0-9.0) Ur Specific [place] 1.025 (1.005-1.025) Urine Protein Negative (Neg-Trace) mg/dL Urine Glucose (UA) Negative (Negative) mg/dL Urine Ketones Negative (Negative) mg/dL Urine Blood Negative (Negative) Urine Nitrite Negative (Negative) Ur Leukocyte Esterase Negative (Negative) Urine Opiates Screen Not Detected (Not Detect) Ur Buprenorphine Scrn Not Detected (Not Detect) ng/mL Ur Oxycodone Screen Not Detected (Not Detect) ng/mL Urine Methadone Screen Not Detected (Not Detect) ng/mL Urine Fentanyl Screen Not Detected (Not Detect) Ur Barbiturates Screen Not Detected (Not Detect) Ur Phencyclidine Scrn Not Detected (Not Detect) Ur Amphetamines Screen Not Detected (Not Detect) U Benzodiazepines Scrn Not Detected (Not Detect) Urine Cocaine Screen Not Detected (Not Detect) U Marijuana (THC) Screen POSITIVE H (Not Detect) Ethyl Alcohol < 10 mg/dL External Record Review External record reviewed: Outpatient record Social Determinants Patient?s care significantly limited by Social Determinants of Health including: Problems related to primary support group Discharge Plan Discharge Clinical Impression: Depression Qualifiers: Depression Type: unspecified Qualified Code(s): F32.A - Depression, unspecified Patient Disposition: Home, Self-Care Additional Instructions: You are being discharged from the emergency room to go to an [facility] Respite Facility. Please continue your regular medications. Follow-up with your regular providers. Return to the ER if worse. Prescriptions: No Action aripiprazole 2 mg tablet 2 mg PO DAILY nicotine (polacrilex) 2 mg gum 2 mg PO Q2-3H PRN (Reason: Smoking Cessation) zolpidem 5 mg tablet 5 mg PO BEDTIME PRN (Reason: insomnia) clonidine HCl 0.1 mg tablet 0.1 mg PO BID PRN (Reason: Anxiety) bupropion HCl 150 mg Tablet Extended Release 24 Hr 150 mg PO DAILY 30 Days Qty: 30 0RF hydroxyzine HCl 25 mg Tablet 25 mg PO Q6H PRN (Reason: mild Anxiety) 30 Days Qty: 90 0RF sertraline 100 mg Tablet 100 mg PO DAILY 30 Days Qty: 30 0RF loratadine [Allergy Relief (loratadine)] 10 mg tablet 10 mg PO DAILY 30 Days Qty: 30 0RF Dovato 50-300 mg tablet 1 tab PO DAILY 30 Days Qty: 30 0RF Interventions: Iron-Suicide Risk Severity Scale Last Done: 11/24/24 07:54 Print Language: Taiwanese
[2024-11-24 07:42] LABS: MANUAL DIFF FLAG NO
[2024-11-24 07:49] LABS: Appearance Urine Clear; Color Urine Yellow; Glucose Urine UA Negative (Negative); Leukocyte Esterase Urine Negative (Negative); Nitrite Urine Negative (Negative); Specific Gravity - Urine 1.025 (1.005-1.025); Urine Blood Negative (Negative); Urine Ketones Negative (Negative); Urine Protein Negative (Neg-Trace)
[2024-11-24 07:54] LABS: Amphetamine Screen Urine Not Detected (Not Detect); Barbiturates, Urine Not Detected (Not Detect); Benzodiazepines Screen Urine Not Detected (Not Detect); Buprenorphine Scr Not Detected (Not Detect); Cannabinoid Screen Urine POSITIVE (Not Detect); Cocaine Screen Urine Not Detected (Not Detect); Fentanyl, urine Not Detected (Not Detect); Methadone Screen, Urine Not Detected (Not Detect); Opiate Screen Urine Not Detected (Not Detect); Oxycodone Screen Urine Not Detected (Not Detect); Phencyclidine Screen Urine Not Detected (Not Detect)
[2024-11-24 07:56] LABS: Basophils Percent Auto 0.6 % (0-2); Eosinophils Absolute Auto 0.4 X10*3/uL (0.0-0.4); Hematocrit 40.7 % (42.0-52.0); Hemoglobin 13.5 g/dl (14.0-18.0); Imm Gran Abs Auto 0.02 X10*3/uL (0.00-0.03); Imm Gran Pct Auto 0.3 % (0.0-0.4); Mean Corpuscular HGB Conc 33.2 g/dl (31.0-36.0); Mean Corpuscular Hemoglobin 30.1 pg (27.0-33.0); Mean Corpuscular Volume 90.6 fL (80.0-98.0); Mean Platelet Volume 8.8 fL (9.4-12.4); Monocytes Absolute Auto 0.8 X10*3/uL (0.1-1.2); Monocytes Percent Auto 11.4 % (2-11); Neutrophils Absolute Auto 3.9 x10*3/uL (2.0-8.3); Neutrophils Percent Auto 54.7 % (45-73); Platelet Count 306 X10*3/uL (160-400); Red Blood Count 4.49 X10*6/uL (4.60-5.80); Red Cell Distribution Width 12.1 % (11.0-16.0)
[2024-11-24 08:03] LABS: Alanine Aminotransferase 20 U/L (0-40); Albumin Level 4.6 g/dL (3.5-5.0); Alkaline Phosphatase 80 U/L (39-117); Anion Gap 11 (12-20); Aspartate Amino Transferase 18 U/L (5-37); Bilirubin Direct 0.1 mg/dL (0.0-0.5); Bilirubin Total 0.4 mg/dL (0.0-1.0); Blood Urea Nitrogen 18 mg/dL (9-16); Calcium 9.6 mg/dL (8.4-10.2); Carbon Dioxide 27 mmol/L (22-29); Chloride 105 mmol/L (96-108); Creatinine Clr Calc Pharmacy 129.3; Estimated Glomerular Filt Rate > 60; Ethanol < 10 mg/dL; Glucose Random 77 mg/dL (60-115); Magnesium 1.8 mg/dL (1.6-2.6); Potassium 4.3 mmol/L (3.3-5.1); Sodium 139 mmol/L (135-145); Total Protein 7.8 g/dL (6.5-8.0)
--- OUTSIDE RECORDS SUMMARY | 2024-11-24 08:05 | XMS_ITS | Clinical Summary ---
Author Organization [facility] [employer] Address [address] [place] [address] Care Team Providers Care Senior Data Scientist Name Role Phone Unavailable Primary Care Provider Unavailabl e Social History Tobacco Use Types Packs/Day Years Used Date Smoking Tobacco: Never Assessed Sex and Gender Information Value Date Recorded Sex Assigned at Male 07/06/2022 10:53 AM EST Legal Sex Male 10:53 AM EST Gender Identity Male 07/06/2022 10:53 AM EST Sexual Orientation Lesbian or Baires 07/06/2022 10 :53 AM EST Plan of Treatment Health Maintenance Due Date Last Done Comments Depression Screening 1992 Alcohol/Substance Use Screening 2004 Tobacco Screening 2004 Family Planning (PISQ) 2007 DTaP/Tdap/Td Vaccines (1 - Tdap) 2011 Hepatitis B Vaccines (1 of 3 - 19+ 3-dose series) 2011 COVID-19 Vaccine ( - 2023-2 5 season) 2024 Influenza Vaccine (#1) 2024 Zoster Vaccines (1 of 2) 2042 RSV Patients and Pa tients Aged 60 years or older (1 - 1-dose 75+ series) 2067 HIB Vaccines Aged Out No longer eligi ble based on patient's age to complete this topic HPV Vaccines Aged Out No longer eligi ble based on patient's age to complete this topic Hepatitis A Vaccines Aged Out No long er eligible based on patient's age to complete this topic IPV Vaccines Aged Out No longer eligi ble based on patient's age to complete this topic Meningococcal Vaccine Aged Out No bernice christin eligible based on patient's age to complete this topic Pneumococcal Vaccine: Pediat rics (0 to 5 Years) and At-Risk Patients (6 to 49) Years) Aged Out No longer eligible b ased on patient's age to complete this topic RSV under 20 months Aged Out No longe r eligible based on patient's age to complete this topic Rotavirus Vaccines Aged Out No longer eligible based on patient's age to complete this topic
--- OUTSIDE RECORDS SUMMARY | 2024-11-24 08:05 | XMS_ITS | Clinical Summary ---
Author Organization [facility] Address [address] [place] [id number] Care Team Providers Care Computer Systems Security Administrator Name Role Phone Md, Unknown Primary Care Provider Unavailabl e Allergies No known active allergies Social History Tobacco Use Types Packs/Day Years Used Date Smoking Tobacco: Never Assessed Sex and Gender Information Value Date Recorded Sex Assigned at Not on file Legal Sex Male 3:57 AM EDT Gender Identity Not on file Sexual Orientation Not on file Last Filed Vital Signs Vital Sign Reading Time Taken Comments Blood Pressure 156/84 03/17/2022 4:19 AM EDT Pulse 100 03/17/2022 6:13 AM EDT Temperature 37 ??C (98.6 ??F) 03/17/2022 4:19 AM EDT Respiratory Rate 18 03/17/2022 4:19 AM EDT Oxygen Saturation 100% 03/17/2022 4:19 AM EDT Inhaled Oxygen Concentration - - Weight 72.6 kg (160 lb) 03/17/2022 4:19 AM EDT Height 170.2 cm (5' 7 ) 03/17/2022 4:19 AM EDT Body Mass Index 25.06 03/17/2022 4:19 AM EDT Plan of Treatment Health Maintenance Due Date Last Done Comments Hepatitis C Screening 1992 Annual Physical Exam 2010 Tdap and Td Vaccines Adult 07/05/2023 07/05/2013 COVID-19 Vaccine ( season) 2024 04/04/2021, 11/10/2020 Influenza Vaccine (Season Ended) 2025 09/03/2021, 04/24/2019, 05/09/2017, Additional history exists HPV Vaccines Completed 04/17/2014, 0508/2013, 09/21/2013 Hepatitis A Vaccines Aged Out 04/17/2014, 08/31/19 14 No longer eligible based on patient's age to complete this topic Pneumococcal Vaccine: Peds (0 to 5 Yrs) and At-Risk Pts (6 to 49 Yrs) Aged Out 05/09/2017, 05/24/2015 No longer eligibl e based on patient's age to complete this topic Meningococcal Vaccine Aged Out 10/13/2018, 017 No longer eligible based on patient's age to complete this topic HIB Vaccines Aged Out No longer eligi ble based on patient's age to complete this topic IPV Vaccines Aged Out No longer eligi ble based on patient's age to complete this topic RSV <20 Months Aged Out No longer argelia gible based on patient's age to complete this topic Insurance MEDICAID OUT-STATE Care Teams Computer Systems Security Administrator Relationship Specialty Start Date End Date , Unknown 1 Dont Change PCP - General 03/17/22
--- OUTSIDE RECORDS SUMMARY | 2024-11-24 08:05 | XMS_ITS ---
Author Name [facility] Organization Unknown Encounters Encounter Type Encounter Reason Primary Diagnosis Location Date Emergency Other stimulant abuse, uncomplicated [facility] 03/17/2022 Care Team Organization Name Specialty Phone Email Start Date End Da te [facility] 03/17/202203/02 [facility] 03/17/2022
--- OUTSIDE RECORDS SUMMARY | 2024-11-24 08:05 | XMS_ITS | Clinical Summary ---
Author Organization [facility] Address [address] [place] [address] Phone Care Team Providers Care [employer] Name Role Phone Physician, Pcp Unknown Primary Care Provider Madeleine vailable Allergies Active Allergy Reactions Criticality Noted Date Comments Trazodone 08/08/2024 Other Reaction(s): Priapism Social History Tobacco Use Types Packs/Day Years Used Date Smoking Tobacco: Every Day Cigarettes Smokeless Tobacco: Never Tobacco Cessation:Ready to Q uit: Not Asked; Counseling Given: Not Answered Sex and Gender Information Value Date Recorded Sex Assigned at Not on file Legal Sex Male 1:32 AM EST Gender Identity Not on file Sexual Orientation Not on file Obstetrics History Last Filed Vital Signs Vital Sign Reading Time Taken Comments Blood Pressure 189/98 08/08/2024 4:51 AM EST pt kept moving arm Pulse 102 08/08/2024 4:51 AM EST Temperature 36.9 ??C (98.4 ??F) 08/08/2024 4 :51 AM EST Respiratory Rate 18 08/08/2024 4:51 AM EST Oxygen Saturation 100% 08/08/2024 4:5 1 AM EST Inhaled Oxygen Concentration - - Weight 68 kg (150 lb) 08/08/2024 4:51 AM EST Height 167.6 cm (5' 6 ) 08/08/2024 4:51 AM EST Body Mass Index 24.21 08/08/2024 4:51 AM EST Plan of Treatment Health Maintenance Due Date Last Done Comments Hepatitis B Vaccines (1 of 3 - 19+ 3-dose series) 2011 Cholesterol Screening (Lipid Panel) 07/05/2022 Depression Screening 07/05/2022 HIV Screening 07/05/2022 Hepatitis C Screening 07/05/2022 Social Influencers of Health Screening 07/05/2022 COVID-19 Vaccine ( season) 2024 09/03/2021, 04/04/2021, 11/10/2020 Influenza Vaccine (Season Ended) 2025 09/03/2021, 04/24/2019, 05/09/2017, Additional history exists DTaP,Tdap,and Td Vaccines (4 - Td or Tdap) 06/22/2034 06/22/2024, 05/24/2015, 07/05/2013 Pneumococcal Vaccine: Pediatrics (0 to 5 Years) and At-Risk Patients (6 to 64 Years) (3 of 3 - PCV20 or PCV21) 2042 05/09/2017, 05/24/2015 HPV Vaccines Completed 04/17/2014, 08/2013, 09/21/2013 Hepatitis A Vaccines Aged Out 04/17/2014, 08/31/19 14 No longer eligible based on patient's age to complete this topic Meningococcal ACWY Vaccine Aged Out 10/13/2018, No longer eligible based on patient's age to complete this topic HIB Vaccines Aged Out No longer eligi ble based on patient's age to complete this topic IPV Vaccines Aged Out No longer eligi ble based on patient's age to complete this topic MMR Vaccines Aged Out No longer eligi ble based on patient's age to complete this topic Meningococcal B Vaccine Aged Out No l onger eligible based on patient's age to complete this topic RSV Immunization Patients Under 20 months Aged Out No longer eligible based on patient's age to complete this topic Varicella Vaccines Aged Out No longer eligible based on patient's age to complete this topic Insurance [facility] [address] [place] [address] Care Teams [employer] Relationship Specialty Start Date End Date Physician, Pcp Unknown PCP - General 08/08/24
--- NOTE | 2024-11-24 11:01 | MHC.CARE ---
[facility] referral faxed a 1045am and confirmed receipt at 11am
--- NOTE | 2024-11-24 12:14 | PC.NURSE ---
med rec completed using medications patient brought to facility with him, locked back in locker 8
--- NOTE | 2024-11-24 12:20 | PHA.MEDREC ---
Pharmacy Consult ? Medication Reconciliation Pharmacy has completed the medication reconciliation. Reviewed med rec done by nursing via RX bottles, matches claim history
[2024-11-24] MEDS: lamiVUDine 150 MG TABLET 300 MG PO (13:01)
[2024-11-24] MEDS: buPROPion HCl XL 150 MG TAB.ER.24H PO (13:01)
[2024-11-24] MEDS: ARIPiprazole 2 MG TABLET PO (13:01)
[2024-11-24] MEDS: Sertraline HCL 100 MG TABLET PO (13:01)
[2024-11-24] MEDS: Loratadine 10 MG TABLET PO (13:01)
[2024-11-24] MEDS: Dolutegravir Sodium 50 MG TABLET PO (13:01)
--- NOTE | 2024-11-24 15:16 | MHC.CARE ---
Pt accepted to [facility] for 6pm.
== END 2024-11-24 17:45 | disposition home or self-care (01) ==
PROVIDERS: Emergency Medicine; Emergency Provider Emergency Medicine
DX: F32.A Depression, unspecified (principal); R45.851 Suicidal ideations; B20 Human immunodeficiency virus [HIV] disease; F43.10 Post-traumatic stress disorder, unspecified; F14.10 Cocaine abuse, uncomplicated; F15.20 Other stimulant dependence, uncomplicated; Z79.899 Other long term (current) drug therapy
CPT/HCPCS: 36415; 80048; 80076; 80307; 81003; 83735; 85025; 99284; S9485

== ENCOUNTER 2024-12-06 16:23 | Emergency (ER) | payer OTHER, SELFPAY ==
[2024-12-06 16:30] VITALS: BP 177/123; PULSE 113; O2SAT 98
[2024-12-06 16:41] VITALS: BP 188/103; PULSE 18; RESP 18; TEMP 36.9; O2SAT 98; BMI 26.6
--- NOTE | 2024-12-06 16:50 | ED.GENADULT ---
HPI - General Adult General Chief complaint: General Medical Stated complaint: medical clearance, used meth this morning Time Seen by Provider: 12/06/24 16:49 Source: patient and EMS Mode of arrival: EMS Limitations: no limitations History of Present Illness ED Provider: Stephie Sharma PA-C HPI narrative: Patient is a 34 year old assigned male at with a history of MDD, HIV, cocaine use disorder, methamphetamine use disorder, and PTSD presenting to the emergency department today with increased anxiety and needing medical clearance to attending [facility] respite. Patient states that he last used methamphetamine late last night / early this morning. Patient states that he went to [facility] respite and they told him he had to come to the ER to be cleared first because his blood pressure is too high. Patient states that he does feel anxious. Patient denies any dizziness, lightheadedness, abdominal pain, nausea, vomiting, fever, chills, blurry vision, double vision, loss of vision, chest pain, difficulty breathing, shortness of breath, back pain, night sweats, pain with urination, increased urinary frequency, increased urinary urgency, blood in his urine or stool, syncope or a near syncopal episode, recent trauma or falls, bowel incontinence, bladder incontinence, or any other complaints at this time. Related Data Home Medications ?Medication ?Instructions ?Recorded ?Confirmed aripiprazole 2 mg tablet 2 mg PO DAILY 11/24/24 11/24/24 clonidine HCl 0.1 mg tablet 0.1 mg PO BID PRN Anxiety 11/24/24 11/24/24 nicotine (polacrilex) 2 mg gum 2 mg PO Q2-3H PRN Smoking Cessation 11/24/24 11/24/24 zolpidem 5 mg tablet 5 mg PO BEDTIME PRN insomnia 11/24/24 11/24/24 Previous Rx's ?Medication ?Instructions ?Recorded bupropion HCl 150 mg 24 hr tablet, 150 mg PO DAILY 30 days #30 tabs 08/30/24 extended release dolutegravir 50 mg-lamivudine 300 1 tab PO DAILY 30 days #30 tabs 08/30/24 mg tablet (Dovato) hydroxyzine HCl 25 mg tablet 25 mg PO Q6H PRN mild Anxiety 30 08/30/24 days #90 tabs loratadine 10 mg tablet (Allergy 10 mg PO DAILY 30 days #30 tabs 08/30/24 Relief (loratadine)) sertraline 100 mg tablet 100 mg PO DAILY 30 days #30 tabs 08/30/24 amlodipine 5 mg tablet 5 mg PO DAILY #30 tabs 12/06/24 Allergies Allergy/AdvReac Type Severity Reaction Status Date / Time trazodone AdvReac Mild priaprism Verified 12/06/24 16:50 Review of Systems Constitutional: Constitutional: Reports no additional constitutional complaints, Denies chills, Denies fever(s) and Denies night sweats Eyes: Eyes: Reports no additional eye complaints, Denies blurry vision, Denies change in vision, Denies diplopia, Denies eye discharge, Denies loss of vision and Denies eye pain ENT: Denies dizziness Cardiovascular: Cardiovascular: Reports no additional cardiovascular complaints, Denies chest pain, Denies lightheadedness, Denies Loss of Consciousness and Denies dyspnea Respiratory: Respiratory: Reports no additional respiratory complaints and Denies dyspnea Gastrointestinal: Gastrointestinal: Reports no additional gastrointestinal complaints, Denies abdominal pain, Denies melena, Denies hematochezia, Denies change in bowel habits and Denies change in stool character Genitourinary: Genitourinary: Reports no additional male genitourinary complaints, Denies hematuria, Denies oliguria, Denies difficulty urinating, Denies dysuria, Denies urinary frequency, Denies urinary hesitancy, Denies urinary incontinence and Denies urinary urgency Musculoskeletal: Musculoskeletal: Reports no additional musculoskeletal complaints, Denies numbness and Denies tingling Neurologic: Denies dizziness, Denies loss of vision, Denies numbness and Denies tingling Psychiatric: Psychiatric: Reports anxiety, Denies homicidal ideation and Denies suicidal ideation Endocrine: Endocrine: Reports no additional endocrine complaints Hematologic/Lymphatic: Hematologic/Lymphatic: Reports no additional hematologic/lymphatic complaints Allergic/Immunologic: Allergic/Immunologic: Reports no additional allergic/immunologic complaints PMFSH Past Medical History Attestation statement: The following information was validated with the patient. Source: old records reviewed and nursing notes reviewed Medical History MDD (major depressive disorder), recurrent episode, moderate Drug-induced psychotic disorder with delusions Syphilis Abscess of left arm HIV (human immunodeficiency virus infection) Methamphetamine addiction Post traumatic stress disorder (PTSD) Psychosis Surgical History No history of previous surgery Social History Social History Household Members: None Household Members Other:: service dog Housing: Apartment Do you presently have visiting nurse or other home services: No Alcohol intake: never Patient Tobacco Use Status: Never used Tobacco Smoked in Last 30 Days: No e-Cigarette/Vaping Use: Never Used Second Hand Smoke Exposure: No Use of substances other than those prescribed or required for medical reasons: No Substance Use Type: Other Advance Directives: Yes Advance Directives on File: Yes Advance Directives Date on File: 05/27/22 Do you have a plan to hurt others: No Plan service: No Sexual orientation: Decline to Answer Physical Exam ED Vital Signs: Vital Signs - 24 hr 12/06/24 16:41 12/06/24 18:00 12/06/24 18:59 Temperature 98.4 F 96.5 F L Pulse Rate 18 L 109 H 75 Respiratory Rate 18 16 20 Blood Pressure 188/103 H 180/128 H 171/110 H Pulse Oximetry 98 96 98 Oxygen Delivery Method Room Air Room Air Room Air 12/06/24 20:03 Temperature Pulse Rate 85 Respiratory Rate 17 Blood Pressure 161/122 H Pulse Oximetry 98 Oxygen Delivery Method Room Air BMI result Body Mass Index 26.6 Const General: cooperative, no acute distress, alert and awake Nutritional Appearance: well nourished Orientation/consciousness: patient oriented x3 HENMT Head: Yes normal to inspection and Yes atraumatic Ears: hearing grossly normal bilaterally and external ears normal General nose exam: Normal external nose present, no nasal discharge noted and no epistaxis Face and sinus: Yes normal facial exam, No abrasion and No laceration Mouth: Normal oral and palatal mucosa present, no drooling and no muffled voice Eyes General: appearance normal, both eyes and all related structures Periorbital: periorbital findings normal Eyelids: Yes eyelids normal Conjunctivae: conjunctivae normal Pupils: Equal, round and reactive pupils present EOM: EOMs intact bilaterally Neck Neck: Yes normal visual inspection, Yes full ROM and Yes no lymphadenopathy Resp Effort & Inspection: normal respiratory effort and able to speak in complete sentences Neuro General: patient oriented x3, moves all extremities and CN's II-XI intact bilaterally Cranial nerves: Yes Equal, round and reactive pupils present Cognition (Neuro): normal cognition Extrem General: Yes normal to inspection, Yes full ROM and Yes capillary refill normal Psych Appearance: grossly normal Mental Status: mental status grossly normal Affect: normal affect Attitude: cooperative Thought process: Normal thought process present Thought content: Normal thought content present Insight: Good insight present (Psych) Course Reevaluation(s) Reevaluation #1: patient's workup largely unremarkable, he was hypotensive which improved with amlodipine but he remains slightly hypertensive. The patient was started on amlodipine daily and will be discharged to follow up with outpatient providers Time: 20:50 Medications Administered Discontinued Medications Generic Name Dose Route Start Last Admin Trade Name Freq PRN Reason Stop Dose Admin Amlodipine Besylate 5 mg 12/06/24 19:01 12/06/24 19:04 Amlodipine Besylate 5 Mg Tablet PO 12/06/24 19:02 5 mg ONCE ONE Administration Protocol Sodium Chloride 1,000 mls @ 999 mls/hr 12/06/24 18:30 12/06/24 19:38 Ns IV 12/06/24 19:30 Infused .Q1H1M LUIS Infusion Lorazepam 2 mg 12/06/24 16:56 12/06/24 17:21 Lorazepam 1 Mg Tablet PO 12/06/24 16:57 2 mg ONCE ONE Administration Medical Decision Making Medical Decision Making [facility] Narrative: Patient is a 34 year old assigned male at with a history of MDD, HIV, cocaine use disorder, methamphetamine use disorder, and PTSD presenting to the emergency department today with increased anxiety and needing medical clearance to attending [facility] respite. Patient's physical exam showed a hypertensive individual but was otherwise unremarkable. Patient's blood work was unremarkable with a total CK and troponin pending still. Patient's EKG showed sinus tachycardia. I explained my physical exam findings as well as all test results to the patient. I answered all questions asked by the patient. Patient signed out to STACIE Martino pending trop, total CK, and HTN management. Differential Diagnosis Differential Diagnoses: The differential diagnosis associated with the presentation includes HTN Medical clearance Meth use Admission/Observation Consideration of admission/observation: Escalation of care including admission/observation considered Patient's disposition will be determined after troponin + total CK results and HTN management. Lab Data [facility] Lab Attestation statement: I reviewed the patient's lab results. My interpretation of these results are in the MDM Rationale portion of this note. 12/06/24 17:39 12/06/24 17:39 Labs: Lab Results 12/06/24 12/06/24 Range/Units 17:39 18:41 WBC 12.2 H (4.8-10.8) X10*3/uL RBC 4.88 (4.60-5.80) X10*6/uL Hgb 15.2 (14.0-18.0) g/dl Hct 42.8 (42.0-52.0) % MCV 87.7 (80.0-98.0) fL MCH 31.1 (27.0-33.0) pg MCHC 35.5 (31.0-36.0) g/dl RDW 12.2 (11.0-16.0) % Plt Count 382 (160-400) X10*3/uL MPV 8.6 L (9.4-12.4) fL Immature Gran % (Auto) 0.3 (0.0-0.4) % Neut % (Auto) 70.3 (45-73) % Lymph % (Auto) 21.2 (20-40) % [place] % (Auto) 7.5 (2-11) % Eos % (Auto) 0.4 (0-4) % Baso % (Auto) 0.3 (0-2) % Lymph # (Auto) 2.6 (1.2-4.9) X10*3/uL [place] # (Auto) 0.9 (0.1-1.2) X10*3/uL Eos # (Auto) 0.1 (0.0-0.4) X10*3/uL Baso # (Auto) 0.0 (0.0-0.2) X10*3/uL Abs Immat Gran (auto) 0.04 H (0.00-0.03) X10*3/uL Absolute Neuts (auto) 8.6 H (2.0-8.3) x10*3/uL Absolute Nucleated RBC 0.000 (0.0-0.012) X10*3/uL Nucleated RBC % (auto) 0.0 (0.0-0.2) /100WBC Sodium 137 (135-145) mmol/L Potassium 3.5 (3.3-5.1) mmol/L Chloride 99 (96-108) mmol/L Carbon Dioxide 25 (22-29) mmol/L Anion Gap 17 (12-20) BUN 17 H (9-16) mg/dL Creatinine 0.85 (0.5-1.4) mg/dL Estim Creat Clear Calc 112.5 Estimated GFR > 60 Random Glucose 109 (60-115) mg/dL Calcium 10.4 H D (8.4-10.2) mg/dL Magnesium 2.1 (1.6-2.6) mg/dL Total Bilirubin 0.4 (0.0-1.0) mg/dL AST 31 (5-37) U/L ALT 29 (0-40) U/L Alkaline Phosphatase 110 (39-117) U/L Total Creatine Kinase 327 H (38-174) U/L Troponin I High Sens 8.7 (<3.5-35.0) ng/L Total Protein 9.1 H (6.5-8.0) g/dL Albumin 5.2 H (3.5-5.0) g/dL Urine Opiates Screen Not Detected (Not Detect) Ur Buprenorphine Scrn Not Detected (Not Detect) ng/mL Ur Oxycodone Screen Not Detected (Not Detect) ng/mL Urine Methadone Screen Not Detected (Not Detect) ng/mL Urine Fentanyl Screen Not Detected (Not Detect) Ur Barbiturates Screen Not Detected (Not Detect) Ur Phencyclidine Scrn Not Detected (Not Detect) Ur Amphetamines Screen POSITIVE H (Not Detect) U Benzodiazepines Scrn Not Detected (Not Detect) Urine Cocaine Screen Not Detected (Not Detect) U Marijuana (THC) Screen POSITIVE H (Not Detect) Influenza Type A (PCR) NEGATIVE (Negative) Influenza Type B (PCR) NEGATIVE (Negative) RSV RNA Qual (PCR) NEGATIVE (Negative) SARS-CoV-2 RNA (RT-PCR) NEGATIVE (Negative) Independent Interpretation I performed an independent interpretation of an: EKG Interpretation: I independently interpreted this EKG and am in agreement with the below findings: Vent. Rate: 103 BPM Atrial Rate: 103 BPM P-R Int: 128 ms QRS Dur: 94 ms QT Int: 352 ms P-R-T Axes: 57 -21 28 degrees QTcB Int: 461 ms Sinus tachycardia Otherwise normal ECG When compared with ECG of 20-Aug-2024 00:10, No significant change was found DD/ [id number] Independent Historian Clinical information obtained from an independent historian. History obtained from or confirmed by: EMS (EMS provided additional history and confirmed the history provided by the patient.) Discharge Plan Discharge Clinical Impression: Methamphetamine addiction, Elevated blood pressure reading Patient Disposition: Home, Self-Care Instructions: Methamphetamine Use Disorder (ED), Hypertension (ED) Additional Instructions: your workup was reassuring today. However your blood pressure was elevated. This could be due to the substance abuse I recommend that you start amlodipine daily for 1 month. He is very important that you follow-up with your primary care doctor. return for new or worsening symptoms Prescriptions: New amlodipine 5 mg tablet 5 mg PO DAILY Qty: 30 0RF No Action aripiprazole 2 mg tablet 2 mg PO DAILY nicotine (polacrilex) 2 mg gum 2 mg PO Q2-3H PRN (Reason: Smoking Cessation) zolpidem 5 mg tablet 5 mg PO BEDTIME PRN (Reason: insomnia) clonidine HCl 0.1 mg tablet 0.1 mg PO BID PRN (Reason: Anxiety) bupropion HCl 150 mg Tablet Extended Release 24 Hr 150 mg PO DAILY 30 Days Qty: 30 0RF hydroxyzine HCl 25 mg Tablet 25 mg PO Q6H PRN (Reason: mild Anxiety) 30 Days Qty: 90 0RF sertraline 100 mg Tablet 100 mg PO DAILY 30 Days Qty: 30 0RF loratadine [Allergy Relief (loratadine)] 10 mg tablet 10 mg PO DAILY 30 Days Qty: 30 0RF Dovato 50-300 mg tablet 1 tab PO DAILY 30 Days Qty: 30 0RF Print Language: Serbian
--- NOTE | 2024-12-06 16:50 | PC.NURSE ---
patient denies any complaints. Pt denies CP or headache. Pt AAXO4 speaking clear full sentences. calm and cooperative and pleasant. 20g IV from EMS had dislodged during diaphorteic episode with EMS. NO IV present at this time.
--- NOTE | 2024-12-06 16:51 | ECG_ITS ---
Test Reason : chest pain Blood Pressure : */* mmHG Vent. Rate : 103 BPM Atrial Rate : 103 BPM P-R Int : 128 ms QRS Dur : 94 ms QT Int : 352 ms P-R-T Axes : 57 -21 28 degrees QTcB Int : 461 ms Sinus tachycardia Otherwise normal ECG When compared with ECG of 20-Aug-2024 00:10, No significant change was found Referred By: Stephie Sharma Electronically Signed By: MEIR ELLER
[2024-12-06] MEDS: LORazepam 1 MG TABLET 2 MG PO (17:21)
[2024-12-06 17:44] LABS: MANUAL DIFF FLAG NO
[2024-12-06 18:00] VITALS: BP 180/128; PULSE 109; RESP 16; TEMP 35.8; O2SAT 96
[2024-12-06 18:00] LABS: Alanine Aminotransferase 29 U/L (0-40); Albumin Level 5.2 g/dL (3.5-5.0); Alkaline Phosphatase 110 U/L (39-117); Anion Gap 17 (12-20); Aspartate Amino Transferase 31 U/L (5-37); Bilirubin Total 0.4 mg/dL (0.0-1.0); Blood Urea Nitrogen 17 mg/dL (9-16); Calcium 10.4 mg/dL (8.4-10.2); Carbon Dioxide 25 mmol/L (22-29); Chloride 99 mmol/L (96-108); Creatinine Clr Calc Pharmacy 112.5; Estimated Glomerular Filt Rate > 60; Glucose Random 109 mg/dL (60-115); Magnesium 2.1 mg/dL (1.6-2.6); Potassium 3.5 mmol/L (3.3-5.1); Sodium 137 mmol/L (135-145); Total Protein 9.1 g/dL (6.5-8.0)
[2024-12-06 18:09] LABS: Basophils Percent Auto 0.3 % (0-2); Eosinophils Absolute Auto 0.1 X10*3/uL (0.0-0.4); Eosinophils Percent Auto 0.4 % (0-4); Hematocrit 42.8 % (42.0-52.0); Hemoglobin 15.2 g/dl (14.0-18.0); Imm Gran Abs Auto 0.04 X10*3/uL (0.00-0.03); Imm Gran Pct Auto 0.3 % (0.0-0.4); Lymphocytes Absolute Auto 2.6 X10*3/uL (1.2-4.9); Lymphocytes Percent Auto 21.2 % (20-40); Mean Corpuscular HGB Conc 35.5 g/dl (31.0-36.0); Mean Corpuscular Hemoglobin 31.1 pg (27.0-33.0); Mean Corpuscular Volume 87.7 fL (80.0-98.0); Mean Platelet Volume 8.6 fL (9.4-12.4); Monocytes Absolute Auto 0.9 X10*3/uL (0.1-1.2); Monocytes Percent Auto 7.5 % (2-11); Neutrophils Absolute Auto 8.6 x10*3/uL (2.0-8.3); Neutrophils Percent Auto 70.3 % (45-73); Platelet Count 382 X10*3/uL (160-400); Red Blood Count 4.88 X10*6/uL (4.60-5.80); Red Cell Distribution Width 12.2 % (11.0-16.0); White Blood Count 12.2 X10*3/uL (4.8-10.8)
[2024-12-06 18:21] LABS: Influenza A PCR NEGATIVE (Negative); Influenza B PCR NEGATIVE (Negative); Resp Syncy Virus RNA Qual PCR NEGATIVE (Negative); SARS COV2 PCR INHOUSE NEGATIVE (Negative)
[2024-12-06] MEDS: 0.9 % Sodium Chloride 1,000 ML 999 ML IV (18:44)
[2024-12-06 18:50] LABS: Troponin-I High Sensitivity 8.7 ng/L (<3.5-35.0)
[2024-12-06 18:56] LABS: Amphetamine Screen Urine POSITIVE (Not Detect); Barbiturates, Urine Not Detected (Not Detect); Benzodiazepines Screen Urine Not Detected (Not Detect); Buprenorphine Scr Not Detected (Not Detect); Cannabinoid Screen Urine POSITIVE (Not Detect); Cocaine Screen Urine Not Detected (Not Detect); Fentanyl, urine Not Detected (Not Detect); Methadone Screen, Urine Not Detected (Not Detect); Opiate Screen Urine Not Detected (Not Detect); Oxycodone Screen Urine Not Detected (Not Detect); Phencyclidine Screen Urine Not Detected (Not Detect)
[2024-12-06 18:59] VITALS: BP 171/110; PULSE 75; RESP 20; O2SAT 98
[2024-12-06] MEDS: amLODIPine Besylate 5 MG TABLET PO (19:04)
--- NOTE | 2024-12-06 19:10 | PC.NURSE ---
provider aware of pt high blood pressure, pt medicated per mar, tolerated whole well with water.
--- NOTE | 2024-12-06 19:20 | PC.NURSE ---
pt ambulatory to bathroom with steady gait, offers no complaints at this time.
[2024-12-06 20:03] VITALS: BP 161/122; PULSE 85; RESP 17; O2SAT 98
--- NOTE | 2024-12-06 20:49 | PC.NURSE ---
provider aware of bp, plan to dc pt to [facility], pt reports friend will provide transport to [facility].
--- NOTE | 2024-12-06 20:56 | PC.NURSE ---
attempted to reach [facility] x3, no answer at this time. attempted to reach supervisor microwave number provided by pt and no answer x3. pt attempting to reach number at this time.
[2024-12-06 21:07] VITALS: BP 158/100; PULSE 91; RESP 18; TEMP 37; O2SAT 99
--- NOTE | 2024-12-06 21:07 | PC.NURSE ---
pt instructed to give [facility] ed phone number to reach out if any questions rise.
--- NOTE | 2024-12-06 21:08 | PC.NURSE ---
pt belongings found in closet, sheet noted to not be completed with pt name and who placed belongings. this rn gave belongings to pt and confirmed that all belongings were his.
== END 2024-12-06 21:09 | disposition home or self-care (01) ==
PROVIDERS: Physician Assistant Medical; Emergency Provider Emergency Medicine; PCP Internal Medicine
DX: F15.288 Other stimulant dependence with other stimulant-induced disorder (principal); R07.89 Other chest pain; R00.0 Tachycardia, unspecified; Z51.81 Encounter for therapeutic drug level monitoring; Z79.899 Other long term (current) drug therapy; Z03.818 Encounter for observation for suspected exposure to other biological agents ruled out; Z71.51 Drug abuse counseling and surveillance of drug abuser
CPT/HCPCS: 0241U; 80053; 80307; 82550; 83735; 84484; 85025; 93005; 96360; 99284; 99285

== ENCOUNTER → 2024-12-06 16:51 | Outpatient (BNV) | payer OTHER, SELFPAY | PROVIDERS: Emergency Provider Emergency Medicine; PCP Internal Medicine; Visit Provider Internal Medicine | DX: R00.0 Tachycardia, unspecified (principal) | CPT/HCPCS: 93010 ==

== ENCOUNTER 2024-12-22 13:14 | Inpatient (IN) | payer OTHER, SELFPAY ==
[2024-12-22] VITALS (11 sets, daily range): BP systolic 103–143; BP diastolic 65–88; PULSE 82–117; RESP 16–24; TEMP 37.1–39.6; O2SAT 95–100; BMI 25.5
--- NOTE | ~2024-12-22 | CT_ITS ---
CLINICAL HISTORY: sepsis, unclear source. IVDU. L flank pain. Diarrh CT chest, abdomen and pelvis with IV contrast. COMPARISON: CT abdomen and pelvis dated 05/22/22 at 18:48 EDT FINDINGS: Visualized thyroid is unremarkable. No supraclavicular or axillary lymphadenopathy. Ascending aorta and main pulmonary artery are normal in caliber. No pericardial effusion. Normal esophagus. No mediastinal or hilar lymphadenopathy. No pleural effusion. No consolidation. Trachea and central airways are clear. No significant bronchial wall thickening. No bronchiectasis. No focal hepatic lesion. Normal gallbladder. Normal spleen. Normal pancreas. Normal adrenal glands. Symmetric renal enhancement. No hydronephrosis. Tip of the appendix is dilated measuring up to 9 mm (best seen on coronal series 15, image 42). No periappendiceal inflammatory changes. Mild thickening of the mucosa of the descending and sigmoid colon. Multiple fluid-filled loops of large bowel. Multiple normal-sized mesenteric and retroperitoneal lymph nodes. Normal abdominal aorta. Normal appearance of the urinary bladder. Prostate calcifications present. No inguinal lymphadenopathy. Mild lower lumbar spondylosis. No acute fracture or suspicious bone lesion. IMPRESSION: 1. Fluid-filled large bowel with thickening of the mucosa of the distal descending and sigmoid colon consistent with an infectious or inflammatory colitis. No bowel obstruction. 2. Dilatation of the tip of the appendix measuring up to 9 mm without surrounding inflammatory changes. Given findings of colitis, this is felt unlikely to represent an early/mild tip appendicitis. However recommend correlation clinically. 3. Multiple normal-sized mesenteric and retroperitoneal lymph nodes, likely reactive. This document has been electronically signed by: Chava Mckeon MD on 12/22/2024 17:03:22
--- NOTE | ~2024-12-22 | XR_ITS ---
EXAMINATION: XR CHEST CLINICAL INFORMATION: fever COMPARISON: May 22, 2022. TECHNIQUE: Frontal view of the chest was obtained. FINDINGS: No consolidation, pleural effusion or pneumothorax. No hyperinflation. Scapula overlaps the upper thorax bilaterally. Cardiomediastinal silhouette size is normal. S-shaped curvature of the mid thoracic spine. XR/XR chest 1V IMPRESSION: No acute airspace disease. Electronically signed by: Matt Valdez MD 12/22/2024 02:14 PM EDT
--- NOTE | ~2024-12-22 | CT_ITS ---
CLINICAL HISTORY: sepsis, unclear source. IVDU. L flank pain. Diarrh CHEST IMAGES UNDER ABD/PEL EX AM - UNABLE TO MOVE CT chest with IV contrast. COMPARISON: None FINDINGS: Visualized thyroid is unremarkable. No supraclavicular or axillary lymphadenopathy. Ascending aorta and main pulmonary artery are normal in caliber. No pericardial effusion. Normal esophagus. No mediastinal or hilar lymphadenopathy. No pleural effusion. No consolidation. Trachea and central airways are clear. No significant bronchial wall thickening. No bronchiectasis. Visualized portions of the upper abdomen are unremarkable. No acute fracture or suspicious osseous abnormality. IMPRESSION: 1. No acute intrathoracic findings. No evidence of pneumonia. This document has been electronically signed by: Chava Mckeon MD on 12/22/2024 17:05:24
--- OUTSIDE RECORDS SUMMARY | 2024-12-22 13:45 | XMS_ITS | Clinical Summary ---
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
--- NOTE | 2024-12-22 13:54 | ED_ITS ---
HPI - Fever General Chief Complaint: ETOH/Substance Use Stated Complaint: PER [facility], N/V/D S/P METH USE T-1 DAY Time Seen by Provider: 12/22/24 13:22 History of Present Illness ED Provider: Meet Olmos MD HPI Narrative: 34-year-old male patient uses IV meth, last use yesterday morning, feeling generalized body aches all over. Nausea with vomiting and loose stool without blood this morning and just prior to arrival. Diffuse pain without focal findings. Denies focal weakness or sensory changes. Mild generalized headache ?I have had sepsis in the past ?this feels the same. Left flank pain over the paraspinal muscles no injury or fall. Related Data Home Medications ?Medication ?Instructions ?Recorded ?Confirmed aripiprazole 2 mg tablet 2 mg PO DAILY 11/24/24 12/22/24 clonidine HCl 0.1 mg tablet 0.1 mg PO BID PRN Anxiety 11/24/24 12/22/24 nicotine (polacrilex) 2 mg gum 2 mg PO Q2-3H PRN Smoking Cessation 11/24/24 12/22/24 zolpidem 5 mg tablet 5 mg PO BEDTIME PRN insomnia 11/24/24 12/22/24 Previous Rx's ?Medication ?Instructions ?Recorded bupropion HCl 150 mg 24 hr tablet, 150 mg PO DAILY 30 days #30 tabs 08/30/24 extended release dolutegravir 50 mg-lamivudine 300 1 tab PO DAILY 30 days #30 tabs 08/30/24 mg tablet (Dovato) hydroxyzine HCl 25 mg tablet 25 mg PO Q6H PRN mild Anxiety 30 08/30/24 days #90 tabs loratadine 10 mg tablet (Allergy 10 mg PO DAILY 30 days #30 tabs 08/30/24 Relief (loratadine)) sertraline 100 mg tablet 100 mg PO DAILY 30 days #30 tabs 08/30/24 amlodipine 5 mg tablet 5 mg PO DAILY #30 tabs 12/06/24 Allergies Allergy/AdvReac Type Severity Reaction Status Date / Time trazodone AdvReac Mild priaprism Verified 12/22/24 13:28 [facility] Past Medical History Medical History MDD (major depressive disorder), recurrent episode, moderate Drug-induced psychotic disorder with delusions Syphilis Abscess of left arm HIV (human immunodeficiency virus infection) Methamphetamine addiction Post traumatic stress disorder (PTSD) Psychosis Surgical History No history of previous surgery Social History Social History Household Members: None Household Members Other:: service dog Housing: Homeless Do you presently have visiting nurse or other home services: No Alcohol intake: never Patient Tobacco Use Status: Never used Tobacco e-Cigarette/Vaping Use: Never Used Second Hand Smoke Exposure: No Substance Use Type: Other Currently Displaying Signs/Symptoms of Drug Intoxication Withdrawal: No Have you been hit, kicked, punched, or otherwise hurt by someone within the past year? If so, by whom?: No Do you feel safe in your current relationship?: No Current Relationship Is there a partner from a previous relationship who is making you feel unsafe now?: No Are you made to feel afraid or neglected: No Advance Directives: Yes Advance Directives on File: Yes Advance Directives Date on File: 05/27/22 Do you have a plan to hurt others: No Plan Recently lost weight without trying: No Nutrition Risks: No Nutritional Risk service: No Sexual orientation: Decline to Answer Physical Exam 2 Vital Signs: Vital Signs: Last Vital Signs Temp 97.2 F 12/24/24 02:59 Pulse 75 12/24/24 02:59 Resp 20 12/24/24 02:59 BP 135/84 12/24/24 02:59 Pulse Ox 99 12/24/24 02:59 O2 Del Method Room Air 12/24/24 02:59 BMI result Body Mass Index 25.5 Const: Other: GENERAL: Ill-appearing, anxious, shaking with chills. Awake alert oriented clear speech well dressed not disheveled or psychotic. HEAD/NECK: Normal to inspection. Neck supple. No cervical lymphadenopathy. EYES: Normal to inspection. Sclera non-icteric. ENMT: External nose normal. RESPIRATORY: Respiratory effort normal. Lungs clear to auscultation bilaterally. CARDIOVASCULAR: Regular rate. Normal rhythm. No murmur. No rubs. GI: Soft, non-tender, non-distended. No rebound or guarding. No masses palpable. No hepatosplenomegaly. SKIN: No jaundice. No rash or bruising. Mild tenderness in the left flank area NEUROLOGICAL: Alert. 5/5 strength upper and lower extremities proximally and distal. Face symmetric. EOM eye. No ataxia. PSYCHIATRIC: Alert. Appearance appropriate for situation. Attitude cooperative. OTHER: Comprehensive Neuro exam: Face symmetric, tongue midline, strong symmetric eye closure, pupils symmetric and reactive to light, intact sensation to the face throughout, intact strong face deviation and shoulder shrug. Sensation intact to light touch throughout * 5 out of 5 strength in bilateral upper extremities, 5 and 5 strength in lower extremities Medications Administered Generic Name Dose Route Start Last Admin Trade Name Freq PRN Reason Stop Dose Admin Acetaminophen 650 mg 12/22/24 17:38 12/22/24 20:17 Acetaminophen 325 Mg Tablet PO 650 mg Q6H PRN Administration Pain, Mild 1-3,fever,headache Amlodipine Besylate 5 mg 12/23/24 09:00 12/23/24 09:50 Amlodipine Besylate 5 Mg Tablet PO 5 mg DAILY LUIS Administration Protocol Aripiprazole 2 mg 12/23/24 09:00 12/23/24 09:50 Aripiprazole 2 Mg Tablet PO 2 mg DAILY LUIS Administration Bupropion HCl 150 mg 12/23/24 09:00 12/23/24 09:50 Bupropion Hcl Xl 150 Mg Tab.Er.24h PO 150 mg DAILY LUIS Administration Calcium Carbonate 750 mg 12/22/24 17:38 12/23/24 13:40 Calcium Carbonate 750 Mg Tab.Chew PO 750 mg Q4H PRN Administration Heartburn Dolutegravir Sodium 50 mg 12/23/24 09:00 12/23/24 09:50 Dolutegravir Sodium 50 Mg Tablet PO 50 mg DAILY LUIS Administration Enoxaparin Sodium 40 mg 12/22/24 18:00 12/23/24 17:21 Enoxaparin Sodium 40 Mg/0.4 Ml Syringe SUBCUT 40 mg Q24H LUIS Administration Piperacillin Sod/Tazobactam 50 mls @ 100 mls/hr 12/22/24 20:00 12/24/24 02:37 Sod 3.375 gm/ Sodium Chloride IV Infused Q6H LUIS Infusion Vancomycin HCl 1,250 mg/ 250 mls @ 166.667 mls/hr 12/23/24 17:00 12/24/24 01:58 Sodium Chloride IV Infused Q8H LUIS Infusion Lamivudine 300 mg 12/23/24 09:00 12/23/24 09:50 Lamivudine 150 Mg Tablet PO 300 mg DAILY LUIS Administration Loratadine 10 mg 12/23/24 09:00 12/23/24 09:50 Loratadine 10 Mg Tablet PO 10 mg DAILY LUIS Administration Ondansetron HCl 4 mg 12/22/24 20:46 12/23/24 17:24 Ondansetron Hcl 4 Mg/2 Ml Vial IVPUSH 4 mg Q4H PRN Administration Nausea and Vomiting Potassium Chloride 40 meq 12/23/24 09:00 12/23/24 19:43 Potassium Chloride Er 20 Meq Tab.Er.Prt PO 40 meq BID LUIS Administration Sertraline HCl 100 mg 12/23/24 09:00 12/23/24 09:50 Sertraline Hcl 100 Mg Tablet PO 100 mg DAILY LUIS Administration Sodium Chloride 3 ml 12/23/24 00:00 12/23/24 19:43 0.9 % Sodium Chloride Flush 3 Ml Syringe IVFLUSH 3 ml QSHIFT LUIS Administration Discontinued Medications Generic Name Dose Route Start Last Admin Trade Name Freq PRN Reason Stop Dose Admin Acetaminophen 975 mg 12/22/24 13:51 12/22/24 14:18 Acetaminophen 325 Mg Tablet PO 12/22/24 13:52 975 mg ONCE ONE Administration Piperacillin Sod/Tazobactam 50 mls @ 100 mls/hr 12/22/24 13:51 12/22/24 21:22 Sod 3.375 gm/ Sodium Chloride IV 12/22/24 14:20 Infused ONCE ONE Infusion Vancomycin HCl 1,000 mg/ 535 mls @ 267.5 mls/hr 12/22/24 14:00 12/22/24 21:23 Vancomycin HCl 750 mg/ Sodium IV 12/22/24 15:59 Infused Chloride ONCE ONE Infusion Lactated Ringer's 2,150.04 mls @ 2,150.04 mls/hr 12/22/24 13:51 12/22/24 21:22 Lr 30 ml/kg infuse over 1 hr (2150.04 ml) 12/22/24 14:50 Infused IV Infusion .Q1H ONE Vancomycin HCl 1,250 mg/ 250 mls @ 166.667 mls/hr 12/23/24 06:00 12/23/24 07:30 Sodium Chloride IV Infused Q12H LUIS Infusion Iohexol 85 ml 12/22/24 16:02 12/22/24 16:02 Iohexol 350 Mg/Ml 100 Ml Infus..Btl IV 12/22/24 16:03 85 ml ONCE ONE Administration Ketorolac Tromethamine 30 mg 12/22/24 13:51 12/22/24 14:18 Ketorolac Tromethamine 30 Mg/Ml Vial IVPUSH 12/22/24 13:52 30 mg ONCE ONE Administration Procedures Procedure Narrative Procedure Narrative: EMERGENCY ULTRASOUND INTERPRETATION-Limited Echocardiography [This study was ordered, performed, and interpreted by myself. The study reveals: Impression: No obvious signs of valvular vegetation although this is transthoracic with limitations. NORMAL LV FUNCTION, NO RV DYSFUNCTION, NO PERICARDIAL EFFUSION] [Emergent Cardiac for Indication: Views Used: PLAX, PSSA, A4, SX, IVC Pericardial Effusion/Tamponade Findings: NONE RV Dilation (> LV diam in 4ch apical): NONE Global LV Fxn: NORMAL IVC Dilation and Resp Variation: NORMAL Performed by: MD Nickolas Images were stored CPT:[id number]] Medical Decision Making Medical Decision Making MDM Narrative: This is a 34-year-old male who arrives with shaking chills subjective fever diarrhea generalized pain. No fall. He has an IV meth user last use about 24 hours ago. No shortness of breath, no hemoptysis or difficulty breathing. Mild generalized headache. He looks ill and although had no oral fever he had a temperature 103.3 degrees rectal. At that time we activated sepsis see the timing of the rectal temperature documentation this is the onset of sepsis recognition. Broad-spectrum antibiotics and 30 cc/kg fluid ordered. No obvious clinical findings to suggest focal bacterial infection given his IV drug use juarez scan is appropriate. Bedside echo does not reveal any vegetations see report above. This can not completely exclude endocarditis and NAWAF should be considered on a delayed basis if no other sources identified. Of note spinal abscess was considered however the patient has no midline back pain, tenderness or focal neurologic complaints or incontinence to suggest this. __ 2 hours after fluid bolus I clinically reassessed the patient who had improved symptoms. Sepsis clinical re-examination including cap refill improved Differential Diagnosis Differential Diagnoses: The differential diagnosis associated with the presentation includes Adverse drug effect, withdrawal syndrome, electrolyte derangement, dehydration, colitis, gastroenteritis, food-borne illness, dehydration, multilevel lateral sepsis, bacteremia, endocarditis, pneumonia, septic emboli, Lab Data MDM Lab Attestation statement: I reviewed the patient's lab results. Initial lactate only 1. No leukocytosis. He does have bandemia 12/22/24 14:10 12/23/24 06:00 Labs: Lab Results 12/22/24 12/22/24 Range/Units 14:10 16:08 WBC 9.4 (4.8-10.8) X10*3/uL RBC 4.22 L (4.60-5.80) X10*6/uL Hgb 13.0 L (14.0-18.0) g/dl Hct 36.6 L (42.0-52.0) % MCV 86.7 (80.0-98.0) fL MCH 30.8 (27.0-33.0) pg MCHC 35.5 (31.0-36.0) g/dl RDW 11.9 (11.0-16.0) % Plt Count 270 D (160-400) X10*3/uL MPV 8.3 L (9.4-12.4) fL Immature Gran % (Auto) Cancelled Neut % (Auto) Cancelled Lymph % (Auto) Cancelled [place] % (Auto) Cancelled Eos % (Auto) Cancelled Baso % (Auto) Cancelled Lymph # (Auto) Cancelled [place] # (Auto) Cancelled Eos # (Auto) Cancelled Baso # (Auto) Cancelled Abs Immat Gran (auto) Cancelled Absolute Neuts (auto) Cancelled Absolute Nucleated RBC 0.000 (0.0-0.012) X10*3/uL Nucleated RBC % (auto) 0.0 (0.0-0.2) /100WBC Neutrophils % (Manual) 67 (45-73) % Band Neutrophils % 19 H (3-5) % Lymphocytes % (Manual) 9 L (20-40) % Monocytes % (Manual) 5 (2-11) % Abs Neuts (Manual) 8.1 (2.0-8.3) X10*3/uL Lymphocytes # (Manual) 0.8 L (1.2-4.9) X10*3/uL Monocytes # (Manual) 0.5 (0.1-1.2) X10*3/uL Toxic Vacuolation PRESENT Platelet Estimate NORMAL (NORMAL) Plt Morphology Comment NORMAL RBC Morphology NORMAL ESR 14 (0-15) MM/HR PT 14.9 H (10.9-12.4) SEC INR 1.3 H (0.9-1.1) APTT 31.9 (26.0-36.8) SEC Sodium 131 L (135-145) mmol/L Potassium 3.4 (3.3-5.1) mmol/L Chloride 98 (96-108) mmol/L Carbon Dioxide 18 L (22-29) mmol/L Anion Gap 18 (12-20) BUN 14 (9-16) mg/dL Creatinine 0.96 (0.5-1.4) mg/dL Estim Creat Clear Calc 99.6 Estimated GFR > 60 Random Glucose 115 (60-115) mg/dL Lactic Acid 1.0 (0.5-2.0) mmol/L Calcium 9.0 D (8.4-10.2) mg/dL Total Bilirubin 0.6 (0.0-1.0) mg/dL C-Reactive Protein 14.78 H (< or = 0.50) mg/dL Independent Interpretation I performed an independent interpretation of an: Ultrasound (See ultrasound report above) Radiology Impression Discussion of test interpretation with radiology: I have reviewed the radiologist's reading. Social Determinants Patient?s care significantly limited by Social Determinants of Health including: Alcoholism and drug addiction in family and Other Social Determinant of Health (Substance use disorder) Critical Care Time Critical Care Time Critical Care Time: Yes Total Critical Care Time: 40 Attestation: ED Critical Care: Authorized and Performed by: Meet Olmos MD Total critical care time: Approximately 40 Due to a high probability of clinically significant, life threatening deterioration, the patient required my highest level of preparedness to intervene emergently and I personally spent this critical care time directly and personally managing the patient. This critical care time included obtaining a history; examining the patient; pulse oximetry; ordering and review of studies; arranging urgent treatment with development of a management plan; evaluation of patient's response to treatment; frequent reassessment; and, discussions with other providers. This critical care time was performed to assess and manage the high probability of imminent, life-threatening deterioration that could result in multi-organ failure. It was exclusive of separately billable procedures and treating other patients and teaching time. Discharge Plan Discharge Clinical Impression: Sepsis Patient Disposition: Admitted As Inpatient Interventions: Admission Worksheet (ED) Last Done: 12/22/24 19:18 Discharge Date/Time: 12/22/24 20:02
[2024-12-22] MEDS: Piperacillin Sodium/Tazobactam 3.375 GM in 0.9 % Sodium Chloride 50 ML IV ×2 (14:18→20:21)
[2024-12-22] MEDS: Acetaminophen 325 MG TABLET 975 MG PO (14:18)
[2024-12-22] MEDS: Ketorolac Tromethamine 30 MG/ML VIAL IVPUSH (14:18)
[2024-12-22 14:20] LABS: Hematocrit 36.6 % (42.0-52.0); Mean Corpuscular HGB Conc 35.5 g/dl (31.0-36.0); Mean Corpuscular Hemoglobin 30.8 pg (27.0-33.0); Mean Corpuscular Volume 86.7 fL (80.0-98.0); Mean Platelet Volume 8.3 fL (9.4-12.4); Platelet Count 270 X10*3/uL (160-400); Red Blood Count 4.22 X10*6/uL (4.60-5.80); Red Cell Distribution Width 11.9 % (11.0-16.0); White Blood Count 9.4 X10*3/uL (4.8-10.8)
[2024-12-22 14:33] LABS: Anion Gap 18 (12-20); Bilirubin Total 0.6 mg/dL (0.0-1.0); Blood Urea Nitrogen 14 mg/dL (9-16); C Reactive Protein 14.78 mg/dL (< or = 0.50); Carbon Dioxide 18 mmol/L (22-29); Chloride 98 mmol/L (96-108); Creatinine Clr Calc Pharmacy 99.6; Estimated Glomerular Filt Rate > 60; Glucose Random 115 mg/dL (60-115); Potassium 3.4 mmol/L (3.3-5.1); Sodium 131 mmol/L (135-145)
[2024-12-22 14:37] LABS: Lymphocytes Absolute Manual 0.8 X10*3/uL (1.2-4.9); Lymphocytes Percent Manual 9 % (20-40); Monocytes Absolute Manual 0.5 X10*3/uL (0.1-1.2); Monocytes Percent Manual 5 % (2-11); Neutrophils Absolute Manual 8.1 X10*3/uL (2.0-8.3); Neutrophils Percent Manual 67 % (45-73)
[2024-12-22 14:41] LABS: Platelet Estimate NORMAL (NORMAL); Platelet Morphology Comment NORMAL; RBC Morphology NORMAL; Toxic Vacuolation PRESENT
[2024-12-22 14:45] LABS: Band Neutrophils Percent 19 % (3-5)
[2024-12-22] MEDS: vancomycin HCL 1,000 MG, vancomycin HCL 750 MG in 0.9 % Sodium Chloride 500 ML 267.5 MG IV (14:54)
[2024-12-22 14:59] LABS: Erythrocyte Sedimentation Rate 14 MM/HR (0-15)
[2024-12-22] MEDS: iohexoL 350 MG/ML 100 ML INFUS..BTL 85 ML IV (16:02)
[2024-12-22 16:34] LABS: INTERNATIONAL NORM RATIO 1.3 (0.9-1.1); Partial Thromboplastin Time 31.9 SEC (26.0-36.8); Prothrombin Time 14.9 SEC (10.9-12.4)
--- NOTE | 2024-12-22 17:21 | PM.IMHP ---
History of Present Illness Date of Service: 12/22/24 Chief Complaint: Fevers 34 year old male with HIV, 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 He has had a temp of up to 103. Work up WBC 9.4, CXR no PNA, CT of abd pelvis no acute finding, CT chest no pneumonia. Given IV Vanco and Zosyn due to concern for bacteremia Review of Systems Review of Systems: Gen: no fever Resp: no sob, no cough CV: no chest, no MITCHELL, no leg edema GI: No n/v, no abd pain Neuro: No confusion [facility] Medical History MDD (major depressive disorder), recurrent episode, moderate Drug-induced psychotic disorder with delusions Syphilis Abscess of left arm HIV (human immunodeficiency virus infection) Methamphetamine addiction Post traumatic stress disorder (PTSD) Psychosis Surgical History No history of previous surgery Social History Household Members: None Household Members Other:: service dog Housing: Homeless Do you presently have visiting nurse or other home services: No Alcohol intake: never Patient Tobacco Use Status: Never used Tobacco e-Cigarette/Vaping Use: Never Used Second Hand Smoke Exposure: No Substance Use Type: Other Currently Displaying Signs/Symptoms of Drug Intoxication Withdrawal: No Have you been hit, kicked, punched, or otherwise hurt by someone within the past year? If so, by whom?: No Do you feel safe in your current relationship?: No Current Relationship Is there a partner from a previous relationship who is making you feel unsafe now?: No Are you made to feel afraid or neglected: No Advance Directives: Yes Advance Directives on File: Yes Advance Directives Date on File: 05/27/22 Do you have a plan to hurt others: No Plan Recently lost weight without trying: No Nutrition Risks: No Nutritional Risk service: No Sexual orientation: Decline to Answer Meds Allergies Allergy/AdvReac Type Severity Reaction Status Date / Time trazodone AdvReac Mild priaprism Verified 12/22/24 13:28 Home Medications ?Medication ?Instructions ?Recorded ?Confirmed ?Last Taken ?Type aripiprazole 2 mg tablet 2 mg PO DAILY 11/24/24 12/22/24 Unknown History clonidine HCl 0.1 mg tablet 0.1 mg PO BID PRN Anxiety 11/24/24 12/22/24 Unknown History nicotine (polacrilex) 2 mg gum 2 mg PO Q2-3H PRN Smoking Cessation 11/24/24 12/22/24 Unknown History zolpidem 5 mg tablet 5 mg PO BEDTIME PRN insomnia 11/24/24 12/22/24 Unknown History Physical Exam Vital Signs and Narrative: Vital Signs: Last Vital Signs Temp 99.8 F 12/22/24 16:04 Pulse 109 H 12/22/24 16:04 Resp 24 H 12/22/24 16:04 BP 103/70 12/22/24 16:04 Pulse Ox 98 12/22/24 16:04 O2 Del Method Room Air 12/22/24 16:04 BMI result Body Mass Index 25.5 Constitutional: Alert, in no distress, overweight. Mental Status: Oriented to person, place and time. Eyes: Pupils are equal, round and reactive to light. Ear, Nose and Throat: Oropharynx clear, mucous membranes moist. Ears and nose without deformities. Trachea midline. Respiratory: Clear to auscultation. No wheezing, rales or rhonchi. Cardiovascular: S1 S2 regular. No murmurs, rubs or gallops. Gastrointestinal: Abdomen soft, non-tender, non-distended. Normal bowel sounds.? Neurologic: Cranial nerves II-XII grossly intact. No focal neurological deficits. Moves all extremities spontaneously.? Skin: No rashes or lesions.? Musculoskeletal: No cyanosis or clubbing. Psychiatric: Normal mood and affect? Results Labs 12/22/24 14:10 12/23/24 06:00 Labs: Laboratory Results - last 24 hr 12/22/24 12/22/24 14:10 16:08 MCV 86.7 MCH 30.8 MCHC 35.5 RDW 11.9 Plt Count 270 D MPV 8.3 L Immature Gran % (Auto) Cancelled Neut % (Auto) Cancelled Lymph % (Auto) Cancelled [place] % (Auto) Cancelled Eos % (Auto) Cancelled Baso % (Auto) Cancelled Lymph # (Auto) Cancelled [place] # (Auto) Cancelled Eos # (Auto) Cancelled Baso # (Auto) Cancelled Abs Immat Gran (auto) Cancelled Absolute Neuts (auto) Cancelled Absolute Nucleated RBC 0.000 Nucleated RBC % (auto) 0.0 Neutrophils % (Manual) 67 Band Neutrophils % 19 H Lymphocytes % (Manual) 9 L Monocytes % (Manual) 5 Abs Neuts (Manual) 8.1 Lymphocytes # (Manual) 0.8 L Monocytes # (Manual) 0.5 Toxic Vacuolation PRESENT Platelet Estimate NORMAL Plt Morphology Comment NORMAL RBC Morphology NORMAL ESR 14 PT 14.9 H INR 1.3 H APTT 31.9 Anion Gap 18 Estim Creat Clear Calc 99.6 Estimated GFR > 60 Random Glucose 115 Lactic Acid 1.0 Calcium 9.0 D Total Bilirubin 0.6 C-Reactive Protein 14.78 H Imaging Radiologist's Impressions: Impressions Chest X-Ray 12/22/24 13:51 IMPRESSION: No acute airspace disease. Electronically signed by: Matt Valdez MD 12/22/2024 02:14 PM EDT Assessment and Plan (1) HIV (human immunodeficiency virus infection): Status: Acute (2) Methamphetamine use disorder, severe: Status: Acute Plan 34 year old male with HIV, 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 He has had a temp of up to 103. Work up WBC 9.4, CXR no PNA, CT of abd pelvis no acute finding, CT chest no pneumonia. Given IV Vanco and Zosyn due to concern for bacteremia Fever in IVDA continue empiric zosyn and vanco follow cultures HIV continue Dovato Mood disorder resume home meds Substance use disorder addiction meds dvt prophylaxis lovenox full code regular food Quality Stroke Does the patient have a stroke diagnosis?: No VTE Prior VTE?: No VTE Risk Level:: Medical - moderate - high VTE Device Contraindication: Treatment Not Indicated VTE Drug Contraindication: N/A - Med Ordered
--- NOTE | 2024-12-22 18:10 | PHA.MEDREC ---
Addendum entered by Heike Paiz RPh 12/22/24 18:27: Reviewed by [facility] Original Note: Pharmacy Consult ? Medication Reconciliation Pharmacy has completed the medication reconciliation. Tried to speak with patient, however he was altered mental. Reached out to primary contact on file with no answer. Utilized claims to confirm med list.
[2024-12-22] MEDS: Acetaminophen 325 MG TABLET 650 MG PO (20:17)
[2024-12-22] MEDS: 0.9 % Sodium Chloride Flush 3 ML SYRINGE IVFLUSH (20:21)
[2024-12-22] MEDS: ondansetron HCL 4 MG/2 ML VIAL IVPUSH (21:16)
[2024-12-23] MEDS: Piperacillin Sodium/Tazobactam 3.375 GM in 0.9 % Sodium Chloride 50 ML IV ×4 (01:50→19:43)
[2024-12-23 04:00] VITALS: BP 128/74; PULSE 89; RESP 17; TEMP 36.6; O2SAT 97
[2024-12-23] MEDS: vancomycin HCL 1,250 MG in 0.9 % Sodium Chloride 250 ML 166.67 MG IV ×2 (05:45→17:21)
[2024-12-23 07:45] VITALS: BP 124/75; PULSE 88; RESP 18; TEMP 36.6; O2SAT 97
[2024-12-23 07:46] LABS: Alanine Aminotransferase 19 U/L (0-40); Albumin Level 4.1 g/dL (3.5-5.0); Alkaline Phosphatase 86 U/L (39-117); Anion Gap 14 (12-20); Aspartate Amino Transferase 26 U/L (5-37); Bilirubin Total 0.5 mg/dL (0.0-1.0); Blood Urea Nitrogen 12 mg/dL (9-16); Calcium 8.6 mg/dL (8.4-10.2); Carbon Dioxide 22 mmol/L (22-29); Chloride 106 mmol/L (96-108); Creatinine Clr Calc Pharmacy 97.6; Estimated Glomerular Filt Rate > 60; Glucose Random 107 mg/dL (60-115); Potassium 3.2 mmol/L (3.3-5.1); Sodium 139 mmol/L (135-145); Total Protein 7.1 g/dL (6.5-8.0)
--- NOTE | 2024-12-23 07:50 | HO.PM.IMPN ---
Subjective Subjective Date of Service: 12/23/24 Interval History: f/u on fever in pt with IVDA, concern for bacteremia no more fever, blood cultures pending Review of Systems Gen: no fever Resp: no sob, no cough CV: no chest, no MITCHELL, no leg edema GI: No n/v, no abd pain Neuro: No confusion Physical Exam Vital Signs: Vital Signs: Last Vital Signs Temp 97.8 F 12/23/24 07:45 Pulse 88 12/23/24 07:45 Resp 18 12/23/24 07:45 BP 124/75 12/23/24 07:45 Pulse Ox 97 12/23/24 07:45 O2 Del Method Room Air 12/23/24 07:45 BMI result Body Mass Index 25.5 Const: Other: General: AO X 3, no acute distress Resp: CTA bilateral CVS: S1,S2,RRR GI: +BS, NT, no distention Skin: No rash Neuro: motor grossly intact Psych: appropriate affect Objective Data Active Medications Acetaminophen (Acetaminophen 325 Mg Tablet) 650 mg PO Q6H PRN PRN Reason: Pain, Mild 1-3,fever,headache Last Admin: 12/22/24 20:17 Dose: 650 mg Documented By: PAZ Amlodipine Besylate (Amlodipine Besylate 5 Mg Tablet) 5 mg PO DAILY [facility]; Protocol Aripiprazole (Aripiprazole 2 Mg Tablet) 2 mg PO DAILY [facility] Bupropion HCl (Bupropion Hcl Xl 150 Mg Tab.Er.24h) 150 mg PO DAILY [facility] Calcium Carbonate (Calcium Carbonate 750 Mg Tab.Chew) 750 mg PO Q4H PRN PRN Reason: Heartburn Clonidine HCl (Clonidine Hcl 0.1 Mg Tablet) 0.1 mg PO BID PRN; Protocol PRN Reason: Anxiety Enoxaparin Sodium (Enoxaparin Sodium 40 Mg/0.4 Ml Syringe) 40 mg SUBCUT Q24H [facility] Last Admin: 12/22/24 17:48 Dose: Not Given Documented By: TERRIE Non-Admin Reason: Patient Refused Hydroxyzine HCl (Hydroxyzine Hcl 25 Mg Tablet) 25 mg PO Q6H PRN PRN Reason: mild Anxiety Piperacillin Sod/Tazobactam (Sod 3.375 gm/ Sodium Chloride) 50 mls @ 100 mls/hr IV Q6H [facility] Last Infusion: 12/23/24 02:24 Dose: Infused Documented By: PAZ Vancomycin HCl 1,250 mg/ (Sodium Chloride) 250 mls @ 166.667 mls/hr IV Q12H [facility] Last Infusion: 12/23/24 07:30 Dose: Infused Documented By: PERRY Loratadine (Loratadine 10 Mg Tablet) 10 mg PO DAILY [facility] Magnesium Hydroxide (Milk Of Magnesia 30 Ml Oral.Susp) 30 ml PO DAILY PRN PRN Reason: Constipation Melatonin (Melatonin 3 Mg Tablet) 6 mg PO BEDTIME PRN PRN Reason: Insomnia Nicotine Polacrilex (Nicotine Polacrilex 2 Mg Gum) 2 mg BUCCAL Q2-3H PRN PRN Reason: Smoking Cessation Non-Formulary Medication (Dolutegravir-Lamivudine [Dovato]) 1 tab PO DAILY [facility] Ondansetron HCl (Ondansetron Hcl 4 Mg/2 Ml Vial) 4 mg IVPUSH Q4H PRN PRN Reason: Nausea and Vomiting Last Admin: 12/22/24 21:16 Dose: 4 mg Documented By: PAZ Pharmacy Consult (Consult Rx Vancomycin Dosing) 1 each MISCELLANE DAILY PRN PRN Reason: Consult order Sertraline HCl (Sertraline Hcl 100 Mg Tablet) 100 mg PO DAILY [facility] Sodium Chloride (0.9 % Sodium Chloride Flush 3 Ml Syringe) 3 ml IVFLUSH QSHIFT [facility] Last Admin: 12/23/24 07:30 Dose: Not Given Documented By: PERRY Non-Admin Reason: Previously Administered Zolpidem Tartrate (Zolpidem Tartrate 5 Mg Tablet) 5 mg PO BEDTIME PRN PRN Reason: insomnia Labs 12/22/24 14:10 12/23/24 06:00 Labs: Laboratory Results - last 24 hr 12/22/24 12/22/24 12/23/24 14:10 16:08 06:00 MCV 86.7 MCH 30.8 MCHC 35.5 RDW 11.9 Plt Count 270 D MPV 8.3 L Immature Gran % (Auto) Cancelled Neut % (Auto) Cancelled Lymph % (Auto) Cancelled [place] % (Auto) Cancelled Eos % (Auto) Cancelled Baso % (Auto) Cancelled Lymph # (Auto) Cancelled [place] # (Auto) Cancelled Eos # (Auto) Cancelled Baso # (Auto) Cancelled Abs Immat Gran (auto) Cancelled Absolute Neuts (auto) Cancelled Absolute Nucleated RBC 0.000 Nucleated RBC % (auto) 0.0 Neutrophils % (Manual) 67 Band Neutrophils % 19 H Lymphocytes % (Manual) 9 L Monocytes % (Manual) 5 Abs Neuts (Manual) 8.1 Lymphocytes # (Manual) 0.8 L Monocytes # (Manual) 0.5 Toxic Vacuolation PRESENT Platelet Estimate NORMAL Plt Morphology Comment NORMAL RBC Morphology NORMAL ESR 14 Hold Purple Top SEE NOTE PT 14.9 H INR 1.3 H APTT 31.9 Anion Gap 18 14 Estim Creat Clear Calc 99.6 97.6 Estimated GFR > 60 > 60 Random Glucose 115 107 Lactic Acid 1.0 Calcium 9.0 D 8.6 Total Bilirubin 0.6 0.5 AST 26 ALT 19 Alkaline Phosphatase 86 C-Reactive Protein 14.78 H Total Protein 7.1 Albumin 4.1 Assessment and Plan (1) HIV (human immunodeficiency virus infection): Status: Acute (2) FUO (fever of unknown origin): Status: Acute Plan 34 year old male with HIV, 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 He has had a temp of up to 103. Work up WBC 9.4, CXR no PNA, CT of abd pelvis no acute finding, CT chest no pneumonia. Given IV Vanco and Zosyn due to concern for bacteremia Fever in IVDA continue empiric zosyn and vanco follow cultures HIV continue Dovato Mood disorder resume home meds Substance use disorder addiction meds dvt prophylaxis lovenox full code regular food Quality Stroke Does the patient have a stroke diagnosis?: No VTE Prior VTE?: No VTE Risk Level:: Medical - moderate - high VTE Device Contraindication: Treatment Not Indicated VTE Drug Contraindication: N/A - Med Ordered
[2024-12-23] MEDS: ARIPiprazole 2 MG TABLET PO (09:50)
[2024-12-23] MEDS: buPROPion HCl XL 150 MG TAB.ER.24H PO (09:50)
[2024-12-23] MEDS: amLODIPine Besylate 5 MG TABLET PO (09:50)
[2024-12-23] MEDS: Dolutegravir Sodium 50 MG TABLET PO (09:50)
[2024-12-23] MEDS: Potassium Chloride ER 20 MEQ TAB.ER.PRT 40 MEQ PO ×2 (09:50→19:43)
[2024-12-23] MEDS: Loratadine 10 MG TABLET PO (09:50)
[2024-12-23] MEDS: lamiVUDine 150 MG TABLET 300 MG PO (09:50)
[2024-12-23] MEDS: Sertraline HCL 100 MG TABLET PO (09:50)
--- NOTE | 2024-12-23 10:22 | MHC.CM.PN ---
PT REPORTS HE IS HOMELESS AND STAYING WITH DIFFERENT FRIENDS HE DECINES A REFERRAL TO A LONG-TERM HE HAS NO COMMUNITY SERVICES HCP ON FILE PCP: DWIGHT RIVERA DCP: PT WILL RETURN TO FRIENDS HOME VIA LYFT VS SNF PLACEMENT IF IV ABX ARE INDICATED
[2024-12-23] MEDS: Calcium Carbonate 750 MG TAB.CHEW PO (13:40)
[2024-12-23 15:06] VITALS: BP 123/75; PULSE 75; RESP 17; TEMP 36.5; O2SAT 97
[2024-12-23 16:30] LABS: Vancomycin Random 6.3 mcg/mL (15-20)
[2024-12-23] MEDS: Enoxaparin Sodium 40 MG/0.4 ML SYRINGE SUBCUT (17:21)
[2024-12-23] MEDS: ondansetron HCL 4 MG/2 ML VIAL IVPUSH (17:24)
[2024-12-23 19:11] VITALS: BP 137/82; PULSE 81; RESP 18; TEMP 36.3; O2SAT 98
[2024-12-23] MEDS: 0.9 % Sodium Chloride Flush 3 ML SYRINGE IVFLUSH (19:43)
[2024-12-24] MEDS: vancomycin HCL 1,250 MG in 0.9 % Sodium Chloride 250 ML 166.67 MG IV ×3 (00:24→16:58)
[2024-12-24] MEDS: Piperacillin Sodium/Tazobactam 3.375 GM in 0.9 % Sodium Chloride 50 ML IV ×4 (01:53→20:49)
[2024-12-24 02:59] VITALS: BP 135/84; PULSE 75; RESP 20; TEMP 36.2; O2SAT 99
[2024-12-24 06:55] LABS: Creatinine Clr Calc Pharmacy 122.6; Estimated Glomerular Filt Rate > 60
[2024-12-24 07:34] VITALS: BP 129/96; PULSE 76; RESP 16; TEMP 36.5; O2SAT 98
[2024-12-24 07:36] LABS: MANUAL DIFF FLAG NO
[2024-12-24 07:38] LABS: Basophils Percent Auto 0.5 % (0-2); Eosinophils Absolute Auto 0.1 X10*3/uL (0.0-0.4); Eosinophils Percent Auto 1.2 % (0-4); Hematocrit 37.8 % (42.0-52.0); Hemoglobin 13.5 g/dl (14.0-18.0); Imm Gran Abs Auto 0.01 X10*3/uL (0.00-0.03); Imm Gran Pct Auto 0.2 % (0.0-0.4); Lymphocytes Absolute Auto 1.6 X10*3/uL (1.2-4.9); Lymphocytes Percent Auto 24.5 % (20-40); Mean Corpuscular HGB Conc 35.7 g/dl (31.0-36.0); Mean Corpuscular Hemoglobin 31.2 pg (27.0-33.0); Mean Corpuscular Volume 87.3 fL (80.0-98.0); Mean Platelet Volume 9.2 fL (9.4-12.4); Monocytes Absolute Auto 0.6 X10*3/uL (0.1-1.2); Monocytes Percent Auto 9.8 % (2-11); Neutrophils Absolute Auto 4.2 x10*3/uL (2.0-8.3); Neutrophils Percent Auto 63.8 % (45-73); Platelet Count 285 X10*3/uL (160-400); Red Blood Count 4.33 X10*6/uL (4.60-5.80); Red Cell Distribution Width 12.1 % (11.0-16.0); White Blood Count 6.5 X10*3/uL (4.8-10.8)
[2024-12-24 07:46] LABS: Anion Gap 15 (12-20); Carbon Dioxide 21 mmol/L (22-29); Chloride 108 mmol/L (96-108); Potassium 3.4 mmol/L (3.3-5.1); Sodium 141 mmol/L (135-145)
[2024-12-24] MEDS: 0.9 % Sodium Chloride Flush 3 ML SYRINGE IVFLUSH ×2 (08:02→20:51)
--- NOTE | 2024-12-24 09:15 | HO.PM.IMPN ---
Subjective Subjective Date of Service: 12/24/24 Interval History: f/u on fever in pt with IVDA, concern for bacteremia no more fever, blood cultures pending, urine culture not mature enough Review of Systems Gen: no fever Resp: no sob, no cough CV: no chest, no MITCHELL, no leg edema GI: No n/v, no abd pain Neuro: No confusion Physical Exam Vital Signs: Vital Signs: Last Vital Signs Temp 97.7 F 12/24/24 07:34 Pulse 76 12/24/24 07:34 Resp 16 12/24/24 07:34 BP 129/96 H 12/24/24 07:34 Pulse Ox 98 12/24/24 07:34 O2 Del Method Room Air 12/24/24 07:34 BMI result Body Mass Index 25.5 Const: Other: General: AO X 3, no acute distress Resp: CTA bilateral CVS: S1,S2,RRR GI: +BS, NT, no distention Skin: No rash Neuro: motor grossly intact Psych: appropriate affect Objective Data Active Medications Acetaminophen (Acetaminophen 325 Mg Tablet) 650 mg PO Q6H PRN PRN Reason: Pain, Mild 1-3,fever,headache Last Admin: 12/22/24 20:17 Dose: 650 mg Documented By: PAZ Amlodipine Besylate (Amlodipine Besylate 5 Mg Tablet) 5 mg PO DAILY [facility]; Protocol Last Admin: 12/23/24 09:50 Dose: 5 mg Documented By: PERRY Aripiprazole (Aripiprazole 2 Mg Tablet) 2 mg PO DAILY [facility] Last Admin: 12/23/24 09:50 Dose: 2 mg Documented By: PERRY Bupropion HCl (Bupropion Hcl Xl 150 Mg Tab.Er.24h) 150 mg PO DAILY [facility] Last Admin: 12/23/24 09:50 Dose: 150 mg Documented By: PERRY Calcium Carbonate (Calcium Carbonate 750 Mg Tab.Chew) 750 mg PO Q4H PRN PRN Reason: Heartburn Last Admin: 12/23/24 13:40 Dose: 750 mg Documented By: PERRY Clonidine HCl (Clonidine Hcl 0.1 Mg Tablet) 0.1 mg PO BID PRN; Protocol PRN Reason: Anxiety Dolutegravir Sodium (Dolutegravir Sodium 50 Mg Tablet) 50 mg PO DAILY [facility] Last Admin: 12/23/24 09:50 Dose: 50 mg Documented By: PERRY Enoxaparin Sodium (Enoxaparin Sodium 40 Mg/0.4 Ml Syringe) 40 mg SUBCUT Q24H [facility] Last Admin: 12/23/24 17:21 Dose: 40 mg Documented By: PERRY Hydroxyzine HCl (Hydroxyzine Hcl 25 Mg Tablet) 25 mg PO Q6H PRN PRN Reason: mild Anxiety Piperacillin Sod/Tazobactam (Sod 3.375 gm/ Sodium Chloride) 50 mls @ 100 mls/hr IV Q6H [facility] Last Infusion: 12/24/24 08:42 Dose: Infused Documented By: PERRY Vancomycin HCl 1,250 mg/ (Sodium Chloride) 250 mls @ 166.667 mls/hr IV Q8H [facility] Last Infusion: 12/24/24 01:58 Dose: Infused Documented By: PAZ Lamivudine (Lamivudine 150 Mg Tablet) 300 mg PO DAILY [facility] Last Admin: 12/23/24 09:50 Dose: 300 mg Documented By: PERRY Loratadine (Loratadine 10 Mg Tablet) 10 mg PO DAILY [facility] Last Admin: 12/23/24 09:50 Dose: 10 mg Documented By: PERRY Magnesium Hydroxide (Milk Of Magnesia 30 Ml Oral.Susp) 30 ml PO DAILY PRN PRN Reason: Constipation Melatonin (Melatonin 3 Mg Tablet) 6 mg PO BEDTIME PRN PRN Reason: Insomnia Nicotine Polacrilex (Nicotine Polacrilex 2 Mg Gum) 2 mg BUCCAL Q2H PRN PRN Reason: Smoking Cessation Ondansetron HCl (Ondansetron Hcl 4 Mg/2 Ml Vial) 4 mg IVPUSH Q4H PRN PRN Reason: Nausea and Vomiting Last Admin: 12/23/24 17:24 Dose: 4 mg Documented By: PERRY Pharmacy Consult (Consult Rx Vancomycin Dosing) 1 each MISCELLANE DAILY PRN PRN Reason: Consult order Potassium Chloride (Potassium Chloride Er 20 Meq Tab.Er.Prt) 40 meq PO BID [facility] Last Admin: 12/23/24 19:43 Dose: 40 meq Documented By: PAZ Sertraline HCl (Sertraline Hcl 100 Mg Tablet) 100 mg PO DAILY [facility] Last Admin: 12/23/24 09:50 Dose: 100 mg Documented By: PERRY Sodium Chloride (0.9 % Sodium Chloride Flush 3 Ml Syringe) 3 ml IVFLUSH QSHIFT [facility] Last Admin: 12/24/24 08:02 Dose: 3 ml Documented By: PERRY Zolpidem Tartrate (Zolpidem Tartrate 5 Mg Tablet) 5 mg PO BEDTIME PRN PRN Reason: insomnia Labs 12/24/24 05:55 12/24/24 05:55 Labs: Laboratory Results - last 24 hr 12/23/24 12/24/24 12/24/24 16:01 05:40 05:55 MCV 87.3 MCH 31.2 MCHC 35.7 RDW 12.1 Plt Count 285 MPV 9.2 L Immature Gran % (Auto) 0.2 Neut % (Auto) 63.8 Lymph % (Auto) 24.5 [place] % (Auto) 9.8 Eos % (Auto) 1.2 Baso % (Auto) 0.5 Lymph # (Auto) 1.6 [place] # (Auto) 0.6 Eos # (Auto) 0.1 Baso # (Auto) 0.0 Abs Immat Gran (auto) 0.01 Absolute Neuts (auto) 4.2 Absolute Nucleated RBC 0.000 Nucleated RBC % (auto) 0.0 Hold Purple Top SEE NOTE Anion Gap 15 Estim Creat Clear Calc 122.6 Estimated GFR > 60 Random Vancomycin 6.3 L Microbiology Microbiology Results: Microbiology 12/22/24 14:10 Blood Culture - Preliminary Blood - Venous No growth after 24 hours. 12/22/24 14:10 Blood Culture - Preliminary Blood - Venous No growth after 24 hours. 12/22/24 16:31 Urine Culture - Preliminary Urine clean catch - Clean Catch Midstream Culture too young to evaluate. 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 He has had a temp of up to 103. Work up WBC 9.4, CXR no PNA, CT of abd pelvis no acute finding, CT chest no pneumonia. Given IV Vanco and Zosyn due to concern for bacteremia Fever in IVDA, no fever x 48 hrs continue empiric zosyn and vanco blood cultures negative so far culture too young HIV continue Dovato check cd4 Mood disorder resume home meds Substance use disorder addiction meds dvt prophylaxis lovenox full code regular food Quality Stroke Does the patient have a stroke diagnosis?: No VTE Prior VTE?: No VTE Risk Level:: Medical - moderate - high VTE Device Contraindication: Treatment Not Indicated VTE Drug Contraindication: N/A - Med Ordered
[2024-12-24] MEDS: Potassium Chloride ER 20 MEQ TAB.ER.PRT 40 MEQ PO ×2 (09:27→20:35)
[2024-12-24] MEDS: amLODIPine Besylate 5 MG TABLET PO (09:27)
[2024-12-24] MEDS: buPROPion HCl XL 150 MG TAB.ER.24H PO (09:27)
[2024-12-24] MEDS: Sertraline HCL 100 MG TABLET PO (09:28)
[2024-12-24] MEDS: lamiVUDine 150 MG TABLET 300 MG PO (09:28)
[2024-12-24] MEDS: Loratadine 10 MG TABLET PO (09:28)
[2024-12-24] MEDS: ARIPiprazole 2 MG TABLET PO (09:28)
[2024-12-24] MEDS: Dolutegravir Sodium 50 MG TABLET PO (09:28)
[2024-12-24 15:37] VITALS: BP 120/75; PULSE 72; RESP 18; TEMP 36.7; O2SAT 98
[2024-12-24 15:53] LABS: Vancomycin Random 15.5 mcg/mL (15-20)
[2024-12-24] MEDS: Enoxaparin Sodium 40 MG/0.4 ML SYRINGE SUBCUT (16:57)
[2024-12-24 19:17] VITALS: BP 139/80; PULSE 74; RESP 18; TEMP 36.6; O2SAT 98
[2024-12-24 22:09] LABS: CDiff Gene PCR NEGATIVE (Negative)
--- NOTE | 2024-12-24 22:41 | PC.NURSE ---
Sepsis fluid bolus on 12/22/24 ended at 1519 per Helen Espinoza RN. MAR documentation changed to reflect time.
--- NOTE | 2024-12-24 23:13 | PC.NURSE ---
This RN assumed care at 1900, Pt AOx4, calm and cooperative, reporting 4/10 pain mostly discomfort from having a lot of diarrhea, Meds given per SEP. C.diff panel came back negative, Dr. Mcdonald made aware, and this RN requested order for imodium. RR even and non-labored with no apparent distress BSx4, VSS, Call dyson withing reach. Will continue reassess. New IV placed.
[2024-12-24] MEDS: Loperamide HCl 2 MG CAPSULE 4 MG PO (23:52)
[2024-12-25] MEDS: Piperacillin Sodium/Tazobactam 3.375 GM in 0.9 % Sodium Chloride 50 ML IV ×2 (01:28→08:06)
[2024-12-25 03:17] VITALS: BP 125/76; PULSE 65; RESP 18; TEMP 36; O2SAT 99
[2024-12-25 06:51] LABS: Creatinine Clr Calc Pharmacy 129.3; Estimated Glomerular Filt Rate > 60
[2024-12-25 07:56] VITALS: BP 142/87; PULSE 73; RESP 12; TEMP 36.2; O2SAT 99
[2024-12-25] MEDS: lamiVUDine 150 MG TABLET 300 MG PO (08:03)
[2024-12-25] MEDS: amLODIPine Besylate 5 MG TABLET PO (08:04)
[2024-12-25] MEDS: Dolutegravir Sodium 50 MG TABLET PO (08:04)
[2024-12-25] MEDS: buPROPion HCl XL 150 MG TAB.ER.24H PO (08:04)
[2024-12-25] MEDS: ARIPiprazole 2 MG TABLET PO (08:04)
[2024-12-25] MEDS: Potassium Chloride ER 20 MEQ TAB.ER.PRT 40 MEQ PO (08:04)
[2024-12-25] MEDS: Loratadine 10 MG TABLET PO (08:04)
[2024-12-25] MEDS: Sertraline HCL 100 MG TABLET PO (08:04)
[2024-12-25] MEDS: 0.9 % Sodium Chloride Flush 3 ML SYRINGE IVFLUSH (08:06)
[2024-12-25] MEDS: vancomycin HCL 1,250 MG in 0.9 % Sodium Chloride 250 ML 166.67 MG IV ×2 (08:44)
--- NOTE | 2024-12-25 10:15 | PM.DS ---
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 He has had a temp of up to 103. Work up WBC 9.4, CXR no PNA, CT of abd pelvis no acute finding, CT chest no pneumonia. Given IV Vanco and Zosyn due to concern for bacteremia hospital course: The patient was admitted due to a fever, with a history of HIV, hepatitis C, and intravenous drug use (IVDA), raising concern for possible bacteremia. He was started on broad-spectrum antibiotics, vancomycin and Zosyn. Since admission, he has had no further fevers, and diagnostic workup?including blood cultures (negative at 48 hours), urinalysis, chest X-ray, CT of the abdomen/pelvis, and tests for flu/RSV/COVID?has been negative. The fever is likely drug-related, and at this point, no further antibiotics are indicated. Continue his usual medications.. Time Attestation Discharge Coordination Time (in mins): 40 Quality: Safe Use of Opioids Does Pt have an Active Cancer Diagnosis on the Problem List?: No Quality: Stroke Does the patient have a stroke diagnosis?: No Physical Exam Vital Signs: Vital Signs: Last Vital Signs Temp 97.2 F 12/25/24 07:56 Pulse 73 12/25/24 07:56 Resp 12 12/25/24 07:56 BP 142/87 H 12/25/24 07:56 Pulse Ox 99 12/25/24 07:56 O2 Del Method Room Air 12/25/24 07:56 BMI result Body Mass Index 25.5 Const: Other: General: AO X 3, no acute distress Resp: CTA bilateral CVS: S1,S2,RRR GI: +BS, NT, no distention Skin: No rash Neuro: motor grossly intact Psych: appropriate affect DS: Data Data Completed and Pending Labs on day of discharge: Laboratory Results - last 24 hr 12/24/24 12/24/24 12/25/24 14:57 18:23 05:47 Creatinine 0.74 Estim Creat Clear Calc 129.3 Estimated GFR > 60 Random Vancomycin 15.5 C. difficile Tox B Gene NEGATIVE Preliminary micro results at discharge 12/22/24 14:10 Blood Culture - Preliminary Blood - Venous No growth after 48 hours. 12/22/24 14:10 Blood Culture - Preliminary Blood - Venous No growth after 48 hours. Discharge Plan Discharge Anticipated Discharge Date/Time: 12/25/24 10:18 Patient Disposition: Home, Self-Care Discharge Diagnosis: Fever, flu like symptoms Referrals: Yasmine Hardin MD [Primary Care Provider] - 1 Week Discharge Medications: Continued aripiprazole 2 mg tablet 2 mg PO DAILY nicotine (polacrilex) 2 mg gum 2 mg PO Q2-3H PRN (Reason: Smoking Cessation) zolpidem 5 mg tablet 5 mg PO BEDTIME PRN (Reason: insomnia) clonidine HCl 0.1 mg tablet 0.1 mg PO BID PRN (Reason: Anxiety) amlodipine 5 mg tablet 5 mg PO DAILY Qty: 30 0RF bupropion HCl 150 mg Tablet Extended Release 24 Hr 150 mg PO DAILY 30 Days Qty: 30 0RF hydroxyzine HCl 25 mg Tablet 25 mg PO Q6H PRN (Reason: mild Anxiety) 30 Days Qty: 90 0RF sertraline 100 mg Tablet 100 mg PO DAILY 30 Days Qty: 30 0RF loratadine [Allergy Relief (loratadine)] 10 mg tablet 10 mg PO DAILY 30 Days Qty: 30 0RF Dovato 50-300 mg tablet 1 tab PO DAILY 30 Days Qty: 30 0RF Diet: Advance to usual diet Activity on Discharge: As tolerated Stand Alone Forms: Patient Portal Discharge page Print Language: Cypriot Care Plan Goals: recovery from fever and flu like symptoms Health Concerns: hiv flu like symptoms fever Plan of Treatment: continue all your prior medications avoid substance use follow up with your doctor in a week Assessment: see above
--- NOTE | 2024-12-25 12:22 | MHC.CM.PN ---
CM MET WITH PT TO DISCUSS DC PLANNING PT IS AWARE HE HAS BEEN MEDICALLY CLEARED HE AGAIN DECLINES LONG TERM REFERRALS HE REPORTS HE WILL GO TO A FRIENDS HOME AND HAS A RIDE COMING AFTER 1300 HOURS
[2024-12-25 13:35] LABS: Syphilis Screen Reactive (Nonreactive)
[2024-12-28 20:32] LABS: Absolute CD3 Count 1392 cells/uL (840-3060); Absolute CD4 Count 799 cells/uL (490-1740); Absolute CD8 Count 606 cells/uL (180-1170); Absolute Lymphocytes 1625 cells/uL (850-3900); CD4 CD8 Ratio 1.32 (0.86-5.00); Percent CD3 Cells 86 % (57-85); Percent CD4 Cells 49 % (30-61); Percent CD8 Cells 37 % (12-42)
[2025-01-01 09:41] LABS: RPR Quantitative Reactive 1:2 (Nonreactive)
[2025-01-01 09:42] LABS: T.Pallidum Particle Agg Test Reactive (Nonreactive)
== END 2024-12-25 12:35 | disposition home or self-care (01) | DRG 722 ==
LOC: HO.ED 16:47 → HO.EDOVER 17:19 → HO.S3 19:15
PROVIDERS: Admitting Provider Student in an Organized Health Care Education/Training Program; Emergency Provider Emergency Medicine; PCP Internal Medicine; Visit Provider Internal Medicine
DX: R50.9 Fever, unspecified (principal); F15.20 Other stimulant dependence, uncomplicated; F39 Unspecified mood [affective] disorder; Z21 Asymptomatic human immunodeficiency virus [HIV] infection status; Z79.899 Other long term (current) drug therapy
CPT/HCPCS: 36415; 71045; 71260; 74177; 80048; 80051; 80053; 80202; 82247; 82565; 83605; 85007; 85025; 85027; 85610; 85652; 85730; 86140; 86359; 86360; 86592; 86780; 87040; 87086; 87493; 99221; 99285; J1650; J1885; J2405; J2543; J3370; J3371; J7120; Q9967

== ENCOUNTER → 2024-12-22 13:51 | Outpatient (BNV) | payer OTHER, SELFPAY | PROVIDERS: Emergency Provider Emergency Medicine; PCP Internal Medicine; Visit Provider Radiology Diagnostic Radiology | DX: K63.89 Other specified diseases of intestine (principal); R59.0 Localized enlarged lymph nodes; A41.9 Sepsis, unspecified organism; F19.10 Other psychoactive substance abuse, uncomplicated; R10.9 Unspecified abdominal pain; R50.9 Fever, unspecified | CPT/HCPCS: 71045; 71260; 74177 ==

== ENCOUNTER → 2024-12-22 17:07 | Outpatient (BNV) | payer OTHER, SELFPAY | PROVIDERS: Admitting Provider Student in an Organized Health Care Education/Training Program; Emergency Provider Emergency Medicine; PCP Internal Medicine; Visit Provider Internal Medicine | DX: B20 Human immunodeficiency virus [HIV] disease (principal); R50.9 Fever, unspecified | CPT/HCPCS: 99223; 99232; 99239 ==